=== PATIENT | female | born 1945 | race Caucasian/White ===

== ENCOUNTER 2016-10-20 14:48 | Emergency (ER) | payer MEDICARE, BC ==
--- NOTE | 2016-10-20 15:25 | EDM.PDOC ---
ED HPI GENERAL MEDICAL PROBLEM - General Chief Complaint: General Stated Complaint: ARM PAIN AND LIGHT HEADED Time Seen by Provider: 10/20/16 15:17 Source of Information: Reports: Patient History Limitations: Reports: No limitations - History of Present Illness INITIAL COMMENTS - FREE TEXT/NARRATIVE: pt arrived with a history of a painful arm particulatly when she walks. She has had to quit walking because she has had so much pain. Onset: gradual, other ( this has been going on for at least 1 month. ) Duration: Waxing/waning Location: Reports: upper extremity, left, other ( She did have some left chest pain suddenly a couple of days ago. ) Associated Symptoms: Reports: chest pain, shortness of breath, other ( left arm pain. ) Left Arm Pain Score (Numeric/FACES): 4 - Related Data Allergies Allergy/AdvReac Type Severity Reaction Status Date / Time No Known Allergies Allergy Verified 06/10/15 16:42 Past Medical History HEENT History: Reports: Impaired vision Oncologic (Cancer) History: Reports: Lymphoma - Infectious Disease History Infectious Disease History: Reports: Chicken pox, Measles, Mumps - Past Surgical History GI Surgical History: Reports: Appendectomy Female Surgical History: Reports: Hysterectomy Endocrine Surgical History: Reports: Thyroidectomy Oncologic Surgical History: Reports: Other (see below) Other Oncologic Surgeries/Procedures: lymph nodes in neck removed. Social & Family History - Tobacco Use Smoking Status *Q: Never Smoker Second Hand Smoke Exposure: No - Caffeine Use Caffeine Use: Reports: Coffee - Alcohol Use Days Per Week of Alcohol Use: 0 - Recreational Drug Use Recreational Drug Use: No ED ROS GENERAL - Review of Systems Review Of Systems: See Below Constitutional: Reports: no symptoms HEENT: Reports: No symptoms Respiratory: Reports: No Symptoms Cardiovascular: Reports: Other (pt is having left arm pain which gets much worse when he walks or exercises. ) Endocrine: Reports: no symptoms GI/Abdominal: Reports: No symptoms : Reports: no symptoms Musculoskeletal: Reports: no symptoms Skin: Reports: no symptoms ED EXAM, GENERAL - Physical Exam Exam: See Below Exam Limited By: No limitations General Appearance: alert, anxious Ears: normal TMs Nose: normal inspection Throat/Mouth: Normal inspection Head: atraumatic Neck: normal inspection Respiratory/Chest: other (Pt has sob when she ambulates) Cardiovascular: regular rate, rhythm, other (She does feel like her heart races at times. ) GI/Abdominal: soft, non tender Rectal (Female) Exam: Deferred Back Exam: normal inspection Extremities: normal inspection Neurological: alert, oriented Psychiatric: normal affect Course - Vital Signs Last Recorded V/S: Last Vital Signs Temp 36.9 C 10/20/16 15:07 Pulse 69 10/20/16 16:11 Resp 16 10/20/16 16:11 BP 139/75 10/20/16 16:11 Pulse Ox 95 10/20/16 16:11 - Orders/Labs/Meds Orders: Active Orders 24 hr Category Date Time Status EKG Documentation Completion [RC] ASDIRECTED Care 10/20/16 15:28 Active Chest 1V Frontal [CR] Stat Exams 10/20/16 15:28 Taken CULTURE URINE [RM] Stat Lab 10/20/16 16:59 Uncollected EKG 12 Lead [EK] Routine Ther 10/20/16 15:28 Ordered Labs: Laboratory Tests 10/20/16 10/20/16 10/20/16 Range/Units 15:32 15:32 15:32 WBC 173.9 H* (4.5-11.0) K/uL RBC 3.01 L (3.30-5.50) M/uL Hgb 9.0 L (12.0-15.0) g/dL Hct 28.4 L (36.0-48.0) % MCV 94 (80-98) fL MCH 30 (27-31) pg MCHC 32 (32-36) % Plt Count 182 (150-400) K/uL Add Manual Diff Yes Neutrophils % (Manual) 6 L (36-66) % Lymphocytes % (Manual) 91 H (24-44) % Monocytes % (Manual) 1 L (2-6) % Promyelocytes % 0 % Blast Cells % 2 % Polychromasia Sodium 141 (140-148) mmol/L Potassium 3.9 (3.6-5.2) mmol/L Chloride 107 (100-108) mmol/L Carbon Dioxide 26 (21-32) mmol/L Anion Gap 7.7 (5.0-14.0) mmol/L BUN 32 H (7-18) mg/dL Creatinine 1.2 H (0.6-1.0) mg/dL Est Cr Clr Drug Dosing 25.05 mL/min Estimated GFR (MDRD) 44 L (>60) Glucose 111 H (74-106) mg/dL Calcium 8.4 L (8.5-10.1) mg/dL Total Bilirubin 0.3 (0.2-1.0) mg/dL AST 37 (15-37) U/L ALT 31 (12-78) U/L Alkaline Phosphatase 158 H (46-116) U/L Creatine Kinase 107 (26-192) U/L Troponin I < 0.017 (0.000-0.056) ng/mL Total Protein 7.3 (6.4-8.2) g/dL Albumin 3.9 (3.4-5.0) g/dL Globulin 3.4 (2.3-3.5) g/dL Albumin/Globulin Ratio 1.1 L (1.2-2.2) Urine Color Urine Appearance Urine pH (4.5-8.0) Ur Specific [place] (1.008-1.030) Urine Protein (NEGATIVE) mg/dL Urine Glucose (UA) (NEGATIVE) mg/dL Urine Ketones (NEGATIVE) mg/dL Urine Occult Blood (NEGATIVE) Urine Nitrite (NEGATIVE) Urine Bilirubin (NEGATIVE) Urine Urobilinogen (NORMAL) mg/dL Ur Leukocyte Esterase (NEGATIVE) Urine RBC (0-5) Urine WBC (0-5) Ur Epithelial Cells Amorphous Sediment Urine Bacteria Urine Mucus 10/20/16 Range/Units 16:35 WBC (4.5-11.0) K/uL RBC (3.30-5.50) M/uL Hgb (12.0-15.0) g/dL Hct (36.0-48.0) % MCV (80-98) fL MCH (27-31) pg MCHC (32-36) % Plt Count (150-400) K/uL Add Manual Diff Neutrophils % (Manual) (36-66) % Lymphocytes % (Manual) (24-44) % Monocytes % (Manual) (2-6) % Promyelocytes % % Blast Cells % % Polychromasia Sodium (140-148) mmol/L Potassium (3.6-5.2) mmol/L Chloride (100-108) mmol/L Carbon Dioxide (21-32) mmol/L Anion Gap (5.0-14.0) mmol/L BUN (7-18) mg/dL Creatinine (0.6-1.0) mg/dL Est Cr Clr Drug Dosing mL/min Estimated GFR (MDRD) (>60) Glucose (74-106) mg/dL Calcium (8.5-10.1) mg/dL Total Bilirubin (0.2-1.0) mg/dL AST (15-37) U/L ALT (12-78) U/L Alkaline Phosphatase (46-116) U/L Creatine Kinase (26-192) U/L Troponin I (0.000-0.056) ng/mL Total Protein (6.4-8.2) g/dL Albumin (3.4-5.0) g/dL Globulin (2.3-3.5) g/dL Albumin/Globulin Ratio (1.2-2.2) Urine Color Yellow Urine Appearance Clear Urine pH 7.0 (4.5-8.0) Ur Specific [place] 1.015 (1.008-1.030) Urine Protein Negative (NEGATIVE) mg/dL Urine Glucose (UA) Normal (NEGATIVE) mg/dL Urine Ketones Negative (NEGATIVE) mg/dL Urine Occult Blood Moderate (NEGATIVE) Urine Nitrite Negative (NEGATIVE) Urine Bilirubin Negative (NEGATIVE) Urine Urobilinogen Normal (NORMAL) mg/dL Ur Leukocyte Esterase Large (NEGATIVE) Urine RBC 0-5 (0-5) Urine WBC 5-10 H (0-5) Ur Epithelial Cells Few Amorphous Sediment Not seen Urine Bacteria Few Urine Mucus Not seen - Re-Assessments/Exams Free Text/Narrative Re-Assessment/Exam: 10/20/16 15:52 pt arrived with a history of left arm pain particularly when she ambulates. She also gets sob. She has quit walking because it is too uncomfortable. 10/20/16 17:16 pt has a wbc of 173,ooo. Her hg has dropped from 10 to 9. She is more sob. Departure - Departure Time of Disposition: 15:56 Disposition: Home, Self-Care 01 Condition: fair Clinical Impression: Angina effort, Anemia, Chronic lymphocytic leukemia Referrals: Reginaldo Penaloza MD [Primary Care Provider] - Forms: ED Department Discharge Care Plan Goals: rtc for a stress test. ( This was discussed with her oncologist and he felt she could have a exercise stress test]. appt with oncology . in 1 week to look at her counts. rtc if she should suddenly get worse. - My Orders Last 24 Hours: My Active Orders 10/20/16 15:28 EKG Documentation Completion [RC] ASDIRECTED Chest 1V Frontal [CR] Stat EKG 12 Lead [EK] Routine 10/20/16 16:59 CULTURE URINE [RM] Stat - Assessment/Plan Last 24 Hours: My Active Orders 10/20/16 15:28 EKG Documentation Completion [RC] ASDIRECTED Chest 1V Frontal [CR] Stat EKG 12 Lead [EK] Routine 10/20/16 16:59 CULTURE URINE [RM] Stat
[2016-10-20 16:12] VITALS: BP 139/75
--- NOTE | 2016-10-21 09:09 | CR ---
Chest 1V Frontal HISTORY: Shortness of breath. Comparison: 06/10/2015. FINDINGS: Cardiac size and pulmonary vessels are normal. The lungs are clear. IMPRESSION: Negative AP chest.
== END 2016-10-20 17:40 | disposition home or self-care (01) ==
LOC: JP.ED 14:48
DX: I20.8 Other forms of angina pectoris (principal); D64.9 Anemia, unspecified; C91.10 Chronic lymphocytic leukemia of B-cell type not having achieved remission; Z85.72 Personal history of non-Hodgkin lymphomas; Z90.49 Acquired absence of other specified parts of digestive tract; Z90.710 Acquired absence of both cervix and uterus; Z90.89 Acquired absence of other organs
CPT/HCPCS: 36415; 71010; 71010-26; 80053; 81001; 82550; 84484; 85025; 93005; 93010; 99283; 99283-25

== ENCOUNTER 2017-04-22 13:40 | Emergency (ER) | payer MEDICARE, BC ==
[2017-04-22 14:23] VITALS: BP 128/62
[2017-04-22] MEDS ORDERED: Diphtheria,Pertussis(Acell),Tetanus Vaccine 0.5 ML SDV IM ONE (14:27)
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
== END 2017-04-22 14:47 | disposition home or self-care (01) ==
LOC: JP.ED 13:40
DX: T22.212A Burn of second degree of left forearm, initial encounter (principal); I10 Essential (primary) hypertension; E78.00 Pure hypercholesterolemia, unspecified; Z79.899 Other long term (current) drug therapy; X19.XXXA Contact with other heat and hot substances, initial encounter; Z23 Encounter for immunization
CPT/HCPCS: 90471; 90715; 99283; 99283-25

== ENCOUNTER 2018-02-15 23:54 | Emergency (ER) | payer MEDICARE, BC ==
[2018-02-16 00:21] VITALS: BP 154/66
[2018-02-16] MEDS ORDERED: Ketorolac 30 MG/ML SDV IVPUSH ONE (00:22)
[2018-02-16] MEDS ORDERED: HYDROmorphone 0.5 MG/0.5 ML Syringe IVPUSH ONE (00:22)
[2018-02-16] MEDS ORDERED: Sodium Chloride 0.9% 10 ML Syringe FLUSH PRN (00:22)
[2018-02-16] MEDS ORDERED: methylPREDNISolone Sodium Succinate 125 MG/2 ML SDV IVPUSH ONE (00:54)
--- NOTE | 2018-02-16 01:01 | EDM.PDOC ---
ED HPI GENERAL MEDICAL PROBLEM - General Chief Complaint: Neck Problem Stated Complaint: STIFF NECK LOTS OF PAIN Time Seen by Provider: 02/16/18 00:20 Source of Information: Reports: Patient History Limitations: Reports: No Limitations - History of Present Illness INITIAL COMMENTS - FREE TEXT/NARRATIVE: 72-year-old female with very significant neck pain. She woke up 5 days ago with a stiff neck, its been bothering her all week so she went to a chiropractor earlier today and had a manipulation and tonight she is very sore. A small amount of pain radiating into the right shoulder but none down the extremities. The chiropractor told her it was "wryneck". Onset: Gradual Severity: Moderate Associated Symptoms: Reports: No Other Symptoms neck Pain Score (Numeric/FACES): 10 - Related Data Allergies Allergy/AdvReac Type Severity Reaction Status Date / Time No Known Allergies Allergy Verified 02/16/18 00:09 Home Meds: Home Meds Ibrutinib [Imbruvica] 320 mg PO BEDTIME 04/22/17 [History] Metoprolol Succinate 25 mg PO DAILY 04/22/17 [History] Aspirin [Adult Low Dose Aspirin EC] 81 mg PO DAILY 02/16/18 [History] Simvastatin [Zocor] 40 mg PO BEDTIME 02/16/18 [History] Past Medical History HEENT History: Reports: Impaired Vision Cardiovascular History: Reports: High Cholesterol, Hypertension, Stents Oncologic (Cancer) History: Reports: Lymphoma - Infectious Disease History Infectious Disease History: Reports: Chicken Pox, Measles, Mumps - Past Surgical History GI Surgical History: Reports: Appendectomy Female Surgical History: Reports: Hysterectomy Endocrine Surgical History: Reports: Thyroidectomy Oncologic Surgical History: Reports: Other (See Below) Social & Family History - Tobacco Use Smoking Status *Q: Never Smoker - Caffeine Use Caffeine Use: Reports: Coffee - Recreational Drug Use Recreational Drug Use: No ED ROS GENERAL - Review of Systems Review Of Systems: See Below Constitutional: Denies: Chills HEENT: Denies: Throat Pain Respiratory: Denies: Shortness of Breath Cardiovascular: Denies: Chest Pain GI/Abdominal: Denies: Abdominal Pain, Nausea, Vomiting Musculoskeletal: Reports: Neck Pain Neurological: Denies: Headache, Paresthesia ED EXAM, UPPER BACK/NECK PAIN - Physical Exam Exam: See Below Exam Limited By: No Limitations General Appearance: Alert, Moderate Distress (Patient is very uncomfortable, holding her neck still) Head Exam: Atraumatic Neck Exam: Paraspinous Muscle Tender (Patient is extremely tender to palpation along the posterior paraspinous muscles of the neck, particularly on the right side into the right trapezius area) Back Exam: Normal Inspection. No: Vertebral Tenderness Extremities: No: Pedal Edema Neurologic: Oriented x 3 Skin Exam: Normal Color, Warm/Dry Course - Vital Signs Last Recorded V/S: Last Vital Signs Temp 97.1 F 02/16/18 00:13 Pulse 62 02/16/18 00:13 Resp 18 02/16/18 00:13 BP 154/66 H 02/16/18 00:13 Pulse Ox 97 02/16/18 00:13 - Orders/Labs/Meds Orders: Active Orders 24 hr Category Date Time Status Sodium Chloride 0.9% [Saline Flush] Med 02/16/18 00:22 Active 10 ml FLUSH ASDIRECTED PRN Saline Lock Insert [OM.PC] Routine Oth 02/16/18 00:22 Ordered Medication Orders Sodium Chloride (Saline Flush) 10 ml FLUSH ASDIRECTED PRN PRN Reason: Keep Vein Open Last Admin: 02/16/18 00:31 Dose: 10 ml Meds: Medications Generic Name Dose Route Start Last Admin Trade Name Freq PRN Reason Stop Dose Admin Sodium Chloride 10 ml 02/16/18 00:22 02/16/18 00:31 Saline Flush FLUSH 10 ml ASDIRECTED PRN Administration Keep Vein Open Discontinued Medications Generic Name Dose Route Start Last Admin Trade Name Freq PRN Reason Stop Dose Admin Hydromorphone HCl 0.5 mg 02/16/18 00:22 02/16/18 00:30 Dilaudid IVPUSH 02/16/18 00:23 0.5 mg ONETIME ONE Administration Ketorolac Tromethamine 30 mg 02/16/18 00:22 02/16/18 00:28 Toradol IVPUSH 02/16/18 00:23 30 mg ONETIME ONE Administration Methylprednisolone Sodium Succinate 125 mg 02/16/18 00:54 02/16/18 01:00 Solu-Medrol IVPUSH 02/16/18 00:55 125 mg ONETIME ONE Administration - Re-Assessments/Exams Free Text/Narrative Re-Assessment/Exam: 02/16/18 00:57 A saline lock was inserted, and the patient was given 30 mg of IV Toradol along with 0.5 mg of IV Dilaudid. Within 30 minutes she had significant relief but still some pain. She was then given 125 mg of Solu-Medrol IV and will be discharged with 10 doses of hydrocodone to take for extra pain control. A soft cervical collar was fitted that she can wear just for support while resting but should try to be active without the collar for a good portion of the day. I asked her to recheck with her regular physician to get physical therapy initiated. 02/16/18 01:04 Patient was also fitted with a soft cervical collar to wear just for pain relief on an as-needed basis. Departure - Departure Time of Disposition: 01:20 Disposition: Home, Self-Care 01 Condition: Fair Clinical Impression: Wryneck Strain of neck Qualifiers: Encounter type: initial encounter Qualified Code(s): S16.1XXA - Strain of muscle, fascia and tendon at neck level, initial encounter - Discharge Information Instructions: Acute Torticollis, Adult Referrals: Reginaldo Penaloza MD [Primary Care Provider] - Forms: ED Department Discharge Care Plan Goals: Continue with a regular dose of ibuprofen or naproxen, and add stronger pain medications as directed if needed over the next several days. Heat to the neck may help along with gentle range of motion, and call Dr. Penaloza to arrange a physical therapy consultation for further treatment. - My Orders Last 24 Hours: My Active Orders 02/16/18 00:22 Sodium Chloride 0.9% [Saline Flush] 10 ml FLUSH ASDIRECTED PRN Saline Lock Insert [OM.PC] Routine - Assessment/Plan Last 24 Hours: My Active Orders 02/16/18 00:22 Sodium Chloride 0.9% [Saline Flush] 10 ml FLUSH ASDIRECTED PRN Saline Lock Insert [OM.PC] Routine
== END 2018-02-16 01:20 | disposition home or self-care (01) ==
LOC: JP.ED 23:54
DX: S16.1XXA Strain of muscle, fascia and tendon at neck level, initial encounter (principal); M43.6 Torticollis; I10 Essential (primary) hypertension; X58.XXXA Exposure to other specified factors, initial encounter; Z79.82 Long term (current) use of aspirin
CPT/HCPCS: 99283; J1170; J1885; J2930; J7050

== ENCOUNTER 2020-06-07 18:50 | Emergency (ER) | payer MEDICARE, BC ==
[2020-06-07 19:16] VITALS: BP 135/69; PULSE 73
--- NOTE | 2020-06-07 19:26 | EDM.PDOC ---
ED HPI GENERAL MEDICAL PROBLEM - General Chief Complaint: General Stated Complaint: SICK FOR A COUPLE WEEKS Time Seen by Provider: 06/07/20 19:20 Source of Information: Reports: Patient, Family, Old Records, RN History Limitations: Reports: No Limitations - History of Present Illness INITIAL COMMENTS - FREE TEXT/NARRATIVE: 74 yo female was dx a couple weeks ago with Covid. She went to the clinic this past Monday or Monday and was placed on prednisone and azithromycin. The niece noted this evening that Anna had a low oximeter reading at home so brought her into the ER. Has been running intermittent fevers most of the week. Had diarrhea early in the week, not now. No dysuria. Has as cough that is much improved. No rash. No RICHARDS. No sore throat or ear ache. Onset: Gradual Duration: Week(s): (2), Waxing/Waning Location: Reports: Generalized Quality: Reports: Ache (diffuse) Severity: Mild Improves with: Reports: Medication Worsens with: Reports: Other (meds wearing off) Context: Reports: Other (See HPI) Associated Symptoms: Reports: Chest Pain, Cough (mild, improving), Fever/Chills, Malaise, Shortness of Breath (mild). Denies: Diaphoresis, Headaches, Nausea/Vomiting, Rash Treatments [employer]: Reports: Acetaminophen - Related Data Allergies Allergy/AdvReac Type Severity Reaction Status Date / Time No Known Allergies Allergy Verified 06/07/20 19:05 Home Meds: Home Meds Ibrutinib [Imbruvica] 320 mg PO BEDTIME 04/22/17 [History] Metoprolol Succinate 25 mg PO DAILY 04/22/17 [History] Aspirin [Adult Low Dose Aspirin EC] 81 mg PO DAILY 02/16/18 [History] Simvastatin [Zocor] 40 mg PO BEDTIME 02/16/18 [History] Sulfamethoxazole/Trimethoprim [Bactrim Ds Tablet] 1 each PO Q12H #13 tablet 06/07/20 [Rx] Past Medical History HEENT History: Reports: Impaired Vision Cardiovascular History: Reports: High Cholesterol, Hypertension, Stents Oncologic (Cancer) History: Reports: Lymphoma - Infectious Disease History Infectious Disease History: Reports: Chicken Pox, Measles, Mumps - Past Surgical History GI Surgical History: Reports: Appendectomy Female Surgical History: Reports: Hysterectomy Endocrine Surgical History: Reports: Thyroidectomy Oncologic Surgical History: Reports: Other (See Below) Other Oncologic Surgeries/Procedures: lymph nodes in neck removed. Social & Family History - Tobacco Use Tobacco Use Status *Q: Never Tobacco User - Caffeine Use Caffeine Use: Reports: Coffee ED ROS GENERAL - Review of Systems Review Of Systems: See Below Constitutional: Reports: Fever, Chills, Malaise HEENT: Reports: No Symptoms Respiratory: Reports: Shortness of Breath (mild), Cough (mild). Denies: Pleuritic Chest Pain, Sputum, Hemoptysis Cardiovascular: Reports: No Symptoms Endocrine: Reports: No Symptoms GI/Abdominal: Reports: No Symptoms : Reports: No Symptoms Musculoskeletal: Reports: No Symptoms Skin: Reports: No Symptoms Neurological: Reports: No Symptoms Psychiatric: Reports: No Symptoms ED EXAM, GENERAL - Physical Exam Exam: See Below Exam Limited By: No Limitations General Appearance: Alert, WD/WN, No Apparent Distress Eye Exam: Bilateral Eye: Normal Inspection Ears: Normal External Exam, Normal Canal, Hearing Grossly Normal, Normal TMs Ear Exam: Bilateral Ear: Auricle Normal, Canal Normal, TM normal Nose: Normal Inspection, No Blood Throat/Mouth: Normal Inspection, Normal Lips, Normal Oropharynx, Normal Voice, No Airway Compromise Head: Atraumatic, Normocephalic Neck: Normal Inspection Respiratory/Chest: No Respiratory Distress, No Accessory Muscle Use, Rhonchi. No: Wheezing Cardiovascular: Regular Rate, Rhythm, No Edema GI/Abdominal: Normal Bowel Sounds, Soft, Non-Tender, No Distention Back Exam: Normal Inspection. No: CVA Tenderness (R), CVA Tenderness (L) Extremities: Normal Inspection, Non-Tender, No Pedal Edema Neurological: Alert, Oriented, CN II-XII Intact, Normal Cognition, No Motor/Sensory Deficits Psychiatric: Normal Affect, Normal Mood Skin Exam: Warm, Dry, Intact, Normal Color, No Rash Course - Vital Signs Text/Narrative:: Dr. Rey called @ Last Recorded V/S: Last Vital Signs Temp 37.2 C 06/07/20 19:15 Pulse 73 06/07/20 19:15 Resp 14 06/07/20 19:15 BP 135/69 06/07/20 19:15 Pulse Ox 89 L 06/07/20 19:15 - Orders/Labs/Meds Orders: Active Orders 24 hr Category Date Time Status CULTURE URINE [RM] Stat Lab 06/07/20 20:25 Ordered Labs: Laboratory Tests 06/07/20 06/07/20 06/07/20 Range/Units 19:37 19:45 19:45 WBC 40.5 H* 40.6 H* (4.5-11.0) K/uL RBC 3.91 3.91 (3.30-5.50) M/uL Hgb 11.5 L D 11.5 L (12.0-15.0) g/dL Hct 36.5 36.5 (36.0-48.0) % MCV 93 93 (80-98) fL MCH 29 29 (27-31) pg MCHC 31 L 32 (32-36) % Plt Count 252 252 (150-400) K/uL Add Manual Diff Yes Neutrophils % (Manual) 18 L (36-66) % Band Neutrophils % 3 L (5-11) % Lymphocytes % (Manual) 78 H (24-44) % Monocytes % (Manual) 1 L (2-6) % D-Dimer, Quantitative (0.0-500.0) ng/mL Sodium 139 L (140-148) mmol/L Potassium 3.7 (3.6-5.2) mmol/L Chloride 104 (100-108) mmol/L Carbon Dioxide 25 (21-32) mmol/L Anion Gap 13.7 (5.0-14.0) mmol/L BUN 34 H (7-18) mg/dL Creatinine 1.2 H (0.6-1.0) mg/dL Est Cr Clr Drug Dosing 37.92 mL/min Estimated GFR (MDRD) 44 L (>60) Glucose 127 H (74-106) mg/dL Calcium 7.7 L (8.5-10.1) mg/dL Urine Color (YELLOW) Urine Appearance (CLEAR) Urine pH (5.0-8.0) Ur Specific [place] (1.008-1.030) Urine Protein (NEGATIVE) mg/dL Urine Glucose (UA) (NEGATIVE) mg/dL Urine Ketones (NEGATIVE) mg/dL Urine Occult Blood (NEGATIVE) Urine Nitrite (NEGATIVE) Urine Bilirubin (NEGATIVE) Urine Urobilinogen (0.2-1.0) EU/dL Ur Leukocyte Esterase (NEGATIVE) Urine RBC (0-5) Urine WBC (0-5) Ur Epithelial Cells Urine Bacteria 06/07/20 06/07/20 Range/Units 19:45 19:50 WBC (4.5-11.0) K/uL RBC (3.30-5.50) M/uL Hgb (12.0-15.0) g/dL Hct (36.0-48.0) % MCV (80-98) fL MCH (27-31) pg MCHC (32-36) % Plt Count (150-400) K/uL Add Manual Diff Neutrophils % (Manual) (36-66) % Band Neutrophils % (5-11) % Lymphocytes % (Manual) (24-44) % Monocytes % (Manual) (2-6) % D-Dimer, Quantitative 655.03 H (0.0-500.0) ng/mL Sodium (140-148) mmol/L Potassium (3.6-5.2) mmol/L Chloride (100-108) mmol/L Carbon Dioxide (21-32) mmol/L Anion Gap (5.0-14.0) mmol/L BUN (7-18) mg/dL Creatinine (0.6-1.0) mg/dL Est Cr Clr Drug Dosing mL/min Estimated GFR (MDRD) (>60) Glucose (74-106) mg/dL Calcium (8.5-10.1) mg/dL Urine Color Yellow (YELLOW) Urine Appearance Clear (CLEAR) Urine pH 5.5 (5.0-8.0) Ur Specific [place] >= 1.030 (1.008-1.030) Urine Protein 30 H (NEGATIVE) mg/dL Urine Glucose (UA) Negative (NEGATIVE) mg/dL Urine Ketones Negative (NEGATIVE) mg/dL Urine Occult Blood Moderate H (NEGATIVE) Urine Nitrite Negative (NEGATIVE) Urine Bilirubin Negative (NEGATIVE) Urine Urobilinogen 0.2 (0.2-1.0) EU/dL Ur Leukocyte Esterase Small H (NEGATIVE) Urine RBC 0-5 (0-5) Urine WBC 75-100 H (0-5) Ur Epithelial Cells Few Urine Bacteria Few Meds: Medications Discontinued Medications Generic Name Dose Route Start Last Admin Trade Name Freq PRN Reason Stop Dose Admin Trimethoprim/Sulfamethoxazole 1 tab 06/07/20 20:27 Septra Ds PO 06/07/20 20:28 ONETIME ONE - Radiology Interpretation Free Text/Narrative:: CXR- FINDINGS: Cardiovascular and mediastinum: Heart size and vasculature are normal in caliber and appearance. Mediastinum is within normal limits. Lungs and pleural spaces: Mid to lower lung infiltrates consistent with pneumonia including COVID pneumonia. No pleural effusion. Bones and soft tissues: No significant findings. Dictated by Stephanie Lowry MD @ Jun 07 2020 8:05PM Departure - Departure Time of Disposition: 20:40 Disposition: Home, Self-Care 01 Condition: Fair Clinical Impression: Hypoxia UTI (urinary tract infection) Qualifiers: Urinary tract infection type: site unspecified Hematuria presence: without hematuria Qualified Code(s): N39.0 - Urinary tract infection, site not specified - Discharge Information *PRESCRIPTION DRUG MONITORING PROGRAM REVIEWED*: Not Applicable *COPY OF PRESCRIPTION DRUG MONITORING REPORT IN PATIENT [place]OMON: Not Applicable Prescriptions: Sulfamethoxazole/Trimethoprim [Bactrim Ds Tablet] 1 each PO Q12H #13 tablet Referrals: Reginaldo Penaloza MD [Primary Care Provider] - Forms: ED Department Discharge Additional Instructions: Drink more fluids so that your urine is light yellow in color. Take Bactrim DS every 12 hrs, your Rx went to [facility]. Take acetaminophen as needed for fever control. Recheck by tomorrow afternoon in the clinic to have your oxygen level rechecked, you were 89% tonight. Sepsis Event Note (ED) - Evaluation Sepsis Screening Result: No Definite Risk - Focused Exam Vital Signs: Vital Signs Temp Pulse Resp BP Pulse Ox 06/07/20 19:15 37.2 C 73 14 135/69 89 L - My Orders Last 24 Hours: My Active Orders 06/07/20 20:25 CULTURE URINE [RM] Stat - Assessment/Plan Last 24 Hours: My Active Orders 06/07/20 20:25 CULTURE URINE [RM] Stat
--- NOTE | 2020-06-07 20:08 | CRLCR ---
INDICATION: Hypoxia TECHNIQUE: Chest 2 views. COMPARISON: 10/20/2016 FINDINGS: Cardiovascular and mediastinum: Heart size and vasculature are normal in caliber and appearance. Mediastinum is within normal limits. Lungs and pleural spaces: Mid to lower lung infiltrates consistent with pneumonia including COVID pneumonia. No pleural effusion. Bones and soft tissues: No significant findings. Dictated by Stephanie Lowry MD @ Jun 07 2020 8:05PM Signed by Dr. Stephanie Lowry @ Jun 07 2020 8:07PM
[2020-06-07] MEDS ORDERED: Sulfamethoxazole/Trimethoprim 800-160 MG Tab PO ONE (20:27)
== END 2020-06-07 21:15 | disposition home or self-care (01) ==
LOC: JP.ED 18:50
DX: N39.0 Urinary tract infection, site not specified (principal); R09.02 Hypoxemia; E78.00 Pure hypercholesterolemia, unspecified; I10 Essential (primary) hypertension; Z86.19 Personal history of other infectious and parasitic diseases; Z79.82 Long term (current) use of aspirin; Z79.899 Other long term (current) drug therapy
CPT/HCPCS: 36415; 71046; 80048; 81001; 85025; 85027; 85379; 87086; 99283; 99284; A9270

== ENCOUNTER 2020-06-09 18:32 | Inpatient (IN) | payer MEDICARE, BC ==
--- NOTE | 2020-06-09 18:52 | EDM.PDOC ---
ED HPI GENERAL MEDICAL PROBLEM - General Chief Complaint: Respiratory Problem Stated Complaint: SICK Time Seen by Provider: 06/09/20 18:42 Source of Information: Reports: Patient History Limitations: Reports: No Limitations - History of Present Illness INITIAL COMMENTS - FREE TEXT/NARRATIVE: patient presents to the ER today due to increasing weakness/fatigue, shortness of breath, dry heave vomiting, nausea, headache yesterday. denies any recent fever/chills--states had that last week when initially sick. she states that symptoms began around May, she finally went to her clinic doctor last week (mon or ) and was tested/dx COVID. she was placed on azithromycin & prednisone as an outpatient. returned to the ER on May due to noted home pulse ox being low (ER noted for 89%) she was worked up-noted for chest film of bilateral infiltrates c/w COVID pneumonia, possible UTI (neg urine culture--was sent home on bactrim), noted WBC-40 (has known CLL & was on prednisone tx). initial pulse ox 78% on room air in triage Onset: Other (reports initial symptoms May, was tested in clinic + COVID last monday, was in the ER on May for concern about hypoxia at home, d/c with UTI dx (but noted on review of chest film to have COVID pneumonia at that time)) Duration: Getting Worse Severity: Severe Associated Symptoms: Reports: Cough, Headaches, Loss of Appetite, Nausea/Vomiting, Shortness of Breath, Weakness - Related Data Allergies Allergy/AdvReac Type Severity Reaction Status Date / Time No Known Allergies Allergy Verified 06/07/20 19:05 Home Meds: Home Meds Ibrutinib [Imbruvica] 320 mg PO BEDTIME 04/22/17 [History] Metoprolol Succinate 25 mg PO DAILY 04/22/17 [History] Aspirin [Adult Low Dose Aspirin EC] 81 mg PO DAILY 02/16/18 [History] Simvastatin [Zocor] 40 mg PO BEDTIME 02/16/18 [History] Sulfamethoxazole/Trimethoprim [Bactrim Ds Tablet] 1 each PO Q12H #13 tablet 06/07/20 [Rx] Past Medical History HEENT History: Reports: Impaired Vision Cardiovascular History: Reports: High Cholesterol, Hypertension, Stents Oncologic (Cancer) History: Reports: Lymphoma - Infectious Disease History Infectious Disease History: Reports: Chicken Pox, Measles, Mumps - Past Surgical History GI Surgical History: Reports: Appendectomy Female Surgical History: Reports: Hysterectomy Endocrine Surgical History: Reports: Thyroidectomy Oncologic Surgical History: Reports: Other (See Below) Other Oncologic Surgeries/Procedures: lymph nodes in neck removed. Social & Family History - Caffeine Use Caffeine Use: Reports: Coffee ED ROS GENERAL - Review of Systems Review Of Systems: Comprehensive ROS is negative, except as noted in HPI. Constitutional: Reports: Fever, Weakness, Fatigue, Decreased Appetite HEENT: Reports: No Symptoms Respiratory: Reports: Shortness of Breath, Cough Cardiovascular: Reports: No Symptoms Endocrine: Reports: No Symptoms GI/Abdominal: Reports: Nausea, Vomiting (dry heaves) : Reports: No Symptoms Musculoskeletal: Reports: No Symptoms Skin: Reports: No Symptoms Neurological: Reports: Weakness Psychiatric: Reports: No Symptoms Hematologic/Lymphatic: Reports: No Symptoms Immunologic: Reports: No Symptoms ED EXAM, GENERAL - Physical Exam Exam: See Below Exam Limited By: No Limitations General Appearance: Alert, Moderate Distress (respiratory/SOB, weakness apparent as she appears to not feel well) Eye Exam: Bilateral Eye: EOMI, Normal Inspection, PERRL Ears: Normal External Exam Nose: Normal Inspection Throat/Mouth: Normal Inspection, Normal Lips, Normal Oropharynx, No Airway Compromise Head: Atraumatic, Normocephalic Neck: Normal Inspection, Supple, Non-Tender, Full Range of Motion. No: Lymphadenopathy (R), Lymphadenopathy (L) Respiratory/Chest: Chest Non-Tender, Respiratory Distress (moderate tachypnea/dyspnea with conversation, initial pulse ox on RA-78%, on 6L nc fluctuation 89-92%) Cardiovascular: Normal Peripheral Pulses, Regular Rate, Rhythm, No Edema, No Murmur Peripheral Pulses: 2+: Radial (L), Radial (R) GI/Abdominal: Normal Bowel Sounds, Soft, Non-Tender, No Distention (Female) Exam: Deferred Rectal (Female) Exam: Deferred Back Exam: Normal Inspection, Full Range of Motion Extremities: Normal Inspection, Normal Range of Motion, Non-Tender, No Pedal Edema, Normal Capillary Refill Neurological: Alert, Oriented, Normal Cognition, No Motor/Sensory Deficits Psychiatric: Normal Affect, Normal Mood Skin Exam: Warm, Dry, Intact, Normal Color #1 Interpretation EKG Date: 06/09/20 Time: 19:32 (read by physician at 1944) Rhythm: NSR (NSR, no STEMI, limb leads noted for baseline interference) Rate (Beats/Min): 72 P-Wave: Present (OR-187) QRS: Other (L-anterior fascicular block; QRS-94) QT: Normal (QT/QTc-415/455) Course - Vital Signs Text/Narrative:: 1845--d/w patient plan of care in setting of COVID dx with hypoxia likely COVID pneumonia. will obtain labs & chest film and plan for admission. d/w her code status--she stated when ask specifically that she did not want intubated/ventilator, no CPR, no difibrillation, no medications--she stated "just let me go if its my time". order for DNR/DNI entered. CLAUDIA Turner RN was present at bedside during this discussion Last Recorded V/S: Last Vital Signs Temp 98.3 F 06/09/20 18:57 Pulse 66 06/09/20 20:33 Resp 26 H 06/09/20 20:33 BP 108/57 L 06/09/20 20:33 Pulse Ox 90 L 06/09/20 20:33 - Orders/Labs/Meds Orders: Active Orders 24 hr Category Date Time Status Cardiac Monitoring [RC] .As Directed Care 06/09/20 19:10 Active EKG Documentation Completion [RC] ASDIRECTED Care 06/09/20 19:09 Active Notify Provider Vital Signs [RC] ASDIRECTED Care 06/09/20 19:04 Active Peripheral IV Care [RC] . DIRECTED Care 06/09/20 19:09 Active Pulse Oximetry [RC] CONTINUOUS Care 06/09/20 19:07 Active Up With Assistance [RC] ASDIRECTED Care 06/09/20 19:04 Active Vital Signs [RC] PER UNIT ROUTINE Care 06/09/20 19:04 Active Chest 1V Frontal [CR] Urgent Exams 06/09/20 19:04 Taken Sodium Chloride 0.9% [Normal Saline] 1,000 ml Med 06/09/20 19:04 Active IV ASDIRECTED Sodium Chloride 0.9% [Saline Flush] Med 06/09/20 19:04 Active 10 ml FLUSH ASDIRECTED PRN Sodium Chloride 0.9% [Saline Flush] Med 06/09/20 19:04 Active 10 ml FLUSH ASDIRECTED PRN ED Respiratory Adult Reflex [OM.PC] Click to Edit Oth 06/09/20 19:04 Ordered Peripheral IV Insertion Adult [OM.PC] Urgent Oth 06/09/20 19:04 Ordered Resuscitation Status Routine Resus Stat 06/09/20 19:04 Ordered EKG 12 Lead [EK] Urgent Ther 06/09/20 19:04 Ordered Medication Orders Sodium Chloride (Normal Saline) 1,000 mls @ 125 mls/hr IV ASDIRECTED ONE Stop: 06/10/20 03:03 Last Admin: 06/09/20 20:49 Dose: Not Given Documented by: HAL Sodium Chloride (Saline Flush) 10 ml FLUSH ASDIRECTED PRN PRN Reason: Keep Vein Open Last Admin: 06/09/20 19:38 Dose: 10 ml Documented by: HAL Sodium Chloride (Saline Flush) 10 ml FLUSH ASDIRECTED PRN PRN Reason: Keep Vein Open Last Admin: 06/09/20 19:38 Dose: 10 ml Documented by: HAL Labs: Laboratory Tests 06/09/20 06/09/20 06/09/20 Range/Units 19:28 19:28 19:28 WBC 22.7 H (4.5-11.0) K/uL RBC 3.70 (3.30-5.50) M/uL Hgb 10.9 L (12.0-15.0) g/dL Hct 33.7 L (36.0-48.0) % MCV 91 (80-98) fL MCH 30 (27-31) pg MCHC 32 (32-36) % Plt Count 239 (150-400) K/uL Neut % (Auto) 36 (36-66) % Lymph % (Auto) 59 H (24-44) % [place] % (Auto) 5 (2-6) % Eos % (Auto) 0 L (2-4) % Baso % (Auto) 0 (0-1) % PT 10.7 (9.5-12.0) sec INR 0.98 (0.80-1.20) APTT 34.5 (27.0-36.0) sec Sodium 133 L (140-148) mmol/L Potassium 4.2 (3.6-5.2) mmol/L Chloride 101 (100-108) mmol/L Carbon Dioxide 23 (21-32) mmol/L Anion Gap 13.2 (5.0-14.0) mmol/L BUN 23 H (7-18) mg/dL Creatinine 1.3 H (0.6-1.0) mg/dL Est Cr Clr Drug Dosing 34.81 mL/min Estimated GFR (MDRD) 40 L (>60) Glucose 112 H (74-106) mg/dL Lactic Acid (0.4-2.0) mmol/L Calcium 7.7 L (8.5-10.1) mg/dL Magnesium 2.0 (1.8-2.4) mg/dL Ferritin (8-388) ng/ml Total Bilirubin 0.5 D (0.2-1.0) mg/dL AST 120 H D (15-37) U/L ALT 119 H (12-78) U/L Alkaline Phosphatase 210 H (46-116) U/L Lactate Dehydrogenase (82-234) U/L Troponin I < 0.017 (0.000-0.056) ng/mL C-Reactive Protein (0.0-0.3) mg/dL Total Protein 5.3 L (6.4-8.2) g/dL Albumin 2.3 L (3.4-5.0) g/dL Globulin 3.0 (2.3-3.5) g/dL Albumin/Globulin Ratio 0.8 L (1.2-2.2) 06/09/20 06/09/20 06/09/20 Range/Units 19:28 19:28 19:28 WBC (4.5-11.0) K/uL RBC (3.30-5.50) M/uL Hgb (12.0-15.0) g/dL Hct (36.0-48.0) % MCV (80-98) fL MCH (27-31) pg MCHC (32-36) % Plt Count (150-400) K/uL Neut % (Auto) (36-66) % Lymph % (Auto) (24-44) % [place] % (Auto) (2-6) % Eos % (Auto) (2-4) % Baso % (Auto) (0-1) % PT (9.5-12.0) sec INR (0.80-1.20) APTT (27.0-36.0) sec Sodium (140-148) mmol/L Potassium (3.6-5.2) mmol/L Chloride (100-108) mmol/L Carbon Dioxide (21-32) mmol/L Anion Gap (5.0-14.0) mmol/L BUN (7-18) mg/dL Creatinine (0.6-1.0) mg/dL Est Cr Clr Drug Dosing mL/min Estimated GFR (MDRD) (>60) Glucose (74-106) mg/dL Lactic Acid 1.6 (0.4-2.0) mmol/L Calcium (8.5-10.1) mg/dL Magnesium (1.8-2.4) mg/dL Ferritin 709 H (8-388) ng/ml Total Bilirubin (0.2-1.0) mg/dL AST (15-37) U/L ALT (12-78) U/L Alkaline Phosphatase (46-116) U/L Lactate Dehydrogenase 363 H (82-234) U/L Troponin I (0.000-0.056) ng/mL C-Reactive Protein 13.38 H (0.0-0.3) mg/dL Total Protein (6.4-8.2) g/dL Albumin (3.4-5.0) g/dL Globulin (2.3-3.5) g/dL Albumin/Globulin Ratio (1.2-2.2) Meds: Medications Generic Name Dose Route Start Last Admin Trade Name Freq PRN Reason Stop Dose Admin Sodium Chloride 1,000 mls @ 125 mls/hr 06/09/20 19:04 06/09/20 20:49 Normal Saline IV 06/10/20 03:03 Not Given ASDIRECTED ONE Sodium Chloride 10 ml 06/09/20 19:04 06/09/20 19:38 Saline Flush FLUSH 10 ml ASDIRECTED PRN Administration Keep Vein Open Sodium Chloride 10 ml 06/09/20 19:04 06/09/20 19:38 Saline Flush FLUSH 10 ml ASDIRECTED PRN Administration Keep Vein Open - Radiology Interpretation Free Text/Narrative:: 2019--reviewed chest film to include previous film on May; noted for worsening infiltrate on right, bilateral infiltrates c/w COVID pneumonia; final radiology reading pending at this time - Re-Assessments/Exams Free Text/Narrative Re-Assessment/Exam: 06/09/20 20:53 2030-call placed to Dr Penaloza, Hospitalist, case was discussed and patient accepted for admission at this time to inpatient COVID unit Departure - Departure Time of Disposition: 20:35 Disposition: Admitted As Inpatient 65 Condition: Serious Clinical Impression: Pneumonia due to COVID-19 virus, Hypoxia, Chronic lymphocytic leukemia, Mild anemia, Elevated LFTs, Dehydration with hyponatremia - Discharge Information *PRESCRIPTION DRUG MONITORING PROGRAM REVIEWED*: Not Applicable *COPY OF PRESCRIPTION DRUG MONITORING REPORT IN PATIENT SOLOMON: Not Applicable Sepsis Event Note (ED) - Focused Exam Vital Signs: Vital Signs Temp Pulse Resp BP Pulse Ox 06/09/20 20:33 66 26 H 108/57 L 90 L 06/09/20 19:37 74 28 H 105/52 L 91 L 06/09/20 18:57 98.3 F 78 18 98/39 L 90 L 06/09/20 18:50 90 L 06/09/20 18:43 98.3 F 78 18 98/39 L 72 L - My Orders Last 24 Hours: My Active Orders 06/09/20 19:04 Notify Provider Vital Signs [RC] ASDIRECTED Up With Assistance [RC] ASDIRECTED Vital Signs [RC] PER UNIT ROUTINE Chest 1V Frontal [CR] Urgent Sodium Chloride 0.9% [Normal Saline] 1,000 ml IV ASDIRECTED Sodium Chloride 0.9% [Saline Flush] 10 ml FLUSH ASDIRECTED PRN Sodium Chloride 0.9% [Saline Flush] 10 ml FLUSH ASDIRECTED PRN ED Respiratory Adult Reflex [OM.PC] Click to Edit Peripheral IV Insertion Adult [OM.PC] Urgent Resuscitation Status Routine EKG 12 Lead [EK] Urgent 06/09/20 19:07 Pulse Oximetry [RC] CONTINUOUS 06/09/20 19:09 EKG Documentation Completion [RC] ASDIRECTED Peripheral IV Care [RC] . DIRECTED 06/09/20 19:10 Cardiac Monitoring [RC] .As Directed - Assessment/Plan Last 24 Hours: My Active Orders 06/09/20 19:04 Notify Provider Vital Signs [RC] ASDIRECTED Up With Assistance [RC] ASDIRECTED Vital Signs [RC] PER UNIT ROUTINE Chest 1V Frontal [CR] Urgent Sodium Chloride 0.9% [Normal Saline] 1,000 ml IV ASDIRECTED Sodium Chloride 0.9% [Saline Flush] 10 ml FLUSH ASDIRECTED PRN Sodium Chloride 0.9% [Saline Flush] 10 ml FLUSH ASDIRECTED PRN ED Respiratory Adult Reflex [OM.PC] Click to Edit Peripheral IV Insertion Adult [OM.PC] Urgent Resuscitation Status Routine EKG 12 Lead [EK] Urgent 06/09/20 19:07 Pulse Oximetry [RC] CONTINUOUS 06/09/20 19:09 EKG Documentation Completion [RC] ASDIRECTED Peripheral IV Care [RC] . DIRECTED 06/09/20 19:10 Cardiac Monitoring [RC] .As Directed
[2020-06-09] MEDS ORDERED: Sodium Chloride 0.9% 10 ML Syringe FLUSH PRN (19:04)
[2020-06-09] MEDS ORDERED: Sodium Chloride 0.9% 1,000 ML IV ONE (19:04)
[2020-06-09] MEDS: Sodium Chloride 0.9% 10 ML Syringe FLUSH PRN (19:38)
[2020-06-09] MEDS ORDERED: Ondansetron 4 MG/2 ML SDV IVPUSH PRN (22:44)
[2020-06-09] MEDS ORDERED: Azithromycin 250 MG Tab PO ONE (22:44)
[2020-06-09] MEDS ORDERED: Sodium Chloride 0.9% 50 ML ONE (23:28)
[2020-06-09] MEDS ORDERED: cefTRIAXone 1 GM AdvVial IV ONE (23:28)
[2020-06-09] MEDS: Pantoprazole 40 MG Vial IVPUSH SCH (23:44)
[2020-06-09] MEDS: Enoxaparin 60 MG/0.6 ML Syringe SUBCUT SCH (23:44)
[2020-06-09] MEDS: Sodium Chloride 0.9% 1,000 ML IV SCH (23:44)
--- NOTE | 2020-06-10 00:02 | HP ---
IDENTIFYING DATA: Anna Giraldo is a 74-year-old female from [place]. CHIEF COMPLAINT: Short of breath and weak. HISTORY OF PRESENT ILLNESS: Adult female noted onset of acute respiratory symptoms on or about 05/23/2020 with congestion, cough, headaches, coryza, and sore throat. Additionally, she had development of fever, abdominal pain, and upset with loose stools and general malaise or fatigue. She has had recurrent episodes of nausea with emesis. She was seen in the walk-in clinic on 06/01/2020 with ongoing symptoms, and she was found to have positive COVID PCR test confirming COVID-19 infection. She has had ongoing symptoms including diminished exercise tolerance and dyspnea with modest exertion as well as ongoing fevers to 102 degrees. She was seen in the emergency room earlier this week and provided Bactrim for reported urinary tract infection. She has had no dysuria, urgency, frequency, or CVA pain. With ongoing respiratory symptoms and general fatigue as well as noted weight loss secondary to nausea, anorexia, and emesis, she presents for followup. PAST MEDICAL HISTORY: Anna has noted history of coronary artery disease with previous cardiac catheterization and stenting. She has had accompanying history of hyperlipidemia, managed with statin therapy. She also has a known history of chronic lymphocytic leukemia, followed by Hematology/Oncology Services on suppressive therapy. IMMUNIZATIONS: Refuses. ALLERGIES: NONE NOTED. HABITS: Nonsmoker. No alcohol use. Moderate caffeine intake in the form of coffee. MEDICATIONS: 1. Bactrim DS 1 p.o. b.i.d. x3 days. 2. Albuterol metered-dose inhaler 2 puffs q.4 hours p.r.n. shortness of breath. 3. Nitroglycerin 0.4 mg sublingually q.5 minutes p.r.n. angina. 4. Imbruvica 140 mg capsules 3 capsules once daily. 5. Aspirin 81 mg daily. 6. Metoprolol succinate 25 mg daily. 7. Simvastatin 40 mg daily. SOCIAL HISTORY: She is . Performs ADLs independently. 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 FAMILY HISTORY: No familial history of noted COVID disease. REVIEW OF SYSTEMS: NEUROLOGIC: Recurring headaches. Denies chronic visual changes. No history of stroke, seizures, or paresthesias. CARDIAC: Ischemic heart disease. No current angina-like pain. No history of hypertension or diabetes. No history of congestive heart failure. RESPIRATORY: As above. No history of tuberculosis, chronic asthma, or emphysematous lung disease. GI: Dyspepsia, nausea, anorexia with loose stools. No melena or hematochezia. No history of gallbladder disease. : As above. PHYSICAL EXAMINATION: APPEARANCE: That of a weakened, adult female, noting intermittent crampy abdominal pain. VITAL SIGNS: Currently reveal afebrile presentation with O2 sats falling into the low to mid 80s with minimal exertion. HEENT: Ears are clear with hearing grossly intact. Sclerae anicteric. No oropharyngeal lesions. Mucosa is moist. NECK: Brisk carotid pulses. No bruits, JVD, adenopathy, or thyromegaly. LUNGS: Bilateral scattered inspiratory rales. Nontachypneic. No wheezes or retractions. HEART: Regular without tachycardia. No murmurs or gallops. ABDOMEN: Mild discomfort in the anterior abdomen. No guarding, rebound, referred pain, or localized tenderness. No CVA tenderness. Active bowel sounds are noted. EXTREMITIES: Warm and pink. No tenting. SKIN: No diaphoresis or jaundice. LABORATORY DATA: On admission, WBC elevated at 22.7, hemoglobin 10.9, hematocrit 33.7, platelet count 239,000. Sodium 133, potassium 4.2, BUN 23, creatinine borderline elevated at 1.3. Alkaline phosphatase elevated at 210 with AST of 120. CRP 13.4. Troponin less than 0.017. Magnesium 2. Lactic acid 1.6. Ferritin elevated at 709. DIAGNOSTIC DATA: A single-view chest x-ray, bilateral infiltrative changes of acute pneumonia consistent with COVID pneumonia. IMPRESSION: 1. Noted history of coronavirus disease 19 infection with onset of symptoms 17 days ago. 2. Coronavirus disease pneumonia. Consider bacterial component with persistent respiratory symptoms. 3. History of ischemic heart disease, chronic, stable. 4. History of chronic lymphocytic leukemia, currently on suppressive therapies. 5. The patient refuses immunizations including pneumococcal, influenza, and coronavirus disease vaccines. PLAN: The patient has been admitted for supportive care. We will provide IV fluids. Oral intake as tolerated. Antiemetics and acetaminophen for symptom management. We will initiate antibiotic coverage with IV Rocephin and oral azithromycin given late stage. She does not have significant benefit to antiviral therapies. Therefore, we will hold and continue to monitor hemodynamic and renal status. Emmett Penaloza MD /[id number]
[2020-06-10] MEDS: cefTRIAXone 1 GM in Sodium Chloride 0.9% 50 ML IV SCH ×2 (03:33→22:39)
--- NOTE | 2020-06-10 06:11 | PN ---
DATE OF SERVICE: 06/10/2020 SUBJECTIVE: A 74-year-old female with a history of chronic health problems including chronic lymphocytic leukemia and ischemic heart disease, chronic and stable, was admitted with a 2-1/2 week history of acute respiratory symptoms and known COVID positive testing. She had ongoing weakness, anorexia and weight loss as well as recurrent shortness of breath. She was found to have evidence of hypoxia on presentation with minimal exertion, was admitted for supportive care. X-ray revealed bilateral infiltrative changes of pneumonia. Broad-spectrum antibiotics to cover for potential secondary bacterial infection have been initiated. She does note general fatigue and shortness of breath with movement. Nursing staff report desaturation with minimal activity including toileting. She has had no sputum production though does note previous purulent sputum production at home. No abdominal pain, nausea, emesis, or diarrhea. She is voiding with good regularity, is taking fluids. OBJECTIVE: VITAL SIGNS: Temperature 36.3, pulse rate 68, blood pressure 101/47, respiratory rate 16 at rest with O2 sats of 90% on oxygen supplementation, falling to 77% with minimal activity. GENERAL: She is now resting comfortably in left lateral decubitus position. Denying pain or dyspnea. LUNGS: Inspiratory rales bilaterally. Left-sided bronchial sounds. No wheezes evident. No retractions. HEART: Regular without murmurs or gallops. SKIN: Warm, pink, and dry. IMPRESSION AND PLAN: Pneumonia with accompanying limited exercise tolerance and hypoxia with minimal exertion. Consider secondary bacterial infection with primary COVID disease. We will continue with broad-spectrum antibiotics including Rocephin and azithromycin. Oxygen supplementation is in place. She has not required bronchodilator therapies to this point. Given her extended course of COVID disease, I do not feel that remdesivir would be beneficial at this point; however, if bronchospasm develops, we will consider steroid therapies. Encourage light activity as tolerated. Likely will require home oxygen therapy for recurrent hypoxia at time of discharge. Also, consider need for home care services to provide in-house supportive care. Emmett Penaloza MD /[id number]
[2020-06-10] MEDS: Sodium Chloride 0.9% 1,000 ML IV SCH (08:37)
[2020-06-10] MEDS: Aspirin 81 MG Tab.EC PO SCH (08:38)
[2020-06-10] MEDS: Pantoprazole 40 MG Vial IVPUSH SCH (08:38)
[2020-06-10] MEDS: Metoprolol Succinate 25 MG Tab.ER PO SCH (08:39)
[2020-06-10] MEDS: Enoxaparin 60 MG/0.6 ML Syringe SUBCUT SCH (08:39)
[2020-06-10] MEDS ORDERED: Azithromycin 250 MG Tab PO SCH (09:00)
--- NOTE | 2020-06-10 09:49 | CR ---
CHEST: Portable 06/09/2020 at 7:54 PM CLINICAL HISTORY:Covid Positive, hypoxia COMPARISON:06/07/2020 FINDINGS: Bilateral infiltrates persist. These are greater on the right. Appearance is similar to the 06/07/2020 study considering technical differences. Heart size and pulmonary vascular appear normal. IMPRESSION: Persistent bilateral pulmonary infiltrates consistent with a pneumonitis
[2020-06-10] MEDS: Acetaminophen 325 MG Tab PO PRN (11:57)
--- NOTE | 2020-06-10 14:16 | PCM.PN ---
- General Info Date of Service: 06/10/20 Subjective Update: Ms. Giraldo is a 74-year-old woman who was admitted through the emergency department by Dr. Penaloza last night with hypoxia and probable bacterial pneumonia complicating COVID-19 infection. She developed symptoms of upper respiratory tract infection approximately 2-1/2 weeks ago. She tested positive for COVID-19 approximately 1-1/2 weeks ago. She was doing fairly well until the past several days when she is developed increased shortness of breath and progr essive weakness. On evaluation in the emergency department was noted to be hypoxic and also found to have pulmonary infiltrates. She is currently not on therapy for COVID-19 because of the prolonged period of time present since onset of symptoms. Blood cultures were obtained and she was started on IV antibiotic therapy with ceftriaxone and doxycycline. Since admission she has developed progressive hypoxia and is requiring increased levels of supplemental oxygen. CT scan of the chest was obtained showing no evidence of pulmonary emboli and documenting bilateral infiltrates. She has been placed on noninvasive positive pressure ventilation and will be started on IV Decadron. Functional Status: Reports: Tolerating Diet, Urinating - Review of Systems General: Reports: Weakness, Fatigue. Denies: Fever, Chills Pulmonary: Reports: Shortness of Breath, Cough. Denies: Pleuritic Chest Pain, Sputum, Hemoptysis, Wheezing Cardiovascular: Reports: Dyspnea on Exertion. Denies: Chest Pain, Palpitations, Orthopnea, PND, Edema, Lightheadedness Gastrointestinal: Reports: No Symptoms Genitourinary: Reports: No Symptoms - Patient Data Vitals - Most Recent: Last Vital Signs Temp 98.4 F 06/10/20 13:53 Pulse 94 06/10/20 13:53 Resp 18 06/10/20 13:53 BP 97/50 L 06/10/20 14:13 Pulse Ox 91 L 06/10/20 13:00 Weight - Most Recent: 130 lb I&O - Last 24 Hours: Intake & Output 06/09/20 06/10/20 06/10/20 22:59 06:59 14:59 Output Total 600 Balance -600 Lab Results Last 24 Hours: Laboratory Results - last 24 hr 06/09/20 06/09/20 06/09/20 Range/Units 19:28 19:28 19:28 WBC 22.7 H (4.5-11.0) K/uL RBC 3.70 (3.30-5.50) M/uL Hgb 10.9 L (12.0-15.0) g/dL Hct 33.7 L (36.0-48.0) % MCV 91 (80-98) fL MCH 30 (27-31) pg MCHC 32 (32-36) % Plt Count 239 (150-400) K/uL Neut % (Auto) 36 (36-66) % Lymph % (Auto) 59 H (24-44) % [place] % (Auto) 5 (2-6) % Eos % (Auto) 0 L (2-4) % Baso % (Auto) 0 (0-1) % PT 10.7 (9.5-12.0) sec INR 0.98 (0.80-1.20) APTT 34.5 (27.0-36.0) sec Sodium 133 L (140-148) mmol/L Potassium 4.2 (3.6-5.2) mmol/L Chloride 101 (100-108) mmol/L Carbon Dioxide 23 (21-32) mmol/L Anion Gap 13.2 (5.0-14.0) mmol/L BUN 23 H (7-18) mg/dL Creatinine 1.3 H (0.6-1.0) mg/dL Est Cr Clr Drug Dosing 34.81 mL/min Estimated GFR (MDRD) 40 L (>60) Glucose 112 H (74-106) mg/dL Lactic Acid (0.4-2.0) mmol/L Calcium 7.7 L (8.5-10.1) mg/dL Magnesium 2.0 (1.8-2.4) mg/dL Ferritin (8-388) ng/ml Total Bilirubin 0.5 D (0.2-1.0) mg/dL AST 120 H D (15-37) U/L ALT 119 H (12-78) U/L Alkaline Phosphatase 210 H (46-116) U/L Lactate Dehydrogenase (82-234) U/L Troponin I < 0.017 (0.000-0.056) ng/mL C-Reactive Protein (0.0-0.3) mg/dL Total Protein 5.3 L (6.4-8.2) g/dL Albumin 2.3 L (3.4-5.0) g/dL Globulin 3.0 (2.3-3.5) g/dL Albumin/Globulin Ratio 0.8 L (1.2-2.2) 06/09/20 06/09/20 06/09/20 Range/Units 19:28 19:28 19:28 WBC (4.5-11.0) K/uL RBC (3.30-5.50) M/uL Hgb (12.0-15.0) g/dL Hct (36.0-48.0) % MCV (80-98) fL MCH (27-31) pg MCHC (32-36) % Plt Count (150-400) K/uL Neut % (Auto) (36-66) % Lymph % (Auto) (24-44) % [place] % (Auto) (2-6) % Eos % (Auto) (2-4) % Baso % (Auto) (0-1) % PT (9.5-12.0) sec INR (0.80-1.20) APTT (27.0-36.0) sec Sodium (140-148) mmol/L Potassium (3.6-5.2) mmol/L Chloride (100-108) mmol/L Carbon Dioxide (21-32) mmol/L Anion Gap (5.0-14.0) mmol/L BUN (7-18) mg/dL Creatinine (0.6-1.0) mg/dL Est Cr Clr Drug Dosing mL/min Estimated GFR (MDRD) (>60) Glucose (74-106) mg/dL Lactic Acid 1.6 (0.4-2.0) mmol/L Calcium (8.5-10.1) mg/dL Magnesium (1.8-2.4) mg/dL Ferritin 709 H (8-388) ng/ml Total Bilirubin (0.2-1.0) mg/dL AST (15-37) U/L ALT (12-78) U/L Alkaline Phosphatase (46-116) U/L Lactate Dehydrogenase 363 H (82-234) U/L Troponin I (0.000-0.056) ng/mL C-Reactive Protein 13.38 H (0.0-0.3) mg/dL Total Protein (6.4-8.2) g/dL Albumin (3.4-5.0) g/dL Globulin (2.3-3.5) g/dL Albumin/Globulin Ratio (1.2-2.2) Med Orders - Current: Current Medications Acetaminophen (Tylenol) 650 mg PO Q4H PRN PRN Reason: fever, pain Last Admin: 06/10/20 11:57 Dose: 650 mg Documented by: Aspirin (Halfprin) 81 mg PO DAILY [facility] Last Admin: 06/10/20 08:38 Dose: 81 mg Documented by: Dexamethasone (Decadron) 6 mg IVPUSH Q24H [facility] Enoxaparin Sodium (Lovenox) 60 mg SUBCUT BID [facility] Last Admin: 06/10/20 08:39 Dose: 60 mg Documented by: Furosemide (Lasix) 20 mg IVPUSH NOW ONE Stop: 06/10/20 14:11 Ceftriaxone Sodium 1 gm/ (Sodium Chloride) 50 mls @ 100 mls/hr IV Q24H [facility] Last Admin: 06/10/20 03:33 Dose: Not Given Documented by: Doxycycline Hyclate 100 mg/ (Sodium Chloride) 100 mls @ 100 mls/hr IV Q12H [facility] Lactobacillus Rhamnosus (Culturelle) 1 cap PO BID [facility] Metoprolol Succinate (Toprol Xl) 25 mg PO DAILY [facility] Last Admin: 06/10/20 08:39 Dose: 25 mg Documented by: Ibrutinib (Imbruvica () 320 MgPom) 0 mg PO BEDTIME [facility] Ondansetron HCl (Zofran) 4 mg IVPUSH Q4H PRN PRN Reason: Nausea/Vomiting Pantoprazole Sodium (Protonix Iv) 40 mg IVPUSH DAILY [facility] Last Admin: 06/10/20 08:38 Dose: 40 mg Documented by: Simvastatin (Zocor) 40 mg PO BEDTIME [facility] Sodium Chloride (Saline Flush) 10 ml FLUSH ASDIRECTED PRN PRN Reason: Keep Vein Open Last Admin: 06/09/20 19:38 Dose: 10 ml Documented by: Sodium Chloride (Saline Flush) 10 ml FLUSH ASDIRECTED PRN PRN Reason: Keep Vein Open Last Admin: 06/09/20 19:38 Dose: 10 ml Documented by: Discontinued Medications Azithromycin (Zithromax) 500 mg PO ONETIME ONE Stop: 06/09/20 22:45 Last Admin: 12/22/20 23:44 Dose: 500 mg Documented by: Azithromycin (Zithromax) 250 mg PO DAILY [facility] Stop: 06/13/20 09:01 Last Admin: 06/10/20 08:39 Dose: 250 mg Documented by: Ceftriaxone Sodium (Rocephin) Confirm Administered Dose 1 gm IV .STK-MED ONE Stop: 06/09/20 23:29 Last Admin: 06/09/20 23:42 Dose: 1 gm Documented by: Sodium Chloride (Normal Saline) 1,000 mls @ 125 mls/hr IV ASDIRECTED ONE Stop: 06/10/20 03:03 Last Admin: 06/09/20 20:49 Dose: Not Given Documented by: Sodium Chloride (Normal Saline) 1,000 mls @ 125 mls/hr IV ASDIRECTED [facility] Last Admin: 06/10/20 08:37 Dose: 125 mls/hr Documented by: Sodium Chloride (Normal Saline) Confirm Administered Dose 50 mls @ as directed .ROUTE .STK-MED ONE Stop: 06/09/20 23:29 Last Admin: 06/10/20 03:33 Dose: Not Given Documented by: - Exam Quality Assessment: Supplemental Oxygen, DVT Prophylaxis General: Alert, Oriented, Cooperative, Moderate Distress Lungs: Decreased Breath Sounds, Rales. No: Rhonchi, Wheezing Cardiovascular: Regular Rate, Regular Rhythm, No Murmurs GI/Abdominal Exam: Soft, Non-Tender, No Organomegaly, No Distention Extremities: Non-Tender, No Pedal Edema Sepsis Event Note - Evaluation Sepsis Screening Result: No Definite Risk - Focused Exam Vital Signs: Vital Signs Temp Temp Pulse Pulse Resp BP BP 06/10/20 14:13 97/50 L 06/10/20 13:53 98.4 F 94 18 103/40 L 06/10/20 13:00 06/10/20 12:27 98.4 F 06/10/20 12:10 06/10/20 11:57 101.1 F H 06/10/20 10:41 99.0 F 63 16 114/51 L 06/10/20 08:39 68 113/48 L 06/10/20 07:27 06/10/20 07:00 97.4 F 68 16 113/48 L 06/10/20 04:59 06/10/20 04:50 97.3 F 68 16 101/47 L Pulse Ox 06/10/20 14:13 06/10/20 13:53 06/10/20 13:00 91 L 06/10/20 12:27 06/10/20 12:10 98 06/10/20 11:57 06/10/20 10:41 94 L 06/10/20 08:39 06/10/20 07:27 93 L 06/10/20 07:00 89 L 06/10/20 04:59 77 L 06/10/20 04:50 90 L - Problem List Review Problem List Initiated/Reviewed/Updated: Yes - My Orders Last 24 Hours: My Active Orders 06/10/20 13:10 Convert IV to Saline Lock [OM.PC] Routine 06/10/20 14:00 Doxycycline [Vibramycin] 100 mg Sodium Chloride 0.9% [Normal Saline] 100 ml IV Q12H Lactobacillus Rhamnosus GG [Culturelle] 1 cap PO BID 06/10/20 14:10 Furosemide [Lasix] 20 mg IVPUSH NOW ONE 06/10/20 14:11 D Dimer [D-DIMER QUANTITATIVE] [COAG] Stat 06/10/20 14:15 dexAMETHasone [Decadron] 6 mg IVPUSH Q24H 06/11/20 05:00 CBC WITH AUTO DIFF [HEME] Timed COMPREHENSIVE METABOLIC PN,CMP [CHEM] Timed 06/11/20 05:11 CRP [C-REACTIVE PROTEIN] [CHEM] AM D Dimer [D-DIMER QUANTITATIVE] [COAG] AM - Plan Plan:: ASSESSMENT AND PLAN PROBABLE BACTERIAL PNEUMONIA-complicating COVID-19 infection with onset of symptoms approximately 2-1/[address] scan of the chest shows no evidence of pulmonary emboli but does document bilateral infiltrates. -Blood cultures pending -Continue IV ceftriaxone and doxycycline COVID-19 INFECTION-not on remdesivir because of prolonged duration of symptoms and probable infection -Decadron 6 mg IV daily -Supportive care -Prone ventilation HYPOXIC RESPIRATORY FAILURE-secondary to COVID-19 infection and probable bacterial pneumonia -Supplemental oxygen as needed -Noninvasive positive pressure ventilation CHRONIC LYMPHOCYTIC LEUKEMIA -Continue current therapy MAINTENANCE ISSUES -DVT prophylaxis; Lovenox 40 mg subcu daily -GI prophylaxis; not indicated -Interiano catheter; not indicated -Nutrition; regular diet -Nicotine dependence; not required CODE STATUS-DNR/DNI ADMISSION STATUS-patient will be admitted to inpatient status, expect at least a 2 night hospital stay for evaluation and management of problems as outlined above. At the time of this admission I do not reasonably expected evaluation and management of this problem will require more than a 96 hour hospital stay. DISPOSITION-anticipate discharge to home after the hospital stay. PRIMARY CARE PROVIDER-Dr. Penaloza
[2020-06-10] MEDS ORDERED: Furosemide 20 MG/2 ML VIAL IVPUSH ONE (14:45)
[2020-06-10] MEDS: Doxycycline 100 MG in Sodium Chloride 0.9% 100 ML IV SCH (15:22)
[2020-06-10] MEDS: Lactobacillus Rhamnosus GG (Probiotic) Cap PO SCH ×2 (15:24→21:23)
[2020-06-10] MEDS: Dexamethasone 4 MG/ML SDV IVPUSH SCH (15:24)
[2020-06-10] MEDS ORDERED: Sodium Chloride 0.9% 100 ML IV SCH (15:45)
[2020-06-10] MEDS ORDERED: Iopamidol 755 Mg/ML 100 ML Bottle IV SCH (15:45)
[2020-06-10] MEDS: Sodium Chloride 0.9% 10 ML Syringe FLUSH ONE ×2 (17:07→17:45)
--- NOTE | 2020-06-10 17:33 | CRLCT ---
INDICATION: Worsening hypoxia, COVID TECHNIQUE: CT chest pulmonary angiogram acquired with IV contrast. 57 cc Isovue 370 COMPARISON: 05/15/2019 FINDINGS: Cardiovascular structures: Normal vascular enhancement of the pulmonary arteries, no sign of pulmonary embolism. Heart size is normal. No sign of aneurysm or dissection in the thoracic aorta. Mediastinum and honey: Subcentimeter mediastinal adenopathy. Multiple small low-attenuation nodules involving the right lobe of the thyroid gland and isthmus. Lungs: Extensive bilateral areas of ground-glass appearance and lower lobe consolidations consistent with pneumonia more specifically COVID pneumonia. Pleura and pericardium: No effusions. Chest wall and axilla: No mass or adenopathy. Bones: No significant findings. Upper abdomen: Unremarkable. IMPRESSION: No evidence for pulmonary embolus. Extensive bilateral areas of ground-glass appearance and lower lobe consolidation consistent with pneumonia and more specifically COVID pneumonia. Multiple small low-attenuation nodules involving the right lobe and isthmus of the thyroid gland. Please note that all CT scans at this facility use dose modulation, iterative reconstruction, and/or weight-based dosing when appropriate to reduce radiation dose to as low as reasonably achievable. Dictated by Galindo Gonzalez MD @ Jun 10 2020 5:31PM Signed by Dr. Galindo Gonzalez @ Jun 10 2020 5:31PM
[2020-06-10] MEDS ORDERED: IBRUTINIB PO SCH (21:00)
[2020-06-10] MEDS: Simvastatin 20 MG Tab PO SCH (21:23)
[2020-06-11] MEDS: Doxycycline 100 MG in Sodium Chloride 0.9% 100 ML IV SCH ×2 (02:35→14:55)
[2020-06-11] MEDS: Lactobacillus Rhamnosus GG (Probiotic) Cap PO SCH ×2 (08:14→20:27)
[2020-06-11] MEDS: Aspirin 81 MG Tab.EC PO SCH (08:14)
[2020-06-11] MEDS: Pantoprazole 40 MG Vial IVPUSH SCH (08:15)
[2020-06-11] MEDS: Metoprolol Succinate 25 MG Tab.ER PO SCH (08:16)
[2020-06-11] MEDS: Enoxaparin 40 MG/0.4 ML Syringe SUBCUT SCH (08:23)
[2020-06-11] MEDS: IMBRUVICA 420 MG PO SCH (10:03)
[2020-06-11] MEDS ORDERED: Benzonatate 100 MG Cap PO PRN (11:37)
[2020-06-11] MEDS ORDERED: guaiFENesin/Dextromethorphan 100-10 MG/5 ML Soln 10 ML Cup PO PRN (11:37)
--- NOTE | 2020-06-11 11:38 | PCM.PN ---
- General Info Date of Service: 06/11/20 Subjective Update: There were no acute events overnight. She has alternated between high flow nasal cannula and noninvasive ventilation. Oxygenation has been stable fortunately. She has not had any fevers in the past 24 hours. She feels weak and tired. Occasionally has a cough. Appetite has not been very good. Procalcitonin level was quite low today. We did talk about a trial of remdesivir even though she is quite a ways into her illness. I felt that because of how sick she was that she may get some benefit. We did review that this is available under an emergency use authorization. She was agreeable to a trial of 5 days of remdesivir. Functional Status: Reports: Pain Controlled, Tolerating Diet - Review of Systems General: Reports: Weakness. Denies: Fever Pulmonary: Reports: Shortness of Breath - Patient Data Vitals - Most Recent: Last Vital Signs Temp 35.9 C L 06/11/20 11:00 Pulse 79 06/11/20 11:00 Resp 18 06/11/20 11:00 BP 106/51 L 06/11/20 11:00 Pulse Ox 92 L 06/11/20 11:00 Weight - Most Recent: 58.967 kg I&O - Last 24 Hours: Intake & Output 06/10/20 06/11/20 06/11/20 22:59 06:59 14:59 Intake Total 240 150 Output Total 1000 Balance 240 150 -1000 Lab Results Last 24 Hours: Laboratory Results - last 24 hr 06/10/20 06/11/20 06/11/20 Range/Units 14:37 04:49 04:49 WBC 12.8 H (4.5-11.0) K/uL RBC 3.57 (3.30-5.50) M/uL Hgb 10.4 L (12.0-15.0) g/dL Hct 32.7 L (36.0-48.0) % MCV 92 (80-98) fL MCH 29 (27-31) pg MCHC 32 (32-36) % Plt Count 248 (150-400) K/uL Neut % (Auto) 51 (36-66) % Lymph % (Auto) 46 H (24-44) % [place] % (Auto) 4 (2-6) % Eos % (Auto) 0 L (2-4) % Baso % (Auto) 0 (0-1) % D-Dimer, Quantitative 991.56 H (0.0-500.0) ng/mL Sodium 137 L (140-148) mmol/L Potassium 4.2 (3.6-5.2) mmol/L Chloride 104 (100-108) mmol/L Carbon Dioxide 22 (21-32) mmol/L Anion Gap 15.2 H (5.0-14.0) mmol/L BUN 24 H (7-18) mg/dL Creatinine 1.1 H (0.6-1.0) mg/dL Est Cr Clr Drug Dosing 41.13 mL/min Estimated GFR (MDRD) 48 L (>60) Glucose 129 H (74-106) mg/dL Calcium 7.5 L (8.5-10.1) mg/dL Total Bilirubin 0.4 (0.2-1.0) mg/dL AST 88 H (15-37) U/L ALT 86 H (12-78) U/L Alkaline Phosphatase 299 H (46-116) U/L C-Reactive Protein (0.0-0.3) mg/dL Total Protein 5.5 L (6.4-8.2) g/dL Albumin 2.1 L (3.4-5.0) g/dL Globulin 3.4 (2.3-3.5) g/dL Albumin/Globulin Ratio 0.6 L (1.2-2.2) Procalcitonin ng/mL 06/11/20 06/11/20 06/11/20 Range/Units 04:49 04:49 09:31 WBC (4.5-11.0) K/uL RBC (3.30-5.50) M/uL Hgb (12.0-15.0) g/dL Hct (36.0-48.0) % MCV (80-98) fL MCH (27-31) pg MCHC (32-36) % Plt Count (150-400) K/uL Neut % (Auto) (36-66) % Lymph % (Auto) (24-44) % [place] % (Auto) (2-6) % Eos % (Auto) (2-4) % Baso % (Auto) (0-1) % D-Dimer, Quantitative 939.98 H (0.0-500.0) ng/mL Sodium (140-148) mmol/L Potassium (3.6-5.2) mmol/L Chloride (100-108) mmol/L Carbon Dioxide (21-32) mmol/L Anion Gap (5.0-14.0) mmol/L BUN (7-18) mg/dL Creatinine (0.6-1.0) mg/dL Est Cr Clr Drug Dosing mL/min Estimated GFR (MDRD) (>60) Glucose (74-106) mg/dL Calcium (8.5-10.1) mg/dL Total Bilirubin (0.2-1.0) mg/dL AST (15-37) U/L ALT (12-78) U/L Alkaline Phosphatase (46-116) U/L C-Reactive Protein 16.87 H (0.0-0.3) mg/dL Total Protein (6.4-8.2) g/dL Albumin (3.4-5.0) g/dL Globulin (2.3-3.5) g/dL Albumin/Globulin Ratio (1.2-2.2) Procalcitonin 0.19 ng/mL Med Orders - Current: Current Medications Acetaminophen (Tylenol) 650 mg PO Q4H PRN PRN Reason: fever, pain Last Admin: 06/10/20 11:57 Dose: 650 mg Documented by: Aspirin (Halfprin) 81 mg PO DAILY [facility] Last Admin: 06/11/20 08:14 Dose: 81 mg Documented by: Dexamethasone (Decadron) 6 mg IVPUSH Q24H [facility] Last Admin: 06/10/20 15:24 Dose: 6 mg Documented by: Enoxaparin Sodium (Lovenox) 40 mg SUBCUT Q24H [facility] Last Admin: 06/11/20 08:23 Dose: 40 mg Documented by: Ceftriaxone Sodium 1 gm/ (Sodium Chloride) 50 mls @ 100 mls/hr IV Q24H [facility] Last Admin: 06/10/20 22:39 Dose: 100 mls/hr Documented by: Doxycycline Hyclate 100 mg/ (Sodium Chloride) 100 mls @ 100 mls/hr IV Q12H [facility] Last Admin: 06/11/20 02:35 Dose: 100 mls/hr Documented by: Lactobacillus Rhamnosus (Culturelle) 1 cap PO BID [facility] Last Admin: 06/11/20 08:14 Dose: 1 cap Documented by: Metoprolol Succinate (Toprol Xl) 25 mg PO DAILY [facility] Last Admin: 06/11/20 08:16 Dose: 25 mg Documented by: Ondansetron HCl (Zofran) 4 mg IVPUSH Q4H PRN PRN Reason: Nausea/Vomiting Pantoprazole Sodium (Protonix Iv) 40 mg IVPUSH DAILY [facility] Last Admin: 06/11/20 08:15 Dose: 40 mg Documented by: Imbruvica 420mg Tab ((Ptom)) 1 each PO DAILY [facility] Last Admin: 06/11/20 10:03 Dose: 1 each Documented by: Simvastatin (Zocor) 40 mg PO BEDTIME [facility] Last Admin: 06/10/20 21:23 Dose: 40 mg Documented by: Sodium Chloride (Saline Flush) 10 ml FLUSH ASDIRECTED PRN PRN Reason: Keep Vein Open Last Admin: 06/09/20 19:38 Dose: 10 ml Documented by: Discontinued Medications Azithromycin (Zithromax) 500 mg PO ONETIME ONE Stop: 06/09/20 22:45 Last Admin: 06/09/20 23:44 Dose: 500 mg Documented by: Azithromycin (Zithromax) 250 mg PO DAILY [facility] Stop: 06/13/20 09:01 Last Admin: 06/10/20 08:39 Dose: 250 mg Documented by: Ceftriaxone Sodium (Rocephin) Confirm Administered Dose 1 gm IV .STK-MED ONE Stop: 06/09/20 23:29 Last Admin: 06/09/20 23:42 Dose: 1 gm Documented by: Enoxaparin Sodium (Lovenox) 60 mg SUBCUT BID [facility] Last Admin: 06/10/20 08:39 Dose: 60 mg Documented by: Furosemide (Lasix) 20 mg IVPUSH NOW ONE Stop: 06/10/20 14:46 Last Admin: 06/10/20 15:23 Dose: 20 mg Documented by: Sodium Chloride (Normal Saline) 1,000 mls @ 125 mls/hr IV ASDIRECTED ONE Stop: 06/10/20 03:03 Last Admin: 06/09/20 20:49 Dose: Not Given Documented by: Sodium Chloride (Normal Saline) 1,000 mls @ 125 mls/hr IV ASDIRECTED [facility] Last Admin: 06/10/20 08:37 Dose: 125 mls/hr Documented by: Sodium Chloride (Normal Saline) Confirm Administered Dose 50 mls @ as directed .ROUTE .STK-MED ONE Stop: 06/09/20 23:29 Last Admin: 06/10/20 03:33 Dose: Not Given Documented by: Sodium Chloride (Normal Saline) 100 mls @ 3.5 mls/sec IV ASDIRECTED [facility] Stop: 06/10/20 18:00 Last Admin: 06/10/20 17:45 Dose: 4 mls/sec Documented by: Iopamidol (Isovue-370 (76%)) 57 ml IV . DIRECTED [facility] Last Admin: 06/10/20 17:44 Dose: 57 ml Documented by: Ibrutinib (Imbruvica () 320 MgPom) 0 mg PO BEDTIME [facility] Last Admin: 06/10/20 21:24 Dose: Not Given Documented by: Sodium Chloride (Saline Flush) 10 ml FLUSH ASDIRECTED PRN PRN Reason: Keep Vein Open Last Admin: 06/09/20 19:38 Dose: 10 ml Documented by: Sodium Chloride (Saline Flush) 10 ml FLUSH ONETIME ONE Stop: 06/10/20 15:42 Last Admin: 06/10/20 17:45 Dose: 10 ml Documented by: - Exam Quality Assessment: Supplemental Oxygen General: Alert, Oriented, Cooperative, No Acute Distress Lungs: Normal Respiratory Effort. No: Wheezing Cardiovascular: Regular Rate, Regular Rhythm GI/Abdominal Exam: Soft, No Distention Extremities: No Pedal Edema. No: Increased Warmth Skin: Warm, Dry Psy/Mental Status: Alert, Normal Affect Sepsis Event Note - Evaluation Sepsis Screening Result: No Definite Risk - Focused Exam Vital Signs: Vital Signs Temp Pulse Pulse Resp BP BP Pulse Ox 06/11/20 11:00 35.9 C L 79 18 106/51 L 92 L 06/11/20 08:16 76 116/56 L 06/11/20 07:22 86 L 06/11/20 07:00 36.1 C 18 116/56 L 86 L 06/11/20 03:02 35.5 C L 74 18 116/52 L 92 L 06/11/20 01:37 90 L - Problem List Review Problem List Initiated/Reviewed/Updated: Yes - My Orders Last 24 Hours: My Active Orders 06/11/20 11:37 Benzonatate [Tessalon Perles] 100 mg PO TID PRN Dextromethorphan/guaiFENesin [Robitussin DM] 10 ml PO Q4H PRN Remdesivir 200 mg Sodium Chloride 0.9% [Normal Saline] 250 ml IV ONETIME 06/12/20 05:00 CBC W/O DIFF,HEMOGRAM [HEME] Timed (1) COMPREHENSIVE METABOLIC PN,CMP [CHEM] Timed 06/12/20 12:00 Remdesivir 100 mg Sodium Chloride 0.9% [Normal Saline] 100 ml IV Q24H - Plan Plan:: ASSESSMENT AND PLAN PROBABLE BACTERIAL PNEUMONIA-complicating COVID-19 infection with onset of symptoms approximately 2-1/[address] scan of the chest shows no evidence of pulmonary emboli but does document bilateral infiltrates. Procalcitonin level was quite low. -Blood cultures pending -Continue IV ceftriaxone and doxycycline COVID-19 INFECTION-procalcitonin level was quite low and I think most of her respiratory problems are related to the Covid infection. She was started on steroids yesterday. We did review risk versus benefit of remdesivir. I think the risk is low and although I cannot guarantee benefit I think it is worth a try. -Decadron 6 mg IV daily (day 2) -Remdesivir x5 days (day 1) -Noninvasive ventilation as needed -Supportive care -Prone ventilation HYPOXIC RESPIRATORY FAILURE-secondary to COVID-19 infection and possibly bacterial pneumonia. -Supplemental oxygen as needed -Noninvasive positive pressure ventilation CHRONIC LYMPHOCYTIC LEUKEMIA -Continue current therapy MAINTENANCE ISSUES -DVT prophylaxis; Lovenox 40 mg subcu daily -GI prophylaxis; not indicated -Interiano catheter; not indicated -Nutrition; regular diet DISPOSITION-anticipate discharge to home after the hospital stay. PRIMARY CARE PROVIDER-Dr. Penaloza
[2020-06-11] MEDS ORDERED: REMDESIVIR 200 MG in Sodium Chloride 0.9% 250 ML IV ONE (12:00)
[2020-06-11] MEDS: Dexamethasone 4 MG/ML SDV IVPUSH SCH (14:50)
[2020-06-11] MEDS: Simvastatin 20 MG Tab PO SCH (20:27)
[2020-06-11] MEDS: cefTRIAXone 1 GM in Sodium Chloride 0.9% 50 ML IV SCH (23:53)
[2020-06-12] MEDS: Doxycycline 100 MG in Sodium Chloride 0.9% 100 ML IV SCH (02:15)
[2020-06-12] MEDS: Aspirin 81 MG Tab.EC PO SCH (09:17)
[2020-06-12] MEDS: Enoxaparin 40 MG/0.4 ML Syringe SUBCUT SCH (09:17)
[2020-06-12] MEDS: IMBRUVICA 420 MG PO SCH (09:17)
[2020-06-12] MEDS: Lactobacillus Rhamnosus GG (Probiotic) Cap PO SCH ×2 (09:17→21:59)
[2020-06-12] MEDS: Metoprolol Succinate 25 MG Tab.ER PO SCH (09:18)
--- NOTE | 2020-06-12 11:31 | PCM.PN ---
- General Info Date of Service: 06/12/20 Subjective Update: Ms. Giraldo is been stable over the last 24 hours. No significant temperature elevations. She continues to require high level of supplemental oxygen and intermittent use of noninvasive positive pressure ventilation. Oxygen saturations and use have been stable since yesterday with no evidence of significant worsening. Functional Status: Reports: Tolerating Diet, Urinating - Review of Systems General: Reports: Weakness, Fatigue. Denies: Fever, Chills Pulmonary: Reports: Shortness of Breath. Denies: Pleuritic Chest Pain, Cough, Sputum, Hemoptysis, Wheezing Cardiovascular: Reports: Dyspnea on Exertion. Denies: Chest Pain, Palpitations, Orthopnea, PND, Edema, Lightheadedness Gastrointestinal: Reports: No Symptoms Genitourinary: Reports: No Symptoms - Patient Data Vitals - Most Recent: Last Vital Signs Temp 97 F 06/12/20 07:27 Pulse 74 06/12/20 09:18 Resp 18 06/12/20 07:27 BP 134/57 L 06/12/20 09:18 Pulse Ox 90 L 06/12/20 07:27 Weight - Most Recent: 130 lb I&O - Last 24 Hours: Intake & Output 06/11/20 06/12/20 06/12/20 22:59 06:59 14:59 Intake Total 592 150 490 Balance 592 150 490 Lab Results Last 24 Hours: Laboratory Results - last 24 hr 06/12/20 06/12/20 Range/Units 06:02 06:02 WBC 17.5 H (4.5-11.0) K/uL RBC 3.47 (3.30-5.50) M/uL Hgb 10.2 L (12.0-15.0) g/dL Hct 31.8 L (36.0-48.0) % MCV 92 (80-98) fL MCH 29 (27-31) pg MCHC 32 (32-36) % Plt Count 290 (150-400) K/uL Sodium 136 L (140-148) mmol/L Potassium 4.4 (3.6-5.2) mmol/L Chloride 106 (100-108) mmol/L Carbon Dioxide 20 L (21-32) mmol/L Anion Gap 14.4 H (5.0-14.0) mmol/L BUN 33 H (7-18) mg/dL Creatinine 0.9 (0.6-1.0) mg/dL Est Cr Clr Drug Dosing 50.28 mL/min Estimated GFR (MDRD) > 60 (>60) Glucose 125 H (74-106) mg/dL Calcium 7.6 L (8.5-10.1) mg/dL Total Bilirubin 0.3 (0.2-1.0) mg/dL AST 94 H (15-37) U/L ALT 83 H (12-78) U/L Alkaline Phosphatase 305 H (46-116) U/L Total Protein 5.2 L (6.4-8.2) g/dL Albumin 2.1 L (3.4-5.0) g/dL Globulin 3.1 (2.3-3.5) g/dL Albumin/Globulin Ratio 0.7 L (1.2-2.2) Med Orders - Current: Current Medications Acetaminophen (Tylenol) 650 mg PO Q4H PRN PRN Reason: fever, pain Last Admin: 06/10/20 11:57 Dose: 650 mg Documented by: Aspirin (Halfprin) 81 mg PO DAILY [facility] Last Admin: 06/12/20 09:17 Dose: 81 mg Documented by: Benzonatate (Tessalon Perles) 100 mg PO TID PRN PRN Reason: Cough Dexamethasone (Decadron) 6 mg IVPUSH Q24H [facility] Last Admin: 06/11/20 14:50 Dose: 6 mg Documented by: Doxycycline Hyclate (Vibramycin) 100 mg PO Q12H [facility] Enoxaparin Sodium (Lovenox) 40 mg SUBCUT Q24H [facility] Last Admin: 06/12/20 09:17 Dose: 40 mg Documented by: Guaifenesin/Dextromethorphan (Robitussin Dm) 10 ml PO Q4H PRN PRN Reason: Cough Ceftriaxone Sodium 1 gm/ (Sodium Chloride) 50 mls @ 100 mls/hr IV Q24H [facility] Last Admin: 06/11/20 23:53 Dose: 100 mls/hr Documented by: Remdesivir 100 mg/ Sodium (Chloride) 100 mls @ 100 mls/hr IV Q24H [facility] Stop: 06/15/20 12:59 Lactobacillus Rhamnosus (Culturelle) 1 cap PO BID [facility] Last Admin: 06/12/20 09:17 Dose: 1 cap Documented by: Metoprolol Succinate (Toprol Xl) 25 mg PO DAILY [facility] Last Admin: 06/12/20 09:18 Dose: 25 mg Documented by: Ondansetron HCl (Zofran) 4 mg IVPUSH Q4H PRN PRN Reason: Nausea/Vomiting Imbruvica 420mg Tab ((Ptom)) 1 each PO DAILY [facility] Last Admin: 06/12/20 09:17 Dose: 1 each Documented by: Simvastatin (Zocor) 40 mg PO BEDTIME [facility] Last Admin: 06/11/20 20:27 Dose: 40 mg Documented by: Sodium Chloride (Saline Flush) 10 ml FLUSH ASDIRECTED PRN PRN Reason: Keep Vein Open Last Admin: 06/09/20 19:38 Dose: 10 ml Documented by: Discontinued Medications Azithromycin (Zithromax) 500 mg PO ONETIME ONE Stop: 06/09/20 22:45 Last Admin: 06/09/20 23:44 Dose: 500 mg Documented by: Azithromycin (Zithromax) 250 mg PO DAILY [facility] Stop: 06/13/20 09:01 Last Admin: 06/10/20 08:39 Dose: 250 mg Documented by: Ceftriaxone Sodium (Rocephin) Confirm Administered Dose 1 gm IV .STK-MED ONE Stop: 06/09/20 23:29 Last Admin: 06/09/20 23:42 Dose: 1 gm Documented by: Enoxaparin Sodium (Lovenox) 60 mg SUBCUT BID [facility] Last Admin: 06/10/20 08:39 Dose: 60 mg Documented by: Furosemide (Lasix) 20 mg IVPUSH NOW ONE Stop: 06/10/20 14:46 Last Admin: 06/10/20 15:23 Dose: 20 mg Documented by: Sodium Chloride (Normal Saline) 1,000 mls @ 125 mls/hr IV ASDIRECTED ONE Stop: 06/10/20 03:03 Last Admin: 06/09/20 20:49 Dose: Not Given Documented by: Sodium Chloride (Normal Saline) 1,000 mls @ 125 mls/hr IV ASDIRECTED [facility] Last Admin: 06/10/20 08:37 Dose: 125 mls/hr Documented by: Sodium Chloride (Normal Saline) Confirm Administered Dose 50 mls @ as directed .ROUTE .STK-MED ONE Stop: 12/22/20 23:29 Last Admin: 06/10/20 03:33 Dose: Not Given Documented by: Doxycycline Hyclate 100 mg/ (Sodium Chloride) 100 mls @ 100 mls/hr IV Q12H [facility] Last Admin: 06/12/20 02:15 Dose: 100 mls/hr Documented by: Sodium Chloride (Normal Saline) 100 mls @ 3.5 mls/sec IV ASDIRECTED [facility] Stop: 06/10/20 18:00 Last Admin: 06/10/20 17:45 Dose: 4 mls/sec Documented by: Remdesivir 200 mg/ Sodium (Chloride) 250 mls @ 250 mls/hr IV ONETIME ONE Stop: 06/11/20 12:59 Last Admin: 06/11/20 12:30 Dose: 250 mls/hr Documented by: Iopamidol (Isovue-370 (76%)) 57 ml IV . DIRECTED [facility] Last Admin: 06/10/20 17:44 Dose: 57 ml Documented by: Ibrutinib (Imbruvica () 320 MgPom) 0 mg PO BEDTIME [facility] Last Admin: 06/10/20 21:24 Dose: Not Given Documented by: Pantoprazole Sodium (Protonix Iv) 40 mg IVPUSH DAILY [facility] Last Admin: 06/11/20 08:15 Dose: 40 mg Documented by: Sodium Chloride (Saline Flush) 10 ml FLUSH ASDIRECTED PRN PRN Reason: Keep Vein Open Last Admin: 06/09/20 19:38 Dose: 10 ml Documented by: Sodium Chloride (Saline Flush) 10 ml FLUSH ONETIME ONE Stop: 06/10/20 15:42 Last Admin: 06/10/20 17:45 Dose: 10 ml Documented by: - Exam Quality Assessment: Supplemental Oxygen, DVT Prophylaxis General: Alert, Oriented, Cooperative, Moderate Distress Lungs: Crackles, Rales. No: Rhonchi, Wheezing Cardiovascular: Regular Rate, Regular Rhythm, No Murmurs GI/Abdominal Exam: Soft, Non-Tender, No Organomegaly, No Distention Extremities: Non-Tender, No Pedal Edema Sepsis Event Note - Evaluation Sepsis Screening Result: No Definite Risk - Focused Exam Vital Signs: Vital Signs Temp Pulse Pulse Resp BP BP Pulse Ox 06/12/20 09:18 74 134/57 L 06/12/20 07:27 97 F 70 18 134/57 L 90 L 06/12/20 07:03 95 06/12/20 03:00 96.7 F L 71 22 H 133/63 92 L 06/12/20 01:09 90 L - Problem List Review Problem List Initiated/Reviewed/Updated: Yes - My Orders Last 24 Hours: My Active Orders 06/12/20 16:30 Doxycycline [Vibramycin] 100 mg PO Q12H 06/13/20 05:00 CBC WITH AUTO DIFF [HEME] Timed COMPREHENSIVE METABOLIC PN,CMP [CHEM] Timed 06/13/20 05:11 CRP [C-REACTIVE PROTEIN] [CHEM] AM D Dimer [D-DIMER QUANTITATIVE] [COAG] AM - Plan Plan:: ASSESSMENT AND PLAN PROBABLE BACTERIAL PNEUMONIA-complicating COVID-19 infection with onset of symptoms approximately 2-1/[address] scan of the chest shows no evidence of pulmonary emboli but does document bilateral infiltrates. Procalcitonin level was quite low. -Blood cultures pending -Continue IV ceftriaxone and doxycycline COVID-19 INFECTION-procalcitonin level was quite low and I think most of her respiratory problems are related to the Covid infection. -Decadron 6 mg IV daily (day 3) -Remdesivir x5 days (day 2) -Noninvasive ventilation as needed -Supportive care -Prone ventilation HYPOXIC RESPIRATORY FAILURE-secondary to COVID-19 infection and possibly bacterial pneumonia. -Supplemental oxygen as needed -Noninvasive positive pressure ventilation CHRONIC LYMPHOCYTIC LEUKEMIA -Continue current therapy MAINTENANCE ISSUES -DVT prophylaxis; Lovenox 40 mg subcu daily -GI prophylaxis; not indicated -Interiano catheter; not indicated -Nutrition; regular diet DISPOSITION-anticipate discharge to home after the hospital stay. PRIMARY CARE PROVIDER-Dr. Penaloza
[2020-06-12] MEDS: REMDESIVIR 100 MG in Sodium Chloride 0.9% 100 ML IV SCH (11:45)
[2020-06-12] MEDS: Dexamethasone 4 MG/ML SDV IVPUSH SCH (13:34)
[2020-06-12] MEDS: Doxycycline 100 MG Cap PO SCH (15:57)
[2020-06-12] MEDS: cefTRIAXone 1 GM in Sodium Chloride 0.9% 50 ML IV SCH (21:59)
[2020-06-12] MEDS: Simvastatin 20 MG Tab PO SCH (21:59)
[2020-06-13] MEDS: Doxycycline 100 MG Cap PO SCH ×2 (03:56→17:07)
[2020-06-13] MEDS: Lactobacillus Rhamnosus GG (Probiotic) Cap PO SCH ×2 (09:12→22:28)
[2020-06-13] MEDS: Aspirin 81 MG Tab.EC PO SCH (09:13)
[2020-06-13] MEDS: Enoxaparin 40 MG/0.4 ML Syringe SUBCUT SCH (09:13)
[2020-06-13] MEDS: IMBRUVICA 420 MG PO SCH (09:13)
[2020-06-13] MEDS: Metoprolol Succinate 25 MG Tab.ER PO SCH (09:14)
[2020-06-13] MEDS: REMDESIVIR 100 MG in Sodium Chloride 0.9% 100 ML IV SCH (11:46)
--- NOTE | 2020-06-13 14:10 | PCM.PN ---
- General Info Date of Service: 06/13/20 Subjective Update: Ms. Giraldo been stable over the past 24 hours. She continues to require high level of supplemental oxygen as well as intermittent use of noninvasive positive pressure ventilation. On a positive note she is not shown any further respiratory decline over the past few days. Functional Status: Reports: Tolerating Diet, Urinating - Review of Systems General: Reports: Weakness, Fatigue. Denies: Fever, Chills Pulmonary: Reports: Shortness of Breath, Cough. Denies: Pleuritic Chest Pain, Sputum, Hemoptysis, Wheezing Cardiovascular: Reports: Dyspnea on Exertion. Denies: Chest Pain, Palpitations, Orthopnea, PND, Edema, Lightheadedness Gastrointestinal: Reports: No Symptoms Genitourinary: Reports: No Symptoms - Patient Data Vitals - Most Recent: Last Vital Signs Temp 97.8 F 06/13/20 11:39 Pulse 61 06/13/20 11:39 Resp 16 06/13/20 11:39 BP 138/58 L 06/13/20 11:39 Pulse Ox 92 L 06/13/20 12:53 Weight - Most Recent: 130 lb I&O - Last 24 Hours: Intake & Output 06/12/20 06/13/20 06/13/20 22:59 06:59 14:59 Intake Total 646 1086 Output Total 200 Balance 646 -200 1086 Lab Results Last 24 Hours: Laboratory Results - last 24 hr 06/13/20 06/13/20 06/13/20 Range/Units 05:03 05:03 05:03 WBC 19.5 H (4.5-11.0) K/uL RBC 3.63 (3.30-5.50) M/uL Hgb 10.8 L (12.0-15.0) g/dL Hct 33.8 L (36.0-48.0) % MCV 93 (80-98) fL MCH 30 (27-31) pg MCHC 32 (32-36) % Plt Count 266 (150-400) K/uL Neut % (Auto) 49 (36-66) % Lymph % (Auto) 45 H (24-44) % Blair % (Auto) 6 (2-6) % Eos % (Auto) 0 L (2-4) % Baso % (Auto) 0 (0-1) % D-Dimer, Quantitative 6889.8 H (0.0-500.0) ng/mL Sodium 139 L (140-148) mmol/L Potassium 4.8 (3.6-5.2) mmol/L Chloride 107 (100-108) mmol/L Carbon Dioxide 21 (21-32) mmol/L Anion Gap 15.8 H (5.0-14.0) mmol/L BUN 36 H (7-18) mg/dL Creatinine 1.0 (0.6-1.0) mg/dL Est Cr Clr Drug Dosing 45.25 mL/min Estimated GFR (MDRD) 54 L (>60) Glucose 120 H (74-106) mg/dL Calcium 7.9 L (8.5-10.1) mg/dL Total Bilirubin 0.3 (0.2-1.0) mg/dL AST 125 H (15-37) U/L ALT 117 H (12-78) U/L Alkaline Phosphatase 326 H (46-116) U/L C-Reactive Protein (0.0-0.3) mg/dL Total Protein 5.3 L (6.4-8.2) g/dL Albumin 2.2 L (3.4-5.0) g/dL Globulin 3.1 (2.3-3.5) g/dL Albumin/Globulin Ratio 0.7 L (1.2-2.2) 06/13/20 Range/Units 05:03 WBC (4.5-11.0) K/uL RBC (3.30-5.50) M/uL Hgb (12.0-15.0) g/dL Hct (36.0-48.0) % MCV (80-98) fL MCH (27-31) pg MCHC (32-36) % Plt Count (150-400) K/uL Neut % (Auto) (36-66) % Lymph % (Auto) (24-44) % Blair % (Auto) (2-6) % Eos % (Auto) (2-4) % Baso % (Auto) (0-1) % D-Dimer, Quantitative (0.0-500.0) ng/mL Sodium (140-148) mmol/L Potassium (3.6-5.2) mmol/L Chloride (100-108) mmol/L Carbon Dioxide (21-32) mmol/L Anion Gap (5.0-14.0) mmol/L BUN (7-18) mg/dL Creatinine (0.6-1.0) mg/dL Est Cr Clr Drug Dosing mL/min Estimated GFR (MDRD) (>60) Glucose (74-106) mg/dL Calcium (8.5-10.1) mg/dL Total Bilirubin (0.2-1.0) mg/dL AST (15-37) U/L ALT (12-78) U/L Alkaline Phosphatase (46-116) U/L C-Reactive Protein 4.15 H (0.0-0.3) mg/dL Total Protein (6.4-8.2) g/dL Albumin (3.4-5.0) g/dL Globulin (2.3-3.5) g/dL Albumin/Globulin Ratio (1.2-2.2) Med Orders - Current: Current Medications Acetaminophen (Tylenol) 650 mg PO Q4H PRN PRN Reason: fever, pain Last Admin: 06/10/20 11:57 Dose: 650 mg Documented by: Aspirin (Halfprin) 81 mg PO DAILY [facility] Last Admin: 06/13/20 09:13 Dose: 81 mg Documented by: Benzonatate (Tessalon Perles) 100 mg PO TID PRN PRN Reason: Cough Dexamethasone (Decadron) 6 mg IVPUSH Q24H [facility] Last Admin: 06/12/20 13:34 Dose: 6 mg Documented by: Doxycycline Hyclate (Vibramycin) 100 mg PO Q12H [facility] Last Admin: 06/13/20 03:56 Dose: 100 mg Documented by: Enoxaparin Sodium (Lovenox) 40 mg SUBCUT Q24H [facility] Last Admin: 06/13/20 09:13 Dose: 40 mg Documented by: Guaifenesin/Dextromethorphan (Robitussin Dm) 10 ml PO Q4H PRN PRN Reason: Cough Ceftriaxone Sodium 1 gm/ (Sodium Chloride) 50 mls @ 100 mls/hr IV Q24H [facility] Last Admin: 06/12/20 21:59 Dose: 100 mls/hr Documented by: Remdesivir 100 mg/ Sodium (Chloride) 100 mls @ 100 mls/hr IV Q24H [facility] Stop: 06/15/20 12:59 Last Admin: 06/13/20 11:46 Dose: 100 mls/hr Documented by: Lactobacillus Rhamnosus (Culturelle) 1 cap PO BID [facility] Last Admin: 06/13/20 09:12 Dose: 1 cap Documented by: Metoprolol Succinate (Toprol Xl) 25 mg PO DAILY [facility] Last Admin: 06/13/20 09:14 Dose: 25 mg Documented by: Ondansetron HCl (Zofran) 4 mg IVPUSH Q4H PRN PRN Reason: Nausea/Vomiting Imbruvica 420mg Tab ((Ptom)) 1 each PO DAILY [facility] Last Admin: 06/13/20 09:13 Dose: 1 each Documented by: Simvastatin (Zocor) 40 mg PO BEDTIME [facility] Last Admin: 06/12/20 21:59 Dose: 40 mg Documented by: Sodium Chloride (Saline Flush) 10 ml FLUSH ASDIRECTED PRN PRN Reason: Keep Vein Open Last Admin: 06/09/20 19:38 Dose: 10 ml Documented by: Discontinued Medications Azithromycin (Zithromax) 500 mg PO ONETIME ONE Stop: 06/09/20 22:45 Last Admin: 06/09/20 23:44 Dose: 500 mg Documented by: Azithromycin (Zithromax) 250 mg PO DAILY [facility] Stop: 06/13/20 09:01 Last Admin: 06/10/20 08:39 Dose: 250 mg Documented by: Ceftriaxone Sodium (Rocephin) Confirm Administered Dose 1 gm IV .STK-MED ONE Stop: 06/09/20 23:29 Last Admin: 06/09/20 23:42 Dose: 1 gm Documented by: Enoxaparin Sodium (Lovenox) 60 mg SUBCUT BID [facility] Last Admin: 06/10/20 08:39 Dose: 60 mg Documented by: Furosemide (Lasix) 20 mg IVPUSH NOW ONE Stop: 06/10/20 14:46 Last Admin: 06/10/20 15:23 Dose: 20 mg Documented by: Sodium Chloride (Normal Saline) 1,000 mls @ 125 mls/hr IV ASDIRECTED ONE Stop: 06/10/20 03:03 Last Admin: 06/09/20 20:49 Dose: Not Given Documented by: Sodium Chloride (Normal Saline) 1,000 mls @ 125 mls/hr IV ASDIRECTED [facility] Last Admin: 06/10/20 08:37 Dose: 125 mls/hr Documented by: Sodium Chloride (Normal Saline) Confirm Administered Dose 50 mls @ as directed .ROUTE .STK-MED ONE Stop: 06/09/20 23:29 Last Admin: 06/10/20 03:33 Dose: Not Given Documented by: Doxycycline Hyclate 100 mg/ (Sodium Chloride) 100 mls @ 100 mls/hr IV Q12H [facility] Last Admin: 06/12/20 02:15 Dose: 100 mls/hr Documented by: Sodium Chloride (Normal Saline) 100 mls @ 3.5 mls/sec IV ASDIRECTED [facility] Stop: 06/10/20 18:00 Last Admin: 06/10/20 17:45 Dose: 4 mls/sec Documented by: Remdesivir 200 mg/ Sodium (Chloride) 250 mls @ 250 mls/hr IV ONETIME ONE Stop: 06/11/20 12:59 Last Admin: 06/11/20 12:30 Dose: 250 mls/hr Documented by: Iopamidol (Isovue-370 (76%)) 57 ml IV . DIRECTED [facility] Last Admin: 06/10/20 17:44 Dose: 57 ml Documented by: Ibrutinib (Imbruvica () 320 MgPom) 0 mg PO BEDTIME [facility] Last Admin: 06/10/20 21:24 Dose: Not Given Documented by: Pantoprazole Sodium (Protonix Iv) 40 mg IVPUSH DAILY [facility] Last Admin: 06/11/20 08:15 Dose: 40 mg Documented by: Sodium Chloride (Saline Flush) 10 ml FLUSH ASDIRECTED PRN PRN Reason: Keep Vein Open Last Admin: 06/09/20 19:38 Dose: 10 ml Documented by: Sodium Chloride (Saline Flush) 10 ml FLUSH ONETIME ONE Stop: 06/10/20 15:42 Last Admin: 06/10/20 17:45 Dose: 10 ml Documented by: - Exam Quality Assessment: Supplemental Oxygen, DVT Prophylaxis General: Alert, Oriented, Cooperative, Moderate Distress Lungs: Decreased Breath Sounds. No: Crackles, Rales, Rhonchi, Wheezing Cardiovascular: Regular Rate, Regular Rhythm, No Murmurs GI/Abdominal Exam: Soft, Non-Tender, No Organomegaly, No Distention Extremities: Non-Tender, No Pedal Edema Sepsis Event Note - Evaluation Sepsis Screening Result: No Definite Risk - Focused Exam Vital Signs: Vital Signs Temp Pulse Pulse Resp BP BP Pulse Ox 06/13/20 12:53 92 L 06/13/20 11:39 97.8 F 61 16 138/58 L 90 L 06/13/20 09:14 61 132/64 06/13/20 07:16 91 L 06/13/20 07:07 97.9 F 06/13/20 06:56 96.2 F L 61 17 132/64 92 L 06/13/20 03:57 96.7 F L 73 18 136/83 94 L - Problem List Review Problem List Initiated/Reviewed/Updated: Yes - My Orders Last 24 Hours: My Active Orders 06/12/20 16:30 Doxycycline [Vibramycin] 100 mg PO Q12H 06/14/20 05:00 CBC WITH AUTO DIFF [HEME] Timed COMPREHENSIVE METABOLIC PN,CMP [CHEM] Timed - Plan Plan:: ASSESSMENT AND PLAN PROBABLE BACTERIAL PNEUMONIA-complicating COVID-19 infection with onset of symptoms approximately 2-1/[address] scan of the chest shows no evidence of pulmonary emboli but does document bilateral infiltrates. Procalcitonin level was quite low. -Blood cultures pending -Continue IV ceftriaxone and doxycycline COVID-19 INFECTION-procalcitonin level was quite low and I think most of her respiratory problems are related to the Covid infection. -Decadron 6 mg IV daily (day 4) -Remdesivir x5 days (day 3) -Noninvasive ventilation as needed -Supportive care -Prone ventilation HYPOXIC RESPIRATORY FAILURE-secondary to COVID-19 infection and possibly bacterial pneumonia. -Supplemental oxygen as needed -Noninvasive positive pressure ventilation CHRONIC LYMPHOCYTIC LEUKEMIA -Continue current therapy MAINTENANCE ISSUES -DVT prophylaxis; Lovenox 40 mg subcu daily -GI prophylaxis; not indicated -Interiano catheter; not indicated -Nutrition; regular diet DISPOSITION-anticipate discharge to home after the hospital stay. PRIMARY CARE PROVIDER-Dr. Penaloza
[2020-06-13] MEDS: Dexamethasone 4 MG/ML SDV IVPUSH SCH (15:05)
[2020-06-13] MEDS: cefTRIAXone 1 GM in Sodium Chloride 0.9% 50 ML IV SCH (22:28)
[2020-06-13] MEDS: Simvastatin 20 MG Tab PO SCH (22:28)
[2020-06-14] MEDS: Doxycycline 100 MG Cap PO SCH ×2 (03:59→16:30)
[2020-06-14] MEDS: Enoxaparin 40 MG/0.4 ML Syringe SUBCUT SCH (08:32)
[2020-06-14] MEDS: Lactobacillus Rhamnosus GG (Probiotic) Cap PO SCH ×2 (08:32→22:30)
[2020-06-14] MEDS: Aspirin 81 MG Tab.EC PO SCH (08:32)
[2020-06-14] MEDS: Metoprolol Succinate 25 MG Tab.ER PO SCH (08:33)
[2020-06-14] MEDS: IMBRUVICA 420 MG PO SCH (08:33)
[2020-06-14] MEDS: REMDESIVIR 100 MG in Sodium Chloride 0.9% 100 ML IV SCH (11:19)
--- NOTE | 2020-06-14 11:30 | PCM.PN ---
- General Info Date of Service: 06/14/20 Subjective Update: Ms. Giraldo has been stable since yesterday. No significant improvement in oxygenation since that time but no worsening either. Subjectively she feels better with less shortness of breath and more energy. Functional Status: Reports: Tolerating Diet, Ambulating, Urinating - Review of Systems General: Reports: Weakness, Fatigue. Denies: Fever, Chills Pulmonary: Reports: Shortness of Breath, Cough. Denies: Pleuritic Chest Pain, Sputum, Hemoptysis, Wheezing Cardiovascular: Reports: Dyspnea on Exertion. Denies: Chest Pain, Palpitations, Orthopnea, PND, Edema, Lightheadedness Gastrointestinal: Reports: No Symptoms - Patient Data Vitals - Most Recent: Last Vital Signs Temp 95.8 F L 06/14/20 11:17 Pulse 62 06/14/20 11:17 Resp 18 06/14/20 11:17 BP 131/63 06/14/20 11:17 Pulse Ox 92 L 06/14/20 11:17 Weight - Most Recent: 130 lb I&O - Last 24 Hours: Intake & Output 06/13/20 06/14/20 06/14/20 22:59 06:59 14:59 Intake Total 50 1192 Balance 50 1192 Lab Results Last 24 Hours: Laboratory Results - last 24 hr 06/14/20 06/14/20 Range/Units 04:00 04:00 WBC 20.0 H (4.5-11.0) K/uL RBC 3.55 (3.30-5.50) M/uL Hgb 10.7 L (12.0-15.0) g/dL Hct 32.6 L (36.0-48.0) % MCV 92 (80-98) fL MCH 30 (27-31) pg MCHC 33 (32-36) % Plt Count 292 (150-400) K/uL Neut % (Auto) 46 (36-66) % Lymph % (Auto) 47 H (24-44) % Johnson % (Auto) 6 (2-6) % Eos % (Auto) 0 L (2-4) % Baso % (Auto) 0 (0-1) % Sodium 136 L (140-148) mmol/L Potassium 4.4 (3.6-5.2) mmol/L Chloride 104 (100-108) mmol/L Carbon Dioxide 23 (21-32) mmol/L Anion Gap 13.4 (5.0-14.0) mmol/L BUN 35 H (7-18) mg/dL Creatinine 0.9 (0.6-1.0) mg/dL Est Cr Clr Drug Dosing 50.28 mL/min Estimated GFR (MDRD) > 60 (>60) Glucose 116 H (74-106) mg/dL Calcium 7.9 L (8.5-10.1) mg/dL Total Bilirubin 0.4 (0.2-1.0) mg/dL AST 178 H (15-37) U/L ALT 185 H (12-78) U/L Alkaline Phosphatase 358 H (46-116) U/L Total Protein 5.2 L (6.4-8.2) g/dL Albumin 2.2 L (3.4-5.0) g/dL Globulin 3.0 (2.3-3.5) g/dL Albumin/Globulin Ratio 0.7 L (1.2-2.2) Med Orders - Current: Current Medications Acetaminophen (Tylenol) 650 mg PO Q4H PRN PRN Reason: fever, pain Last Admin: 06/10/20 11:57 Dose: 650 mg Documented by: Aspirin (Halfprin) 81 mg PO DAILY [facility] Last Admin: 06/14/20 08:32 Dose: 81 mg Documented by: Benzonatate (Tessalon Perles) 100 mg PO TID PRN PRN Reason: Cough Dexamethasone (Decadron) 6 mg IVPUSH Q24H [facility] Last Admin: 06/13/20 15:05 Dose: 6 mg Documented by: Doxycycline Hyclate (Vibramycin) 100 mg PO Q12H [facility] Last Admin: 06/14/20 03:59 Dose: 100 mg Documented by: Enoxaparin Sodium (Lovenox) 40 mg SUBCUT Q24H [facility] Last Admin: 06/14/20 08:32 Dose: 40 mg Documented by: Guaifenesin/Dextromethorphan (Robitussin Dm) 10 ml PO Q4H PRN PRN Reason: Cough Ceftriaxone Sodium 1 gm/ (Sodium Chloride) 50 mls @ 100 mls/hr IV Q24H [facility] Last Admin: 06/13/20 22:28 Dose: 100 mls/hr Documented by: Remdesivir 100 mg/ Sodium (Chloride) 100 mls @ 100 mls/hr IV Q24H [facility] Stop: 06/15/20 12:59 Last Admin: 06/14/20 11:19 Dose: 100 mls/hr Documented by: Lactobacillus Rhamnosus (Culturelle) 1 cap PO BID [facility] Last Admin: 06/14/20 08:32 Dose: 1 cap Documented by: Metoprolol Succinate (Toprol Xl) 25 mg PO DAILY [facility] Last Admin: 06/14/20 08:33 Dose: 25 mg Documented by: Ondansetron HCl (Zofran) 4 mg IVPUSH Q4H PRN PRN Reason: Nausea/Vomiting Imbruvica 420mg Tab ((Ptom)) 1 each PO DAILY [facility] Last Admin: 06/14/20 08:33 Dose: 1 each Documented by: Simvastatin (Zocor) 40 mg PO BEDTIME [facility] Last Admin: 06/13/20 22:28 Dose: 40 mg Documented by: Sodium Chloride (Saline Flush) 10 ml FLUSH ASDIRECTED PRN PRN Reason: Keep Vein Open Last Admin: 06/09/20 19:38 Dose: 10 ml Documented by: Discontinued Medications Azithromycin (Zithromax) 500 mg PO ONETIME ONE Stop: 06/09/20 22:45 Last Admin: 06/09/20 23:44 Dose: 500 mg Documented by: Azithromycin (Zithromax) 250 mg PO DAILY [facility] Stop: 06/13/20 09:01 Last Admin: 06/10/20 08:39 Dose: 250 mg Documented by: Ceftriaxone Sodium (Rocephin) Confirm Administered Dose 1 gm IV .STK-MED ONE Stop: 06/09/20 23:29 Last Admin: 06/09/20 23:42 Dose: 1 gm Documented by: Enoxaparin Sodium (Lovenox) 60 mg SUBCUT BID [facility] Last Admin: 06/10/20 08:39 Dose: 60 mg Documented by: Furosemide (Lasix) 20 mg IVPUSH NOW ONE Stop: 06/10/20 14:46 Last Admin: 06/10/20 15:23 Dose: 20 mg Documented by: Sodium Chloride (Normal Saline) 1,000 mls @ 125 mls/hr IV ASDIRECTED ONE Stop: 06/10/20 03:03 Last Admin: 06/09/20 20:49 Dose: Not Given Documented by: Sodium Chloride (Normal Saline) 1,000 mls @ 125 mls/hr IV ASDIRECTED [facility] Last Admin: 06/10/20 08:37 Dose: 125 mls/hr Documented by: Sodium Chloride (Normal Saline) Confirm Administered Dose 50 mls @ as directed .ROUTE .STK-MED ONE Stop: 06/09/20 23:29 Last Admin: 06/10/20 03:33 Dose: Not Given Documented by: Doxycycline Hyclate 100 mg/ (Sodium Chloride) 100 mls @ 100 mls/hr IV Q12H [facility] Last Admin: 06/12/20 02:15 Dose: 100 mls/hr Documented by: Sodium Chloride (Normal Saline) 100 mls @ 3.5 mls/sec IV ASDIRECTED [facility] Stop: 06/10/20 18:00 Last Admin: 06/10/20 17:45 Dose: 4 mls/sec Documented by: Remdesivir 200 mg/ Sodium (Chloride) 250 mls @ 250 mls/hr IV ONETIME ONE Stop: 06/11/20 12:59 Last Admin: 06/11/20 12:30 Dose: 250 mls/hr Documented by: Iopamidol (Isovue-370 (76%)) 57 ml IV . DIRECTED [facility] Last Admin: 06/10/20 17:44 Dose: 57 ml Documented by: Ibrutinib (Imbruvica () 320 MgPom) 0 mg PO BEDTIME [facility] Last Admin: 06/10/20 21:24 Dose: Not Given Documented by: Pantoprazole Sodium (Protonix Iv) 40 mg IVPUSH DAILY [facility] Last Admin: 06/11/20 08:15 Dose: 40 mg Documented by: Sodium Chloride (Saline Flush) 10 ml FLUSH ASDIRECTED PRN PRN Reason: Keep Vein Open Last Admin: 06/09/20 19:38 Dose: 10 ml Documented by: Sodium Chloride (Saline Flush) 10 ml FLUSH ONETIME ONE Stop: 06/10/20 15:42 Last Admin: 06/10/20 17:45 Dose: 10 ml Documented by: - Exam Quality Assessment: Supplemental Oxygen, DVT Prophylaxis General: Alert, Oriented, Cooperative, Moderate Distress Lungs: Normal Respiratory Effort, Rales. No: Crackles, Rhonchi, Wheezing Cardiovascular: Regular Rate, Regular Rhythm, No Murmurs GI/Abdominal Exam: Soft, Non-Tender, No Organomegaly, No Distention Extremities: Non-Tender, No Pedal Edema Sepsis Event Note - Evaluation Sepsis Screening Result: No Definite Risk - Focused Exam Vital Signs: Vital Signs Temp Pulse Pulse Resp BP BP Pulse Ox 06/14/20 11:17 95.8 F L 62 18 131/63 92 L 06/14/20 08:33 66 135/56 L 06/14/20 07:19 92 L 06/14/20 07:11 96.8 F L 62 18 135/56 L 92 L 06/14/20 03:57 97.0 F 62 20 134/64 96 06/14/20 01:31 97 - Problem List Review Problem List Initiated/Reviewed/Updated: Yes - My Orders Last 24 Hours: My Active Orders 06/15/20 05:00 CBC WITH AUTO DIFF [HEME] Timed COMPREHENSIVE METABOLIC PN,CMP [CHEM] Timed 06/15/20 05:11 CRP [C-REACTIVE PROTEIN] [CHEM] AM D Dimer [D-DIMER QUANTITATIVE] [COAG] AM - Plan Plan:: ASSESSMENT AND PLAN PROBABLE BACTERIAL PNEUMONIA-complicating COVID-19 infection with onset of symptoms approximately 2-1/[address] scan of the chest shows no evidence of pulmonary emboli but does document bilateral infiltrates. Procalcitonin level was quite low. -Blood cultures pending -Continue IV ceftriaxone and doxycycline COVID-19 INFECTION-procalcitonin level was quite low and I think most of her respiratory problems are related to the Covid infection. -Decadron 6 mg IV daily (day 5) -Remdesivir x5 days (day 4) -Noninvasive ventilation as needed -Supportive care -Prone ventilation HYPOXIC RESPIRATORY FAILURE-secondary to COVID-19 infection and possibly bacterial pneumonia. Respiratory status stable over the last 24 hours. -Supplemental oxygen as needed -Noninvasive positive pressure ventilation CHRONIC LYMPHOCYTIC LEUKEMIA -Continue current therapy MAINTENANCE ISSUES -DVT prophylaxis; Lovenox 40 mg subcu daily -GI prophylaxis; not indicated -Interiano catheter; not indicated -Nutrition; regular diet DISPOSITION-anticipate discharge to home after the hospital stay. PRIMARY CARE PROVIDER-Dr. Penaloza
[2020-06-14] MEDS: Dexamethasone 4 MG/ML SDV IVPUSH SCH (13:30)
[2020-06-14] MEDS: Acetaminophen 325 MG Tab PO PRN (17:45)
[2020-06-14] MEDS: Simvastatin 20 MG Tab PO SCH (22:29)
[2020-06-14] MEDS: cefTRIAXone 1 GM in Sodium Chloride 0.9% 50 ML IV SCH (22:30)
[2020-06-15] MEDS: Doxycycline 100 MG Cap PO SCH ×2 (04:30→16:35)
[2020-06-15] MEDS: Lactobacillus Rhamnosus GG (Probiotic) Cap PO SCH ×2 (08:39→20:52)
[2020-06-15] MEDS: Enoxaparin 40 MG/0.4 ML Syringe SUBCUT SCH (08:39)
[2020-06-15] MEDS: Aspirin 81 MG Tab.EC PO SCH (08:39)
[2020-06-15] MEDS: IMBRUVICA 420 MG PO SCH (08:39)
[2020-06-15] MEDS: Metoprolol Succinate 25 MG Tab.ER PO SCH (08:40)
--- NOTE | 2020-06-15 10:08 | CR ---
CHEST: Portable 04/11/2020 at 4:54 AM CLINICAL HISTORY:Follow-up pneumonia COMPARISON:06/09/2020 FINDINGS: There is some increase in density of the bilateral infiltrates. Patient has large bilateral hernia. There are atherosclerotic changes in the aorta. Impression: Increase in density of bilateral pneumonic infiltrates
[2020-06-15] MEDS: REMDESIVIR 100 MG in Sodium Chloride 0.9% 100 ML IV SCH (12:49)
--- NOTE | 2020-06-15 14:51 | PCM.PN ---
- General Info Date of Service: 06/15/20 Subjective Update: Ms. Giraldo is finally showing some evidence of modest improvement over the last 24 hours. Currently requiring less supplemental oxygen during the day at 10 L/min via nasal cannula. She reports some improvement in appetite and overall strength. He is encouraged to continue to work on prone ventilation. Functional Status: Reports: Tolerating Diet, Ambulating, Urinating - Review of Systems General: Reports: Weakness, Fatigue. Denies: Fever, Chills Pulmonary: Reports: Shortness of Breath, Cough. Denies: Pleuritic Chest Pain, Sputum, Hemoptysis, Wheezing Cardiovascular: Reports: Dyspnea on Exertion. Denies: Chest Pain, Palpitations, Orthopnea, PND, Edema, Lightheadedness Gastrointestinal: Reports: No Symptoms - Patient Data Vitals - Most Recent: Last Vital Signs Temp 98.7 F 06/15/20 14:45 Pulse 66 06/15/20 14:45 Resp 16 06/15/20 14:45 BP 123/63 06/15/20 14:45 Pulse Ox 92 L 06/15/20 14:45 Weight - Most Recent: 130 lb I&O - Last 24 Hours: Intake & Output 06/14/20 06/15/20 06/15/20 22:59 06:59 14:59 Intake Total 340 300 Output Total 3 Balance 337 300 Lab Results Last 24 Hours: Laboratory Results - last 24 hr 06/15/20 06/15/20 06/15/20 Range/Units 06:10 06:10 06:10 WBC 20.9 H (4.5-11.0) K/uL RBC 3.48 (3.30-5.50) M/uL Hgb 10.4 L (12.0-15.0) g/dL Hct 31.9 L (36.0-48.0) % MCV 92 (80-98) fL MCH 30 (27-31) pg MCHC 33 (32-36) % Plt Count 281 (150-400) K/uL Neut % (Auto) 44 (36-66) % Lymph % (Auto) 49 H (24-44) % Waller % (Auto) 7 H (2-6) % Eos % (Auto) 0 L (2-4) % Baso % (Auto) 0 (0-1) % D-Dimer, Quantitative 1974.56 H (0.0-500.0) ng/mL Sodium 134 L (140-148) mmol/L Potassium 4.3 (3.6-5.2) mmol/L Chloride 104 (100-108) mmol/L Carbon Dioxide 24 (21-32) mmol/L Anion Gap 10.3 (5.0-14.0) mmol/L BUN 32 H (7-18) mg/dL Creatinine 0.8 (0.6-1.0) mg/dL Est Cr Clr Drug Dosing 56.56 mL/min Estimated GFR (MDRD) > 60 (>60) Glucose 124 H (74-106) mg/dL Calcium 8.0 L (8.5-10.1) mg/dL Total Bilirubin 0.4 (0.2-1.0) mg/dL AST 126 H (15-37) U/L ALT 182 H (12-78) U/L Alkaline Phosphatase 340 H (46-116) U/L C-Reactive Protein (0.0-0.3) mg/dL Total Protein 5.1 L (6.4-8.2) g/dL Albumin 2.1 L (3.4-5.0) g/dL Globulin 3.0 (2.3-3.5) g/dL Albumin/Globulin Ratio 0.7 L (1.2-2.2) 06/15/20 Range/Units 06:10 WBC (4.5-11.0) K/uL RBC (3.30-5.50) M/uL Hgb (12.0-15.0) g/dL Hct (36.0-48.0) % MCV (80-98) fL MCH (27-31) pg MCHC (32-36) % Plt Count (150-400) K/uL Neut % (Auto) (36-66) % Lymph % (Auto) (24-44) % Waller % (Auto) (2-6) % Eos % (Auto) (2-4) % Baso % (Auto) (0-1) % D-Dimer, Quantitative (0.0-500.0) ng/mL Sodium (140-148) mmol/L Potassium (3.6-5.2) mmol/L Chloride (100-108) mmol/L Carbon Dioxide (21-32) mmol/L Anion Gap (5.0-14.0) mmol/L BUN (7-18) mg/dL Creatinine (0.6-1.0) mg/dL Est Cr Clr Drug Dosing mL/min Estimated GFR (MDRD) (>60) Glucose (74-106) mg/dL Calcium (8.5-10.1) mg/dL Total Bilirubin (0.2-1.0) mg/dL AST (15-37) U/L ALT (12-78) U/L Alkaline Phosphatase (46-116) U/L C-Reactive Protein 2.03 H (0.0-0.3) mg/dL Total Protein (6.4-8.2) g/dL Albumin (3.4-5.0) g/dL Globulin (2.3-3.5) g/dL Albumin/Globulin Ratio (1.2-2.2) Med Orders - Current: Current Medications Acetaminophen (Tylenol) 650 mg PO Q4H PRN PRN Reason: fever, pain Last Admin: 06/14/20 17:45 Dose: 650 mg Documented by: Aspirin (Halfprin) 81 mg PO DAILY [facility] Last Admin: 06/15/20 08:39 Dose: 81 mg Documented by: Benzonatate (Tessalon Perles) 100 mg PO TID PRN PRN Reason: Cough Dexamethasone (Decadron) 6 mg IVPUSH Q24H [facility] Last Admin: 06/14/20 13:30 Dose: 6 mg Documented by: Doxycycline Hyclate (Vibramycin) 100 mg PO Q12H [facility] Last Admin: 06/15/20 04:30 Dose: 100 mg Documented by: Enoxaparin Sodium (Lovenox) 40 mg SUBCUT Q24H [facility] Last Admin: 06/15/20 08:39 Dose: 40 mg Documented by: Guaifenesin/Dextromethorphan (Robitussin Dm) 10 ml PO Q4H PRN PRN Reason: Cough Ceftriaxone Sodium 1 gm/ (Sodium Chloride) 50 mls @ 100 mls/hr IV Q24H [facility] Last Admin: 06/14/20 22:30 Dose: 100 mls/hr Documented by: Lactobacillus Rhamnosus (Culturelle) 1 cap PO BID [facility] Last Admin: 06/15/20 08:39 Dose: 1 cap Documented by: Metoprolol Succinate (Toprol Xl) 25 mg PO DAILY [facility] Last Admin: 12/28/20 08:40 Dose: 25 mg Documented by: Ondansetron HCl (Zofran) 4 mg IVPUSH Q4H PRN PRN Reason: Nausea/Vomiting Imbruvica 420mg Tab ((Ptom)) 1 each PO DAILY [facility] Last Admin: 06/15/20 08:39 Dose: 1 each Documented by: Simvastatin (Zocor) 40 mg PO BEDTIME [facility] Last Admin: 06/14/20 22:29 Dose: 40 mg Documented by: Sodium Chloride (Saline Flush) 10 ml FLUSH ASDIRECTED PRN PRN Reason: Keep Vein Open Last Admin: 06/09/20 19:38 Dose: 10 ml Documented by: Discontinued Medications Azithromycin (Zithromax) 500 mg PO ONETIME ONE Stop: 06/09/20 22:45 Last Admin: 06/09/20 23:44 Dose: 500 mg Documented by: Azithromycin (Zithromax) 250 mg PO DAILY [facility] Stop: 06/13/20 09:01 Last Admin: 06/10/20 08:39 Dose: 250 mg Documented by: Ceftriaxone Sodium (Rocephin) Confirm Administered Dose 1 gm IV .STK-MED ONE Stop: 06/09/20 23:29 Last Admin: 06/09/20 23:42 Dose: 1 gm Documented by: Enoxaparin Sodium (Lovenox) 60 mg SUBCUT BID [facility] Last Admin: 06/10/20 08:39 Dose: 60 mg Documented by: Furosemide (Lasix) 20 mg IVPUSH NOW ONE Stop: 06/10/20 14:46 Last Admin: 06/10/20 15:23 Dose: 20 mg Documented by: Sodium Chloride (Normal Saline) 1,000 mls @ 125 mls/hr IV ASDIRECTED ONE Stop: 06/10/20 03:03 Last Admin: 06/09/20 20:49 Dose: Not Given Documented by: Sodium Chloride (Normal Saline) 1,000 mls @ 125 mls/hr IV ASDIRECTED [facility] Last Admin: 06/10/20 08:37 Dose: 125 mls/hr Documented by: Sodium Chloride (Normal Saline) Confirm Administered Dose 50 mls @ as directed .ROUTE .STK-MED ONE Stop: 06/09/20 23:29 Last Admin: 06/10/20 03:33 Dose: Not Given Documented by: Doxycycline Hyclate 100 mg/ (Sodium Chloride) 100 mls @ 100 mls/hr IV Q12H [facility] Last Admin: 06/12/20 02:15 Dose: 100 mls/hr Documented by: Sodium Chloride (Normal Saline) 100 mls @ 3.5 mls/sec IV ASDIRECTED [facility] Stop: 06/10/20 18:00 Last Admin: 06/10/20 17:45 Dose: 4 mls/sec Documented by: Remdesivir 100 mg/ Sodium (Chloride) 100 mls @ 100 mls/hr IV Q24H [facility] Stop: 06/15/20 12:59 Last Admin: 06/15/20 12:49 Dose: 100 mls/hr Documented by: Remdesivir 200 mg/ Sodium (Chloride) 250 mls @ 250 mls/hr IV ONETIME ONE Stop: 06/11/20 12:59 Last Admin: 06/11/20 12:30 Dose: 250 mls/hr Documented by: Iopamidol (Isovue-370 (76%)) 57 ml IV . DIRECTED [facility] Last Admin: 06/10/20 17:44 Dose: 57 ml Documented by: Ibrutinib (Imbruvica () 320 MgPom) 0 mg PO BEDTIME [facility] Last Admin: 06/10/20 21:24 Dose: Not Given Documented by: Pantoprazole Sodium (Protonix Iv) 40 mg IVPUSH DAILY [facility] Last Admin: 06/11/20 08:15 Dose: 40 mg Documented by: Sodium Chloride (Saline Flush) 10 ml FLUSH ASDIRECTED PRN PRN Reason: Keep Vein Open Last Admin: 06/09/20 19:38 Dose: 10 ml Documented by: Sodium Chloride (Saline Flush) 10 ml FLUSH ONETIME ONE Stop: 06/10/20 15:42 Last Admin: 06/10/20 17:45 Dose: 10 ml Documented by: - Exam Quality Assessment: Supplemental Oxygen, DVT Prophylaxis General: Alert, Oriented, Cooperative, Moderate Distress Lungs: Normal Respiratory Effort, Decreased Breath Sounds, Rales. No: Crackles, Rhonchi, Wheezing Cardiovascular: Regular Rate, Regular Rhythm, No Murmurs GI/Abdominal Exam: Soft, Non-Tender, No Organomegaly, No Distention Extremities: Non-Tender, No Pedal Edema Sepsis Event Note - Evaluation Sepsis Screening Result: No Definite Risk - Focused Exam Vital Signs: Vital Signs Temp Pulse Pulse Resp BP BP Pulse Ox 06/15/20 14:45 98.7 F 66 16 123/63 92 L 06/15/20 12:40 97 06/15/20 10:44 97.4 F 72 20 111/46 L 91 L 06/15/20 08:40 60 115/58 L 06/15/20 07:10 97 06/15/20 07:00 96.3 F L 60 18 118/58 L 95 06/15/20 04:00 96.9 F 66 18 142/59 H - Problem List Review Problem List Initiated/Reviewed/Updated: Yes - My Orders Last 24 Hours: My Active Orders 06/16/20 05:00 COMPREHENSIVE METABOLIC PN,CMP [CHEM] Timed - Plan Plan:: ASSESSMENT AND PLAN PROBABLE BACTERIAL PNEUMONIA -Discontinue IV antibiotics COVID-19 INFECTION -Decadron 6 mg IV daily (day 6) -Remdesivir x5 days (day 5) -Noninvasive ventilation as needed -Supportive care -Prone ventilation HYPOXIC RESPIRATORY FAILURE-modest improvement over the last 24 hours, wearing less supplemental oxygen during the day at 10 L/min via nasal cannula -Supplemental oxygen as needed -Noninvasive positive pressure ventilation as needed CHRONIC LYMPHOCYTIC LEUKEMIA -Continue current therapy MAINTENANCE ISSUES -DVT prophylaxis; Lovenox 40 mg subcu daily -GI prophylaxis; not indicated -Interiano catheter; not indicated -Nutrition; regular diet DISPOSITION-anticipate discharge to home after the hospital stay. PRIMARY CARE PROVIDER-Dr. Penaloza
[2020-06-15] MEDS: Dexamethasone 4 MG/ML SDV IVPUSH SCH (15:43)
[2020-06-15] MEDS: Dexamethasone 2 MG Tab PO SCH (16:36)
[2020-06-15] MEDS: Simvastatin 20 MG Tab PO SCH (20:52)
[2020-06-16] MEDS: Aspirin 81 MG Tab.EC PO SCH (08:41)
[2020-06-16] MEDS: Enoxaparin 40 MG/0.4 ML Syringe SUBCUT SCH (08:42)
[2020-06-16] MEDS: Lactobacillus Rhamnosus GG (Probiotic) Cap PO SCH ×2 (08:42→21:01)
[2020-06-16] MEDS: IMBRUVICA 420 MG PO SCH (08:43)
[2020-06-16] MEDS: Metoprolol Succinate 25 MG Tab.ER PO SCH (09:00)
--- NOTE | 2020-06-16 14:35 | PCM.PN ---
- General Info Date of Service: 06/16/20 Subjective Update: No acute events overnight. Feeling a little better today with less shortness of breath. Strength is a little better. Still requiring 10 L of supplemental oxygen. No fevers. No abdominal pain or nausea. Functional Status: Reports: Pain Controlled, Tolerating Diet - Review of Systems General: Reports: Weakness. Denies: Fever Pulmonary: Reports: Shortness of Breath - Patient Data Vitals - Most Recent: Last Vital Signs Temp 36.7 C 06/16/20 14:31 Pulse 72 06/16/20 14:31 Resp 18 06/16/20 14:31 BP 118/66 06/16/20 14:31 Pulse Ox 94 L 06/16/20 14:31 Weight - Most Recent: 58.967 kg I&O - Last 24 Hours: Intake & Output 06/15/20 06/16/20 06/16/20 22:59 06:59 14:59 Intake Total 240 Balance 240 Lab Results Last 24 Hours: Laboratory Results - last 24 hr 06/16/20 Range/Units 05:45 Sodium 134 L (140-148) mmol/L Potassium 4.5 (3.6-5.2) mmol/L Chloride 103 (100-108) mmol/L Carbon Dioxide 25 (21-32) mmol/L Anion Gap 10.5 (5.0-14.0) mmol/L BUN 36 H (7-18) mg/dL Creatinine 0.9 (0.6-1.0) mg/dL Est Cr Clr Drug Dosing 50.28 mL/min Estimated GFR (MDRD) > 60 (>60) Glucose 134 H (74-106) mg/dL Calcium 7.9 L (8.5-10.1) mg/dL Total Bilirubin 0.5 (0.2-1.0) mg/dL AST 91 H (15-37) U/L ALT 157 H (12-78) U/L Alkaline Phosphatase 317 H (46-116) U/L Total Protein 4.7 L (6.4-8.2) g/dL Albumin 2.0 L (3.4-5.0) g/dL Globulin 2.7 (2.3-3.5) g/dL Albumin/Globulin Ratio 0.7 L (1.2-2.2) Med Orders - Current: Current Medications Acetaminophen (Tylenol) 650 mg PO Q4H PRN PRN Reason: fever, pain Last Admin: 06/14/20 17:45 Dose: 650 mg Documented by: Aspirin (Halfprin) 81 mg PO DAILY [facility] Last Admin: 06/16/20 08:41 Dose: 81 mg Documented by: Benzonatate (Tessalon Perles) 100 mg PO TID PRN PRN Reason: Cough Dexamethasone (Dexamethasone) 6 mg PO Q24H [facility] Last Admin: 06/15/20 16:36 Dose: 6 mg Documented by: Enoxaparin Sodium (Lovenox) 40 mg SUBCUT Q24H [facility] Last Admin: 06/16/20 08:42 Dose: 40 mg Documented by: Guaifenesin/Dextromethorphan (Robitussin Dm) 10 ml PO Q4H PRN PRN Reason: Cough Lactobacillus Rhamnosus (Culturelle) 1 cap PO BID [facility] Last Admin: 06/16/20 08:42 Dose: 1 cap Documented by: Metoprolol Succinate (Toprol Xl) 25 mg PO DAILY [facility] Last Admin: 06/16/20 09:00 Dose: Not Given Documented by: Ondansetron HCl (Zofran) 4 mg IVPUSH Q4H PRN PRN Reason: Nausea/Vomiting Imbruvica 420mg Tab ((Ptom)) 1 each PO DAILY [facility] Last Admin: 06/16/20 08:43 Dose: 1 each Documented by: Simvastatin (Zocor) 40 mg PO BEDTIME [facility] Last Admin: 06/15/20 20:52 Dose: 40 mg Documented by: Sodium Chloride (Saline Flush) 10 ml FLUSH ASDIRECTED PRN PRN Reason: Keep Vein Open Last Admin: 06/09/20 19:38 Dose: 10 ml Documented by: Discontinued Medications Azithromycin (Zithromax) 500 mg PO ONETIME ONE Stop: 06/09/20 22:45 Last Admin: 06/09/20 23:44 Dose: 500 mg Documented by: Azithromycin (Zithromax) 250 mg PO DAILY [facility] Stop: 06/13/20 09:01 Last Admin: 06/10/20 08:39 Dose: 250 mg Documented by: Ceftriaxone Sodium (Rocephin) Confirm Administered Dose 1 gm IV .STK-MED ONE Stop: 06/09/20 23:29 Last Admin: 06/09/20 23:42 Dose: 1 gm Documented by: Dexamethasone (Decadron) 6 mg IVPUSH Q24H [facility] Last Admin: 06/15/20 15:43 Dose: Not Given Documented by: Doxycycline Hyclate (Vibramycin) 100 mg PO Q12H [facility] Stop: 06/15/20 23:59 Last Admin: 06/15/20 16:35 Dose: 100 mg Documented by: Enoxaparin Sodium (Lovenox) 60 mg SUBCUT BID [facility] Last Admin: 06/10/20 08:39 Dose: 60 mg Documented by: Furosemide (Lasix) 20 mg IVPUSH NOW ONE Stop: 06/10/20 14:46 Last Admin: 06/10/20 15:23 Dose: 20 mg Documented by: Sodium Chloride (Normal Saline) 1,000 mls @ 125 mls/hr IV ASDIRECTED ONE Stop: 06/10/20 03:03 Last Admin: 06/09/20 20:49 Dose: Not Given Documented by: Ceftriaxone Sodium 1 gm/ (Sodium Chloride) 50 mls @ 100 mls/hr IV Q24H [facility] Stop: 06/15/20 23:59 Last Admin: 06/14/20 22:30 Dose: 100 mls/hr Documented by: Sodium Chloride (Normal Saline) 1,000 mls @ 125 mls/hr IV ASDIRECTED [facility] Last Admin: 06/10/20 08:37 Dose: 125 mls/hr Documented by: Sodium Chloride (Normal Saline) Confirm Administered Dose 50 mls @ as directed .ROUTE .STK-MED ONE Stop: 06/09/20 23:29 Last Admin: 06/10/20 03:33 Dose: Not Given Documented by: Doxycycline Hyclate 100 mg/ (Sodium Chloride) 100 mls @ 100 mls/hr IV Q12H [facility] Last Admin: 06/12/20 02:15 Dose: 100 mls/hr Documented by: Sodium Chloride (Normal Saline) 100 mls @ 3.5 mls/sec IV ASDIRECTED [facility] Stop: 06/10/20 18:00 Last Admin: 06/10/20 17:45 Dose: 4 mls/sec Documented by: Remdesivir 100 mg/ Sodium (Chloride) 100 mls @ 100 mls/hr IV Q24H [facility] Stop: 06/15/20 12:59 Last Admin: 06/15/20 12:49 Dose: 100 mls/hr Documented by: Remdesivir 200 mg/ Sodium (Chloride) 250 mls @ 250 mls/hr IV ONETIME ONE Stop: 06/11/20 12:59 Last Admin: 06/11/20 12:30 Dose: 250 mls/hr Documented by: Iopamidol (Isovue-370 (76%)) 57 ml IV . DIRECTED [facility] Last Admin: 06/10/20 17:44 Dose: 57 ml Documented by: Ibrutinib (Imbruvica () 320 MgPom) 0 mg PO BEDTIME [facility] Last Admin: 06/10/20 21:24 Dose: Not Given Documented by: Pantoprazole Sodium (Protonix Iv) 40 mg IVPUSH DAILY [facility] Last Admin: 06/11/20 08:15 Dose: 40 mg Documented by: Sodium Chloride (Saline Flush) 10 ml FLUSH ASDIRECTED PRN PRN Reason: Keep Vein Open Last Admin: 06/09/20 19:38 Dose: 10 ml Documented by: Sodium Chloride (Saline Flush) 10 ml FLUSH ONETIME ONE Stop: 06/10/20 15:42 Last Admin: 06/10/20 17:45 Dose: 10 ml Documented by: - Exam Quality Assessment: Supplemental Oxygen General: Alert, Oriented, Cooperative, No Acute Distress Lungs: Normal Respiratory Effort. No: Wheezing Cardiovascular: Regular Rate, Regular Rhythm GI/Abdominal Exam: Soft, No Distention Extremities: No Pedal Edema. No: Increased Warmth Skin: Warm, Dry Psy/Mental Status: Alert, Normal Affect Sepsis Event Note - Evaluation Sepsis Screening Result: No Definite Risk - Focused Exam Vital Signs: Vital Signs Temp Pulse Resp BP Pulse Ox 06/16/20 14:31 36.7 C 72 18 118/66 94 L 06/16/20 12:28 93 L 06/16/20 11:00 36.4 C 71 18 116/56 L 93 L 06/16/20 07:40 94 L 06/16/20 07:00 36.0 C L 65 18 106/62 95 06/16/20 04:27 36.2 C 68 18 127/68 95 - Problem List Review Problem List Initiated/Reviewed/Updated: Yes - Plan Plan:: ASSESSMENT AND PLAN COVID-19 PNEUMONIA-complicated by acute respiratory failure with hypoxia. Still requiring 10 L but has been improving. Intermittently using the noninvasive ventilation. -Decadron 6 mg IV daily (day 7) -Remdesivir x5 days complete -Supplemental oxygen -Noninvasive ventilation as needed -Supportive care -Prone ventilation -Isolation precautions through 06/22 CHRONIC LYMPHOCYTIC LEUKEMIA -Continue current therapy MAINTENANCE ISSUES -DVT prophylaxis; Lovenox 40 mg subcu daily -GI prophylaxis; not indicated -Interiano catheter; not indicated -Nutrition; regular diet DISPOSITION-anticipate discharge to home after the hospital stay. Mario Rey MD
[2020-06-16] MEDS: Dexamethasone 2 MG Tab PO SCH (17:04)
[2020-06-16] MEDS: Simvastatin 20 MG Tab PO SCH (21:00)
[2020-06-17] MEDS: Aspirin 81 MG Tab.EC PO SCH (08:49)
[2020-06-17] MEDS: Metoprolol Succinate 25 MG Tab.ER PO SCH (08:49)
[2020-06-17] MEDS: Lactobacillus Rhamnosus GG (Probiotic) Cap PO SCH ×2 (08:49→20:23)
[2020-06-17] MEDS: Enoxaparin 40 MG/0.4 ML Syringe SUBCUT SCH (08:49)
[2020-06-17] MEDS: IMBRUVICA 420 MG PO SCH (08:50)
--- NOTE | 2020-06-17 14:08 | PCM.PN ---
- General Info Date of Service: 06/17/20 Subjective Update: No acute events overnight. Respiratory status has been stable. She feels better again today. She continues to require about 10 L of supplemental oxygen. Appetite is a little better. Energy is a little better. She is hoping to shower today. No fevers. Intermittently using noninvasive ventilation. Functional Status: Reports: Pain Controlled, Tolerating Diet - Review of Systems General: Reports: Weakness Pulmonary: Reports: Shortness of Breath - Patient Data Vitals - Most Recent: Last Vital Signs Temp 36.6 C 06/17/20 11:35 Pulse 67 06/17/20 11:35 Resp 18 06/17/20 11:35 BP 112/66 06/17/20 11:35 Pulse Ox 92 L 06/17/20 12:25 Weight - Most Recent: 58.967 kg I&O - Last 24 Hours: Intake & Output 06/16/20 06/17/20 06/17/20 22:59 06:59 14:59 Intake Total 296 100 Balance 296 100 Med Orders - Current: Current Medications Acetaminophen (Tylenol) 650 mg PO Q4H PRN PRN Reason: fever, pain Last Admin: 06/14/20 17:45 Dose: 650 mg Documented by: Aspirin (Halfprin) 81 mg PO DAILY [facility] Last Admin: 06/17/20 08:49 Dose: 81 mg Documented by: Benzonatate (Tessalon Perles) 100 mg PO TID PRN PRN Reason: Cough Dexamethasone (Dexamethasone) 6 mg PO Q24H [facility] Last Admin: 06/16/20 17:04 Dose: 6 mg Documented by: Enoxaparin Sodium (Lovenox) 40 mg SUBCUT Q24H [facility] Last Admin: 06/17/20 08:49 Dose: 40 mg Documented by: Guaifenesin/Dextromethorphan (Robitussin Dm) 10 ml PO Q4H PRN PRN Reason: Cough Lactobacillus Rhamnosus (Culturelle) 1 cap PO BID [facility] Last Admin: 06/17/20 08:49 Dose: 1 cap Documented by: Metoprolol Succinate (Toprol Xl) 25 mg PO DAILY [facility] Last Admin: 06/17/20 08:49 Dose: 25 mg Documented by: Ondansetron HCl (Zofran) 4 mg IVPUSH Q4H PRN PRN Reason: Nausea/Vomiting Imbruvica 420mg Tab ((Ptom)) 1 each PO DAILY [facility] Last Admin: 06/17/20 08:50 Dose: 1 each Documented by: Simvastatin (Zocor) 40 mg PO BEDTIME [facility] Last Admin: 06/16/20 21:00 Dose: 40 mg Documented by: Sodium Chloride (Saline Flush) 10 ml FLUSH ASDIRECTED PRN PRN Reason: Keep Vein Open Last Admin: 06/09/20 19:38 Dose: 10 ml Documented by: Discontinued Medications Azithromycin (Zithromax) 500 mg PO ONETIME ONE Stop: 06/09/20 22:45 Last Admin: 06/09/20 23:44 Dose: 500 mg Documented by: Azithromycin (Zithromax) 250 mg PO DAILY [facility] Stop: 06/13/20 09:01 Last Admin: 06/10/20 08:39 Dose: 250 mg Documented by: Ceftriaxone Sodium (Rocephin) Confirm Administered Dose 1 gm IV .STK-MED ONE Stop: 06/09/20 23:29 Last Admin: 06/09/20 23:42 Dose: 1 gm Documented by: Dexamethasone (Decadron) 6 mg IVPUSH Q24H [facility] Last Admin: 06/15/20 15:43 Dose: Not Given Documented by: Doxycycline Hyclate (Vibramycin) 100 mg PO Q12H [facility] Stop: 06/15/20 23:59 Last Admin: 06/15/20 16:35 Dose: 100 mg Documented by: Enoxaparin Sodium (Lovenox) 60 mg SUBCUT BID [facility] Last Admin: 06/10/20 08:39 Dose: 60 mg Documented by: Furosemide (Lasix) 20 mg IVPUSH NOW ONE Stop: 06/10/20 14:46 Last Admin: 06/10/20 15:23 Dose: 20 mg Documented by: Sodium Chloride (Normal Saline) 1,000 mls @ 125 mls/hr IV ASDIRECTED ONE Stop: 06/10/20 03:03 Last Admin: 06/09/20 20:49 Dose: Not Given Documented by: Ceftriaxone Sodium 1 gm/ (Sodium Chloride) 50 mls @ 100 mls/hr IV Q24H [facility] Stop: 06/15/20 23:59 Last Admin: 06/14/20 22:30 Dose: 100 mls/hr Documented by: Sodium Chloride (Normal Saline) 1,000 mls @ 125 mls/hr IV ASDIRECTED [facility] Last Admin: 06/10/20 08:37 Dose: 125 mls/hr Documented by: Sodium Chloride (Normal Saline) Confirm Administered Dose 50 mls @ as directed .ROUTE .STK-MED ONE Stop: 06/09/20 23:29 Last Admin: 06/10/20 03:33 Dose: Not Given Documented by: Doxycycline Hyclate 100 mg/ (Sodium Chloride) 100 mls @ 100 mls/hr IV Q12H [facility] Last Admin: 06/12/20 02:15 Dose: 100 mls/hr Documented by: Sodium Chloride (Normal Saline) 100 mls @ 3.5 mls/sec IV ASDIRECTED [facility] Stop: 06/10/20 18:00 Last Admin: 06/10/20 17:45 Dose: 4 mls/sec Documented by: Remdesivir 100 mg/ Sodium (Chloride) 100 mls @ 100 mls/hr IV Q24H [facility] Stop: 06/15/20 12:59 Last Admin: 06/15/20 12:49 Dose: 100 mls/hr Documented by: Remdesivir 200 mg/ Sodium (Chloride) 250 mls @ 250 mls/hr IV ONETIME ONE Stop: 06/11/20 12:59 Last Admin: 06/11/20 12:30 Dose: 250 mls/hr Documented by: Iopamidol (Isovue-370 (76%)) 57 ml IV . DIRECTED [facility] Last Admin: 06/10/20 17:44 Dose: 57 ml Documented by: Ibrutinib (Imbruvica () 320 MgPom) 0 mg PO BEDTIME [facility] Last Admin: 06/10/20 21:24 Dose: Not Given Documented by: Pantoprazole Sodium (Protonix Iv) 40 mg IVPUSH DAILY [facility] Last Admin: 06/11/20 08:15 Dose: 40 mg Documented by: Sodium Chloride (Saline Flush) 10 ml FLUSH ASDIRECTED PRN PRN Reason: Keep Vein Open Last Admin: 06/09/20 19:38 Dose: 10 ml Documented by: Sodium Chloride (Saline Flush) 10 ml FLUSH ONETIME ONE Stop: 06/10/20 15:42 Last Admin: 06/10/20 17:45 Dose: 10 ml Documented by: - Exam Quality Assessment: Supplemental Oxygen General: Alert, Oriented, Cooperative, No Acute Distress Lungs: Normal Respiratory Effort. No: Wheezing Cardiovascular: Regular Rate, Regular Rhythm GI/Abdominal Exam: Soft, No Distention Extremities: No Pedal Edema. No: Increased Warmth Skin: Warm, Dry Psy/Mental Status: Alert, Normal Affect Sepsis Event Note - Evaluation Sepsis Screening Result: No Definite Risk - Focused Exam Vital Signs: Vital Signs Temp Pulse Pulse Resp BP BP Pulse Ox 06/17/20 12:25 92 L 06/17/20 11:35 36.6 C 67 18 112/66 92 L 06/17/20 08:49 63 115/63 06/17/20 08:17 90 L 06/17/20 07:00 36.6 C 64 17 115/63 90 L 06/17/20 02:56 35.7 C L 67 16 142/66 H 92 L - Problem List Review Problem List Initiated/Reviewed/Updated: Yes - My Orders Last 24 Hours: My Active Orders 06/18/20 05:00 C-REACTIVE PROTEIN [CHEM] Timed CBC W/O DIFF,HEMOGRAM [HEME] Timed (1) COMPREHENSIVE METABOLIC PN,CMP [CHEM] Timed D-DIMER QUANTITATIVE [COAG] Timed - Plan Plan:: ASSESSMENT AND PLAN COVID-19 PNEUMONIA-complicated by acute respiratory failure with hypoxia. Still requiring 10 L but does seem to be slowly improving. Intermittently using the noninvasive ventilation. -Decadron 6 mg IV daily (day 8) -Remdesivir x5 days complete -Repeat labs in the morning -Supplemental oxygen -Noninvasive ventilation as needed -Supportive care -Prone ventilation -Isolation precautions through 06/22 CHRONIC LYMPHOCYTIC LEUKEMIA -Continue current therapy MAINTENANCE ISSUES -DVT prophylaxis; Lovenox 40 mg subcu daily -GI prophylaxis; not indicated -Interiano catheter; not indicated -Nutrition; regular diet DISPOSITION-anticipate discharge to home after the hospital stay. Mario Rey MD
[2020-06-17] MEDS: Dexamethasone 2 MG Tab PO SCH (15:55)
[2020-06-17] MEDS: Simvastatin 20 MG Tab PO SCH (20:23)
[2020-06-18] MEDS: Lactobacillus Rhamnosus GG (Probiotic) Cap PO SCH ×2 (08:34→21:33)
[2020-06-18] MEDS: Enoxaparin 40 MG/0.4 ML Syringe SUBCUT SCH (08:34)
[2020-06-18] MEDS: Aspirin 81 MG Tab.EC PO SCH (08:34)
[2020-06-18] MEDS: IMBRUVICA 420 MG PO SCH (08:35)
[2020-06-18] MEDS: Metoprolol Succinate 25 MG Tab.ER PO SCH (08:37)
--- NOTE | 2020-06-18 13:53 | PCM.PN ---
- General Info Date of Service: 06/18/20 Subjective Update: No acute events overnight. Oxygenation has been stable. Patient says that she feels fairly well today. She is feeling more energetic and less short of breath each day. She does continue to require 10 L of supplemental oxygen. Clinically she is feeling better but on paper does not appear to be improving very quickly. She has not been having any fevers. Appetite has been good. Functional Status: Reports: Pain Controlled, Tolerating Diet - Review of Systems General: Reports: Weakness Pulmonary: Reports: Shortness of Breath - Patient Data Vitals - Most Recent: Last Vital Signs Temp 36.2 C 06/18/20 12:43 Pulse 63 06/18/20 12:43 Resp 18 06/18/20 12:43 BP 121/61 06/18/20 12:43 Pulse Ox 92 L 06/18/20 12:43 Weight - Most Recent: 58.967 kg I&O - Last 24 Hours: Intake & Output 06/17/20 06/18/20 06/18/20 22:59 06:59 14:59 Intake Total 100 300 Balance 100 300 Lab Results Last 24 Hours: Laboratory Results - last 24 hr 06/18/20 06/18/20 06/18/20 Range/Units 04:54 04:54 04:54 WBC 28.1 H (4.5-11.0) K/uL RBC 3.39 (3.30-5.50) M/uL Hgb 9.8 L (12.0-15.0) g/dL Hct 31.1 L (36.0-48.0) % MCV 92 (80-98) fL MCH 29 (27-31) pg MCHC 32 (32-36) % Plt Count 264 (150-400) K/uL D-Dimer, Quantitative 1260.85 H (0.0-500.0) ng/mL Sodium 135 L (140-148) mmol/L Potassium 4.7 (3.6-5.2) mmol/L Chloride 103 (100-108) mmol/L Carbon Dioxide 24 (21-32) mmol/L Anion Gap 12.7 (5.0-14.0) mmol/L BUN 42 H (7-18) mg/dL Creatinine 0.9 (0.6-1.0) mg/dL Est Cr Clr Drug Dosing 50.28 mL/min Estimated GFR (MDRD) > 60 (>60) Glucose 167 H (74-106) mg/dL Calcium 8.0 L (8.5-10.1) mg/dL Total Bilirubin 0.4 (0.2-1.0) mg/dL AST 40 H (15-37) U/L ALT 101 H (12-78) U/L Alkaline Phosphatase 264 H (46-116) U/L C-Reactive Protein 0.62 H (0.0-0.3) mg/dL Total Protein 4.7 L (6.4-8.2) g/dL Albumin 1.9 L (3.4-5.0) g/dL Globulin 2.8 (2.3-3.5) g/dL Albumin/Globulin Ratio 0.7 L (1.2-2.2) Med Orders - Current: Current Medications Acetaminophen (Tylenol) 650 mg PO Q4H PRN PRN Reason: fever, pain Last Admin: 06/14/20 17:45 Dose: 650 mg Documented by: Aspirin (Halfprin) 81 mg PO DAILY [facility] Last Admin: 06/18/20 08:34 Dose: 81 mg Documented by: Benzonatate (Tessalon Perles) 100 mg PO TID PRN PRN Reason: Cough Dexamethasone (Dexamethasone) 6 mg PO Q24H [facility] Last Admin: 06/17/20 15:55 Dose: 6 mg Documented by: Enoxaparin Sodium (Lovenox) 40 mg SUBCUT Q24H [facility] Last Admin: 06/18/20 08:34 Dose: 40 mg Documented by: Guaifenesin/Dextromethorphan (Robitussin Dm) 10 ml PO Q4H PRN PRN Reason: Cough Lactobacillus Rhamnosus (Culturelle) 1 cap PO BID [facility] Last Admin: 06/18/20 08:34 Dose: 1 cap Documented by: Metoprolol Succinate (Toprol Xl) 25 mg PO DAILY [facility] Last Admin: 06/18/20 08:37 Dose: 25 mg Documented by: Ondansetron HCl (Zofran) 4 mg IVPUSH Q4H PRN PRN Reason: Nausea/Vomiting Imbruvica 420mg Tab ((Ptom)) 1 each PO DAILY [facility] Last Admin: 06/18/20 08:35 Dose: 1 each Documented by: Simvastatin (Zocor) 40 mg PO BEDTIME [facility] Last Admin: 06/17/20 20:23 Dose: 40 mg Documented by: Sodium Chloride (Saline Flush) 10 ml FLUSH ASDIRECTED PRN PRN Reason: Keep Vein Open Last Admin: 06/09/20 19:38 Dose: 10 ml Documented by: Discontinued Medications Azithromycin (Zithromax) 500 mg PO ONETIME ONE Stop: 06/09/20 22:45 Last Admin: 06/09/20 23:44 Dose: 500 mg Documented by: Azithromycin (Zithromax) 250 mg PO DAILY [facility] Stop: 06/13/20 09:01 Last Admin: 06/10/20 08:39 Dose: 250 mg Documented by: Ceftriaxone Sodium (Rocephin) Confirm Administered Dose 1 gm IV .STK-MED ONE Stop: 06/09/20 23:29 Last Admin: 06/09/20 23:42 Dose: 1 gm Documented by: Dexamethasone (Decadron) 6 mg IVPUSH Q24H [facility] Last Admin: 06/15/20 15:43 Dose: Not Given Documented by: Doxycycline Hyclate (Vibramycin) 100 mg PO Q12H [facility] Stop: 06/15/20 23:59 Last Admin: 06/15/20 16:35 Dose: 100 mg Documented by: Enoxaparin Sodium (Lovenox) 60 mg SUBCUT BID [facility] Last Admin: 06/10/20 08:39 Dose: 60 mg Documented by: Furosemide (Lasix) 20 mg IVPUSH NOW ONE Stop: 06/10/20 14:46 Last Admin: 06/10/20 15:23 Dose: 20 mg Documented by: Sodium Chloride (Normal Saline) 1,000 mls @ 125 mls/hr IV ASDIRECTED ONE Stop: 06/10/20 03:03 Last Admin: 06/09/20 20:49 Dose: Not Given Documented by: Ceftriaxone Sodium 1 gm/ (Sodium Chloride) 50 mls @ 100 mls/hr IV Q24H [facility] Stop: 06/15/20 23:59 Last Admin: 06/14/20 22:30 Dose: 100 mls/hr Documented by: Sodium Chloride (Normal Saline) 1,000 mls @ 125 mls/hr IV ASDIRECTED [facility] Last Admin: 06/10/20 08:37 Dose: 125 mls/hr Documented by: Sodium Chloride (Normal Saline) Confirm Administered Dose 50 mls @ as directed .ROUTE .STK-MED ONE Stop: 06/09/20 23:29 Last Admin: 06/10/20 03:33 Dose: Not Given Documented by: Doxycycline Hyclate 100 mg/ (Sodium Chloride) 100 mls @ 100 mls/hr IV Q12H [facility] Last Admin: 06/12/20 02:15 Dose: 100 mls/hr Documented by: Sodium Chloride (Normal Saline) 100 mls @ 3.5 mls/sec IV ASDIRECTED [facility] Stop: 06/10/20 18:00 Last Admin: 06/10/20 17:45 Dose: 4 mls/sec Documented by: Remdesivir 100 mg/ Sodium (Chloride) 100 mls @ 100 mls/hr IV Q24H [facility] Stop: 06/15/20 12:59 Last Admin: 06/15/20 12:49 Dose: 100 mls/hr Documented by: Remdesivir 200 mg/ Sodium (Chloride) 250 mls @ 250 mls/hr IV ONETIME ONE Stop: 06/11/20 12:59 Last Admin: 06/11/20 12:30 Dose: 250 mls/hr Documented by: Iopamidol (Isovue-370 (76%)) 57 ml IV . DIRECTED [facility] Last Admin: 06/10/20 17:44 Dose: 57 ml Documented by: Ibrutinib (Imbruvica () 320 MgPom) 0 mg PO BEDTIME [facility] Last Admin: 06/10/20 21:24 Dose: Not Given Documented by: Pantoprazole Sodium (Protonix Iv) 40 mg IVPUSH DAILY [facility] Last Admin: 06/11/20 08:15 Dose: 40 mg Documented by: Sodium Chloride (Saline Flush) 10 ml FLUSH ASDIRECTED PRN PRN Reason: Keep Vein Open Last Admin: 06/09/20 19:38 Dose: 10 ml Documented by: Sodium Chloride (Saline Flush) 10 ml FLUSH ONETIME ONE Stop: 06/10/20 15:42 Last Admin: 06/10/20 17:45 Dose: 10 ml Documented by: - Exam Quality Assessment: Supplemental Oxygen General: Alert, Oriented, Cooperative, No Acute Distress Lungs: Normal Respiratory Effort. No: Wheezing GI/Abdominal Exam: Soft, No Distention Extremities: No Pedal Edema. No: Increased Warmth Psy/Mental Status: Alert, Normal Affect Sepsis Event Note - Evaluation Sepsis Screening Result: No Definite Risk - Focused Exam Vital Signs: Vital Signs Temp Pulse Pulse Resp BP BP Pulse Ox 06/18/20 12:43 36.2 C 63 18 121/61 92 L 06/18/20 12:20 92 L 06/18/20 09:00 16 93 L 06/18/20 08:41 63 16 109/49 L 92 L 06/18/20 08:37 63 109/49 L 06/18/20 07:27 97 06/18/20 03:51 35.8 C L 55 L 16 132/68 94 L - Problem List Review Problem List Initiated/Reviewed/Updated: Yes - Plan Plan:: ASSESSMENT AND PLAN COVID-19 PNEUMONIA-complicated by acute respiratory failure with hypoxia. Still requiring 10 L but does seem to be slowly improving. No dramatic changes in the past few days. -Decadron 6 mg IV daily (day 9) -Remdesivir x5 days complete -Repeat labs every 2 to 3 days -Supplemental oxygen -Noninvasive ventilation as needed -Supportive care -Prone ventilation as tolerated -Isolation precautions through 06/22 CHRONIC LYMPHOCYTIC LEUKEMIA-stable. -Continue current therapy MAINTENANCE ISSUES -DVT prophylaxis; Lovenox 40 mg subcu daily -GI prophylaxis; not indicated -Interiano catheter; not indicated -Nutrition; regular diet DISPOSITION-anticipate discharge to home after the hospital stay. Mario Rey MD
[2020-06-18] MEDS: Dexamethasone 2 MG Tab PO SCH (15:23)
[2020-06-18] MEDS: Simvastatin 20 MG Tab PO SCH (21:33)
[2020-06-19] MEDS: Aspirin 81 MG Tab.EC PO SCH (08:49)
[2020-06-19] MEDS: Metoprolol Succinate 25 MG Tab.ER PO SCH (08:49)
[2020-06-19] MEDS: Enoxaparin 40 MG/0.4 ML Syringe SUBCUT SCH (08:49)
[2020-06-19] MEDS: IMBRUVICA 420 MG PO SCH (08:49)
[2020-06-19] MEDS: Lactobacillus Rhamnosus GG (Probiotic) Cap PO SCH ×2 (08:49→20:23)
--- NOTE | 2020-06-19 10:59 | PCM.PN ---
- General Info Date of Service: 06/19/20 Subjective Update: No acute events overnight. Oxygenation is stable and she continues to require 10 to 12 L of oxygen. Symptoms are stable. Some desaturation with activity but stable at rest. Appetite acceptable. She has not had any fevers. Functional Status: Reports: Pain Controlled, Tolerating Diet - Review of Systems General: Reports: Weakness Pulmonary: Reports: Shortness of Breath - Patient Data Vitals - Most Recent: Last Vital Signs Temp 36.0 C L 06/19/20 08:48 Pulse 68 06/19/20 08:49 Resp 16 06/19/20 08:48 BP 117/51 L 06/19/20 08:49 Pulse Ox 93 L 06/19/20 08:48 Weight - Most Recent: 58.967 kg I&O - Last 24 Hours: Intake & Output 06/18/20 06/19/20 06/19/20 22:59 06:59 14:59 Intake Total 600 240 500 Balance 600 240 500 Med Orders - Current: Current Medications Acetaminophen (Tylenol) 650 mg PO Q4H PRN PRN Reason: fever, pain Last Admin: 06/14/20 17:45 Dose: 650 mg Documented by: Aspirin (Halfprin) 81 mg PO DAILY [facility] Last Admin: 06/19/20 08:49 Dose: 81 mg Documented by: Benzonatate (Tessalon Perles) 100 mg PO TID PRN PRN Reason: Cough Dexamethasone (Dexamethasone) 6 mg PO Q24H [facility] [place] Last Admin: 06/18/20 15:23 Dose: 6 mg Documented by: Enoxaparin Sodium (Lovenox) 40 mg SUBCUT Q24H [facility] Last Admin: 06/19/20 08:49 Dose: 40 mg Documented by: Guaifenesin/Dextromethorphan (Robitussin Dm) 10 ml PO Q4H PRN PRN Reason: Cough Lactobacillus Rhamnosus (Culturelle) 1 cap PO BID [facility] [place] Last Admin: 06/19/20 08:49 Dose: 1 cap Documented by: Metoprolol Succinate (Toprol Xl) 25 mg PO DAILY [facility] [place] Last Admin: 06/19/20 08:49 Dose: 25 mg Documented by: Ondansetron HCl (Zofran) 4 mg IVPUSH Q4H PRN PRN Reason: Nausea/Vomiting Imbruvica 420mg Tab ((Ptom)) 1 each PO DAILY [facility] [place] Last Admin: 06/19/20 08:49 Dose: 1 each Documented by: Simvastatin (Zocor) 40 mg PO BEDTIME [facility] [place] Last Admin: 06/18/20 21:33 Dose: 40 mg Documented by: Sodium Chloride (Saline Flush) 10 ml FLUSH ASDIRECTED PRN PRN Reason: Keep Vein Open Last Admin: 06/09/20 19:38 Dose: 10 ml Documented by: Discontinued Medications Azithromycin (Zithromax) 500 mg PO ONETIME ONE Stop: 06/09/20 22:45 Last Admin: 06/09/20 23:44 Dose: 500 mg Documented by: Azithromycin (Zithromax) 250 mg PO DAILY [facility] Stop: 06/13/20 09:01 Last Admin: 06/10/20 08:39 Dose: 250 mg Documented by: Ceftriaxone Sodium (Rocephin) Confirm Administered Dose 1 gm IV .STK-MED ONE Stop: 06/09/20 23:29 Last Admin: 06/09/20 23:42 Dose: 1 gm Documented by: Dexamethasone (Decadron) 6 mg IVPUSH Q24H [facility] [place] Last Admin: 06/15/20 15:43 Dose: Not Given Documented by: Doxycycline Hyclate (Vibramycin) 100 mg PO Q12H [facility] Stop: 06/15/20 23:59 Last Admin: 06/15/20 16:35 Dose: 100 mg Documented by: Enoxaparin Sodium (Lovenox) 60 mg SUBCUT BID [facility] [place] Last Admin: 06/10/20 08:39 Dose: 60 mg Documented by: Furosemide (Lasix) 20 mg IVPUSH NOW ONE Stop: 06/10/20 14:46 Last Admin: 06/10/20 15:23 Dose: 20 mg Documented by: Sodium Chloride (Normal Saline) 1,000 mls @ 125 mls/hr IV ASDIRECTED ONE Stop: 06/10/20 03:03 Last Admin: 06/09/20 20:49 Dose: Not Given Documented by: Ceftriaxone Sodium 1 gm/ (Sodium Chloride) 50 mls @ 100 mls/hr IV Q24H [facility] Stop: 06/15/20 23:59 Last Admin: 06/14/20 22:30 Dose: 100 mls/hr Documented by: Sodium Chloride (Normal Saline) 1,000 mls @ 125 mls/hr IV ASDIRECTED [facility] [place] Last Admin: 06/10/20 08:37 Dose: 125 mls/hr Documented by: Sodium Chloride (Normal Saline) Confirm Administered Dose 50 mls @ as directed .ROUTE .STK-MED ONE Stop: 06/09/20 23:29 Last Admin: 06/10/20 03:33 Dose: Not Given Documented by: Doxycycline Hyclate 100 mg/ (Sodium Chloride) 100 mls @ 100 mls/hr IV Q12H [facility] [place] Last Admin: 06/12/20 02:15 Dose: 100 mls/hr Documented by: Sodium Chloride (Normal Saline) 100 mls @ 3.5 mls/sec IV ASDIRECTED [facility] Stop: 06/10/20 18:00 Last Admin: 06/10/20 17:45 Dose: 4 mls/sec Documented by: Remdesivir 100 mg/ Sodium (Chloride) 100 mls @ 100 mls/hr IV Q24H [facility] [place] Stop: 06/15/20 12:59 Last Admin: 06/15/20 12:49 Dose: 100 mls/hr Documented by: Remdesivir 200 mg/ Sodium (Chloride) 250 mls @ 250 mls/hr IV ONETIME ONE Stop: 06/11/20 12:59 Last Admin: 06/11/20 12:30 Dose: 250 mls/hr Documented by: Iopamidol (Isovue-370 (76%)) 57 ml IV . DIRECTED [facility] [place] Last Admin: 06/10/20 17:44 Dose: 57 ml Documented by: Ibrutinib (Imbruvica () 320 MgPom) 0 mg PO BEDTIME [facility] [place] Last Admin: 06/10/20 21:24 Dose: Not Given Documented by: Pantoprazole Sodium (Protonix Iv) 40 mg IVPUSH DAILY [facility] [place] Last Admin: 06/11/20 08:15 Dose: 40 mg Documented by: Sodium Chloride (Saline Flush) 10 ml FLUSH ASDIRECTED PRN PRN Reason: Keep Vein Open Last Admin: 06/09/20 19:38 Dose: 10 ml Documented by: Sodium Chloride (Saline Flush) 10 ml FLUSH ONETIME ONE Stop: 06/10/20 15:42 Last Admin: 06/10/20 17:45 Dose: 10 ml Documented by: - Exam Quality Assessment: Supplemental Oxygen General: Alert, Oriented, Cooperative, No Acute Distress Lungs: Normal Respiratory Effort Cardiovascular: Regular Rate, Regular Rhythm GI/Abdominal Exam: Soft, No Distention Extremities: No Pedal Edema Psy/Mental Status: Alert, Normal Affect Sepsis Event Note - Evaluation Sepsis Screening Result: No Definite Risk - Focused Exam Vital Signs: Vital Signs Temp Pulse Pulse Resp BP BP Pulse Ox 06/19/20 08:49 68 117/51 L 06/19/20 08:48 36.0 C L 69 16 117/51 L 93 L 06/19/20 07:23 95 06/19/20 02:39 35.5 C L 60 16 117/58 L 91 L 06/19/20 01:00 93 L 06/18/20 23:00 57 L 16 98 - Problem List Review Problem List Initiated/Reviewed/Updated: Yes - Plan Plan:: ASSESSMENT AND PLAN COVID-19 PNEUMONIA-complicated by acute respiratory failure with hypoxia. Still requiring 10 L but does seem to be slowly improving. No dramatic changes in the past few days. -She has completed treatment with steroids and remdesivir -Repeat labs every 2 to 3 days -Supplemental oxygen -Supportive care -Prone ventilation as tolerated -Isolation precautions through 06/21 and she may come out of precautions the morning of 06/22 CHRONIC LYMPHOCYTIC LEUKEMIA-stable. -Continue current therapy MAINTENANCE ISSUES -DVT prophylaxis; Lovenox 40 mg subcu daily -GI prophylaxis; not indicated -Interiano catheter; not indicated -Nutrition; regular diet DISPOSITION-anticipate discharge to home after the hospital stay. Mario Rey MD
[2020-06-19] MEDS: Dexamethasone 2 MG Tab PO SCH (16:48)
[2020-06-19] MEDS: Simvastatin 20 MG Tab PO SCH (20:23)
[2020-06-20] MEDS: Lactobacillus Rhamnosus GG (Probiotic) Cap PO SCH ×2 (09:03→20:21)
[2020-06-20] MEDS: Metoprolol Succinate 25 MG Tab.ER PO SCH (09:03)
[2020-06-20] MEDS: IMBRUVICA 420 MG PO SCH (09:04)
[2020-06-20] MEDS: Aspirin 81 MG Tab.EC PO SCH (09:04)
[2020-06-20] MEDS: Enoxaparin 40 MG/0.4 ML Syringe SUBCUT SCH (09:04)
--- NOTE | 2020-06-20 12:10 | PCM.PN ---
- General Info Date of Service: 06/20/20 Subjective Update: There were no acute events overnight. Patient feels about the same today as yesterday. No fevers. Short of breath with activity. She desaturates with any activity. Currently requiring about 12 L of supplemental oxygen. No nausea. Appetite has been good. Functional Status: Reports: Pain Controlled, Tolerating Diet - Review of Systems General: Reports: Weakness Pulmonary: Reports: Shortness of Breath - Patient Data Vitals - Most Recent: Last Vital Signs Temp 35.9 C L 06/20/20 11:51 Pulse 61 06/20/20 11:51 Resp 20 06/20/20 11:51 BP 118/56 L 06/20/20 11:51 Pulse Ox 91 L 06/20/20 11:51 Weight - Most Recent: 58.967 kg I&O - Last 24 Hours: Intake & Output 06/19/20 06/20/20 06/20/20 22:59 06:59 14:59 Intake Total 700 300 Balance 700 300 Med Orders - Current: Current Medications Acetaminophen (Tylenol) 650 mg PO Q4H PRN PRN Reason: fever, pain Last Admin: 06/14/20 17:45 Dose: 650 mg Documented by: Aspirin (Halfprin) 81 mg PO DAILY [facility] Last Admin: 06/20/20 09:04 Dose: 81 mg Documented by: Benzonatate (Tessalon Perles) 100 mg PO TID PRN PRN Reason: Cough Enoxaparin Sodium (Lovenox) 40 mg SUBCUT Q24H [facility] Last Admin: 06/20/20 09:04 Dose: 40 mg Documented by: Guaifenesin/Dextromethorphan (Robitussin Dm) 10 ml PO Q4H PRN PRN Reason: Cough Lactobacillus Rhamnosus (Culturelle) 1 cap PO BID [facility] Last Admin: 06/20/20 09:03 Dose: 1 cap Documented by: Metoprolol Succinate (Toprol Xl) 25 mg PO DAILY [facility] Last Admin: 06/20/20 09:03 Dose: 25 mg Documented by: Ondansetron HCl (Zofran) 4 mg IVPUSH Q4H PRN PRN Reason: Nausea/Vomiting Imbruvica 420mg Tab ((Ptom)) 1 each PO DAILY [facility] Last Admin: 06/20/20 09:04 Dose: 1 each Documented by: Simvastatin (Zocor) 40 mg PO BEDTIME [facility] Last Admin: 06/19/20 20:23 Dose: 40 mg Documented by: Sodium Chloride (Saline Flush) 10 ml FLUSH ASDIRECTED PRN PRN Reason: Keep Vein Open Last Admin: 06/09/20 19:38 Dose: 10 ml Documented by: Discontinued Medications Azithromycin (Zithromax) 500 mg PO ONETIME ONE Stop: 06/09/20 22:45 Last Admin: 06/09/20 23:44 Dose: 500 mg Documented by: Azithromycin (Zithromax) 250 mg PO DAILY [facility] Stop: 06/13/20 09:01 Last Admin: 06/10/20 08:39 Dose: 250 mg Documented by: Ceftriaxone Sodium (Rocephin) Confirm Administered Dose 1 gm IV .STK-MED ONE Stop: 06/09/20 23:29 Last Admin: 06/09/20 23:42 Dose: 1 gm Documented by: Dexamethasone (Decadron) 6 mg IVPUSH Q24H [facility] Last Admin: 06/15/20 15:43 Dose: Not Given Documented by: Dexamethasone (Dexamethasone) 6 mg PO Q24H [facility] Last Admin: 06/19/20 16:48 Dose: 6 mg Documented by: Doxycycline Hyclate (Vibramycin) 100 mg PO Q12H [facility] Stop: 06/15/20 23:59 Last Admin: 06/15/20 16:35 Dose: 100 mg Documented by: Enoxaparin Sodium (Lovenox) 60 mg SUBCUT BID [facility] Last Admin: 06/10/20 08:39 Dose: 60 mg Documented by: Furosemide (Lasix) 20 mg IVPUSH NOW ONE Stop: 06/10/20 14:46 Last Admin: 06/10/20 15:23 Dose: 20 mg Documented by: Sodium Chloride (Normal Saline) 1,000 mls @ 125 mls/hr IV ASDIRECTED ONE Stop: 06/10/20 03:03 Last Admin: 06/09/20 20:49 Dose: Not Given Documented by: Ceftriaxone Sodium 1 gm/ (Sodium Chloride) 50 mls @ 100 mls/hr IV Q24H [facility] Stop: 06/15/20 23:59 Last Admin: 06/14/20 22:30 Dose: 100 mls/hr Documented by: Sodium Chloride (Normal Saline) 1,000 mls @ 125 mls/hr IV ASDIRECTED [facility] Last Admin: 06/10/20 08:37 Dose: 125 mls/hr Documented by: Sodium Chloride (Normal Saline) Confirm Administered Dose 50 mls @ as directed .ROUTE .STK-MED ONE Stop: 06/09/20 23:29 Last Admin: 06/10/20 03:33 Dose: Not Given Documented by: Doxycycline Hyclate 100 mg/ (Sodium Chloride) 100 mls @ 100 mls/hr IV Q12H [facility] Last Admin: 06/12/20 02:15 Dose: 100 mls/hr Documented by: Sodium Chloride (Normal Saline) 100 mls @ 3.5 mls/sec IV ASDIRECTED [facility] Stop: 06/10/20 18:00 Last Admin: 06/10/20 17:45 Dose: 4 mls/sec Documented by: Remdesivir 100 mg/ Sodium (Chloride) 100 mls @ 100 mls/hr IV Q24H [facility] Stop: 06/15/20 12:59 Last Admin: 06/15/20 12:49 Dose: 100 mls/hr Documented by: Remdesivir 200 mg/ Sodium (Chloride) 250 mls @ 250 mls/hr IV ONETIME ONE Stop: 06/11/20 12:59 Last Admin: 06/11/20 12:30 Dose: 250 mls/hr Documented by: Iopamidol (Isovue-370 (76%)) 57 ml IV . DIRECTED [facility] Last Admin: 06/10/20 17:44 Dose: 57 ml Documented by: Ibrutinib (Imbruvica () 320 MgPom) 0 mg PO BEDTIME [facility] Last Admin: 06/10/20 21:24 Dose: Not Given Documented by: Pantoprazole Sodium (Protonix Iv) 40 mg IVPUSH DAILY [facility] Last Admin: 06/11/20 08:15 Dose: 40 mg Documented by: Sodium Chloride (Saline Flush) 10 ml FLUSH ASDIRECTED PRN PRN Reason: Keep Vein Open Last Admin: 06/09/20 19:38 Dose: 10 ml Documented by: Sodium Chloride (Saline Flush) 10 ml FLUSH ONETIME ONE Stop: 06/10/20 15:42 Last Admin: 06/10/20 17:45 Dose: 10 ml Documented by: - Exam Quality Assessment: Supplemental Oxygen General: Alert, Oriented, Cooperative, No Acute Distress Lungs: Normal Respiratory Effort. No: Wheezing Cardiovascular: Regular Rate, Regular Rhythm GI/Abdominal Exam: Soft, No Distention Extremities: No Pedal Edema. No: Increased Warmth Skin: Warm, Dry Psy/Mental Status: Alert, Normal Affect Sepsis Event Note - Evaluation Sepsis Screening Result: No Definite Risk - Focused Exam Vital Signs: Vital Signs Temp Pulse Pulse Resp BP BP Pulse Ox 06/20/20 11:51 35.9 C L 61 20 118/56 L 91 L 06/20/20 09:03 61 112/56 L 06/20/20 07:14 36.3 C 61 20 112/56 L 90 L 06/20/20 07:00 91 L 06/20/20 02:43 61 16 135/67 97 06/20/20 01:00 96 06/20/20 00:56 Pulse Ox 06/20/20 11:51 06/20/20 09:03 06/20/20 07:14 06/20/20 07:00 06/20/20 02:43 06/20/20 01:00 06/20/20 00:56 89 L - Problem List Review Problem List Initiated/Reviewed/Updated: Yes - My Orders Last 24 Hours: My Active Orders 06/21/20 05:00 C-REACTIVE PROTEIN [CHEM] Timed CBC W/O DIFF,HEMOGRAM [HEME] Timed (1) COMPREHENSIVE METABOLIC PN,CMP [CHEM] Timed D-DIMER QUANTITATIVE [COAG] Timed - Plan Plan:: ASSESSMENT AND PLAN COVID-19 PNEUMONIA-complicated by acute respiratory failure with hypoxia. She is requiring slightly more oxygen today at about 12 L. Symptomatically she is stable. Vital signs are stable. -She has completed treatment with steroids and remdesivir -Repeat labs every 2 to 3 days -Supplemental oxygen -Supportive care -Prone ventilation as tolerated -Isolation precautions through 06/21 and she may come out of precautions the morning of 06/22 CHRONIC LYMPHOCYTIC LEUKEMIA-stable. -Continue current therapy MAINTENANCE ISSUES -DVT prophylaxis; Lovenox 40 mg subcu daily -GI prophylaxis; not indicated -Interiano catheter; not indicated -Nutrition; regular diet DISPOSITION-anticipate discharge to home after the hospital stay. Mario Rey MD
[2020-06-20] MEDS: Simvastatin 20 MG Tab PO SCH (20:21)
--- NOTE | 2020-06-21 09:47 | PCM.PN ---
- General Info Date of Service: 06/21/20 Subjective Update: No acute events overnight but this morning the patient had an episode of unresponsiveness while on the toilet. This was very short-lived. She was hypoxic in the low 80s at the time. She has been on noninvasive ventilation since that time. Blood pressures were low at the time of her unresponsive episode but have been okay since that time. She did have a low-grade fever overnight. She has an occasional cough. She feels a little more short of breath and more weak today. CT scan of the chest was obtained and there is no evidence for pulmonary embolism. We did see significant but slightly improved changes from her Covid pneumonia compared to June 10. Functional Status: Reports: Pain Controlled - Review of Systems General: Reports: Fever, Weakness Pulmonary: Reports: Shortness of Breath - Patient Data Vitals - Most Recent: Last Vital Signs Temp 37.6 C 06/21/20 07:25 Pulse 71 06/21/20 07:25 Resp 22 H 06/21/20 07:25 BP 145/65 H 06/21/20 07:25 Pulse Ox 94 L 06/21/20 07:25 Weight - Most Recent: 58.967 kg I&O - Last 24 Hours: Intake & Output 06/20/20 06/21/20 06/21/20 22:59 06:59 14:59 Intake Total 250 300 Balance 250 300 Lab Results Last 24 Hours: Laboratory Results - last 24 hr 06/21/20 06/21/20 06/21/20 Range/Units 06:05 06:05 06:05 WBC 36.7 H* (4.5-11.0) K/uL RBC 3.37 (3.30-5.50) M/uL Hgb 10.1 L (12.0-15.0) g/dL Hct 31.0 L (36.0-48.0) % MCV 92 (80-98) fL MCH 30 (27-31) pg MCHC 33 (32-36) % Plt Count 223 (150-400) K/uL D-Dimer, Quantitative 3085.36 H (0.0-500.0) ng/mL Sodium 132 L (140-148) mmol/L Potassium 4.1 (3.6-5.2) mmol/L Chloride 101 (100-108) mmol/L Carbon Dioxide 24 (21-32) mmol/L Anion Gap 11.1 (5.0-14.0) mmol/L BUN 30 H (7-18) mg/dL Creatinine 0.8 (0.6-1.0) mg/dL Est Cr Clr Drug Dosing 56.56 mL/min Estimated GFR (MDRD) > 60 (>60) Glucose 82 (74-106) mg/dL Calcium 8.0 L (8.5-10.1) mg/dL Total Bilirubin 0.5 (0.2-1.0) mg/dL AST 30 (15-37) U/L ALT 56 (12-78) U/L Alkaline Phosphatase 208 H (46-116) U/L C-Reactive Protein 2.70 H (0.0-0.3) mg/dL Total Protein 4.9 L (6.4-8.2) g/dL Albumin 1.8 L (3.4-5.0) g/dL Globulin 3.1 (2.3-3.5) g/dL Albumin/Globulin Ratio 0.6 L (1.2-2.2) Med Orders - Current: Current Medications Acetaminophen (Tylenol) 650 mg PO Q4H PRN PRN Reason: fever, pain Last Admin: 06/14/20 17:45 Dose: 650 mg Documented by: Aspirin (Halfprin) 81 mg PO DAILY [facility] Last Admin: 06/20/20 09:04 Dose: 81 mg Documented by: Benzonatate (Tessalon Perles) 100 mg PO TID PRN PRN Reason: Cough Enoxaparin Sodium (Lovenox) 40 mg SUBCUT Q24H [facility] Last Admin: 06/20/20 09:04 Dose: 40 mg Documented by: Guaifenesin/Dextromethorphan (Robitussin Dm) 10 ml PO Q4H PRN PRN Reason: Cough Lactobacillus Rhamnosus (Culturelle) 1 cap PO BID [facility] Last Admin: 06/20/20 20:21 Dose: 1 cap Documented by: Metoprolol Succinate (Toprol Xl) 25 mg PO DAILY [facility] Last Admin: 06/20/20 09:03 Dose: 25 mg Documented by: Ondansetron HCl (Zofran) 4 mg IVPUSH Q4H PRN PRN Reason: Nausea/Vomiting Imbruvica 420mg Tab ((Ptom)) 1 each PO DAILY [facility] Last Admin: 06/20/20 09:04 Dose: 1 each Documented by: Simvastatin (Zocor) 40 mg PO BEDTIME [facility] Last Admin: 06/20/20 20:21 Dose: 40 mg Documented by: Sodium Chloride (Saline Flush) 10 ml FLUSH ASDIRECTED PRN PRN Reason: Keep Vein Open Last Admin: 06/09/20 19:38 Dose: 10 ml Documented by: Discontinued Medications Azithromycin (Zithromax) 500 mg PO ONETIME ONE Stop: 06/09/20 22:45 Last Admin: 06/09/20 23:44 Dose: 500 mg Documented by: Azithromycin (Zithromax) 250 mg PO DAILY [facility] Stop: 06/13/20 09:01 Last Admin: 06/10/20 08:39 Dose: 250 mg Documented by: Ceftriaxone Sodium (Rocephin) Confirm Administered Dose 1 gm IV .STK-MED ONE Stop: 06/09/20 23:29 Last Admin: 06/09/20 23:42 Dose: 1 gm Documented by: Dexamethasone (Decadron) 6 mg IVPUSH Q24H [facility] Last Admin: 06/15/20 15:43 Dose: Not Given Documented by: Dexamethasone (Dexamethasone) 6 mg PO Q24H [facility] Last Admin: 06/19/20 16:48 Dose: 6 mg Documented by: Doxycycline Hyclate (Vibramycin) 100 mg PO Q12H [facility] Stop: 06/15/20 23:59 Last Admin: 06/15/20 16:35 Dose: 100 mg Documented by: Enoxaparin Sodium (Lovenox) 60 mg SUBCUT BID [facility] Last Admin: 06/10/20 08:39 Dose: 60 mg Documented by: Furosemide (Lasix) 20 mg IVPUSH NOW ONE Stop: 06/10/20 14:46 Last Admin: 06/10/20 15:23 Dose: 20 mg Documented by: Sodium Chloride (Normal Saline) 1,000 mls @ 125 mls/hr IV ASDIRECTED ONE Stop: 06/10/20 03:03 Last Admin: 06/09/20 20:49 Dose: Not Given Documented by: Ceftriaxone Sodium 1 gm/ (Sodium Chloride) 50 mls @ 100 mls/hr IV Q24H [facility] Stop: 06/15/20 23:59 Last Admin: 12/27/20 22:30 Dose: 100 mls/hr Documented by: Sodium Chloride (Normal Saline) 1,000 mls @ 125 mls/hr IV ASDIRECTED [facility] Last Admin: 06/10/20 08:37 Dose: 125 mls/hr Documented by: Sodium Chloride (Normal Saline) Confirm Administered Dose 50 mls @ as directed .ROUTE .STK-MED ONE Stop: 06/09/20 23:29 Last Admin: 06/10/20 03:33 Dose: Not Given Documented by: Doxycycline Hyclate 100 mg/ (Sodium Chloride) 100 mls @ 100 mls/hr IV Q12H [facility] Last Admin: 06/12/20 02:15 Dose: 100 mls/hr Documented by: Sodium Chloride (Normal Saline) 100 mls @ 3.5 mls/sec IV ASDIRECTED [facility] Stop: 06/10/20 18:00 Last Admin: 06/10/20 17:45 Dose: 4 mls/sec Documented by: Remdesivir 100 mg/ Sodium (Chloride) 100 mls @ 100 mls/hr IV Q24H [facility] Stop: 06/15/20 12:59 Last Admin: 06/15/20 12:49 Dose: 100 mls/hr Documented by: Remdesivir 200 mg/ Sodium (Chloride) 250 mls @ 250 mls/hr IV ONETIME ONE Stop: 06/11/20 12:59 Last Admin: 06/11/20 12:30 Dose: 250 mls/hr Documented by: Iopamidol (Isovue-370 (76%)) 57 ml IV . DIRECTED [facility] Last Admin: 06/10/20 17:44 Dose: 57 ml Documented by: Ibrutinib (Imbruvica () 320 MgPom) 0 mg PO BEDTIME [facility] Last Admin: 06/10/20 21:24 Dose: Not Given Documented by: Pantoprazole Sodium (Protonix Iv) 40 mg IVPUSH DAILY [facility] Last Admin: 06/11/20 08:15 Dose: 40 mg Documented by: Sodium Chloride (Saline Flush) 10 ml FLUSH ASDIRECTED PRN PRN Reason: Keep Vein Open Last Admin: 06/09/20 19:38 Dose: 10 ml Documented by: Sodium Chloride (Saline Flush) 10 ml FLUSH ONETIME ONE Stop: 06/10/20 15:42 Last Admin: 06/10/20 17:45 Dose: 10 ml Documented by: - Exam Quality Assessment: Supplemental Oxygen General: Alert, Oriented, Cooperative, No Acute Distress Lungs: Normal Respiratory Effort, Crackles (many right mid and lower lung, few left lung base ). No: Wheezing Cardiovascular: Regular Rate, Regular Rhythm GI/Abdominal Exam: Soft, No Distention Extremities: No Pedal Edema. No: Increased Warmth Skin: Warm, Dry Psy/Mental Status: Alert, Normal Affect Sepsis Event Note - Evaluation Sepsis Screening Result: Severe Sepsis Risk - Focused Exam Vital Signs: Vital Signs Temp Pulse Resp BP Pulse Ox 06/21/20 07:25 37.6 C 71 22 H 145/65 H 94 L 06/21/20 07:10 37.6 C 83 24 H 93/46 L 92 L 06/21/20 07:00 92 L 06/21/20 01:45 37.1 C 71 22 H 114/53 L 87 L 06/21/20 01:03 91 L 06/20/20 22:55 36.8 C 64 22 H 125/61 94 L - Problem List Review Problem List Initiated/Reviewed/Updated: Yes - My Orders Last 24 Hours: My Active Orders 06/21/20 09:45 Ang Chest [CT] Routine PROCALCITONIN [CHEM] Routine 06/21/20 09:46 BIPAP Adult [RT BiPAP/CPAP] [RC] ASDIRECTED - Plan Plan:: ASSESSMENT AND PLAN COVID-19 PNEUMONIA-complicated by acute respiratory failure with hypoxia. Respiratory status has declined in the past 24 hours. No evidence for pulmonary embolism. D-dimer and inflammatory markers are elevated today. CT scan of the chest showed only Covid changes and some small effusions. Procalcitonin was undetectable. She may be having trouble clearing the virus because of her treatment for CLL. -Restarting steroids today -Repeat labs every 2 to 3 days -Supplemental oxygen -Supportive care -Prone ventilation as tolerated -Isolation precautions through at least 1/3, may be longer with her new fevers and declining respiratory status CHRONIC LYMPHOCYTIC LEUKEMIA-stable. -Hold ibrutinib MAINTENANCE ISSUES -DVT prophylaxis; Lovenox 40 mg subcu daily -GI prophylaxis; not indicated -Interiano catheter; not indicated -Nutrition; regular diet DISPOSITION-anticipate discharge to home after the hospital stay. Mario Rey MD
[2020-06-21] MEDS ORDERED: Iopamidol 755 Mg/ML 100 ML Bottle IV ONE (09:54)
[2020-06-21] MEDS ORDERED: Sodium Chloride 0.9% 100 ML IV SCH (10:00)
[2020-06-21] MEDS: Sodium Chloride 0.9% 10 ML Syringe FLUSH PRN (10:31)
[2020-06-21] MEDS: IMBRUVICA 420 MG PO SCH (10:50)
[2020-06-21] MEDS: Metoprolol Succinate 25 MG Tab.ER PO SCH (10:50)
[2020-06-21] MEDS: Enoxaparin 40 MG/0.4 ML Syringe SUBCUT SCH (11:30)
[2020-06-21] MEDS: Aspirin 81 MG Tab.EC PO SCH (11:31)
[2020-06-21] MEDS: Lactobacillus Rhamnosus GG (Probiotic) Cap PO SCH ×2 (11:31→20:03)
--- NOTE | 2020-06-21 11:34 | CRLCT ---
INDICATION: worsening hypoxia, eval PE, recovering COVID Indication: Worsening hypoxia. Evaluate for pulmonary emboli. Technique: CT pulmonary angiogram. 100 cc of Isovue 370 IV. Coronal/sagittal reconstruction images. Comparison: CT of the chest, 06/10/2020. Findings: Low-density thyroid lesions are unchanged from previous. There is no mass identified at the thoracic inlet. Coronary artery calcifications or stents, seen best in the LAD. No pulmonary emboli are demonstrated. There is no evidence for right heart strain. There is no pulmonary infarct. 17 millimeter short axis dimension lymph node station at 10R. This is unchanged from previous. No displaced intimal calcification. No intramural hematoma. Lung windows demonstrate findings typical for COVID-19 pneumonia, with ground-glass, interlobular septal thickening, increased the paving. Relative improvement at the lung bases when compared with 06/10/2020. No resorptive atelectasis. No honeycomb formation. There is no pneumothorax. Evaluation of the upper abdomen demonstrates a non cirrhotic liver morphology. The spleen size is normal. There is no upper abdominal lymphadenopathy. The bone windows demonstrate no lytic or blastic bone lesions. There is spurring throughout the endplates of the thoracic spine. The vertebral body heights are maintained on sagittal reconstruction images. Impression: 1. No pulmonary emboli. 2. No evidence on CTA for right heart strain. 3. Stable adenopathy at station 10R. 4. Pulmonary findings typical for COVID-19 pneumonia, with modest interval improvement. Dictated by Miguel Angel Josue MD @ 06/21/2020 11:33:27 AM Please note that all CT scans at this facility use dose modulation, iterative reconstruction, and/or weight-based dosing when appropriate to reduce radiation dose to as low as reasonably achievable. Dictated by: Miguel Angel Josue MD @ 06/21/2020 11:33:34 (Electronically Signed)
[2020-06-21] MEDS: Dexamethasone 4 MG/ML SDV IVPUSH SCH (12:54)
[2020-06-21] MEDS ORDERED: Furosemide 20 MG/2 ML VIAL IVPUSH ONE (13:00)
[2020-06-21] MEDS: Simvastatin 20 MG Tab PO SCH (20:03)
[2020-06-22] MEDS: Lactobacillus Rhamnosus GG (Probiotic) Cap PO SCH ×2 (08:22→20:41)
[2020-06-22] MEDS: Aspirin 81 MG Tab.EC PO SCH (08:23)
[2020-06-22] MEDS: Enoxaparin 40 MG/0.4 ML Syringe SUBCUT SCH (08:23)
[2020-06-22] MEDS: Dexamethasone 4 MG/ML SDV IVPUSH SCH (15:17)
--- NOTE | 2020-06-22 16:47 | PCM.PN ---
- General Info Date of Service: 06/22/20 Subjective Update: Ms. Giraldo continues to require high level of supplemental oxygen and almost continuous use of noninvasive positive pressure ventilation. Respiratory status has been stable since yesterday with no further decline, but no significant improvement either. She reports that she is comfortable as long as she is wearing the BiPAP. Functional Status: Reports: Tolerating Diet, Urinating - Review of Systems General: Reports: Weakness, Fatigue. Denies: Fever, Chills Pulmonary: Reports: Shortness of Breath, Cough. Denies: Pleuritic Chest Pain, Sputum, Hemoptysis, Wheezing Cardiovascular: Reports: Dyspnea on Exertion. Denies: Chest Pain, Palpitations, Orthopnea, PND, Edema, Lightheadedness Gastrointestinal: Reports: No Symptoms - Patient Data Vitals - Most Recent: Last Vital Signs Temp 97.8 F 06/22/20 15:14 Pulse 80 06/22/20 15:14 Resp 26 H 06/22/20 15:14 BP 118/52 L 06/22/20 15:14 Pulse Ox 96 06/22/20 15:14 Weight - Most Recent: 130 lb I&O - Last 24 Hours: Intake & Output 06/22/20 06/22/20 06/22/20 06:59 14:59 22:59 Intake Total 400 1120 Output Total 300 740 Balance 100 380 Lab Results Last 24 Hours: Laboratory Results - last 24 hr 06/22/20 06/22/20 06/22/20 Range/Units 06:00 06:00 06:00 WBC 23.5 H (4.5-11.0) K/uL RBC 3.17 L (3.30-5.50) M/uL Hgb 9.4 L (12.0-15.0) g/dL Hct 29.2 L (36.0-48.0) % MCV 92 (80-98) fL MCH 30 (27-31) pg MCHC 32 (32-36) % Plt Count 188 (150-400) K/uL D-Dimer, Quantitative 3699.96 H (0.0-500.0) ng/mL Sodium 137 L (140-148) mmol/L Potassium 4.0 (3.6-5.2) mmol/L Chloride 101 (100-108) mmol/L Carbon Dioxide 28 (21-32) mmol/L Anion Gap 12.0 (5.0-14.0) mmol/L BUN 34 H (7-18) mg/dL Creatinine 0.8 (0.6-1.0) mg/dL Est Cr Clr Drug Dosing 56.56 mL/min Estimated GFR (MDRD) > 60 (>60) Glucose 111 H (74-106) mg/dL Calcium 8.1 L (8.5-10.1) mg/dL C-Reactive Protein 16.39 H (0.0-0.3) mg/dL Med Orders - Current: Current Medications Acetaminophen (Tylenol) 650 mg PO Q4H PRN PRN Reason: fever, pain Last Admin: 06/14/20 17:45 Dose: 650 mg Documented by: Aspirin (Halfprin) 81 mg PO DAILY [facility] Last Admin: 06/22/20 08:23 Dose: 81 mg Documented by: Benzonatate (Tessalon Perles) 100 mg PO TID PRN PRN Reason: Cough Dexamethasone (Decadron) 4 mg IVPUSH Q24H [facility] Last Admin: 06/22/20 15:17 Dose: 4 mg Documented by: Enoxaparin Sodium (Lovenox) 40 mg SUBCUT Q24H [facility] Last Admin: 06/22/20 08:23 Dose: 40 mg Documented by: Guaifenesin/Dextromethorphan (Robitussin Dm) 10 ml PO Q4H PRN PRN Reason: Cough Lactobacillus Rhamnosus (Culturelle) 1 cap PO BID [facility] Last Admin: 06/22/20 08:22 Dose: 1 cap Documented by: Metoprolol Succinate (Toprol Xl) 25 mg PO DAILY [facility] Last Admin: 06/21/20 10:50 Dose: Not Given Documented by: Ondansetron HCl (Zofran) 4 mg IVPUSH Q4H PRN PRN Reason: Nausea/Vomiting Imbruvica 420mg Tab ((Ptom)) 1 each PO DAILY [facility] Last Admin: 06/21/20 10:50 Dose: Not Given Documented by: Simvastatin (Zocor) 40 mg PO BEDTIME [facility] Last Admin: 06/21/20 20:03 Dose: 40 mg Documented by: Sodium Chloride (Saline Flush) 10 ml FLUSH ASDIRECTED PRN PRN Reason: Keep Vein Open Last Admin: 06/21/20 10:31 Dose: 10 ml Documented by: Discontinued Medications Azithromycin (Zithromax) 500 mg PO ONETIME ONE Stop: 06/09/20 22:45 Last Admin: 06/09/20 23:44 Dose: 500 mg Documented by: Azithromycin (Zithromax) 250 mg PO DAILY [facility] Stop: 06/13/20 09:01 Last Admin: 06/10/20 08:39 Dose: 250 mg Documented by: Ceftriaxone Sodium (Rocephin) Confirm Administered Dose 1 gm IV .STK-MED ONE Stop: 06/09/20 23:29 Last Admin: 06/09/20 23:42 Dose: 1 gm Documented by: Dexamethasone (Decadron) 6 mg IVPUSH Q24H [facility] Last Admin: 06/15/20 15:43 Dose: Not Given Documented by: Dexamethasone (Dexamethasone) 6 mg PO Q24H [facility] Last Admin: 06/19/20 16:48 Dose: 6 mg Documented by: Doxycycline Hyclate (Vibramycin) 100 mg PO Q12H [facility] Stop: 06/15/20 23:59 Last Admin: 06/15/20 16:35 Dose: 100 mg Documented by: Enoxaparin Sodium (Lovenox) 60 mg SUBCUT BID [facility] Last Admin: 06/10/20 08:39 Dose: 60 mg Documented by: Furosemide (Lasix) 20 mg IVPUSH NOW ONE Stop: 06/10/20 14:46 Last Admin: 06/10/20 15:23 Dose: 20 mg Documented by: Furosemide (Lasix) 20 mg IVPUSH ONETIME ONE Stop: 06/21/20 13:01 Last Admin: 06/21/20 12:54 Dose: 20 mg Documented by: Sodium Chloride (Normal Saline) 1,000 mls @ 125 mls/hr IV ASDIRECTED ONE Stop: 06/10/20 03:03 Last Admin: 06/09/20 20:49 Dose: Not Given Documented by: Ceftriaxone Sodium 1 gm/ (Sodium Chloride) 50 mls @ 100 mls/hr IV Q24H [facility] Stop: 06/15/20 23:59 Last Admin: 06/14/20 22:30 Dose: 100 mls/hr Documented by: Sodium Chloride (Normal Saline) 1,000 mls @ 125 mls/hr IV ASDIRECTED [facility] Last Admin: 06/10/20 08:37 Dose: 125 mls/hr Documented by: Sodium Chloride (Normal Saline) Confirm Administered Dose 50 mls @ as directed .ROUTE .STK-MED ONE Stop: 06/09/20 23:29 Last Admin: 06/10/20 03:33 Dose: Not Given Documented by: Doxycycline Hyclate 100 mg/ (Sodium Chloride) 100 mls @ 100 mls/hr IV Q12H [facility] Last Admin: 06/12/20 02:15 Dose: 100 mls/hr Documented by: Sodium Chloride (Normal Saline) 100 mls @ 3.5 mls/sec IV ASDIRECTED [facility] Stop: 06/10/20 18:00 Last Admin: 06/10/20 17:45 Dose: 4 mls/sec Documented by: Remdesivir 100 mg/ Sodium (Chloride) 100 mls @ 100 mls/hr IV Q24H [facility] Stop: 06/15/20 12:59 Last Admin: 06/15/20 12:49 Dose: 100 mls/hr Documented by: Remdesivir 200 mg/ Sodium (Chloride) 250 mls @ 250 mls/hr IV ONETIME ONE Stop: 06/11/20 12:59 Last Admin: 06/11/20 12:30 Dose: 250 mls/hr Documented by: Sodium Chloride (Normal Saline) 100 mls @ 4 mls/sec IV ASDIRECTED [facility] Iopamidol (Isovue-370 (76%)) 57 ml IV . DIRECTED [facility] Last Admin: 06/10/20 17:44 Dose: 57 ml Documented by: Iopamidol (Isovue-370 (76%)) 100 ml IV . DIRECTED [facility] Stop: 06/21/20 09:55 Last Admin: 06/21/20 10:31 Dose: 100 ml Documented by: Ibrutinib (Imbruvica () 320 MgPom) 0 mg PO BEDTIME [facility] Last Admin: 06/10/20 21:24 Dose: Not Given Documented by: Pantoprazole Sodium (Protonix Iv) 40 mg IVPUSH DAILY [facility] Last Admin: 06/11/20 08:15 Dose: 40 mg Documented by: Sodium Chloride (Saline Flush) 10 ml FLUSH ASDIRECTED PRN PRN Reason: Keep Vein Open Last Admin: 06/09/20 19:38 Dose: 10 ml Documented by: Sodium Chloride (Saline Flush) 10 ml FLUSH ONETIME ONE Stop: 06/10/20 15:42 Last Admin: 06/10/20 17:45 Dose: 10 ml Documented by: - Exam Quality Assessment: Supplemental Oxygen, DVT Prophylaxis General: Alert, Oriented, Cooperative, Moderate Distress Lungs: Rales. No: Rhonchi, Wheezing Cardiovascular: Regular Rate, Regular Rhythm, No Murmurs GI/Abdominal Exam: Soft, Non-Tender, No Organomegaly, No Distention Extremities: Non-Tender, No Pedal Edema Sepsis Event Note - Evaluation Sepsis Screening Result: Sepsis Risk - Focused Exam Vital Signs: Vital Signs Temp Pulse Resp BP Pulse Ox 06/22/20 15:14 97.8 F 80 26 H 118/52 L 96 06/22/20 15:07 97 06/22/20 11:15 97.1 F 84 22 H 108/56 L 94 L 06/22/20 07:56 97 06/22/20 07:03 96.9 F 65 23 H 117/56 L 95 - Problem List Review Problem List Initiated/Reviewed/Updated: Yes - My Orders Last 24 Hours: My Active Orders 06/23/20 05:00 COMPREHENSIVE METABOLIC PN,CMP [CHEM] Timed - Plan Plan:: ASSESSMENT AND PLAN COVID-19 PNEUMONIA-complicated by acute respiratory failure with hypoxia. No worsening or significant improvement in the last 24 hours. Continues to require almost continuous use of noninvasive positive pressure ventilation -Continue Decadron -Repeat labs every 2 to 3 days -Supplemental oxygen -Supportive care -Prone ventilation as tolerated CHRONIC LYMPHOCYTIC LEUKEMIA-stable. -Hold ibrutinib MAINTENANCE ISSUES -DVT prophylaxis; Lovenox 40 mg subcu daily -GI prophylaxis; not indicated -Interiano catheter; not indicated -Nutrition; regular diet DISPOSITION-anticipate discharge to home after the hospital stay.
[2020-06-22] MEDS: Simvastatin 20 MG Tab PO SCH (20:41)
[2020-06-23] MEDS: Lactobacillus Rhamnosus GG (Probiotic) Cap PO SCH ×2 (08:41→20:49)
[2020-06-23] MEDS: Enoxaparin 40 MG/0.4 ML Syringe SUBCUT SCH (08:42)
[2020-06-23] MEDS: Aspirin 81 MG Tab.EC PO SCH (08:42)
[2020-06-23] MEDS: Dexamethasone 4 MG/ML SDV IVPUSH SCH (13:56)
--- NOTE | 2020-06-23 17:50 | PCM.PN ---
- General Info Date of Service: 06/23/20 Subjective Update: Ms. Giraldo continues to require high level of respiratory support with supplemental oxygen and BiPAP. She has not shown significant decline over the past few days but there has been no significant improvement. Functional Status: Reports: Tolerating Diet, Urinating - Review of Systems General: Reports: Weakness, Fatigue. Denies: Fever, Chills Pulmonary: Reports: Shortness of Breath. Denies: Pleuritic Chest Pain, Cough, Sputum, Hemoptysis, Wheezing Cardiovascular: Reports: Dyspnea on Exertion. Denies: Chest Pain, Palpitations, Orthopnea, PND, Edema, Lightheadedness Gastrointestinal: Reports: No Symptoms - Patient Data Vitals - Most Recent: Last Vital Signs Temp 96.6 F L 06/23/20 16:05 Pulse 81 06/23/20 16:05 Resp 16 06/23/20 16:05 BP 115/59 L 06/23/20 16:05 Pulse Ox 93 L 06/23/20 16:05 Weight - Most Recent: 130 lb Lab Results Last 24 Hours: Laboratory Results - last 24 hr 06/23/20 Range/Units 05:50 Sodium 137 L (140-148) mmol/L Potassium 4.3 (3.6-5.2) mmol/L Chloride 102 (100-108) mmol/L Carbon Dioxide 27 (21-32) mmol/L Anion Gap 12.3 (5.0-14.0) mmol/L BUN 36 H (7-18) mg/dL Creatinine 0.7 (0.6-1.0) mg/dL Est Cr Clr Drug Dosing 64.64 mL/min Estimated GFR (MDRD) > 60 (>60) Glucose 141 H (74-106) mg/dL Calcium 8.2 L (8.5-10.1) mg/dL Total Bilirubin 0.5 (0.2-1.0) mg/dL AST 25 (15-37) U/L ALT 45 (12-78) U/L Alkaline Phosphatase 182 H (46-116) U/L Total Protein 5.3 L (6.4-8.2) g/dL Albumin 1.7 L (3.4-5.0) g/dL Globulin 3.6 H (2.3-3.5) g/dL Albumin/Globulin Ratio 0.5 L (1.2-2.2) Med Orders - Current: Current Medications Acetaminophen (Tylenol) 650 mg PO Q4H PRN PRN Reason: fever, pain Last Admin: 06/14/20 17:45 Dose: 650 mg Documented by: Aspirin (Halfprin) 81 mg PO DAILY [facility] Last Admin: 06/23/20 08:42 Dose: 81 mg Documented by: Benzonatate (Tessalon Perles) 100 mg PO TID PRN PRN Reason: Cough Dexamethasone (Decadron) 4 mg IVPUSH Q24H [facility] Last Admin: 06/23/20 13:56 Dose: 4 mg Documented by: Enoxaparin Sodium (Lovenox) 40 mg SUBCUT Q24H [facility] Last Admin: 06/23/20 08:42 Dose: 40 mg Documented by: Guaifenesin/Dextromethorphan (Robitussin Dm) 10 ml PO Q4H PRN PRN Reason: Cough Lactobacillus Rhamnosus (Culturelle) 1 cap PO BID [facility] Last Admin: 06/23/20 08:41 Dose: 1 cap Documented by: Metoprolol Succinate (Toprol Xl) 25 mg PO DAILY [facility] Last Admin: 06/21/20 10:50 Dose: Not Given Documented by: Ondansetron HCl (Zofran) 4 mg IVPUSH Q4H PRN PRN Reason: Nausea/Vomiting Imbruvica 420mg Tab ((Ptom)) 1 each PO DAILY [facility] Last Admin: 06/21/20 10:50 Dose: Not Given Documented by: Simvastatin (Zocor) 40 mg PO BEDTIME [facility] Last Admin: 06/22/20 20:41 Dose: 40 mg Documented by: Sodium Chloride (Saline Flush) 10 ml FLUSH ASDIRECTED PRN PRN Reason: Keep Vein Open Last Admin: 06/21/20 10:31 Dose: 10 ml Documented by: Discontinued Medications Azithromycin (Zithromax) 500 mg PO ONETIME ONE Stop: 06/09/20 22:45 Last Admin: 06/09/20 23:44 Dose: 500 mg Documented by: Azithromycin (Zithromax) 250 mg PO DAILY [facility] Stop: 06/13/20 09:01 Last Admin: 06/10/20 08:39 Dose: 250 mg Documented by: Ceftriaxone Sodium (Rocephin) Confirm Administered Dose 1 gm IV .STK-MED ONE Stop: 06/09/20 23:29 Last Admin: 06/09/20 23:42 Dose: 1 gm Documented by: Dexamethasone (Decadron) 6 mg IVPUSH Q24H [facility] Last Admin: 06/15/20 15:43 Dose: Not Given Documented by: Dexamethasone (Dexamethasone) 6 mg PO Q24H [facility] Last Admin: 06/19/20 16:48 Dose: 6 mg Documented by: Doxycycline Hyclate (Vibramycin) 100 mg PO Q12H [facility] Stop: 06/15/20 23:59 Last Admin: 06/15/20 16:35 Dose: 100 mg Documented by: Enoxaparin Sodium (Lovenox) 60 mg SUBCUT BID [facility] Last Admin: 06/10/20 08:39 Dose: 60 mg Documented by: Furosemide (Lasix) 20 mg IVPUSH NOW ONE Stop: 06/10/20 14:46 Last Admin: 06/10/20 15:23 Dose: 20 mg Documented by: Furosemide (Lasix) 20 mg IVPUSH ONETIME ONE Stop: 06/21/20 13:01 Last Admin: 06/21/20 12:54 Dose: 20 mg Documented by: Sodium Chloride (Normal Saline) 1,000 mls @ 125 mls/hr IV ASDIRECTED ONE Stop: 06/10/20 03:03 Last Admin: 06/09/20 20:49 Dose: Not Given Documented by: Ceftriaxone Sodium 1 gm/ (Sodium Chloride) 50 mls @ 100 mls/hr IV Q24H [facility] Stop: 06/15/20 23:59 Last Admin: 06/14/20 22:30 Dose: 100 mls/hr Documented by: Sodium Chloride (Normal Saline) 1,000 mls @ 125 mls/hr IV ASDIRECTED [facility] Last Admin: 06/10/20 08:37 Dose: 125 mls/hr Documented by: Sodium Chloride (Normal Saline) Confirm Administered Dose 50 mls @ as directed .ROUTE .STK-MED ONE Stop: 06/09/20 23:29 Last Admin: 06/10/20 03:33 Dose: Not Given Documented by: Doxycycline Hyclate 100 mg/ (Sodium Chloride) 100 mls @ 100 mls/hr IV Q12H [facility] Last Admin: 06/12/20 02:15 Dose: 100 mls/hr Documented by: Sodium Chloride (Normal Saline) 100 mls @ 3.5 mls/sec IV ASDIRECTED [facility] Stop: 06/10/20 18:00 Last Admin: 06/10/20 17:45 Dose: 4 mls/sec Documented by: Remdesivir 100 mg/ Sodium (Chloride) 100 mls @ 100 mls/hr IV Q24H [facility] Stop: 06/15/20 12:59 Last Admin: 06/15/20 12:49 Dose: 100 mls/hr Documented by: Remdesivir 200 mg/ Sodium (Chloride) 250 mls @ 250 mls/hr IV ONETIME ONE Stop: 06/11/20 12:59 Last Admin: 06/11/20 12:30 Dose: 250 mls/hr Documented by: Sodium Chloride (Normal Saline) 100 mls @ 4 mls/sec IV ASDIRECTED [facility] Iopamidol (Isovue-370 (76%)) 57 ml IV . DIRECTED [facility] Last Admin: 06/10/20 17:44 Dose: 57 ml Documented by: Iopamidol (Isovue-370 (76%)) 100 ml IV . DIRECTED ONE Stop: 06/21/20 09:55 Last Admin: 06/21/20 10:31 Dose: 100 ml Documented by: Ibrutinib (Imbruvica () 320 MgPom) 0 mg PO BEDTIME [facility] Last Admin: 06/10/20 21:24 Dose: Not Given Documented by: Pantoprazole Sodium (Protonix Iv) 40 mg IVPUSH DAILY [facility] Last Admin: 06/11/20 08:15 Dose: 40 mg Documented by: Sodium Chloride (Saline Flush) 10 ml FLUSH ASDIRECTED PRN PRN Reason: Keep Vein Open Last Admin: 06/09/20 19:38 Dose: 10 ml Documented by: Sodium Chloride (Saline Flush) 10 ml FLUSH ONETIME ONE Stop: 06/10/20 15:42 Last Admin: 06/10/20 17:45 Dose: 10 ml Documented by: - Exam Quality Assessment: Supplemental Oxygen, DVT Prophylaxis General: Alert, Oriented, Cooperative, Moderate Distress Lungs: Rales. No: Rhonchi, Wheezing Cardiovascular: Regular Rate, Regular Rhythm, No Murmurs GI/Abdominal Exam: Soft, Non-Tender, No Organomegaly, No Distention Extremities: Non-Tender, No Pedal Edema Sepsis Event Note - Evaluation Sepsis Screening Result: Sepsis Risk - Focused Exam Vital Signs: Vital Signs Temp Pulse Resp BP Pulse Ox 06/23/20 16:05 96.6 F L 81 16 115/59 L 93 L 06/23/20 13:53 93 L 06/23/20 11:44 96.4 F L 80 16 118/51 L 93 L 06/23/20 07:24 96 06/23/20 06:54 95.6 F L 65 16 119/61 92 L - Problem List Review Problem List Initiated/Reviewed/Updated: Yes - My Orders Last 24 Hours: My Active Orders 06/24/20 05:00 CBC WITH AUTO DIFF [HEME] Timed COMPREHENSIVE METABOLIC PN,CMP [CHEM] Timed 06/24/20 05:11 CRP [C-REACTIVE PROTEIN] [CHEM] AM D Dimer [D-DIMER QUANTITATIVE] [COAG] AM - Plan Plan:: ASSESSMENT AND PLAN COVID-19 PNEUMONIA-complicated by acute respiratory failure with hypoxia. No worsening or significant improvement in the last 24 hours. Continues to require almost continuous use of noninvasive positive pressure ventilation -Continue Decadron -Repeat labs every 2 to 3 days -Supplemental oxygen -Supportive care -Prone ventilation as tolerated CHRONIC LYMPHOCYTIC LEUKEMIA-stable. -Hold ibrutinib MAINTENANCE ISSUES -DVT prophylaxis; Lovenox 40 mg subcu daily -GI prophylaxis; not indicated -Interiano catheter; not indicated -Nutrition; regular diet DISPOSITION-anticipate discharge to home after the hospital stay.
[2020-06-23] MEDS: Simvastatin 20 MG Tab PO SCH (20:49)
[2020-06-24] MEDS: Acetaminophen 325 MG Tab PO PRN (02:12)
[2020-06-24] MEDS: Enoxaparin 40 MG/0.4 ML Syringe SUBCUT SCH (09:40)
[2020-06-24] MEDS: Aspirin 81 MG Tab.EC PO SCH (09:41)
[2020-06-24] MEDS: Lactobacillus Rhamnosus GG (Probiotic) Cap PO SCH ×2 (09:41→21:01)
[2020-06-24] MEDS: Dexamethasone 4 MG/ML SDV IVPUSH SCH (12:30)
--- NOTE | 2020-06-24 14:34 | PCM.PN ---
- General Info Date of Service: 06/24/20 Subjective Update: Ms. Giraldo continues to experience significant respiratory compromise and require high level of respiratory support with high flow oxygen and BiPAP. She is not shown significant worsening over the last 24 hours but certainly hit has not had significant improvement. Continues to desaturate into the 70s with fairly minimal activity. Vital signs have otherwise been stable and she has been afebrile. Functional Status: Reports: Tolerating Diet, Urinating. Denies: Ambulating - Review of Systems General: Reports: Weakness, Fatigue. Denies: Fever, Chills Pulmonary: Reports: Shortness of Breath. Denies: Pleuritic Chest Pain, Cough, Sputum, Hemoptysis, Wheezing Cardiovascular: Reports: Dyspnea on Exertion. Denies: Chest Pain, Palpitations, Orthopnea, PND, Edema, Lightheadedness Gastrointestinal: Reports: No Symptoms - Patient Data Vitals - Most Recent: Last Vital Signs Temp 96.6 F L 06/24/20 10:29 Pulse 81 06/24/20 10:29 Resp 16 06/24/20 10:29 BP 120/53 L 06/24/20 10:29 Pulse Ox 88 L 06/24/20 13:30 Weight - Most Recent: 130 lb I&O - Last 24 Hours: Intake & Output 06/23/20 06/24/20 06/24/20 22:59 06:59 14:59 Intake Total 300 592 570 Balance 300 592 570 Lab Results Last 24 Hours: Laboratory Results - last 24 hr 06/24/20 06/24/20 06/24/20 Range/Units 05:30 05:30 05:30 WBC 29.4 H (4.5-11.0) K/uL RBC 3.27 L (3.30-5.50) M/uL Hgb 9.8 L (12.0-15.0) g/dL Hct 30.5 L (36.0-48.0) % MCV 93 (80-98) fL MCH 30 (27-31) pg MCHC 32 (32-36) % Plt Count 243 (150-400) K/uL Neut % (Auto) 46 (36-66) % Lymph % (Auto) 49 H (24-44) % Nolan % (Auto) 6 (2-6) % Eos % (Auto) 0 L (2-4) % Baso % (Auto) 0 (0-1) % D-Dimer, Quantitative 6169.33 H (0.0-500.0) ng/mL Sodium 136 L (140-148) mmol/L Potassium 4.3 (3.6-5.2) mmol/L Chloride 103 (100-108) mmol/L Carbon Dioxide 26 (21-32) mmol/L Anion Gap 11.3 (5.0-14.0) mmol/L BUN 38 H (7-18) mg/dL Creatinine 0.7 (0.6-1.0) mg/dL Est Cr Clr Drug Dosing 64.64 mL/min Estimated GFR (MDRD) > 60 (>60) Glucose 120 H (74-106) mg/dL Calcium 8.3 L (8.5-10.1) mg/dL Total Bilirubin 0.4 (0.2-1.0) mg/dL AST 33 (15-37) U/L ALT 53 (12-78) U/L Alkaline Phosphatase 195 H (46-116) U/L C-Reactive Protein (0.0-0.3) mg/dL Total Protein 5.6 L (6.4-8.2) g/dL Albumin 1.9 L (3.4-5.0) g/dL Globulin 3.7 H (2.3-3.5) g/dL Albumin/Globulin Ratio 0.5 L (1.2-2.2) 06/24/20 Range/Units 05:30 WBC (4.5-11.0) K/uL RBC (3.30-5.50) M/uL Hgb (12.0-15.0) g/dL Hct (36.0-48.0) % MCV (80-98) fL MCH (27-31) pg MCHC (32-36) % Plt Count (150-400) K/uL Neut % (Auto) (36-66) % Lymph % (Auto) (24-44) % Nolan % (Auto) (2-6) % Eos % (Auto) (2-4) % Baso % (Auto) (0-1) % D-Dimer, Quantitative (0.0-500.0) ng/mL Sodium (140-148) mmol/L Potassium (3.6-5.2) mmol/L Chloride (100-108) mmol/L Carbon Dioxide (21-32) mmol/L Anion Gap (5.0-14.0) mmol/L BUN (7-18) mg/dL Creatinine (0.6-1.0) mg/dL Est Cr Clr Drug Dosing mL/min Estimated GFR (MDRD) (>60) Glucose (74-106) mg/dL Calcium (8.5-10.1) mg/dL Total Bilirubin (0.2-1.0) mg/dL AST (15-37) U/L ALT (12-78) U/L Alkaline Phosphatase (46-116) U/L C-Reactive Protein 3.87 H (0.0-0.3) mg/dL Total Protein (6.4-8.2) g/dL Albumin (3.4-5.0) g/dL Globulin (2.3-3.5) g/dL Albumin/Globulin Ratio (1.2-2.2) Med Orders - Current: Current Medications Acetaminophen (Tylenol) 650 mg PO Q4H PRN PRN Reason: fever, pain Last Admin: 06/24/20 02:12 Dose: 650 mg Documented by: Aspirin (Halfprin) 81 mg PO DAILY [facility] Last Admin: 06/24/20 09:41 Dose: 81 mg Documented by: Benzonatate (Tessalon Perles) 100 mg PO TID PRN PRN Reason: Cough Dexamethasone (Decadron) 4 mg IVPUSH Q24H [facility] Last Admin: 06/24/20 12:30 Dose: 4 mg Documented by: Enoxaparin Sodium (Lovenox) 40 mg SUBCUT Q24H [facility] Last Admin: 06/24/20 09:40 Dose: 40 mg Documented by: Guaifenesin/Dextromethorphan (Robitussin Dm) 10 ml PO Q4H PRN PRN Reason: Cough Lactobacillus Rhamnosus (Culturelle) 1 cap PO BID [facility] Last Admin: 06/24/20 09:41 Dose: 1 cap Documented by: Metoprolol Succinate (Toprol Xl) 25 mg PO DAILY [facility] Last Admin: 06/21/20 10:50 Dose: Not Given Documented by: Ondansetron HCl (Zofran) 4 mg IVPUSH Q4H PRN PRN Reason: Nausea/Vomiting Imbruvica 420mg Tab ((Ptom)) 1 each PO DAILY [facility] Last Admin: 06/21/20 10:50 Dose: Not Given Documented by: Simvastatin (Zocor) 40 mg PO BEDTIME [facility] Last Admin: 06/23/20 20:49 Dose: 40 mg Documented by: Sodium Chloride (Saline Flush) 10 ml FLUSH ASDIRECTED PRN PRN Reason: Keep Vein Open Last Admin: 06/21/20 10:31 Dose: 10 ml Documented by: Discontinued Medications Azithromycin (Zithromax) 500 mg PO ONETIME ONE Stop: 06/09/20 22:45 Last Admin: 06/09/20 23:44 Dose: 500 mg Documented by: Azithromycin (Zithromax) 250 mg PO DAILY [facility] Stop: 06/13/20 09:01 Last Admin: 06/10/20 08:39 Dose: 250 mg Documented by: Ceftriaxone Sodium (Rocephin) Confirm Administered Dose 1 gm IV .STK-MED ONE Stop: 06/09/20 23:29 Last Admin: 06/09/20 23:42 Dose: 1 gm Documented by: Dexamethasone (Decadron) 6 mg IVPUSH Q24H [facility] Last Admin: 06/15/20 15:43 Dose: Not Given Documented by: Dexamethasone (Dexamethasone) 6 mg PO Q24H [facility] Last Admin: 06/19/20 16:48 Dose: 6 mg Documented by: Doxycycline Hyclate (Vibramycin) 100 mg PO Q12H [facility] Stop: 06/15/20 23:59 Last Admin: 06/15/20 16:35 Dose: 100 mg Documented by: Enoxaparin Sodium (Lovenox) 60 mg SUBCUT BID [facility] Last Admin: 06/10/20 08:39 Dose: 60 mg Documented by: Furosemide (Lasix) 20 mg IVPUSH NOW ONE Stop: 06/10/20 14:46 Last Admin: 06/10/20 15:23 Dose: 20 mg Documented by: Furosemide (Lasix) 20 mg IVPUSH ONETIME ONE Stop: 06/21/20 13:01 Last Admin: 06/21/20 12:54 Dose: 20 mg Documented by: Sodium Chloride (Normal Saline) 1,000 mls @ 125 mls/hr IV ASDIRECTED ONE Stop: 06/10/20 03:03 Last Admin: 06/09/20 20:49 Dose: Not Given Documented by: Ceftriaxone Sodium 1 gm/ (Sodium Chloride) 50 mls @ 100 mls/hr IV Q24H [facility] Stop: 06/15/20 23:59 Last Admin: 06/14/20 22:30 Dose: 100 mls/hr Documented by: Sodium Chloride (Normal Saline) 1,000 mls @ 125 mls/hr IV ASDIRECTED [facility] Last Admin: 06/10/20 08:37 Dose: 125 mls/hr Documented by: Sodium Chloride (Normal Saline) Confirm Administered Dose 50 mls @ as directed . ROUTE .STK-MED ONE Stop: 06/09/20 23:29 Last Admin: 06/10/20 03:33 Dose: Not Given Documented by: Doxycycline Hyclate 100 mg/ (Sodium Chloride) 100 mls @ 100 mls/hr IV Q12H [facility] Last Admin: 06/12/20 02:15 Dose: 100 mls/hr Documented by: Sodium Chloride (Normal Saline) 100 mls @ 3.5 mls/sec IV ASDIRECTED [facility] Stop: 06/10/20 18:00 Last Admin: 06/10/20 17:45 Dose: 4 mls/sec Documented by: Remdesivir 100 mg/ Sodium (Chloride) 100 mls @ 100 mls/hr IV Q24H [facility] Stop: 06/15/20 12:59 Last Admin: 06/15/20 12:49 Dose: 100 mls/hr Documented by: Remdesivir 200 mg/ Sodium (Chloride) 250 mls @ 250 mls/hr IV ONETIME ONE Stop: 06/11/20 12:59 Last Admin: 06/11/20 12:30 Dose: 250 mls/hr Documented by: Sodium Chloride (Normal Saline) 100 mls @ 4 mls/sec IV ASDIRECTED [facility] Iopamidol (Isovue-370 (76%)) 57 ml IV . DIRECTED [facility] Last Admin: 06/10/20 17:44 Dose: 57 ml Documented by: Iopamidol (Isovue-370 (76%)) 100 ml IV . DIRECTED [facility] Stop: 06/21/20 09:55 Last Admin: 06/21/20 10:31 Dose: 100 ml Documented by: Ibrutinib (Imbruvica () 320 MgPom) 0 mg PO BEDTIME [facility] Last Admin: 06/10/20 21:24 Dose: Not Given Documented by: Pantoprazole Sodium (Protonix Iv) 40 mg IVPUSH DAILY [facility] Last Admin: 06/11/20 08:15 Dose: 40 mg Documented by: Sodium Chloride (Saline Flush) 10 ml FLUSH ASDIRECTED PRN PRN Reason: Keep Vein Open Last Admin: 06/09/20 19:38 Dose: 10 ml Documented by: Sodium Chloride (Saline Flush) 10 ml FLUSH ONETIME ONE Stop: 06/10/20 15:42 Last Admin: 06/10/20 17:45 Dose: 10 ml Documented by: - Exam Quality Assessment: Supplemental Oxygen, DVT Prophylaxis General: Alert, Oriented, Cooperative, Moderate Distress Lungs: Clear to Auscultation, Normal Respiratory Effort, Decreased Breath Sounds Cardiovascular: Regular Rate, Regular Rhythm, No Murmurs GI/Abdominal Exam: Soft, Non-Tender, No Organomegaly, No Distention Extremities: Non-Tender, No Pedal Edema Sepsis Event Note - Evaluation Sepsis Screening Result: No Definite Risk - Focused Exam Vital Signs: Vital Signs Temp Pulse Resp BP Pulse Ox 06/24/20 13:30 88 L 06/24/20 10:29 96.6 F L 81 16 120/53 L 88 L 06/24/20 07:36 96.5 F L 69 16 137/74 93 L 06/24/20 07:27 98 - Problem List Review Problem List Initiated/Reviewed/Updated: Yes - My Orders Last 24 Hours: My Active Orders 06/25/20 05:00 CBC WITH AUTO DIFF [HEME] Timed COMPREHENSIVE METABOLIC PN,CMP [CHEM] Timed - Plan Plan:: ASSESSMENT AND PLAN COVID-19 PNEUMONIA-complicated by acute respiratory failure with hypoxia. No worsening or significant improvement in the last 24 hours. Continues to require almost continuous use of noninvasive positive pressure ventilation -Continue Decadron -Repeat labs every 2 to 3 days -Supplemental oxygen -Supportive care -Prone ventilation as tolerated CHRONIC LYMPHOCYTIC LEUKEMIA-stable. White blood cell count increased off of therapy -Hold ibrutinib MAINTENANCE ISSUES -DVT prophylaxis; Lovenox 40 mg subcu daily -GI prophylaxis; not indicated -Interiano catheter; not indicated -Nutrition; regular diet DISPOSITION-anticipate discharge to home after the hospital stay.
[2020-06-24] MEDS: Simvastatin 20 MG Tab PO SCH (21:01)
[2020-06-25] MEDS: Enoxaparin 40 MG/0.4 ML Syringe SUBCUT SCH (10:32)
[2020-06-25] MEDS: Aspirin 81 MG Tab.EC PO SCH (10:32)
[2020-06-25] MEDS: Lactobacillus Rhamnosus GG (Probiotic) Cap PO SCH ×2 (10:32→20:53)
[2020-06-25] MEDS: Metoprolol Succinate 25 MG Tab.ER PO SCH ×2 (10:32→10:41)
[2020-06-25] MEDS: Dexamethasone 4 MG/ML SDV IVPUSH SCH (13:47)
--- NOTE | 2020-06-25 13:52 | PCM.PN ---
- General Info Date of Service: 06/25/20 Subjective Update: Ms. Giraldo has experienced further deterioration in her respiratory status over the past 24 hours. Requiring continuous use of BiPAP with increase in FiO2. She gets very short of breath with even very minimal exertion. We discussed CODE STATUS again today and she is fairly determined not to proceed with mechanical ventilation and would like to be DNR/DNI. Functional Status: Reports: Urinating - Review of Systems General: Reports: Weakness, Fatigue. Denies: Fever, Chills Pulmonary: Reports: Shortness of Breath. Denies: Pleuritic Chest Pain, Cough, Sputum, Hemoptysis, Wheezing Cardiovascular: Reports: Dyspnea on Exertion. Denies: Chest Pain, Palpitations, Orthopnea, PND, Edema, Lightheadedness Gastrointestinal: Reports: No Symptoms - Patient Data Vitals - Most Recent: Last Vital Signs Temp 97.1 F 06/25/20 10:24 Pulse 85 06/25/20 10:41 Resp 22 H 06/25/20 10:24 BP 113/55 L 06/25/20 10:41 Pulse Ox 94 L 06/25/20 12:43 Weight - Most Recent: 130 lb I&O - Last 24 Hours: Intake & Output 06/24/20 06/25/20 06/25/20 22:59 06:59 14:59 Intake Total 656 Balance 656 Lab Results Last 24 Hours: Laboratory Results - last 24 hr 06/25/20 06/25/20 Range/Units 05:30 05:30 WBC 30.8 H* (4.5-11.0) K/uL RBC 3.25 L (3.30-5.50) M/uL Hgb 9.8 L (12.0-15.0) g/dL Hct 30.2 L (36.0-48.0) % MCV 93 (80-98) fL MCH 30 (27-31) pg MCHC 33 (32-36) % Plt Count 241 (150-400) K/uL Neut % (Auto) 49 (36-66) % Lymph % (Auto) 44 (24-44) % [place] % (Auto) 7 H (2-6) % Eos % (Auto) 0 L (2-4) % Baso % (Auto) 0 (0-1) % Sodium 136 L (140-148) mmol/L Potassium 4.2 (3.6-5.2) mmol/L Chloride 102 (100-108) mmol/L Carbon Dioxide 26 (21-32) mmol/L Anion Gap 12.2 (5.0-14.0) mmol/L BUN 34 H (7-18) mg/dL Creatinine 0.7 (0.6-1.0) mg/dL Est Cr Clr Drug Dosing 64.64 mL/min Estimated GFR (MDRD) > 60 (>60) Glucose 135 H (74-106) mg/dL Calcium 8.4 L (8.5-10.1) mg/dL Total Bilirubin 0.4 (0.2-1.0) mg/dL AST 38 H (15-37) U/L ALT 67 (12-78) U/L Alkaline Phosphatase 188 H (46-116) U/L Total Protein 5.7 L (6.4-8.2) g/dL Albumin 1.9 L (3.4-5.0) g/dL Globulin 3.8 H (2.3-3.5) g/dL Albumin/Globulin Ratio 0.5 L (1.2-2.2) Med Orders - Current: Current Medications Acetaminophen (Tylenol) 650 mg PO Q4H PRN PRN Reason: fever, pain Last Admin: 06/24/20 02:12 Dose: 650 mg Documented by: Aspirin (Halfprin) 81 mg PO DAILY [facility] Last Admin: 06/25/20 10:32 Dose: 81 mg Documented by: Benzonatate (Tessalon Perles) 100 mg PO TID PRN PRN Reason: Cough Dexamethasone (Decadron) 4 mg IVPUSH Q24H [facility] Last Admin: 06/25/20 13:47 Dose: 4 mg Documented by: Enoxaparin Sodium (Lovenox) 40 mg SUBCUT Q24H [facility] Last Admin: 06/25/20 10:32 Dose: 40 mg Documented by: Furosemide (Lasix) 20 mg IVPUSH NOW ONE Stop: 06/25/20 13:49 Guaifenesin/Dextromethorphan (Robitussin Dm) 10 ml PO Q4H PRN PRN Reason: Cough Lactobacillus Rhamnosus (Culturelle) 1 cap PO BID [facility] Last Admin: 06/25/20 10:32 Dose: 1 cap Documented by: Metoprolol Succinate (Toprol Xl) 25 mg PO DAILY [facility] Last Admin: 06/25/20 10:41 Dose: Not Given Documented by: Ondansetron HCl (Zofran) 4 mg IVPUSH Q4H PRN PRN Reason: Nausea/Vomiting Imbruvica 420mg Tab ((Ptom)) 1 each PO DAILY [facility] Last Admin: 06/21/20 10:50 Dose: Not Given Documented by: Simvastatin (Zocor) 40 mg PO BEDTIME [facility] Last Admin: 06/24/20 21:01 Dose: 40 mg Documented by: Sodium Chloride (Saline Flush) 10 ml FLUSH ASDIRECTED PRN PRN Reason: Keep Vein Open Last Admin: 06/21/20 10:31 Dose: 10 ml Documented by: Discontinued Medications Azithromycin (Zithromax) 500 mg PO ONETIME ONE Stop: 06/09/20 22:45 Last Admin: 06/09/20 23:44 Dose: 500 mg Documented by: Azithromycin (Zithromax) 250 mg PO DAILY [facility] Stop: 06/13/20 09:01 Last Admin: 06/10/20 08:39 Dose: 250 mg Documented by: Ceftriaxone Sodium (Rocephin) Confirm Administered Dose 1 gm IV .STK-MED ONE Stop: 06/09/20 23:29 Last Admin: 06/09/20 23:42 Dose: 1 gm Documented by: Dexamethasone (Decadron) 6 mg IVPUSH Q24H [facility] Last Admin: 06/15/20 15:43 Dose: Not Given Documented by: Dexamethasone (Dexamethasone) 6 mg PO Q24H [facility] Last Admin: 06/19/20 16:48 Dose: 6 mg Documented by: Doxycycline Hyclate (Vibramycin) 100 mg PO Q12H [facility] Stop: 06/15/20 23:59 Last Admin: 06/15/20 16:35 Dose: 100 mg Documented by: Enoxaparin Sodium (Lovenox) 60 mg SUBCUT BID [facility] Last Admin: 06/10/20 08:39 Dose: 60 mg Documented by: Furosemide (Lasix) 20 mg IVPUSH NOW ONE Stop: 06/10/20 14:46 Last Admin: 06/10/20 15:23 Dose: 20 mg Documented by: Furosemide (Lasix) 20 mg IVPUSH ONETIME ONE Stop: 06/21/20 13:01 Last Admin: 06/21/20 12:54 Dose: 20 mg Documented by: Sodium Chloride (Normal Saline) 1,000 mls @ 125 mls/hr IV ASDIRECTED ONE Stop: 06/10/20 03:03 Last Admin: 06/09/20 20:49 Dose: Not Given Documented by: Ceftriaxone Sodium 1 gm/ (Sodium Chloride) 50 mls @ 100 mls/hr IV Q24H [facility] Stop: 06/15/20 23:59 Last Admin: 06/14/20 22:30 Dose: 100 mls/hr Documented by: Sodium Chloride (Normal Saline) 1,000 mls @ 125 mls/hr IV ASDIRECTED [facility] Last Admin: 06/10/20 08:37 Dose: 125 mls/hr Documented by: Sodium Chloride (Normal Saline) Confirm Administered Dose 50 mls @ as directed .ROUTE .STK-MED ONE Stop: 06/09/20 23:29 Last Admin: 06/10/20 03:33 Dose: Not Given Documented by: Doxycycline Hyclate 100 mg/ (Sodium Chloride) 100 mls @ 100 mls/hr IV Q12H [facility] Last Admin: 06/12/20 02:15 Dose: 100 mls/hr Documented by: Sodium Chloride (Normal Saline) 100 mls @ 3.5 mls/sec IV ASDIRECTED [facility] Stop: 06/10/20 18:00 Last Admin: 06/10/20 17:45 Dose: 4 mls/sec Documented by: Remdesivir 100 mg/ Sodium (Chloride) 100 mls @ 100 mls/hr IV Q24H [facility] Stop: 06/15/20 12:59 Last Admin: 06/15/20 12:49 Dose: 100 mls/hr Documented by: Remdesivir 200 mg/ Sodium (Chloride) 250 mls @ 250 mls/hr IV ONETIME ONE Stop: 06/11/20 12:59 Last Admin: 06/11/20 12:30 Dose: 250 mls/hr Documented by: Sodium Chloride (Normal Saline) 100 mls @ 4 mls/sec IV ASDIRECTED [facility] Iopamidol (Isovue-370 (76%)) 57 ml IV . DIRECTED [facility] Last Admin: 06/10/20 17:44 Dose: 57 ml Documented by: Iopamidol (Isovue-370 (76%)) 100 ml IV . DIRECTED ONE Stop: 06/21/20 09:55 Last Admin: 06/21/20 10:31 Dose: 100 ml Documented by: Ibrutinib (Imbruvica () 320 MgPom) 0 mg PO BEDTIME [facility] Last Admin: 06/10/20 21:24 Dose: Not Given Documented by: Pantoprazole Sodium (Protonix Iv) 40 mg IVPUSH DAILY [facility] Last Admin: 06/11/20 08:15 Dose: 40 mg Documented by: Sodium Chloride (Saline Flush) 10 ml FLUSH ASDIRECTED PRN PRN Reason: Keep Vein Open Last Admin: 06/09/20 19:38 Dose: 10 ml Documented by: Sodium Chloride (Saline Flush) 10 ml FLUSH ONETIME ONE Stop: 06/10/20 15:42 Last Admin: 06/10/20 17:45 Dose: 10 ml Documented by: - Exam Quality Assessment: Supplemental Oxygen, DVT Prophylaxis General: Alert, Oriented, Cooperative, Severe Distress Lungs: Decreased Breath Sounds, Rales. No: Rhonchi, Wheezing Cardiovascular: Regular Rate, Regular Rhythm, No Murmurs GI/Abdominal Exam: Soft, Non-Tender, No Organomegaly, No Distention Extremities: Non-Tender, No Pedal Edema Skin: Warm, Dry, Intact Sepsis Event Note - Evaluation Sepsis Screening Result: Sepsis Risk - Focused Exam Vital Signs: Vital Signs Temp Pulse Pulse Resp BP BP Pulse Ox 06/25/20 12:43 94 L 06/25/20 10:41 85 113/55 L 06/25/20 10:24 97.1 F 85 22 H 113/55 L 94 L 06/25/20 10:15 22 H 95 06/25/20 09:29 26 H 93 L 06/25/20 07:33 88 L 06/25/20 07:00 96.8 F L 79 22 H 130/63 86 L 06/25/20 05:19 83 L 06/25/20 02:47 96.5 F L 78 22 H 142/66 H 88 L - Problem List Review Problem List Initiated/Reviewed/Updated: Yes - My Orders Last 24 Hours: My Active Orders 06/25/20 13:48 Furosemide [Lasix] 20 mg IVPUSH NOW ONE 06/26/20 05:00 CBC WITH AUTO DIFF [HEME] Timed COMPREHENSIVE METABOLIC PN,CMP [CHEM] Timed 06/26/20 05:11 CRP [C-REACTIVE PROTEIN] [CHEM] AM D Dimer [D-DIMER QUANTITATIVE] [COAG] AM 06/26/20 09:00 Ibrutinib [Imbruvica] 420 mg PO DAILY - Plan Plan:: ASSESSMENT AND PLAN COVID-19 PNEUMONIA-complicated by acute respiratory failure with hypoxia. Worse over the last 24 hours, requiring BiPAP continuously with increased FiO2, now up to 70% -Continue Decadron -Repeat labs every 2 days -Supplemental oxygen -Supportive care -Prone ventilation as tolerated CHRONIC LYMPHOCYTIC LEUKEMIA-stable. White blood cell count increased off of therapy -Resume ibrutinib MAINTENANCE ISSUES -DVT prophylaxis; Lovenox 40 mg subcu daily -GI prophylaxis; not indicated -Interiano catheter; not indicated -Nutrition; regular diet DISPOSITION-anticipate discharge to home after the hospital stay.
[2020-06-25] MEDS ORDERED: Furosemide 40 MG/4 ML VIAL IVPUSH ONE (14:30)
[2020-06-25] MEDS: Simvastatin 20 MG Tab PO SCH (20:53)
[2020-06-26] MEDS: Aspirin 81 MG Tab.EC PO SCH (08:35)
[2020-06-26] MEDS: Lactobacillus Rhamnosus GG (Probiotic) Cap PO SCH ×2 (08:35→20:58)
[2020-06-26] MEDS: Enoxaparin 40 MG/0.4 ML Syringe SUBCUT SCH (08:36)
[2020-06-26] MEDS: Metoprolol Succinate 25 MG Tab.ER PO SCH (08:36)
[2020-06-26] MEDS: IMBRUVICA 420 MG PO SCH (08:38)
[2020-06-26] MEDS ORDERED: IBRUTINIB 420 MG PO SCH (09:00)
--- NOTE | 2020-06-26 13:12 | PCM.PN ---
- General Info Date of Service: 06/26/20 Subjective Update: Ms. Giarldo has continued to experience significant respiratory compromise, this seems to be fairly stable over the last 24 hours. She reports feeling more comfortable today but has required ongoing use of BiPAP on a continuous basis Functional Status: Reports: Urinating - Review of Systems General: Reports: Weakness, Fatigue. Denies: Fever, Chills Pulmonary: Reports: Shortness of Breath. Denies: Cough, Sputum, Hemoptysis, Wheezing Cardiovascular: Reports: Dyspnea on Exertion. Denies: Chest Pain, Palpitations, Orthopnea, PND, Edema, Lightheadedness Gastrointestinal: Reports: No Symptoms - Patient Data Vitals - Most Recent: Last Vital Signs Temp 97.4 F 06/26/20 10:06 Pulse 105 H 06/26/20 10:06 Resp 18 06/26/20 10:06 BP 120/62 06/26/20 10:06 Pulse Ox 92 L 06/26/20 10:06 Weight - Most Recent: 130 lb I&O - Last 24 Hours: Intake & Output 06/25/20 06/26/20 06/26/20 22:59 06:59 14:59 Intake Total 780 240 Output Total 1575 Balance -795 240 Lab Results Last 24 Hours: Laboratory Results - last 24 hr 06/26/20 06/26/20 06/26/20 Range/Units 04:41 04:41 04:41 WBC 26.1 H (4.5-11.0) K/uL RBC 3.34 (3.30-5.50) M/uL Hgb 10.1 L (12.0-15.0) g/dL Hct 30.8 L (36.0-48.0) % MCV 92 (80-98) fL MCH 30 (27-31) pg MCHC 33 (32-36) % Plt Count 260 (150-400) K/uL Neut % (Auto) 53 (36-66) % Lymph % (Auto) 39 (24-44) % [place] % (Auto) 8 H (2-6) % Eos % (Auto) 0 L (2-4) % Baso % (Auto) 0 (0-1) % D-Dimer, Quantitative 3791.32 H (0.0-500.0) ng/mL Sodium 135 L (140-148) mmol/L Potassium 4.0 (3.6-5.2) mmol/L Chloride 99 L (100-108) mmol/L Carbon Dioxide 28 (21-32) mmol/L Anion Gap 12.0 (5.0-14.0) mmol/L BUN 32 H (7-18) mg/dL Creatinine 0.8 (0.6-1.0) mg/dL Est Cr Clr Drug Dosing 56.56 mL/min Estimated GFR (MDRD) > 60 (>60) Glucose 189 H (74-106) mg/dL Calcium 8.1 L (8.5-10.1) mg/dL Total Bilirubin 0.4 (0.2-1.0) mg/dL AST 27 (15-37) U/L ALT 56 (12-78) U/L Alkaline Phosphatase 172 H (46-116) U/L C-Reactive Protein (0.0-0.3) mg/dL Total Protein 5.9 L (6.4-8.2) g/dL Albumin 1.9 L (3.4-5.0) g/dL Globulin 4.0 H (2.3-3.5) g/dL Albumin/Globulin Ratio 0.5 L (1.2-2.2) 06/26/20 Range/Units 04:41 WBC (4.5-11.0) K/uL RBC (3.30-5.50) M/uL Hgb (12.0-15.0) g/dL Hct (36.0-48.0) % MCV (80-98) fL MCH (27-31) pg MCHC (32-36) % Plt Count (150-400) K/uL Neut % (Auto) (36-66) % Lymph % (Auto) (24-44) % [place] % (Auto) (2-6) % Eos % (Auto) (2-4) % Baso % (Auto) (0-1) % D-Dimer, Quantitative (0.0-500.0) ng/mL Sodium (140-148) mmol/L Potassium (3.6-5.2) mmol/L Chloride (100-108) mmol/L Carbon Dioxide (21-32) mmol/L Anion Gap (5.0-14.0) mmol/L BUN (7-18) mg/dL Creatinine (0.6-1.0) mg/dL Est Cr Clr Drug Dosing mL/min Estimated GFR (MDRD) (>60) Glucose (74-106) mg/dL Calcium (8.5-10.1) mg/dL Total Bilirubin (0.2-1.0) mg/dL AST (15-37) U/L ALT (12-78) U/L Alkaline Phosphatase (46-116) U/L C-Reactive Protein 9.04 H (0.0-0.3) mg/dL Total Protein (6.4-8.2) g/dL Albumin (3.4-5.0) g/dL Globulin (2.3-3.5) g/dL Albumin/Globulin Ratio (1.2-2.2) Med Orders - Current: Current Medications Acetaminophen (Tylenol) 650 mg PO Q4H PRN PRN Reason: fever, pain Last Admin: 06/24/20 02:12 Dose: 650 mg Documented by: Aspirin (Halfprin) 81 mg PO DAILY [facility] Last Admin: 06/26/20 08:35 Dose: 81 mg Documented by: Benzonatate (Tessalon Perles) 100 mg PO TID PRN PRN Reason: Cough Dexamethasone (Decadron) 4 mg IVPUSH Q24H [facility] Last Admin: 06/25/20 13:47 Dose: 4 mg Documented by: Enoxaparin Sodium (Lovenox) 40 mg SUBCUT Q24H [facility] Last Admin: 06/26/20 08:36 Dose: 40 mg Documented by: Guaifenesin/Dextromethorphan (Robitussin Dm) 10 ml PO Q4H PRN PRN Reason: Cough Lactobacillus Rhamnosus (Culturelle) 1 cap PO BID [facility] Last Admin: 06/26/20 08:35 Dose: 1 cap Documented by: Metoprolol Succinate (Toprol Xl) 25 mg PO DAILY [facility] Last Admin: 06/26/20 08:36 Dose: 25 mg Documented by: Ondansetron HCl (Zofran) 4 mg IVPUSH Q4H PRN PRN Reason: Nausea/Vomiting Imbruvica 420mg Tab ((Ptom)) 1 each PO DAILY [facility] Last Admin: 06/26/20 08:38 Dose: Not Given Documented by: Simvastatin (Zocor) 40 mg PO BEDTIME [facility] Last Admin: 06/25/20 20:53 Dose: 40 mg Documented by: Sodium Chloride (Saline Flush) 10 ml FLUSH ASDIRECTED PRN PRN Reason: Keep Vein Open Last Admin: 06/21/20 10:31 Dose: 10 ml Documented by: Discontinued Medications Azithromycin (Zithromax) 500 mg PO ONETIME ONE Stop: 06/09/20 22:45 Last Admin: 06/09/20 23:44 Dose: 500 mg Documented by: Azithromycin (Zithromax) 250 mg PO DAILY [facility] Stop: 06/13/20 09:01 Last Admin: 06/10/20 08:39 Dose: 250 mg Documented by: Ceftriaxone Sodium (Rocephin) Confirm Administered Dose 1 gm IV .STK-MED ONE Stop: 06/09/20 23:29 Last Admin: 06/09/20 23:42 Dose: 1 gm Documented by: Dexamethasone (Decadron) 6 mg IVPUSH Q24H [facility] Last Admin: 06/15/20 15:43 Dose: Not Given Documented by: Dexamethasone (Dexamethasone) 6 mg PO Q24H [facility] Last Admin: 06/19/20 16:48 Dose: 6 mg Documented by: Doxycycline Hyclate (Vibramycin) 100 mg PO Q12H [facility] Stop: 06/15/20 23:59 Last Admin: 06/15/20 16:35 Dose: 100 mg Documented by: Enoxaparin Sodium (Lovenox) 60 mg SUBCUT BID [facility] Last Admin: 06/10/20 08:39 Dose: 60 mg Documented by: Furosemide (Lasix) 20 mg IVPUSH NOW ONE Stop: 06/10/20 14:46 Last Admin: 06/10/20 15:23 Dose: 20 mg Documented by: Furosemide (Lasix) 20 mg IVPUSH ONETIME ONE Stop: 06/21/20 13:01 Last Admin: 06/21/20 12:54 Dose: 20 mg Documented by: Furosemide (Lasix) 20 mg IVPUSH NOW ONE Stop: 06/25/20 14:31 Last Admin: 06/25/20 15:51 Dose: 20 mg Documented by: Sodium Chloride (Normal Saline) 1,000 mls @ 125 mls/hr IV ASDIRECTED ONE Stop: 06/10/20 03:03 Last Admin: 06/09/20 20:49 Dose: Not Given Documented by: Ceftriaxone Sodium 1 gm/ (Sodium Chloride) 50 mls @ 100 mls/hr IV Q24H [facility] Stop: 06/15/20 23:59 Last Admin: 06/14/20 22:30 Dose: 100 mls/hr Documented by: Sodium Chloride (Normal Saline) 1,000 mls @ 125 mls/hr IV ASDIRECTED [facility] Last Admin: 06/10/20 08:37 Dose: 125 mls/hr Documented by: Sodium Chloride (Normal Saline) Confirm Administered Dose 50 mls @ as directed .ROUTE .STK-MED ONE Stop: 06/09/20 23:29 Last Admin: 06/10/20 03:33 Dose: Not Given Documented by: Doxycycline Hyclate 100 mg/ (Sodium Chloride) 100 mls @ 100 mls/hr IV Q12H [facility] Last Admin: 06/12/20 02:15 Dose: 100 mls/hr Documented by: Sodium Chloride (Normal Saline) 100 mls @ 3.5 mls/sec IV ASDIRECTED [facility] Stop: 06/10/20 18:00 Last Admin: 06/10/20 17:45 Dose: 4 mls/sec Documented by: Remdesivir 100 mg/ Sodium (Chloride) 100 mls @ 100 mls/hr IV Q24H [facility] Stop: 06/15/20 12:59 Last Admin: 06/15/20 12:49 Dose: 100 mls/hr Documented by: Remdesivir 200 mg/ Sodium (Chloride) 250 mls @ 250 mls/hr IV ONETIME ONE Stop: 06/11/20 12:59 Last Admin: 06/11/20 12:30 Dose: 250 mls/hr Documented by: Sodium Chloride (Normal Saline) 100 mls @ 4 mls/sec IV ASDIRECTED [facility] Iopamidol (Isovue-370 (76%)) 57 ml IV . DIRECTED [facility] Last Admin: 06/10/20 17:44 Dose: 57 ml Documented by: Iopamidol (Isovue-370 (76%)) 100 ml IV . DIRECTED ONE Stop: 06/21/20 09:55 Last Admin: 06/21/20 10:31 Dose: 100 ml Documented by: Ibrutinib (Imbruvica () 320 MgPom) 0 mg PO BEDTIME [facility] Last Admin: 06/10/20 21:24 Dose: Not Given Documented by: Pantoprazole Sodium (Protonix Iv) 40 mg IVPUSH DAILY [facility] Last Admin: 06/11/20 08:15 Dose: 40 mg Documented by: Sodium Chloride (Saline Flush) 10 ml FLUSH ASDIRECTED PRN PRN Reason: Keep Vein Open Last Admin: 06/09/20 19:38 Dose: 10 ml Documented by: Sodium Chloride (Saline Flush) 10 ml FLUSH ONETIME ONE Stop: 06/10/20 15:42 Last Admin: 06/10/20 17:45 Dose: 10 ml Documented by: - Exam Quality Assessment: Supplemental Oxygen, DVT Prophylaxis General: Alert, Oriented, Cooperative, Severe Distress Lungs: Rales. No: Normal Respiratory Effort, Rhonchi, Wheezing Cardiovascular: Regular Rate, Regular Rhythm, No Murmurs GI/Abdominal Exam: Soft, Non-Tender, No Organomegaly, No Distention Extremities: Non-Tender, No Pedal Edema Skin: Warm, Dry Sepsis Event Note - Evaluation Sepsis Screening Result: Sepsis Risk - Focused Exam Vital Signs: Vital Signs Temp Pulse Pulse Resp BP BP Pulse Ox 06/26/20 10:06 97.4 F 105 H 18 120/62 92 L 06/26/20 08:36 72 152/78 H 06/26/20 07:28 94 L 06/26/20 07:00 96.4 F L 89 18 119/68 94 L 06/26/20 03:19 96.9 F 91 129/74 93 L 06/26/20 02:14 98 - Problem List Review Problem List Initiated/Reviewed/Updated: Yes - My Orders Last 24 Hours: My Active Orders 06/25/20 14:00 Urinary Catheter Assessment [RC] ASDIRECTED 06/26/20 14:00 Insert Interiano Catheter [Insert Urinary Catheter] [OM.PC] Q24H 06/27/20 05:00 COMPREHENSIVE METABOLIC PN,CMP [CHEM] Timed - Plan Plan:: ASSESSMENT AND PLAN COVID-19 PNEUMONIA-complicated by acute respiratory failure with hypoxia. Stable since yesterday but continues to require high level of support -Continue Decadron -Repeat labs every 2 days -Supplemental oxygen -Supportive care -Prone ventilation as tolerated CHRONIC LYMPHOCYTIC LEUKEMIA-stable. White blood cell count increased off of therapy -Resume ibrutinib MAINTENANCE ISSUES -DVT prophylaxis; Lovenox 40 mg subcu daily -GI prophylaxis; not indicated -Interiano catheter; not indicated -Nutrition; regular diet DISPOSITION-anticipate discharge to home after the hospital stay.
[2020-06-26] MEDS: Dexamethasone 4 MG/ML SDV IVPUSH SCH (13:47)
[2020-06-26] MEDS: Simvastatin 20 MG Tab PO SCH (20:58)
[2020-06-27] MEDS: Enoxaparin 40 MG/0.4 ML Syringe SUBCUT SCH (09:34)
[2020-06-27] MEDS: Metoprolol Succinate 25 MG Tab.ER PO SCH (09:35)
[2020-06-27] MEDS: Aspirin 81 MG Tab.EC PO SCH (09:35)
[2020-06-27] MEDS: Lactobacillus Rhamnosus GG (Probiotic) Cap PO SCH ×2 (09:35→20:16)
[2020-06-27] MEDS: IMBRUVICA 420 MG PO SCH (09:37)
--- NOTE | 2020-06-27 11:31 | PCM.PN ---
- General Info Date of Service: 06/27/20 Subjective Update: Ms. Giraldo is to require significant level of respiratory support because of underlying respiratory compromise. She has been on BiPAP much of the time, desaturates with minimal activity. There has been no evidence of significant worsening in the last 24 hours but no obvious improvement either. - Review of Systems General: Reports: Weakness, Fatigue, Malaise. Denies: Fever, Chills Pulmonary: Reports: Shortness of Breath. Denies: Pleuritic Chest Pain, Cough, Sputum, Hemoptysis, Wheezing Cardiovascular: Reports: Dyspnea on Exertion. Denies: Chest Pain, Palpitations, Orthopnea, PND, Edema, Lightheadedness Gastrointestinal: Reports: No Symptoms - Patient Data Vitals - Most Recent: Last Vital Signs Temp 99.1 F 06/27/20 10:55 Pulse 91 06/27/20 10:55 Resp 16 06/27/20 10:55 BP 132/83 06/27/20 10:55 Pulse Ox 98 06/27/20 10:55 Weight - Most Recent: 130 lb I&O - Last 24 Hours: Intake & Output 06/26/20 06/27/20 06/27/20 22:59 06:59 14:59 Intake Total 360 Output Total 450 Balance -90 Lab Results Last 24 Hours: Laboratory Results - last 24 hr 06/27/20 Range/Units 05:00 Sodium 137 L (140-148) mmol/L Potassium 4.4 (3.6-5.2) mmol/L Chloride 103 (100-108) mmol/L Carbon Dioxide 27 (21-32) mmol/L Anion Gap 11.4 (5.0-14.0) mmol/L BUN 39 H (7-18) mg/dL Creatinine 0.7 (0.6-1.0) mg/dL Est Cr Clr Drug Dosing 64.64 mL/min Estimated GFR (MDRD) > 60 (>60) Glucose 137 H (74-106) mg/dL Calcium 8.4 L (8.5-10.1) mg/dL Total Bilirubin 0.5 (0.2-1.0) mg/dL AST 36 (15-37) U/L ALT 69 (12-78) U/L Alkaline Phosphatase 175 H (46-116) U/L Total Protein 5.7 L (6.4-8.2) g/dL Albumin 1.7 L (3.4-5.0) g/dL Globulin 4.0 H (2.3-3.5) g/dL Albumin/Globulin Ratio 0.4 L (1.2-2.2) Med Orders - Current: Current Medications Acetaminophen (Tylenol) 650 mg PO Q4H PRN PRN Reason: fever, pain Last Admin: 06/24/20 02:12 Dose: 650 mg Documented by: Aspirin (Halfprin) 81 mg PO DAILY [facility] Last Admin: 06/27/20 09:35 Dose: 81 mg Documented by: Benzonatate (Tessalon Perles) 100 mg PO TID PRN PRN Reason: Cough Dexamethasone (Decadron) 4 mg IVPUSH Q24H [facility] Last Admin: 06/26/20 13:47 Dose: 4 mg Documented by: Enoxaparin Sodium (Lovenox) 40 mg SUBCUT Q24H [facility] Last Admin: 06/27/20 09:34 Dose: 40 mg Documented by: Guaifenesin/Dextromethorphan (Robitussin Dm) 10 ml PO Q4H PRN PRN Reason: Cough Lactobacillus Rhamnosus (Culturelle) 1 cap PO BID [facility] Last Admin: 06/27/20 09:35 Dose: 1 cap Documented by: Metoprolol Succinate (Toprol Xl) 25 mg PO DAILY [facility] Last Admin: 06/27/20 09:35 Dose: 25 mg Documented by: Ondansetron HCl (Zofran) 4 mg IVPUSH Q4H PRN PRN Reason: Nausea/Vomiting Imbruvica 420mg Tab ((Ptom)) 1 each PO DAILY [facility] Last Admin: 06/27/20 09:37 Dose: 1 each Documented by: Simvastatin (Zocor) 40 mg PO BEDTIME [facility] Last Admin: 06/26/20 20:58 Dose: 40 mg Documented by: Sodium Chloride (Saline Flush) 10 ml FLUSH ASDIRECTED PRN PRN Reason: Keep Vein Open Last Admin: 06/21/20 10:31 Dose: 10 ml Documented by: Discontinued Medications Azithromycin (Zithromax) 500 mg PO ONETIME ONE Stop: 06/09/20 22:45 Last Admin: 06/09/20 23:44 Dose: 500 mg Documented by: Azithromycin (Zithromax) 250 mg PO DAILY [facility] Stop: 06/13/20 09:01 Last Admin: 06/10/20 08:39 Dose: 250 mg Documented by: Ceftriaxone Sodium (Rocephin) Confirm Administered Dose 1 gm IV .STK-MED ONE Stop: 06/09/20 23:29 Last Admin: 06/09/20 23:42 Dose: 1 gm Documented by: Dexamethasone (Decadron) 6 mg IVPUSH Q24H [facility] Last Admin: 06/15/20 15:43 Dose: Not Given Documented by: Dexamethasone (Dexamethasone) 6 mg PO Q24H [facility] Last Admin: 06/19/20 16:48 Dose: 6 mg Documented by: Doxycycline Hyclate (Vibramycin) 100 mg PO Q12H [facility] Stop: 06/15/20 23:59 Last Admin: 06/15/20 16:35 Dose: 100 mg Documented by: Enoxaparin Sodium (Lovenox) 60 mg SUBCUT BID [facility] Last Admin: 06/10/20 08:39 Dose: 60 mg Documented by: Furosemide (Lasix) 20 mg IVPUSH NOW ONE Stop: 06/10/20 14:46 Last Admin: 06/10/20 15:23 Dose: 20 mg Documented by: Furosemide (Lasix) 20 mg IVPUSH ONETIME ONE Stop: 06/21/20 13:01 Last Admin: 06/21/20 12:54 Dose: 20 mg Documented by: Furosemide (Lasix) 20 mg IVPUSH NOW ONE Stop: 06/25/20 14:31 Last Admin: 06/25/20 15:51 Dose: 20 mg Documented by: Sodium Chloride (Normal Saline) 1,000 mls @ 125 mls/hr IV ASDIRECTED ONE Stop: 06/10/20 03:03 Last Admin: 06/09/20 20:49 Dose: Not Given Documented by: Ceftriaxone Sodium 1 gm/ (Sodium Chloride) 50 mls @ 100 mls/hr IV Q24H [facility] Stop: 06/15/20 23:59 Last Admin: 06/14/20 22:30 Dose: 100 mls/hr Documented by: Sodium Chloride (Normal Saline) 1,000 mls @ 125 mls/hr IV ASDIRECTED [facility] Last Admin: 06/10/20 08:37 Dose: 125 mls/hr Documented by: Sodium Chloride (Normal Saline) Confirm Administered Dose 50 mls @ as directed .ROUTE .STK-MED ONE Stop: 06/09/20 23:29 Last Admin: 06/10/20 03:33 Dose: Not Given Documented by: Doxycycline Hyclate 100 mg/ (Sodium Chloride) 100 mls @ 100 mls/hr IV Q12H [facility] Last Admin: 06/12/20 02:15 Dose: 100 mls/hr Documented by: Sodium Chloride (Normal Saline) 100 mls @ 3.5 mls/sec IV ASDIRECTED [facility] Stop: 06/10/20 18:00 Last Admin: 06/10/20 17:45 Dose: 4 mls/sec Documented by: Remdesivir 100 mg/ Sodium (Chloride) 100 mls @ 100 mls/hr IV Q24H [facility] Stop: 06/15/20 12:59 Last Admin: 06/15/20 12:49 Dose: 100 mls/hr Documented by: Remdesivir 200 mg/ Sodium (Chloride) 250 mls @ 250 mls/hr IV ONETIME ONE Stop: 06/11/20 12:59 Last Admin: 06/11/20 12:30 Dose: 250 mls/hr Documented by: Sodium Chloride (Normal Saline) 100 mls @ 4 mls/sec IV ASDIRECTED [facility] Iopamidol (Isovue-370 (76%)) 57 ml IV . DIRECTED [facility] Last Admin: 06/10/20 17:44 Dose: 57 ml Documented by: Iopamidol (Isovue-370 (76%)) 100 ml IV . DIRECTED ONE Stop: 06/21/20 09:55 Last Admin: 06/21/20 10:31 Dose: 100 ml Documented by: Ibrutinib (Imbruvica () 320 MgPom) 0 mg PO BEDTIME [facility] Last Admin: 06/10/20 21:24 Dose: Not Given Documented by: Pantoprazole Sodium (Protonix Iv) 40 mg IVPUSH DAILY [facility] Last Admin: 06/11/20 08:15 Dose: 40 mg Documented by: Sodium Chloride (Saline Flush) 10 ml FLUSH ASDIRECTED PRN PRN Reason: Keep Vein Open Last Admin: 06/09/20 19:38 Dose: 10 ml Documented by: Sodium Chloride (Saline Flush) 10 ml FLUSH ONETIME ONE Stop: 06/10/20 15:42 Last Admin: 06/10/20 17:45 Dose: 10 ml Documented by: - Exam Quality Assessment: Urine Catheter, DVT Prophylaxis General: Alert, Oriented, Cooperative, Moderate Distress Lungs: Decreased Breath Sounds, Rales. No: Crackles, Rhonchi, Wheezing Cardiovascular: Regular Rate, Regular Rhythm, No Murmurs GI/Abdominal Exam: Soft, Non-Tender, No Organomegaly, No Distention Extremities: Non-Tender, No Pedal Edema Sepsis Event Note - Evaluation Sepsis Screening Result: No Definite Risk - Focused Exam Vital Signs: Vital Signs Temp Pulse Pulse Resp BP BP Pulse Ox 06/27/20 10:55 99.1 F 91 16 132/83 98 06/27/20 09:35 84 106/62 06/27/20 07:20 93 L 06/27/20 07:19 98 F 84 16 106/62 94 L 06/27/20 03:36 98.2 F 77 20 122/65 97 06/27/20 01:23 98 06/26/20 23:38 79 21 H 99 - Problem List Review Problem List Initiated/Reviewed/Updated: Yes - My Orders Last 24 Hours: My Active Orders 06/27/20 14:00 Insert Interiano Catheter [Insert Urinary Catheter] [OM.PC] Q24H 06/28/20 05:00 CBC WITH AUTO DIFF [HEME] Timed COMPREHENSIVE METABOLIC PN,CMP [CHEM] Timed 06/28/20 05:11 CRP [C-REACTIVE PROTEIN] [CHEM] AM D Dimer [D-DIMER QUANTITATIVE] [COAG] AM - Plan Plan:: ASSESSMENT AND PLAN COVID-19 PNEUMONIA-complicated by acute respiratory failure with hypoxia. Stable since yesterday but continues to require high level of support -Continue Decadron -Repeat labs every 2 days -Supplemental oxygen and noninvasive positive pressure ventilation -Supportive care -Prone ventilation as tolerated CHRONIC LYMPHOCYTIC LEUKEMIA-stable. White blood cell count increased off of therapy -Resume ibrutinib MAINTENANCE ISSUES -DVT prophylaxis; Lovenox 40 mg subcu daily -GI prophylaxis; not indicated -Interiano catheter; not indicated -Nutrition; regular diet DISPOSITION-anticipate discharge to home after the hospital stay.
[2020-06-27] MEDS: Dexamethasone 4 MG/ML SDV IVPUSH SCH (13:35)
[2020-06-27] MEDS: Simvastatin 20 MG Tab PO SCH (20:17)
[2020-06-28] MEDS: Metoprolol Succinate 25 MG Tab.ER PO SCH (08:34)
[2020-06-28] MEDS: Enoxaparin 40 MG/0.4 ML Syringe SUBCUT SCH (08:34)
[2020-06-28] MEDS: Lactobacillus Rhamnosus GG (Probiotic) Cap PO SCH ×2 (08:34→20:05)
[2020-06-28] MEDS: IMBRUVICA 420 MG PO SCH (08:35)
[2020-06-28] MEDS: Aspirin 81 MG Tab.EC PO SCH (08:35)
--- NOTE | 2020-06-28 10:09 | PCM.PN ---
- General Info Date of Service: 06/28/20 Subjective Update: Ms. Giraldo's been stable over the last 24 hours and actually has shown some modest improvement in respiratory status and oxygenation. She now is able to tolerate nasal cannula at 15 L with adequate saturations. She will desaturate with activity but not as low as she had previously. Functional Status: Reports: Tolerating Diet, Urinating. Denies: Ambulating - Review of Systems General: Reports: Weakness, Fatigue. Denies: Fever, Chills Pulmonary: Reports: Shortness of Breath. Denies: Pleuritic Chest Pain, Cough, Sputum, Hemoptysis, Wheezing Cardiovascular: Reports: Dyspnea on Exertion. Denies: Chest Pain, Palpitations, Orthopnea, PND, Edema, Lightheadedness Gastrointestinal: Reports: No Symptoms - Patient Data Vitals - Most Recent: Last Vital Signs Temp 97.7 F 06/28/20 08:30 Pulse 85 06/28/20 08:34 Resp 18 06/28/20 08:30 BP 147/72 H 06/28/20 08:34 Pulse Ox 96 06/28/20 08:30 Weight - Most Recent: 130 lb I&O - Last 24 Hours: Intake & Output 06/27/20 06/28/20 06/28/20 22:59 06:59 14:59 Intake Total 640 Output Total 275 600 Balance 365 -600 Lab Results Last 24 Hours: Laboratory Results - last 24 hr 06/28/20 06/28/20 06/28/20 Range/Units 05:00 05:09 05:09 WBC 27.5 H (4.5-11.0) K/uL RBC 3.03 L (3.30-5.50) M/uL Hgb 9.1 L (12.0-15.0) g/dL Hct 28.9 L (36.0-48.0) % MCV 95 (80-98) fL MCH 30 (27-31) pg MCHC 32 (32-36) % Plt Count 263 (150-400) K/uL Neut % (Auto) 56 (36-66) % Lymph % (Auto) 40 (24-44) % Eaton % (Auto) 5 (2-6) % Eos % (Auto) 0 L (2-4) % Baso % (Auto) 0 (0-1) % D-Dimer, Quantitative (0.0-500.0) ng/mL Sodium 136 L (140-148) mmol/L Potassium 4.2 (3.6-5.2) mmol/L Chloride 103 (100-108) mmol/L Carbon Dioxide 27 (21-32) mmol/L Anion Gap 10.2 (5.0-14.0) mmol/L BUN 45 H (7-18) mg/dL Creatinine 0.7 (0.6-1.0) mg/dL Est Cr Clr Drug Dosing 64.64 mL/min Estimated GFR (MDRD) > 60 (>60) Glucose 150 H (74-106) mg/dL Calcium 8.5 (8.5-10.1) mg/dL Total Bilirubin 0.3 (0.2-1.0) mg/dL AST 39 H (15-37) U/L ALT 71 (12-78) U/L Alkaline Phosphatase 189 H (46-116) U/L C-Reactive Protein 8.50 H (0.0-0.3) mg/dL Total Protein 5.8 L (6.4-8.2) g/dL Albumin 1.7 L (3.4-5.0) g/dL Globulin 4.1 H (2.3-3.5) g/dL Albumin/Globulin Ratio 0.4 L (1.2-2.2) 06/28/20 Range/Units 05:09 WBC (4.5-11.0) K/uL RBC (3.30-5.50) M/uL Hgb (12.0-15.0) g/dL Hct (36.0-48.0) % MCV (80-98) fL MCH (27-31) pg MCHC (32-36) % Plt Count (150-400) K/uL Neut % (Auto) (36-66) % Lymph % (Auto) (24-44) % Eaton % (Auto) (2-6) % Eos % (Auto) (2-4) % Baso % (Auto) (0-1) % D-Dimer, Quantitative 4181.39 H (0.0-500.0) ng/mL Sodium (140-148) mmol/L Potassium (3.6-5.2) mmol/L Chloride (100-108) mmol/L Carbon Dioxide (21-32) mmol/L Anion Gap (5.0-14.0) mmol/L BUN (7-18) mg/dL Creatinine (0.6-1.0) mg/dL Est Cr Clr Drug Dosing mL/min Estimated GFR (MDRD) (>60) Glucose (74-106) mg/dL Calcium (8.5-10.1) mg/dL Total Bilirubin (0.2-1.0) mg/dL AST (15-37) U/L ALT (12-78) U/L Alkaline Phosphatase (46-116) U/L C-Reactive Protein (0.0-0.3) mg/dL Total Protein (6.4-8.2) g/dL Albumin (3.4-5.0) g/dL Globulin (2.3-3.5) g/dL Albumin/Globulin Ratio (1.2-2.2) Med Orders - Current: Current Medications Acetaminophen (Tylenol) 650 mg PO Q4H PRN PRN Reason: fever, pain Last Admin: 06/24/20 02:12 Dose: 650 mg Documented by: Aspirin (Halfprin) 81 mg PO DAILY [facility] Last Admin: 06/28/20 08:35 Dose: 81 mg Documented by: Benzonatate (Tessalon Perles) 100 mg PO TID PRN PRN Reason: Cough Dexamethasone (Decadron) 4 mg IVPUSH Q24H [facility] Last Admin: 06/27/20 13:35 Dose: 4 mg Documented by: Enoxaparin Sodium (Lovenox) 40 mg SUBCUT Q24H [facility] Last Admin: 06/28/20 08:34 Dose: 40 mg Documented by: Guaifenesin/Dextromethorphan (Robitussin Dm) 10 ml PO Q4H PRN PRN Reason: Cough Lactobacillus Rhamnosus (Culturelle) 1 cap PO BID [facility] Last Admin: 06/28/20 08:34 Dose: 1 cap Documented by: Metoprolol Succinate (Toprol Xl) 25 mg PO DAILY [facility] Last Admin: 06/28/20 08:34 Dose: 25 mg Documented by: Ondansetron HCl (Zofran) 4 mg IVPUSH Q4H PRN PRN Reason: Nausea/Vomiting Imbruvica 420mg Tab ((Ptom)) 1 each PO DAILY [facility] Last Admin: 06/28/20 08:35 Dose: 1 each Documented by: Simvastatin (Zocor) 40 mg PO BEDTIME [facility] Last Admin: 06/27/20 20:17 Dose: 40 mg Documented by: Sodium Chloride (Saline Flush) 10 ml FLUSH ASDIRECTED PRN PRN Reason: Keep Vein Open Last Admin: 06/21/20 10:31 Dose: 10 ml Documented by: Discontinued Medications Azithromycin (Zithromax) 500 mg PO ONETIME ONE Stop: 06/09/20 22:45 Last Admin: 06/09/20 23:44 Dose: 500 mg Documented by: Azithromycin (Zithromax) 250 mg PO DAILY [facility] Stop: 06/13/20 09:01 Last Admin: 06/10/20 08:39 Dose: 250 mg Documented by: Ceftriaxone Sodium (Rocephin) Confirm Administered Dose 1 gm IV .STK-MED ONE Stop: 06/09/20 23:29 Last Admin: 06/09/20 23:42 Dose: 1 gm Documented by: Dexamethasone (Decadron) 6 mg IVPUSH Q24H [facility] Last Admin: 06/15/20 15:43 Dose: Not Given Documented by: Dexamethasone (Dexamethasone) 6 mg PO Q24H [facility] Last Admin: 06/19/20 16:48 Dose: 6 mg Documented by: Doxycycline Hyclate (Vibramycin) 100 mg PO Q12H [facility] Stop: 06/15/20 23:59 Last Admin: 06/15/20 16:35 Dose: 100 mg Documented by: Enoxaparin Sodium (Lovenox) 60 mg SUBCUT BID [facility] Last Admin: 06/10/20 08:39 Dose: 60 mg Documented by: Furosemide (Lasix) 20 mg IVPUSH NOW ONE Stop: 06/10/20 14:46 Last Admin: 06/10/20 15:23 Dose: 20 mg Documented by: Furosemide (Lasix) 20 mg IVPUSH ONETIME ONE Stop: 06/21/20 13:01 Last Admin: 06/21/20 12:54 Dose: 20 mg Documented by: Furosemide (Lasix) 20 mg IVPUSH NOW ONE Stop: 06/25/20 14:31 Last Admin: 06/25/20 15:51 Dose: 20 mg Documented by: Sodium Chloride (Normal Saline) 1,000 mls @ 125 mls/hr IV ASDIRECTED ONE Stop: 06/10/20 03:03 Last Admin: 06/09/20 20:49 Dose: Not Given Documented by: Ceftriaxone Sodium 1 gm/ (Sodium Chloride) 50 mls @ 100 mls/hr IV Q24H [facility] Stop: 06/15/20 23:59 Last Admin: 06/14/20 22:30 Dose: 100 mls/hr Documented by: Sodium Chloride (Normal Saline) 1,000 mls @ 125 mls/hr IV ASDIRECTED [facility] Last Admin: 06/10/20 08:37 Dose: 125 mls/hr Documented by: Sodium Chloride (Normal Saline) Confirm Administered Dose 50 mls @ as directed .ROUTE .STK-MED ONE Stop: 06/09/20 23:29 Last Admin: 06/10/20 03:33 Dose: Not Given Documented by: Doxycycline Hyclate 100 mg/ (Sodium Chloride) 100 mls @ 100 mls/hr IV Q12H [facility] Last Admin: 06/12/20 02:15 Dose: 100 mls/hr Documented by: Sodium Chloride (Normal Saline) 100 mls @ 3.5 mls/sec IV ASDIRECTED [facility] Stop: 06/10/20 18:00 Last Admin: 06/10/20 17:45 Dose: 4 mls/sec Documented by: Remdesivir 100 mg/ Sodium (Chloride) 100 mls @ 100 mls/hr IV Q24H [facility] Stop: 06/15/20 12:59 Last Admin: 06/15/20 12:49 Dose: 100 mls/hr Documented by: Remdesivir 200 mg/ Sodium (Chloride) 250 mls @ 250 mls/hr IV ONETIME ONE Stop: 06/11/20 12:59 Last Admin: 06/11/20 12:30 Dose: 250 mls/hr Documented by: Sodium Chloride (Normal Saline) 100 mls @ 4 mls/sec IV ASDIRECTED [facility] Iopamidol (Isovue-370 (76%)) 57 ml IV . DIRECTED [facility] Last Admin: 06/10/20 17:44 Dose: 57 ml Documented by: Iopamidol (Isovue-370 (76%)) 100 ml IV . DIRECTED ONE Stop: 06/21/20 09:55 Last Admin: 06/21/20 10:31 Dose: 100 ml Documented by: Ibrutinib (Imbruvica () 320 MgPom) 0 mg PO BEDTIME [facility] Last Admin: 06/10/20 21:24 Dose: Not Given Documented by: Pantoprazole Sodium (Protonix Iv) 40 mg IVPUSH DAILY [facility] Last Admin: 06/11/20 08:15 Dose: 40 mg Documented by: Sodium Chloride (Saline Flush) 10 ml FLUSH ASDIRECTED PRN PRN Reason: Keep Vein Open Last Admin: 06/09/20 19:38 Dose: 10 ml Documented by: Sodium Chloride (Saline Flush) 10 ml FLUSH ONETIME ONE Stop: 06/10/20 15:42 Last Admin: 06/10/20 17:45 Dose: 10 ml Documented by: - Exam Quality Assessment: Supplemental Oxygen, DVT Prophylaxis General: Alert, Oriented, Cooperative, Moderate Distress Lungs: Clear to Auscultation, Normal Respiratory Effort Cardiovascular: Regular Rate, Regular Rhythm, No Murmurs GI/Abdominal Exam: Soft, Non-Tender, No Organomegaly, No Distention Extremities: Non-Tender, No Pedal Edema Sepsis Event Note - Evaluation Sepsis Screening Result: No Definite Risk - Focused Exam Vital Signs: Vital Signs Temp Pulse Pulse Resp BP BP Pulse Ox 06/28/20 08:34 85 147/72 H 06/28/20 08:30 97.7 F 85 18 147/72 H 96 06/28/20 07:13 96 06/28/20 02:58 98.5 F 70 18 122/66 99 06/28/20 01:18 97 06/27/20 22:44 98.1 F 89 22 H 97 - Problem List Review Problem List Initiated/Reviewed/Updated: Yes - My Orders Last 24 Hours: My Active Orders 06/27/20 12:01 Air Mattress [Pressure Reduction Mattress] [OM.PC] Routine 06/27/20 14:00 Insert Interiano Catheter [Insert Urinary Catheter] [OM.PC] Q24H - Plan Plan:: ASSESSMENT AND PLAN COVID-19 PNEUMONIA-complicated by acute respiratory failure with hypoxia. Modest improvement in respiratory status and oxygenation over the last 24 hours, continues to require relatively high level of support. -Continue Decadron -Repeat labs every 2 days -Supplemental oxygen and noninvasive positive pressure ventilation -Supportive care -Prone ventilation as tolerated CHRONIC LYMPHOCYTIC LEUKEMIA-stable. White blood cell count increased off of therapy -Resume ibrutinib MAINTENANCE ISSUES -DVT prophylaxis; Lovenox 40 mg subcu daily -GI prophylaxis; not indicated -Interiano catheter; not indicated -Nutrition; regular diet DISPOSITION-anticipate discharge to home after the hospital stay.
[2020-06-28] MEDS: Dexamethasone 4 MG/ML SDV IVPUSH SCH (13:55)
[2020-06-28] MEDS: Simvastatin 20 MG Tab PO SCH (20:05)
[2020-06-29] MEDS: Lactobacillus Rhamnosus GG (Probiotic) Cap PO SCH ×2 (08:46→22:12)
[2020-06-29] MEDS: Metoprolol Succinate 25 MG Tab.ER PO SCH (08:46)
[2020-06-29] MEDS: Aspirin 81 MG Tab.EC PO SCH (08:46)
[2020-06-29] MEDS: Enoxaparin 40 MG/0.4 ML Syringe SUBCUT SCH (08:46)
[2020-06-29] MEDS: IMBRUVICA 420 MG PO SCH (08:46)
[2020-06-29] MEDS: Dexamethasone 4 MG/ML SDV IVPUSH SCH (13:29)
--- NOTE | 2020-06-29 13:41 | PCM.PN ---
- General Info Date of Service: 06/29/20 Subjective Update: No acute events overnight. She feels a little less short of breath today. Strength is a little better but still quite weak. Appetite is about the same. She has been less dependent on NIPPV. She is down to 13 L of supplemental oxygen at this time. No fevers. She is in good spirits. Seems to be feeling a little better each day for the last several days. - Patient Data Vitals - Most Recent: Last Vital Signs Temp 36.7 C 06/29/20 10:05 Pulse 90 06/29/20 10:05 Resp 22 H 06/29/20 10:05 BP 126/66 06/29/20 10:05 Pulse Ox 93 L 06/29/20 10:05 Weight - Most Recent: 58.967 kg I&O - Last 24 Hours: Intake & Output 06/28/20 06/29/20 06/29/20 22:59 06:59 14:59 Intake Total 480 120 Output Total 75 750 Balance 405 -750 120 Med Orders - Current: Current Medications Acetaminophen (Tylenol) 650 mg PO Q4H PRN PRN Reason: fever, pain Last Admin: 06/24/20 02:12 Dose: 650 mg Documented by: Aspirin (Halfprin) 81 mg PO DAILY [facility] Last Admin: 06/29/20 08:46 Dose: 81 mg Documented by: Benzonatate (Tessalon Perles) 100 mg PO TID PRN PRN Reason: Cough Dexamethasone (Decadron) 4 mg IVPUSH Q24H [facility] Last Admin: 06/29/20 13:29 Dose: 4 mg Documented by: Enoxaparin Sodium (Lovenox) 40 mg SUBCUT Q24H [facility] Last Admin: 06/29/20 08:46 Dose: 40 mg Documented by: Guaifenesin/Dextromethorphan (Robitussin Dm) 10 ml PO Q4H PRN PRN Reason: Cough Lactobacillus Rhamnosus (Culturelle) 1 cap PO BID [facility] Last Admin: 06/29/20 08:46 Dose: 1 cap Documented by: Metoprolol Succinate (Toprol Xl) 25 mg PO DAILY [facility] Last Admin: 06/29/20 08:46 Dose: 25 mg Documented by: Ondansetron HCl (Zofran) 4 mg IVPUSH Q4H PRN PRN Reason: Nausea/Vomiting Imbruvica 420mg Tab ((Ptom)) 1 each PO DAILY [facility] Last Admin: 06/29/20 08:46 Dose: 1 each Documented by: Simvastatin (Zocor) 40 mg PO BEDTIME [facility] Last Admin: 06/28/20 20:05 Dose: 40 mg Documented by: Sodium Chloride (Saline Flush) 10 ml FLUSH ASDIRECTED PRN PRN Reason: Keep Vein Open Last Admin: 06/21/20 10:31 Dose: 10 ml Documented by: Discontinued Medications Azithromycin (Zithromax) 500 mg PO ONETIME ONE Stop: 06/09/20 22:45 Last Admin: 06/09/20 23:44 Dose: 500 mg Documented by: Azithromycin (Zithromax) 250 mg PO DAILY [facility] Stop: 06/13/20 09:01 Last Admin: 06/10/20 08:39 Dose: 250 mg Documented by: Ceftriaxone Sodium (Rocephin) Confirm Administered Dose 1 gm IV .STK-MED ONE Stop: 06/09/20 23:29 Last Admin: 06/09/20 23:42 Dose: 1 gm Documented by: Dexamethasone (Decadron) 6 mg IVPUSH Q24H [facility] Last Admin: 06/15/20 15:43 Dose: Not Given Documented by: Dexamethasone (Dexamethasone) 6 mg PO Q24H [facility] Last Admin: 06/19/20 16:48 Dose: 6 mg Documented by: Doxycycline Hyclate (Vibramycin) 100 mg PO Q12H [facility] Stop: 06/15/20 23:59 Last Admin: 06/15/20 16:35 Dose: 100 mg Documented by: Enoxaparin Sodium (Lovenox) 60 mg SUBCUT BID [facility] Last Admin: 06/10/20 08:39 Dose: 60 mg Documented by: Furosemide (Lasix) 20 mg IVPUSH NOW ONE Stop: 06/10/20 14:46 Last Admin: 06/10/20 15:23 Dose: 20 mg Documented by: Furosemide (Lasix) 20 mg IVPUSH ONETIME ONE Stop: 06/21/20 13:01 Last Admin: 06/21/20 12:54 Dose: 20 mg Documented by: Furosemide (Lasix) 20 mg IVPUSH NOW ONE Stop: 06/25/20 14:31 Last Admin: 06/25/20 15:51 Dose: 20 mg Documented by: Sodium Chloride (Normal Saline) 1,000 mls @ 125 mls/hr IV ASDIRECTED ONE Stop: 06/10/20 03:03 Last Admin: 06/09/20 20:49 Dose: Not Given Documented by: Ceftriaxone Sodium 1 gm/ (Sodium Chloride) 50 mls @ 100 mls/hr IV Q24H [facility] Stop: 06/15/20 23:59 Last Admin: 06/14/20 22:30 Dose: 100 mls/hr Documented by: Sodium Chloride (Normal Saline) 1,000 mls @ 125 mls/hr IV ASDIRECTED [facility] Last Admin: 06/10/20 08:37 Dose: 125 mls/hr Documented by: Sodium Chloride (Normal Saline) Confirm Administered Dose 50 mls @ as directed .ROUTE .STK-MED ONE Stop: 06/09/20 23:29 Last Admin: 06/10/20 03:33 Dose: Not Given Documented by: Doxycycline Hyclate 100 mg/ (Sodium Chloride) 100 mls @ 100 mls/hr IV Q12H [facility] Last Admin: 06/12/20 02:15 Dose: 100 mls/hr Documented by: Sodium Chloride (Normal Saline) 100 mls @ 3.5 mls/sec IV ASDIRECTED [facility] Stop: 06/10/20 18:00 Last Admin: 06/10/20 17:45 Dose: 4 mls/sec Documented by: Remdesivir 100 mg/ Sodium (Chloride) 100 mls @ 100 mls/hr IV Q24H [facility] Stop: 06/15/20 12:59 Last Admin: 06/15/20 12:49 Dose: 100 mls/hr Documented by: Remdesivir 200 mg/ Sodium (Chloride) 250 mls @ 250 mls/hr IV ONETIME ONE Stop: 06/11/20 12:59 Last Admin: 06/11/20 12:30 Dose: 250 mls/hr Documented by: Sodium Chloride (Normal Saline) 100 mls @ 4 mls/sec IV ASDIRECTED [facility] Iopamidol (Isovue-370 (76%)) 57 ml IV . DIRECTED [facility] Last Admin: 06/10/20 17:44 Dose: 57 ml Documented by: Iopamidol (Isovue-370 (76%)) 100 ml IV . DIRECTED ONE Stop: 06/21/20 09:55 Last Admin: 06/21/20 10:31 Dose: 100 ml Documented by: Ibrutinib (Imbruvica () 320 MgPom) 0 mg PO BEDTIME [facility] Last Admin: 06/10/20 21:24 Dose: Not Given Documented by: Pantoprazole Sodium (Protonix Iv) 40 mg IVPUSH DAILY [facility] Last Admin: 06/11/20 08:15 Dose: 40 mg Documented by: Sodium Chloride (Saline Flush) 10 ml FLUSH ASDIRECTED PRN PRN Reason: Keep Vein Open Last Admin: 06/09/20 19:38 Dose: 10 ml Documented by: Sodium Chloride (Saline Flush) 10 ml FLUSH ONETIME ONE Stop: 06/10/20 15:42 Last Admin: 06/10/20 17:45 Dose: 10 ml Documented by: - Exam Quality Assessment: Supplemental Oxygen General: Alert, Oriented, Cooperative, No Acute Distress Lungs: Normal Respiratory Effort. No: Wheezing GI/Abdominal Exam: Soft, No Distention Extremities: No Pedal Edema. No: Increased Warmth Psy/Mental Status: Alert, Normal Affect Sepsis Event Note - Evaluation Sepsis Screening Result: No Definite Risk - Focused Exam Vital Signs: Vital Signs Temp Pulse Pulse Resp BP BP Pulse Ox 06/29/20 10:05 36.7 C 90 22 H 126/66 93 L 06/29/20 08:46 77 123/67 06/29/20 07:19 96 06/29/20 07:00 36.4 C 77 22 H 123/67 93 L 06/29/20 03:00 36.3 C 88 22 H 125/65 98 - Problem List Review Problem List Initiated/Reviewed/Updated: Yes - Plan Plan:: ASSESSMENT AND PLAN COVID-19 PNEUMONIA-complicated by acute respiratory failure with hypoxia. She seems to be trending in the right direction with slow improvements each day over the last several days. Still requiring 13 L of high flow supplemental oxygen but has been much less dependent on NIPPV. -Continue Decadron -Repeat labs every 3 days -Supplemental oxygen and noninvasive positive pressure ventilation -Supportive care -Prone ventilation as tolerated CHRONIC LYMPHOCYTIC LEUKEMIA-stable. White blood cell count increased off of therapy -Resume ibrutinib MAINTENANCE ISSUES -DVT prophylaxis; Lovenox 40 mg subcu daily -GI prophylaxis; not indicated -Interiano catheter; not indicated -Nutrition; regular diet DISPOSITION-anticipate discharge to home after the hospital stay. Mario Rey MD
[2020-06-29] MEDS: Simvastatin 20 MG Tab PO SCH (22:12)
[2020-06-30] MEDS: Enoxaparin 40 MG/0.4 ML Syringe SUBCUT SCH (08:31)
[2020-06-30] MEDS: IMBRUVICA 420 MG PO SCH (08:31)
[2020-06-30] MEDS: Lactobacillus Rhamnosus GG (Probiotic) Cap PO SCH ×2 (08:31→20:13)
[2020-06-30] MEDS: Metoprolol Succinate 25 MG Tab.ER PO SCH (08:31)
[2020-06-30] MEDS: Aspirin 81 MG Tab.EC PO SCH (08:31)
--- NOTE | 2020-06-30 11:11 | PCM.PN ---
- General Info Date of Service: 06/30/20 Subjective Update: No acute events overnight. Patient does continue to use noninvasive ventilation intermittently. Mild desaturations with activity but not as bad as yesterday. She says that she feels a little better again today but overall feels stable. No chest pain. Appetite not great but acceptable. Still weak. Functional Status: Reports: Pain Controlled, Tolerating Diet - Review of Systems General: Reports: Weakness Pulmonary: Reports: Shortness of Breath - Patient Data Vitals - Most Recent: Last Vital Signs Temp 36.8 C 06/30/20 11:03 Pulse 77 06/30/20 11:03 Resp 20 06/30/20 11:03 BP 124/65 06/30/20 11:03 Pulse Ox 93 L 06/30/20 11:03 Weight - Most Recent: 58.967 kg I&O - Last 24 Hours: Intake & Output 06/29/20 06/30/20 06/30/20 22:59 06:59 14:59 Intake Total 300 1000 529 Output Total 1150 Balance -850 1000 529 Med Orders - Current: Current Medications Acetaminophen (Tylenol) 650 mg PO Q4H PRN PRN Reason: fever, pain Last Admin: 06/24/20 02:12 Dose: 650 mg Documented by: Aspirin (Halfprin) 81 mg PO DAILY [facility] Last Admin: 06/30/20 08:31 Dose: 81 mg Documented by: Benzonatate (Tessalon Perles) 100 mg PO TID PRN PRN Reason: Cough Dexamethasone (Decadron) 4 mg IVPUSH Q24H [facility] Last Admin: 06/29/20 13:29 Dose: 4 mg Documented by: Enoxaparin Sodium (Lovenox) 40 mg SUBCUT Q24H [facility] Last Admin: 06/30/20 08:31 Dose: 40 mg Documented by: Guaifenesin/Dextromethorphan (Robitussin Dm) 10 ml PO Q4H PRN PRN Reason: Cough Lactobacillus Rhamnosus (Culturelle) 1 cap PO BID [facility] Last Admin: 06/30/20 08:31 Dose: 1 cap Documented by: Metoprolol Succinate (Toprol Xl) 25 mg PO DAILY [facility] Last Admin: 06/30/20 08:31 Dose: 25 mg Documented by: Ondansetron HCl (Zofran) 4 mg IVPUSH Q4H PRN PRN Reason: Nausea/Vomiting Imbruvica 420mg Tab ((Ptom)) 1 each PO DAILY [facility] Last Admin: 06/30/20 08:31 Dose: 1 each Documented by: Simvastatin (Zocor) 40 mg PO BEDTIME [facility] Last Admin: 06/29/20 22:12 Dose: 40 mg Documented by: Sodium Chloride (Saline Flush) 10 ml FLUSH ASDIRECTED PRN PRN Reason: Keep Vein Open Last Admin: 06/21/20 10:31 Dose: 10 ml Documented by: Discontinued Medications Azithromycin (Zithromax) 500 mg PO ONETIME ONE Stop: 06/09/20 22:45 Last Admin: 06/09/20 23:44 Dose: 500 mg Documented by: Azithromycin (Zithromax) 250 mg PO DAILY [facility] Stop: 06/13/20 09:01 Last Admin: 06/10/20 08:39 Dose: 250 mg Documented by: Ceftriaxone Sodium (Rocephin) Confirm Administered Dose 1 gm IV .STK-MED ONE Stop: 06/09/20 23:29 Last Admin: 06/09/20 23:42 Dose: 1 gm Documented by: Dexamethasone (Decadron) 6 mg IVPUSH Q24H [facility] Last Admin: 06/15/20 15:43 Dose: Not Given Documented by: Dexamethasone (Dexamethasone) 6 mg PO Q24H [facility] Last Admin: 06/19/20 16:48 Dose: 6 mg Documented by: Doxycycline Hyclate (Vibramycin) 100 mg PO Q12H [facility] Stop: 06/15/20 23:59 Last Admin: 06/15/20 16:35 Dose: 100 mg Documented by: Enoxaparin Sodium (Lovenox) 60 mg SUBCUT BID [facility] Last Admin: 06/10/20 08:39 Dose: 60 mg Documented by: Furosemide (Lasix) 20 mg IVPUSH NOW ONE Stop: 06/10/20 14:46 Last Admin: 06/10/20 15:23 Dose: 20 mg Documented by: Furosemide (Lasix) 20 mg IVPUSH ONETIME ONE Stop: 06/21/20 13:01 Last Admin: 06/21/20 12:54 Dose: 20 mg Documented by: Furosemide (Lasix) 20 mg IVPUSH NOW ONE Stop: 06/25/20 14:31 Last Admin: 06/25/20 15:51 Dose: 20 mg Documented by: Sodium Chloride (Normal Saline) 1,000 mls @ 125 mls/hr IV ASDIRECTED ONE Stop: 06/10/20 03:03 Last Admin: 06/09/20 20:49 Dose: Not Given Documented by: Ceftriaxone Sodium 1 gm/ (Sodium Chloride) 50 mls @ 100 mls/hr IV Q24H [facility] Stop: 06/15/20 23:59 Last Admin: 06/14/20 22:30 Dose: 100 mls/hr Documented by: Sodium Chloride (Normal Saline) 1,000 mls @ 125 mls/hr IV ASDIRECTED [facility] Last Admin: 06/10/20 08:37 Dose: 125 mls/hr Documented by: Sodium Chloride (Normal Saline) Confirm Administered Dose 50 mls @ as directed .ROUTE .STK-MED ONE Stop: 06/09/20 23:29 Last Admin: 06/10/20 03:33 Dose: Not Given Documented by: Doxycycline Hyclate 100 mg/ (Sodium Chloride) 100 mls @ 100 mls/hr IV Q12H [facility] Last Admin: 06/12/20 02:15 Dose: 100 mls/hr Documented by: Sodium Chloride (Normal Saline) 100 mls @ 3.5 mls/sec IV ASDIRECTED [facility] Stop: 06/10/20 18:00 Last Admin: 06/10/20 17:45 Dose: 4 mls/sec Documented by: Remdesivir 100 mg/ Sodium (Chloride) 100 mls @ 100 mls/hr IV Q24H [facility] Stop: 06/15/20 12:59 Last Admin: 06/15/20 12:49 Dose: 100 mls/hr Documented by: Remdesivir 200 mg/ Sodium (Chloride) 250 mls @ 250 mls/hr IV ONETIME ONE Stop: 06/11/20 12:59 Last Admin: 06/11/20 12:30 Dose: 250 mls/hr Documented by: Sodium Chloride (Normal Saline) 100 mls @ 4 mls/sec IV ASDIRECTED [facility] Iopamidol (Isovue-370 (76%)) 57 ml IV . DIRECTED [facility] Last Admin: 06/10/20 17:44 Dose: 57 ml Documented by: Iopamidol (Isovue-370 (76%)) 100 ml IV . DIRECTED ONE Stop: 06/21/20 09:55 Last Admin: 06/21/20 10:31 Dose: 100 ml Documented by: Ibrutinib (Imbruvica () 320 MgPom) 0 mg PO BEDTIME [facility] Last Admin: 06/10/20 21:24 Dose: Not Given Documented by: Pantoprazole Sodium (Protonix Iv) 40 mg IVPUSH DAILY [facility] Last Admin: 06/11/20 08:15 Dose: 40 mg Documented by: Sodium Chloride (Saline Flush) 10 ml FLUSH ASDIRECTED PRN PRN Reason: Keep Vein Open Last Admin: 06/09/20 19:38 Dose: 10 ml Documented by: Sodium Chloride (Saline Flush) 10 ml FLUSH ONETIME ONE Stop: 06/10/20 15:42 Last Admin: 06/10/20 17:45 Dose: 10 ml Documented by: - Exam Quality Assessment: Supplemental Oxygen General: Alert, Oriented, Cooperative, No Acute Distress Lungs: Crackles (severe lower lungs, mild to mod mid and upper ). No: Normal Respiratory Effort (mild increase in work of breathing ) Cardiovascular: Regular Rate, Regular Rhythm GI/Abdominal Exam: Soft, No Distention Extremities: No Pedal Edema. No: Increased Warmth Skin: Warm, Dry Psy/Mental Status: Alert, Normal Affect Sepsis Event Note - Evaluation Sepsis Screening Result: Sepsis Risk - Focused Exam Vital Signs: Vital Signs Temp Pulse Pulse Resp BP BP Pulse Ox 06/30/20 11:03 36.8 C 77 20 124/65 93 L 06/30/20 08:31 72 133/69 06/30/20 07:50 96 06/30/20 07:00 36.4 C 72 20 133/69 94 L 06/30/20 06:15 97 06/30/20 05:11 72 99 06/30/20 03:00 36.6 C 86 20 138/69 96 06/30/20 01:17 99 - Problem List Review Problem List Initiated/Reviewed/Updated: Yes - My Orders Last 24 Hours: My Active Orders 07/01/20 05:00 C-REACTIVE PROTEIN [CHEM] Timed CBC W/O DIFF,HEMOGRAM [HEME] Timed (1) COMPREHENSIVE METABOLIC PN,CMP [CHEM] Timed D-DIMER QUANTITATIVE [COAG] Timed PROCALCITONIN [CHEM] Routine - Plan Plan:: ASSESSMENT AND PLAN COVID-19 PNEUMONIA-complicated by acute respiratory failure with hypoxia. She seems to have plateaued. Currently needs high flow nasal cannula at 15 L and intermittently using noninvasive ventilation. Not getting better but fortunately not getting any worse. -Continue Decadron -Repeat labs every 3 days -Supplemental oxygen and noninvasive positive pressure ventilation -Supportive care -Prone ventilation as tolerated CHRONIC LYMPHOCYTIC LEUKEMIA-stable. I did discuss her case with her oncologist today and he felt comfortable continuing her outpatient therapy. -Continue ibrutinib MAINTENANCE ISSUES -DVT prophylaxis; Lovenox 40 mg subcu daily -GI prophylaxis; not indicated -Interiano catheter; not indicated -Nutrition; regular diet DISPOSITION-anticipate discharge to home after the hospital stay. Mario Rey MD
[2020-06-30] MEDS: Dexamethasone 4 MG/ML SDV IVPUSH SCH (14:20)
[2020-06-30] MEDS: Simvastatin 20 MG Tab PO SCH (20:13)
[2020-07-01] MEDS: Enoxaparin 40 MG/0.4 ML Syringe SUBCUT SCH (08:19)
[2020-07-01] MEDS: Aspirin 81 MG Tab.EC PO SCH (08:20)
[2020-07-01] MEDS: Lactobacillus Rhamnosus GG (Probiotic) Cap PO SCH ×2 (08:20→22:21)
[2020-07-01] MEDS: IMBRUVICA 420 MG PO SCH (08:20)
[2020-07-01] MEDS: Metoprolol Succinate 25 MG Tab.ER PO SCH (08:21)
--- NOTE | 2020-07-01 10:55 | PCM.PN ---
- General Info Date of Service: 07/01/20 Subjective Update: No acute events overnight. Still requiring 15 L of supplemental oxygen. She feels a little less short of breath today. Appetite is not great but stable. No fevers. Inflammatory markers are slightly better. Still in good spirits. - Review of Systems General: Denies: Fever Pulmonary: Reports: Shortness of Breath - Patient Data Vitals - Most Recent: Last Vital Signs Temp 36.5 C 07/01/20 03:00 Pulse 78 07/01/20 08:21 Resp 18 07/01/20 07:00 BP 123/66 07/01/20 08:21 Pulse Ox 98 07/01/20 07:13 Weight - Most Recent: 58.967 kg I&O - Last 24 Hours: Intake & Output 06/30/20 07/01/20 07/01/20 22:59 06:59 14:59 Intake Total 596 500 Balance 596 500 Lab Results Last 24 Hours: Laboratory Results - last 24 hr 07/01/20 07/01/20 07/01/20 Range/Units 05:35 05:35 05:35 WBC 26.5 H (4.5-11.0) K/uL RBC 2.92 L (3.30-5.50) M/uL Hgb 8.6 L (12.0-15.0) g/dL Hct 27.9 L (36.0-48.0) % MCV 96 (80-98) fL MCH 30 (27-31) pg MCHC 31 L (32-36) % Plt Count 264 (150-400) K/uL D-Dimer, Quantitative 5148.92 H (0.0-500.0) ng/mL Sodium 137 L (140-148) mmol/L Potassium 4.4 (3.6-5.2) mmol/L Chloride 102 (100-108) mmol/L Carbon Dioxide 28 (21-32) mmol/L Anion Gap 11.4 (5.0-14.0) mmol/L BUN 31 H (7-18) mg/dL Creatinine 0.6 (0.6-1.0) mg/dL Est Cr Clr Drug Dosing 75.41 mL/min Estimated GFR (MDRD) > 60 (>60) Glucose 142 H (74-106) mg/dL Calcium 8.2 L (8.5-10.1) mg/dL Total Bilirubin 0.3 (0.2-1.0) mg/dL AST 26 (15-37) U/L ALT 65 (12-78) U/L Alkaline Phosphatase 176 H (46-116) U/L C-Reactive Protein 1.50 H (0.0-0.3) mg/dL Total Protein 5.5 L (6.4-8.2) g/dL Albumin 1.6 L (3.4-5.0) g/dL Globulin 3.9 H (2.3-3.5) g/dL Albumin/Globulin Ratio 0.4 L (1.2-2.2) Procalcitonin ng/mL 07/01/20 Range/Units 05:35 WBC (4.5-11.0) K/uL RBC (3.30-5.50) M/uL Hgb (12.0-15.0) g/dL Hct (36.0-48.0) % MCV (80-98) fL MCH (27-31) pg MCHC (32-36) % Plt Count (150-400) K/uL D-Dimer, Quantitative (0.0-500.0) ng/mL Sodium (140-148) mmol/L Potassium (3.6-5.2) mmol/L Chloride (100-108) mmol/L Carbon Dioxide (21-32) mmol/L Anion Gap (5.0-14.0) mmol/L BUN (7-18) mg/dL Creatinine (0.6-1.0) mg/dL Est Cr Clr Drug Dosing mL/min Estimated GFR (MDRD) (>60) Glucose (74-106) mg/dL Calcium (8.5-10.1) mg/dL Total Bilirubin (0.2-1.0) mg/dL AST (15-37) U/L ALT (12-78) U/L Alkaline Phosphatase (46-116) U/L C-Reactive Protein (0.0-0.3) mg/dL Total Protein (6.4-8.2) g/dL Albumin (3.4-5.0) g/dL Globulin (2.3-3.5) g/dL Albumin/Globulin Ratio (1.2-2.2) Procalcitonin < 0.05 ng/mL Med Orders - Current: Current Medications Acetaminophen (Tylenol) 650 mg PO Q4H PRN PRN Reason: fever, pain Last Admin: 06/24/20 02:12 Dose: 650 mg Documented by: Aspirin (Halfprin) 81 mg PO DAILY [facility] Last Admin: 07/01/20 08:20 Dose: 81 mg Documented by: Benzonatate (Tessalon Perles) 100 mg PO TID PRN PRN Reason: Cough Dexamethasone (Decadron) 4 mg IVPUSH Q24H [facility] Last Admin: 06/30/20 14:20 Dose: 4 mg Documented by: Enoxaparin Sodium (Lovenox) 40 mg SUBCUT Q24H [facility] Last Admin: 07/01/20 08:19 Dose: 40 mg Documented by: Guaifenesin/Dextromethorphan (Robitussin Dm) 10 ml PO Q4H PRN PRN Reason: Cough Lactobacillus Rhamnosus (Culturelle) 1 cap PO BID [facility] Last Admin: 07/01/20 08:20 Dose: 1 cap Documented by: Metoprolol Succinate (Toprol Xl) 25 mg PO DAILY [facility] Last Admin: 07/01/20 08:21 Dose: 25 mg Documented by: Ondansetron HCl (Zofran) 4 mg IVPUSH Q4H PRN PRN Reason: Nausea/Vomiting Imbruvica 420mg Tab ((Ptom)) 1 each PO DAILY [facility] Last Admin: 07/01/20 08:20 Dose: 1 each Documented by: Simvastatin (Zocor) 40 mg PO BEDTIME [facility] Last Admin: 06/30/20 20:13 Dose: 40 mg Documented by: Sodium Chloride (Saline Flush) 10 ml FLUSH ASDIRECTED PRN PRN Reason: Keep Vein Open Last Admin: 06/21/20 10:31 Dose: 10 ml Documented by: Discontinued Medications Azithromycin (Zithromax) 500 mg PO ONETIME ONE Stop: 06/09/20 22:45 Last Admin: 06/09/20 23:44 Dose: 500 mg Documented by: Azithromycin (Zithromax) 250 mg PO DAILY [facility] Stop: 06/13/20 09:01 Last Admin: 06/10/20 08:39 Dose: 250 mg Documented by: Ceftriaxone Sodium (Rocephin) Confirm Administered Dose 1 gm IV .STK-MED ONE Stop: 06/09/20 23:29 Last Admin: 06/09/20 23:42 Dose: 1 gm Documented by: Dexamethasone (Decadron) 6 mg IVPUSH Q24H [facility] Last Admin: 06/15/20 15:43 Dose: Not Given Documented by: Dexamethasone (Dexamethasone) 6 mg PO Q24H [facility] Last Admin: 06/19/20 16:48 Dose: 6 mg Documented by: Doxycycline Hyclate (Vibramycin) 100 mg PO Q12H [facility] Stop: 06/15/20 23:59 Last Admin: 06/15/20 16:35 Dose: 100 mg Documented by: Enoxaparin Sodium (Lovenox) 60 mg SUBCUT BID [facility] Last Admin: 06/10/20 08:39 Dose: 60 mg Documented by: Furosemide (Lasix) 20 mg IVPUSH NOW ONE Stop: 06/10/20 14:46 Last Admin: 06/10/20 15:23 Dose: 20 mg Documented by: Furosemide (Lasix) 20 mg IVPUSH ONETIME ONE Stop: 06/21/20 13:01 Last Admin: 06/21/20 12:54 Dose: 20 mg Documented by: Furosemide (Lasix) 20 mg IVPUSH NOW ONE Stop: 06/25/20 14:31 Last Admin: 06/25/20 15:51 Dose: 20 mg Documented by: Sodium Chloride (Normal Saline) 1,000 mls @ 125 mls/hr IV ASDIRECTED ONE Stop: 06/10/20 03:03 Last Admin: 06/09/20 20:49 Dose: Not Given Documented by: Ceftriaxone Sodium 1 gm/ (Sodium Chloride) 50 mls @ 100 mls/hr IV Q24H [facility] Stop: 06/15/20 23:59 Last Admin: 06/14/20 22:30 Dose: 100 mls/hr Documented by: Sodium Chloride (Normal Saline) 1,000 mls @ 125 mls/hr IV ASDIRECTED [facility] Last Admin: 06/10/20 08:37 Dose: 125 mls/hr Documented by: Sodium Chloride (Normal Saline) Confirm Administered Dose 50 mls @ as directed .ROUTE .STK-MED ONE Stop: 06/09/20 23:29 Last Admin: 06/10/20 03:33 Dose: Not Given Documented by: Doxycycline Hyclate 100 mg/ (Sodium Chloride) 100 mls @ 100 mls/hr IV Q12H [facility] Last Admin: 06/12/20 02:15 Dose: 100 mls/hr Documented by: Sodium Chloride (Normal Saline) 100 mls @ 3.5 mls/sec IV ASDIRECTED [facility] Stop: 06/10/20 18:00 Last Admin: 06/10/20 17:45 Dose: 4 mls/sec Documented by: Remdesivir 100 mg/ Sodium (Chloride) 100 mls @ 100 mls/hr IV Q24H [facility] Stop: 06/15/20 12:59 Last Admin: 06/15/20 12:49 Dose: 100 mls/hr Documented by: Remdesivir 200 mg/ Sodium (Chloride) 250 mls @ 250 mls/hr IV ONETIME ONE Stop: 06/11/20 12:59 Last Admin: 06/11/20 12:30 Dose: 250 mls/hr Documented by: Sodium Chloride (Normal Saline) 100 mls @ 4 mls/sec IV ASDIRECTED [facility] Iopamidol (Isovue-370 (76%)) 57 ml IV . DIRECTED [facility] Last Admin: 06/10/20 17:44 Dose: 57 ml Documented by: Iopamidol (Isovue-370 (76%)) 100 ml IV . DIRECTED ONE Stop: 06/21/20 09:55 Last Admin: 06/21/20 10:31 Dose: 100 ml Documented by: Ibrutinib (Imbruvica () 320 MgPom) 0 mg PO BEDTIME [facility] Last Admin: 06/10/20 21:24 Dose: Not Given Documented by: Pantoprazole Sodium (Protonix Iv) 40 mg IVPUSH DAILY [facility] Last Admin: 06/11/20 08:15 Dose: 40 mg Documented by: Sodium Chloride (Saline Flush) 10 ml FLUSH ASDIRECTED PRN PRN Reason: Keep Vein Open Last Admin: 06/09/20 19:38 Dose: 10 ml Documented by: Sodium Chloride (Saline Flush) 10 ml FLUSH ONETIME ONE Stop: 06/10/20 15:42 Last Admin: 06/10/20 17:45 Dose: 10 ml Documented by: - Exam Quality Assessment: Supplemental Oxygen General: Alert, Oriented, Cooperative, No Acute Distress Lungs: Normal Respiratory Effort, Crackles (mild diffuse ) Cardiovascular: Regular Rate, Regular Rhythm GI/Abdominal Exam: Soft, No Distention Extremities: No Pedal Edema. No: Increased Warmth Skin: Warm, Dry Psy/Mental Status: Alert, Normal Affect Sepsis Event Note - Evaluation Sepsis Screening Result: No Definite Risk - Focused Exam Vital Signs: Vital Signs Temp Pulse Pulse Resp BP BP Pulse Ox 07/01/20 08:21 78 123/66 07/01/20 07:13 98 07/01/20 07:00 70 18 127/78 94 L 07/01/20 03:00 36.5 C 78 20 123/66 95 07/01/20 01:00 96 07/01/20 00:28 94 L 06/30/20 23:09 36.1 C 98 16 128/71 97 - Problem List Review Problem List Initiated/Reviewed/Updated: Yes - Plan Plan:: ASSESSMENT AND PLAN COVID-19 PNEUMONIA-complicated by acute respiratory failure with hypoxia. She seems to have plateaued. Currently needs high flow nasal cannula at 15 L and intermittently using noninvasive ventilation. She feels a little better today. Lungs sound a little better today. -Continue Decadron -Repeat labs every 2-3 days -Supplemental oxygen and noninvasive positive pressure ventilation -Supportive care -Prone ventilation as tolerated CHRONIC LYMPHOCYTIC LEUKEMIA-stable. -Continue ibrutinib MAINTENANCE ISSUES -DVT prophylaxis; Lovenox 40 mg subcu daily -GI prophylaxis; not indicated -Interiano catheter; not indicated -Nutrition; regular diet DISPOSITION-anticipate discharge to home after the hospital stay. Mario Rey MD
[2020-07-01] MEDS: Dexamethasone 4 MG/ML SDV IVPUSH SCH (15:17)
[2020-07-01] MEDS: Simvastatin 20 MG Tab PO SCH (22:21)
[2020-07-02] MEDS ORDERED: Sodium Chloride 0.65% Nasal Spray 45 ML Bottle NAS PRN (01:32)
[2020-07-02] MEDS: IMBRUVICA 420 MG PO SCH (08:47)
[2020-07-02] MEDS: Enoxaparin 40 MG/0.4 ML Syringe SUBCUT SCH (08:47)
[2020-07-02] MEDS: Metoprolol Succinate 25 MG Tab.ER PO SCH (08:47)
[2020-07-02] MEDS: Lactobacillus Rhamnosus GG (Probiotic) Cap PO SCH ×2 (08:48→20:54)
[2020-07-02] MEDS: Aspirin 81 MG Tab.EC PO SCH (08:48)
--- NOTE | 2020-07-02 11:29 | PCM.PN ---
- General Info Date of Service: 07/02/20 Subjective Update: There were no acute events overnight. She had a good morning but now feels more short of breath. No recurrence of her chest pain. She is currently requiring noninvasive ventilation. She did have a good workout with physical therapy this morning and did well. She has not had any fevers. Functional Status: Reports: Pain Controlled, Tolerating Diet - Review of Systems General: Reports: Weakness Pulmonary: Reports: Shortness of Breath - Patient Data Vitals - Most Recent: Last Vital Signs Temp 36.6 C 07/02/20 11:00 Pulse 90 07/02/20 11:00 Resp 18 07/02/20 11:00 BP 122/69 07/02/20 11:00 Pulse Ox 70 L 07/02/20 11:19 Weight - Most Recent: 58.967 kg I&O - Last 24 Hours: Intake & Output 07/01/20 07/02/20 07/02/20 22:59 06:59 14:59 Intake Total 1200 400 Balance 1200 400 Med Orders - Current: Current Medications Acetaminophen (Tylenol) 650 mg PO Q4H PRN PRN Reason: fever, pain Last Admin: 06/24/20 02:12 Dose: 650 mg Documented by: Aspirin (Halfprin) 81 mg PO DAILY [facility] Last Admin: 07/02/20 08:48 Dose: 81 mg Documented by: Benzonatate (Tessalon Perles) 100 mg PO TID PRN PRN Reason: Cough Dexamethasone (Dexamethasone) 4 mg PO Q24H [facility] Enoxaparin Sodium (Lovenox) 40 mg SUBCUT Q24H [facility] Last Admin: 07/02/20 08:47 Dose: 40 mg Documented by: Guaifenesin/Dextromethorphan (Robitussin Dm) 10 ml PO Q4H PRN PRN Reason: Cough Lactobacillus Rhamnosus (Culturelle) 1 cap PO BID [facility] Last Admin: 07/02/20 08:48 Dose: 1 cap Documented by: Metoprolol Succinate (Toprol Xl) 25 mg PO DAILY [facility] Last Admin: 07/02/20 08:47 Dose: 25 mg Documented by: Ondansetron HCl (Zofran) 4 mg IVPUSH Q4H PRN PRN Reason: Nausea/Vomiting Imbruvica 420mg Tab ((Ptom)) 1 each PO DAILY [facility] Last Admin: 07/02/20 08:47 Dose: 1 each Documented by: Simvastatin (Zocor) 40 mg PO BEDTIME [facility] Last Admin: 07/01/20 22:21 Dose: 40 mg Documented by: Sodium Chloride (Saline Flush) 10 ml FLUSH ASDIRECTED PRN PRN Reason: Keep Vein Open Last Admin: 06/21/20 10:31 Dose: 10 ml Documented by: Sodium Chloride ([place] Nasal [place]) 1 ml SHONDA QID PRN PRN Reason: Nasal Dryness Last Admin: 07/02/20 02:08 Dose: 1 spray Documented by: Discontinued Medications Azithromycin (Zithromax) 500 mg PO ONETIME ONE Stop: 06/09/20 22:45 Last Admin: 06/09/20 23:44 Dose: 500 mg Documented by: Azithromycin (Zithromax) 250 mg PO DAILY [facility] Stop: 06/13/20 09:01 Last Admin: 06/10/20 08:39 Dose: 250 mg Documented by: Ceftriaxone Sodium (Rocephin) Confirm Administered Dose 1 gm IV .STK-MED ONE Stop: 06/09/20 23:29 Last Admin: 06/09/20 23:42 Dose: 1 gm Documented by: Dexamethasone (Decadron) 6 mg IVPUSH Q24H [facility] Last Admin: 06/15/20 15:43 Dose: Not Given Documented by: Dexamethasone (Dexamethasone) 6 mg PO Q24H [facility] Last Admin: 06/19/20 16:48 Dose: 6 mg Documented by: Dexamethasone (Decadron) 4 mg IVPUSH Q24H [facility] Last Admin: 07/01/20 15:17 Dose: 4 mg Documented by: Doxycycline Hyclate (Vibramycin) 100 mg PO Q12H [facility] Stop: 06/15/20 23:59 Last Admin: 06/15/20 16:35 Dose: 100 mg Documented by: Enoxaparin Sodium (Lovenox) 60 mg SUBCUT BID [facility] Last Admin: 06/10/20 08:39 Dose: 60 mg Documented by: Furosemide (Lasix) 20 mg IVPUSH NOW ONE Stop: 06/10/20 14:46 Last Admin: 06/10/20 15:23 Dose: 20 mg Documented by: Furosemide (Lasix) 20 mg IVPUSH ONETIME ONE Stop: 06/21/20 13:01 Last Admin: 06/21/20 12:54 Dose: 20 mg Documented by: Furosemide (Lasix) 20 mg IVPUSH NOW ONE Stop: 06/25/20 14:31 Last Admin: 06/25/20 15:51 Dose: 20 mg Documented by: Sodium Chloride (Normal Saline) 1,000 mls @ 125 mls/hr IV ASDIRECTED ONE Stop: 06/10/20 03:03 Last Admin: 06/09/20 20:49 Dose: Not Given Documented by: Ceftriaxone Sodium 1 gm/ (Sodium Chloride) 50 mls @ 100 mls/hr IV Q24H [facility] Stop: 06/15/20 23:59 Last Admin: 06/14/20 22:30 Dose: 100 mls/hr Documented by: Sodium Chloride (Normal Saline) 1,000 mls @ 125 mls/hr IV ASDIRECTED [facility] Last Admin: 06/10/20 08:37 Dose: 125 mls/hr Documented by: Sodium Chloride (Normal Saline) Confirm Administered Dose 50 mls @ as directed .ROUTE .STK-MED ONE Stop: 06/09/20 23:29 Last Admin: 06/10/20 03:33 Dose: Not Given Documented by: Doxycycline Hyclate 100 mg/ (Sodium Chloride) 100 mls @ 100 mls/hr IV Q12H [facility] Last Admin: 06/12/20 02:15 Dose: 100 mls/hr Documented by: Sodium Chloride (Normal Saline) 100 mls @ 3.5 mls/sec IV ASDIRECTED [facility] Stop: 06/10/20 18:00 Last Admin: 06/10/20 17:45 Dose: 4 mls/sec Documented by: Remdesivir 100 mg/ Sodium (Chloride) 100 mls @ 100 mls/hr IV Q24H [facility] Stop: 06/15/20 12:59 Last Admin: 06/15/20 12:49 Dose: 100 mls/hr Documented by: Remdesivir 200 mg/ Sodium (Chloride) 250 mls @ 250 mls/hr IV ONETIME ONE Stop: 06/11/20 12:59 Last Admin: 06/11/20 12:30 Dose: 250 mls/hr Documented by: Sodium Chloride (Normal Saline) 100 mls @ 4 mls/sec IV ASDIRECTED [facility] Iopamidol (Isovue-370 (76%)) 57 ml IV . DIRECTED [facility] Last Admin: 06/10/20 17:44 Dose: 57 ml Documented by: Iopamidol (Isovue-370 (76%)) 100 ml IV . DIRECTED ONE Stop: 06/21/20 09:55 Last Admin: 06/21/20 10:31 Dose: 100 ml Documented by: Ibrutinib (Imbruvica () 320 MgPom) 0 mg PO BEDTIME [facility] Last Admin: 06/10/20 21:24 Dose: Not Given Documented by: Pantoprazole Sodium (Protonix Iv) 40 mg IVPUSH DAILY [facility] Last Admin: 06/11/20 08:15 Dose: 40 mg Documented by: Sodium Chloride (Saline Flush) 10 ml FLUSH ASDIRECTED PRN PRN Reason: Keep Vein Open Last Admin: 06/09/20 19:38 Dose: 10 ml Documented by: Sodium Chloride (Saline Flush) 10 ml FLUSH ONETIME ONE Stop: 06/10/20 15:42 Last Admin: 06/10/20 17:45 Dose: 10 ml Documented by: - Exam Quality Assessment: Supplemental Oxygen General: Alert, Oriented, Cooperative, No Acute Distress Neck: JVD Lungs: Normal Respiratory Effort, Crackles (right mid and lower lung ). No: Wheezing Cardiovascular: Regular Rate, Regular Rhythm GI/Abdominal Exam: Soft, No Distention Extremities: No Pedal Edema. No: Increased Warmth Skin: Warm, Dry Psy/Mental Status: Alert, Normal Affect Sepsis Event Note - Evaluation Sepsis Screening Result: No Definite Risk - Focused Exam Vital Signs: Vital Signs Temp Temp Pulse Pulse Resp BP BP 07/02/20 11:19 07/02/20 11:00 36.6 C 90 18 122/69 07/02/20 10:36 07/02/20 09:45 07/02/20 08:47 72 131/70 07/02/20 07:13 07/02/20 06:00 36.4 C 72 18 131/70 07/02/20 02:09 36.4 C 77 18 119/74 07/02/20 01:00 Pulse Ox 07/02/20 11:19 70 L 07/02/20 11:00 93 L 07/02/20 10:36 73 L 07/02/20 09:45 83 L 07/02/20 08:47 07/02/20 07:13 91 L 07/02/20 06:00 90 L 07/02/20 02:09 93 L 07/02/20 01:00 99 - Problem List Review Problem List Initiated/Reviewed/Updated: Yes - My Orders Last 24 Hours: My Active Orders 07/01/20 14:32 EKG 12 Lead [EK] Routine 07/02/20 01:32 Sodium Chloride 0.65% [[place] Nasal [place]] 1 ml SHONDA QID PRN 07/02/20 11:27 Furosemide [Lasix] 40 mg IVPUSH NOW ONE 07/02/20 13:00 dexAMETHasone 4 mg PO Q24H 07/03/20 05:00 BASIC METABOLIC PANEL,BMP [CHEM] Timed C-REACTIVE PROTEIN [CHEM] Timed CBC W/O DIFF,HEMOGRAM [HEME] Timed (1) D-DIMER QUANTITATIVE [COAG] Timed - Plan Plan:: ASSESSMENT AND PLAN COVID-19 PNEUMONIA-complicated by acute respiratory failure with hypoxia. She seems to have plateaued. Currently needs high flow nasal cannula at 15 L and intermittently using noninvasive ventilation. She feels a little better today. Lungs sound a little better today. -Continue Decadron, start to taper -Repeat labs every 2-3 days -Supplemental oxygen and noninvasive positive pressure ventilation -Supportive care -Prone ventilation as tolerated -Consider repeat CT scan of the chest to rule out pulmonary embolism if not improving later in the day CHRONIC LYMPHOCYTIC LEUKEMIA-stable. -Continue ibrutinib MAINTENANCE ISSUES -DVT prophylaxis; Lovenox 40 mg subcu daily -GI prophylaxis; not indicated -Interiano catheter; not indicated -Nutrition; regular diet DISPOSITION-anticipate discharge to home after the hospital stay. Mario Rey MD
[2020-07-02] MEDS ORDERED: Furosemide 40 MG/4 ML VIAL IVPUSH ONE (11:45)
[2020-07-02] MEDS: Dexamethasone 2 MG Tab PO SCH (12:24)
[2020-07-02] MEDS: Simvastatin 20 MG Tab PO SCH (20:54)
[2020-07-03] MEDS: Enoxaparin 40 MG/0.4 ML Syringe SUBCUT SCH (09:09)
[2020-07-03] MEDS: Aspirin 81 MG Tab.EC PO SCH (09:10)
[2020-07-03] MEDS: Metoprolol Succinate 25 MG Tab.ER PO SCH (09:10)
[2020-07-03] MEDS: IMBRUVICA 420 MG PO SCH (09:10)
[2020-07-03] MEDS: Lactobacillus Rhamnosus GG (Probiotic) Cap PO SCH ×2 (09:10→21:55)
--- NOTE | 2020-07-03 10:15 | PCM.PN ---
- General Info Date of Service: 07/03/20 Subjective Update: No acute events overnight though patient has not dramatically improved since yesterday around lunchtime. She did intermittently need the noninvasive ventilation overnight. She feels about the same or maybe a little less short of breath today. Desaturates quickly with any activity and takes several minutes to rebound back up above 90. No reports of chest pain. She feels more tired and rundown today. We did get a CT scan of the chest which showed a small right pneumothorax and pneumomediastinum. Covid infiltrates are essentially stable compared to about 10 days ago. Functional Status: Reports: Pain Controlled, Tolerating Diet - Review of Systems General: Reports: Weakness Pulmonary: Reports: Shortness of Breath - Patient Data Vitals - Most Recent: Last Vital Signs Temp 36.9 C 07/03/20 06:00 Pulse 101 H 07/03/20 09:10 Resp 18 07/03/20 06:00 BP 128/68 07/03/20 09:10 Pulse Ox 70 L 07/03/20 09:46 Weight - Most Recent: 58.967 kg I&O - Last 24 Hours: Intake & Output 07/02/20 07/03/20 07/03/20 22:59 06:59 14:59 Intake Total 400 420 120 Output Total 750 Balance -350 420 120 Lab Results Last 24 Hours: Laboratory Results - last 24 hr 07/03/20 07/03/20 07/03/20 Range/Units 04:33 04:33 04:33 WBC 29.6 H (4.5-11.0) K/uL RBC 3.09 L (3.30-5.50) M/uL Hgb 9.1 L (12.0-15.0) g/dL Hct 29.3 L (36.0-48.0) % MCV 95 (80-98) fL MCH 29 (27-31) pg MCHC 31 L (32-36) % Plt Count 312 (150-400) K/uL D-Dimer, Quantitative 2751.51 H (0.0-500.0) ng/mL Sodium 135 L (140-148) mmol/L Potassium 4.1 (3.6-5.2) mmol/L Chloride 99 L (100-108) mmol/L Carbon Dioxide 30 (21-32) mmol/L Anion Gap 10.1 (5.0-14.0) mmol/L BUN 43 H (7-18) mg/dL Creatinine 0.8 (0.6-1.0) mg/dL Est Cr Clr Drug Dosing 56.56 mL/min Estimated GFR (MDRD) > 60 (>60) Glucose 136 H (74-106) mg/dL Calcium 8.2 L (8.5-10.1) mg/dL C-Reactive Protein 2.81 H (0.0-0.3) mg/dL Med Orders - Current: Current Medications Acetaminophen (Tylenol) 650 mg PO Q4H PRN PRN Reason: fever, pain Last Admin: 06/24/20 02:12 Dose: 650 mg Documented by: Aspirin (Halfprin) 81 mg PO DAILY [facility] Last Admin: 07/03/20 09:10 Dose: 81 mg Documented by: Benzonatate (Tessalon Perles) 100 mg PO TID PRN PRN Reason: Cough Dexamethasone (Dexamethasone) 4 mg PO Q24H [facility] Last Admin: 07/02/20 12:24 Dose: 4 mg Documented by: Enoxaparin Sodium (Lovenox) 40 mg SUBCUT Q24H [facility] Last Admin: 07/03/20 09:09 Dose: 40 mg Documented by: Guaifenesin/Dextromethorphan (Robitussin Dm) 10 ml PO Q4H PRN PRN Reason: Cough Lactobacillus Rhamnosus (Culturelle) 1 cap PO BID [facility] Last Admin: 07/03/20 09:10 Dose: 1 cap Documented by: Metoprolol Succinate (Toprol Xl) 25 mg PO DAILY [facility] Last Admin: 07/03/20 09:10 Dose: 25 mg Documented by: Ondansetron HCl (Zofran) 4 mg IVPUSH Q4H PRN PRN Reason: Nausea/Vomiting Imbruvica 420mg Tab ((Ptom)) 1 each PO DAILY [facility] Last Admin: 07/03/20 09:10 Dose: 1 each Documented by: Simvastatin (Zocor) 40 mg PO BEDTIME [facility] Last Admin: 07/02/20 20:54 Dose: 40 mg Documented by: Sodium Chloride (Saline Flush) 10 ml FLUSH ASDIRECTED PRN PRN Reason: Keep Vein Open Last Admin: 06/21/20 10:31 Dose: 10 ml Documented by: Sodium Chloride ([place] Nasal [place]) 1 ml SHONDA QID PRN PRN Reason: Nasal Dryness Last Admin: 07/02/20 02:08 Dose: 1 spray Documented by: Discontinued Medications Azithromycin (Zithromax) 500 mg PO ONETIME ONE Stop: 06/09/20 22:45 Last Admin: 06/09/20 23:44 Dose: 500 mg Documented by: Azithromycin (Zithromax) 250 mg PO DAILY [facility] Stop: 06/13/20 09:01 Last Admin: 06/10/20 08:39 Dose: 250 mg Documented by: Ceftriaxone Sodium (Rocephin) Confirm Administered Dose 1 gm IV .STK-MED ONE Stop: 06/09/20 23:29 Last Admin: 06/09/20 23:42 Dose: 1 gm Documented by: Dexamethasone (Decadron) 6 mg IVPUSH Q24H [facility] Last Admin: 06/15/20 15:43 Dose: Not Given Documented by: Dexamethasone (Dexamethasone) 6 mg PO Q24H [facility] Last Admin: 06/19/20 16:48 Dose: 6 mg Documented by: Dexamethasone (Decadron) 4 mg IVPUSH Q24H [facility] Last Admin: 07/01/20 15:17 Dose: 4 mg Documented by: Doxycycline Hyclate (Vibramycin) 100 mg PO Q12H [facility] Stop: 06/15/20 23:59 Last Admin: 06/15/20 16:35 Dose: 100 mg Documented by: Enoxaparin Sodium (Lovenox) 60 mg SUBCUT BID [facility] Last Admin: 06/10/20 08:39 Dose: 60 mg Documented by: Furosemide (Lasix) 20 mg IVPUSH NOW ONE Stop: 06/10/20 14:46 Last Admin: 06/10/20 15:23 Dose: 20 mg Documented by: Furosemide (Lasix) 20 mg IVPUSH ONETIME ONE Stop: 06/21/20 13:01 Last Admin: 06/21/20 12:54 Dose: 20 mg Documented by: Furosemide (Lasix) 20 mg IVPUSH NOW ONE Stop: 06/25/20 14:31 Last Admin: 06/25/20 15:51 Dose: 20 mg Documented by: Furosemide (Lasix) 40 mg IVPUSH NOW ONE Stop: 07/02/20 11:46 Last Admin: 07/02/20 12:24 Dose: 40 mg Documented by: Sodium Chloride (Normal Saline) 1,000 mls @ 125 mls/hr IV ASDIRECTED ONE Stop: 06/10/20 03:03 Last Admin: 06/09/20 20:49 Dose: Not Given Documented by: Ceftriaxone Sodium 1 gm/ (Sodium Chloride) 50 mls @ 100 mls/hr IV Q24H [facility] Stop: 06/15/20 23:59 Last Admin: 06/14/20 22:30 Dose: 100 mls/hr Documented by: Sodium Chloride (Normal Saline) 1,000 mls @ 125 mls/hr IV ASDIRECTED [facility] Last Admin: 06/10/20 08:37 Dose: 125 mls/hr Documented by: Sodium Chloride (Normal Saline) Confirm Administered Dose 50 mls @ as directed .ROUTE .STK-MED ONE Stop: 06/09/20 23:29 Last Admin: 06/10/20 03:33 Dose: Not Given Documented by: Doxycycline Hyclate 100 mg/ (Sodium Chloride) 100 mls @ 100 mls/hr IV Q12H [facility] Last Admin: 06/12/20 02:15 Dose: 100 mls/hr Documented by: Sodium Chloride (Normal Saline) 100 mls @ 3.5 mls/sec IV ASDIRECTED [facility] Stop: 06/10/20 18:00 Last Admin: 06/10/20 17:45 Dose: 4 mls/sec Documented by: Remdesivir 100 mg/ Sodium (Chloride) 100 mls @ 100 mls/hr IV Q24H [facility] Stop: 06/15/20 12:59 Last Admin: 06/15/20 12:49 Dose: 100 mls/hr Documented by: Remdesivir 200 mg/ Sodium (Chloride) 250 mls @ 250 mls/hr IV ONETIME ONE Stop: 06/11/20 12:59 Last Admin: 06/11/20 12:30 Dose: 250 mls/hr Documented by: Sodium Chloride (Normal Saline) 100 mls @ 4 mls/sec IV ASDIRECTED [facility] Iopamidol (Isovue-370 (76%)) 57 ml IV . DIRECTED [facility] Last Admin: 06/10/20 17:44 Dose: 57 ml Documented by: Iopamidol (Isovue-370 (76%)) 100 ml IV . DIRECTED ONE Stop: 06/21/20 09:55 Last Admin: 06/21/20 10:31 Dose: 100 ml Documented by: Ibrutinib (Imbruvica () 320 MgPom) 0 mg PO BEDTIME [facility] Last Admin: 06/10/20 21:24 Dose: Not Given Documented by: Pantoprazole Sodium (Protonix Iv) 40 mg IVPUSH DAILY [facility] Last Admin: 06/11/20 08:15 Dose: 40 mg Documented by: Sodium Chloride (Saline Flush) 10 ml FLUSH ASDIRECTED PRN PRN Reason: Keep Vein Open Last Admin: 06/09/20 19:38 Dose: 10 ml Documented by: Sodium Chloride (Saline Flush) 10 ml FLUSH ONETIME ONE Stop: 06/10/20 15:42 Last Admin: 06/10/20 17:45 Dose: 10 ml Documented by: - Exam Quality Assessment: Supplemental Oxygen General: Alert, Oriented, Cooperative, Mild Distress Lungs: Crackles (right lung base). No: Normal Respiratory Effort (increased work of breathing ) Cardiovascular: Regular Rate, Regular Rhythm GI/Abdominal Exam: Soft, No Distention Extremities: No Pedal Edema. No: Increased Warmth Skin: Warm, Dry Psy/Mental Status: Alert, Normal Affect Sepsis Event Note - Evaluation Sepsis Screening Result: No Definite Risk - Focused Exam Vital Signs: Vital Signs Temp Temp Pulse Pulse Resp BP BP 07/03/20 09:46 07/03/20 09:10 101 H 128/68 07/03/20 07:17 07/03/20 07:09 07/03/20 06:00 36.9 C 101 H 18 128/68 07/03/20 02:41 36.1 C 87 16 110/66 07/03/20 01:00 07/02/20 22:16 36.4 C 80 20 115/74 Pulse Ox 07/03/20 09:46 70 L 07/03/20 09:10 07/03/20 07:17 83 L 07/03/20 07:09 88 L 07/03/20 06:00 96 07/03/20 02:41 86 L 07/03/20 01:00 100 07/02/20 22:16 99 - Problem List Review Problem List Initiated/Reviewed/Updated: Yes - My Orders Last 24 Hours: My Active Orders 07/02/20 13:00 dexAMETHasone 4 mg PO Q24H 07/03/20 10:13 Ang Chest [CT] Routine - Plan Plan:: ASSESSMENT AND PLAN COVID-19 PNEUMONIA-complicated by acute respiratory failure with hypoxia. She seems to have plateaued and has been using about 15 L of supplemental oxygen for a couple of weeks. Intermittently needs noninvasive ventilation. -Continue Decadron, consider taper -Repeat labs every 2-3 days -Supplemental oxygen -Supportive care -Prone ventilation as tolerated RIGHT PNEUMOTHORAX AND PNEUMOMEDIASTINUM-noted on CT scan 07/03. Pneumothorax is small at this time and does not require chest tube intervention. -Repeat chest x-ray in the morning or sooner if she deteriorates overnight -Hold off on noninvasive ventilation for a few days unless absolutely necessary to avoid increased pulmonary pressure -Surgical consultation if pneumothorax is enlarging CHRONIC LYMPHOCYTIC LEUKEMIA-stable. -Continue ibrutinib MAINTENANCE ISSUES -DVT prophylaxis; Lovenox 40 mg subcu daily -GI prophylaxis; not indicated -Interiano catheter; not indicated -Nutrition; regular diet DISPOSITION-anticipate discharge to home after the hospital stay. Mario Rey MD
[2020-07-03] MEDS ORDERED: Sodium Chloride 0.9% 10 ML Syringe FLUSH PRN (10:25)
[2020-07-03] MEDS ORDERED: Iopamidol 612 MG/ML 100 ML Bottle IV PRN (10:25)
[2020-07-03] MEDS ORDERED: Iopamidol 755 Mg/ML 100 ML Bottle IV SCH (11:15)
--- NOTE | 2020-07-03 12:00 | CT ---
Ang Chest CLINICAL HISTORY: Hypoxia, history: Bed TECHNIQUE: Thin section axial contiguous tomographic sections were taken through the chest after bolus IV iodinated contrast administration. Coronal and sagittal images were reconstructed. Auto dosage reduction and iterative reconstruction techniques employed. FINDINGS: There is been interval development of a small right apical pneumothorax. There is also pneumomediastinum. Patient has diffuse bilateral pulmonary infiltrates and scattered groundglass opacities. There is a lower lobe predominance. This is similar to the June 21 study There is no evidence of pulmonary embolus. Aorta is free of aneurysm or dissection. There are no pleural effusions. IMPRESSION: Small apical pneumothorax and pneumomediastinum new since prior study No evidence of pulmonary and was Persistent diffuse pulmonary infiltrates and groundglass opacities consistent with the patient's history of covid Dr. Rey was notified by phone at the time of this dictation at 11:55 AM
[2020-07-03] MEDS: Dexamethasone 2 MG Tab PO SCH (14:33)
[2020-07-03] MEDS: Simvastatin 20 MG Tab PO SCH (21:55)
--- NOTE | 2020-07-04 06:34 | CRLCR ---
Indication: Pneumothorax follow-up Technique: Chest 1 view Comparison: Chest CT 07/03/2020 Findings/Impression: Cardiovascular and mediastinum: Normal heart size with coronary stent. Lungs and pleural space: Small right apical pneumothorax measuring in the range of 4 millimeters. This is grossly similar to the prior chest CT. Diffuse hazy and reticular opacities redemonstrated throughout both lungs consistent with a viral pneumonia. Bones and soft tissues: No acute findings. Dictated by Preet Cota MD @ Jul 04 2020 6:29AM Signed by Dr. Preet Cota @ Jul 04 2020 6:32AM
[2020-07-04] MEDS: Enoxaparin 40 MG/0.4 ML Syringe SUBCUT SCH (11:08)
[2020-07-04] MEDS: Lactobacillus Rhamnosus GG (Probiotic) Cap PO SCH ×2 (11:08→21:15)
[2020-07-04] MEDS: Metoprolol Succinate 25 MG Tab.ER PO SCH (11:09)
[2020-07-04] MEDS: IMBRUVICA 420 MG PO SCH (11:09)
[2020-07-04] MEDS: Aspirin 81 MG Tab.EC PO SCH (11:09)
--- NOTE | 2020-07-04 11:42 | PCM.PN ---
- General Info Date of Service: 07/04/20 Subjective Update: No acute events overnight. Patient has been stable with either high flow nasal cannula or tent. She does desaturate with activity. We were able to get by without noninvasive ventilation overnight. She feels slightly better today but still short of breath and weak. Repeat chest x-ray this morning shows stable small 4 mm right pneumothorax. No fevers. Functional Status: Reports: Pain Controlled, Tolerating Diet - Review of Systems General: Reports: Weakness. Denies: Fever Pulmonary: Reports: Shortness of Breath - Patient Data Vitals - Most Recent: Last Vital Signs Temp 36.6 C 07/04/20 11:00 Pulse 98 07/04/20 11:09 Resp 18 07/04/20 11:00 BP 118/66 07/04/20 11:09 Pulse Ox 98 07/04/20 11:00 Weight - Most Recent: 58.967 kg I&O - Last 24 Hours: Intake & Output 07/03/20 07/04/20 07/04/20 22:59 06:59 14:59 Output Total 700 Balance -700 Med Orders - Current: Current Medications Acetaminophen (Tylenol) 650 mg PO Q4H PRN PRN Reason: fever, pain Last Admin: 06/24/20 02:12 Dose: 650 mg Documented by: Aspirin (Halfprin) 81 mg PO DAILY [facility] Last Admin: 07/04/20 11:09 Dose: 81 mg Documented by: Benzonatate (Tessalon Perles) 100 mg PO TID PRN PRN Reason: Cough Dexamethasone (Dexamethasone) 4 mg PO Q24H [facility] Last Admin: 07/03/20 14:33 Dose: 4 mg Documented by: Enoxaparin Sodium (Lovenox) 40 mg SUBCUT Q24H [facility] Last Admin: 07/04/20 11:08 Dose: 40 mg Documented by: Guaifenesin/Dextromethorphan (Robitussin Dm) 10 ml PO Q4H PRN PRN Reason: Cough Lactobacillus Rhamnosus (Culturelle) 1 cap PO BID [facility] Last Admin: 07/04/20 11:08 Dose: 1 cap Documented by: Metoprolol Succinate (Toprol Xl) 25 mg PO DAILY [facility] Last Admin: 07/04/20 11:09 Dose: 25 mg Documented by: Ondansetron HCl (Zofran) 4 mg IVPUSH Q4H PRN PRN Reason: Nausea/Vomiting Imbruvica 420mg Tab ((Ptom)) 1 each PO DAILY [facility] Last Admin: 07/04/20 11:09 Dose: 1 each Documented by: Simvastatin (Zocor) 40 mg PO BEDTIME [facility] Last Admin: 07/03/20 21:55 Dose: 40 mg Documented by: Sodium Chloride (Saline Flush) 10 ml FLUSH ASDIRECTED PRN PRN Reason: Keep Vein Open Last Admin: 06/21/20 10:31 Dose: 10 ml Documented by: Sodium Chloride ([place] Nasal [place]) 1 ml SHONDA QID PRN PRN Reason: Nasal Dryness Last Admin: 07/02/20 02:08 Dose: 1 spray Documented by: Discontinued Medications Azithromycin (Zithromax) 500 mg PO ONETIME ONE Stop: 06/09/20 22:45 Last Admin: 06/09/20 23:44 Dose: 500 mg Documented by: Azithromycin (Zithromax) 250 mg PO DAILY [facility] Stop: 06/13/20 09:01 Last Admin: 06/10/20 08:39 Dose: 250 mg Documented by: Ceftriaxone Sodium (Rocephin) Confirm Administered Dose 1 gm IV .STK-MED ONE Stop: 06/09/20 23:29 Last Admin: 06/09/20 23:42 Dose: 1 gm Documented by: Dexamethasone (Decadron) 6 mg IVPUSH Q24H [facility] Last Admin: 06/15/20 15:43 Dose: Not Given Documented by: Dexamethasone (Dexamethasone) 6 mg PO Q24H [facility] Last Admin: 06/19/20 16:48 Dose: 6 mg Documented by: Dexamethasone (Decadron) 4 mg IVPUSH Q24H [facility] Last Admin: 07/01/20 15:17 Dose: 4 mg Documented by: Doxycycline Hyclate (Vibramycin) 100 mg PO Q12H [facility] Stop: 06/15/20 23:59 Last Admin: 06/15/20 16:35 Dose: 100 mg Documented by: Enoxaparin Sodium (Lovenox) 60 mg SUBCUT BID [facility] Last Admin: 06/10/20 08:39 Dose: 60 mg Documented by: Furosemide (Lasix) 20 mg IVPUSH NOW ONE Stop: 06/10/20 14:46 Last Admin: 06/10/20 15:23 Dose: 20 mg Documented by: Furosemide (Lasix) 20 mg IVPUSH ONETIME ONE Stop: 06/21/20 13:01 Last Admin: 06/21/20 12:54 Dose: 20 mg Documented by: Furosemide (Lasix) 20 mg IVPUSH NOW ONE Stop: 06/25/20 14:31 Last Admin: 06/25/20 15:51 Dose: 20 mg Documented by: Furosemide (Lasix) 40 mg IVPUSH NOW ONE Stop: 07/02/20 11:46 Last Admin: 07/02/20 12:24 Dose: 40 mg Documented by: Sodium Chloride (Normal Saline) 1,000 mls @ 125 mls/hr IV ASDIRECTED ONE Stop: 06/10/20 03:03 Last Admin: 06/09/20 20:49 Dose: Not Given Documented by: Ceftriaxone Sodium 1 gm/ (Sodium Chloride) 50 mls @ 100 mls/hr IV Q24H [facility] Stop: 06/15/20 23:59 Last Admin: 06/14/20 22:30 Dose: 100 mls/hr Documented by: Sodium Chloride (Normal Saline) 1,000 mls @ 125 mls/hr IV ASDIRECTED [facility] Last Admin: 06/10/20 08:37 Dose: 125 mls/hr Documented by: Sodium Chloride (Normal Saline) Confirm Administered Dose 50 mls @ as directed .ROUTE .STK-MED ONE Stop: 06/09/20 23:29 Last Admin: 06/10/20 03:33 Dose: Not Given Documented by: Doxycycline Hyclate 100 mg/ (Sodium Chloride) 100 mls @ 100 mls/hr IV Q12H [facility] Last Admin: 06/12/20 02:15 Dose: 100 mls/hr Documented by: Sodium Chloride (Normal Saline) 100 mls @ 3.5 mls/sec IV ASDIRECTED [facility] Stop: 06/10/20 18:00 Last Admin: 06/10/20 17:45 Dose: 4 mls/sec Documented by: Remdesivir 100 mg/ Sodium (Chloride) 100 mls @ 100 mls/hr IV Q24H [facility] Stop: 06/15/20 12:59 Last Admin: 06/15/20 12:49 Dose: 100 mls/hr Documented by: Remdesivir 200 mg/ Sodium (Chloride) 250 mls @ 250 mls/hr IV ONETIME ONE Stop: 06/11/20 12:59 Last Admin: 06/11/20 12:30 Dose: 250 mls/hr Documented by: Sodium Chloride (Normal Saline) 100 mls @ 4 mls/sec IV ASDIRECTED [facility] Sodium Chloride (Normal Saline) 84 mls @ 3 mls/sec IV ONETIME ONE Stop: 07/03/20 10:26 Last Admin: 07/03/20 11:02 Dose: 3 mls/sec Documented by: Iopamidol (Isovue-370 (76%)) 57 ml IV . DIRECTED [facility] Last Admin: 06/10/20 17:44 Dose: 57 ml Documented by: Iopamidol (Isovue-370 (76%)) 100 ml IV . DIRECTED ONE Stop: 06/21/20 09:55 Last Admin: 06/21/20 10:31 Dose: 100 ml Documented by: Iopamidol (Isovue-300 (61%)) 70 ml IV . DIRECTED PRN PRN Reason: RADIOLOGY EXAM Stop: 07/03/20 10:26 Iopamidol (Isovue-370 (76%)) 70 ml IV . DIRECTED [facility] Stop: 07/03/20 16:00 Last Admin: 07/03/20 11:05 Dose: 70 ml Documented by: Ibrutinib (Imbruvica () 320 MgPom) 0 mg PO BEDTIME [facility] Last Admin: 06/10/20 21:24 Dose: Not Given Documented by: Pantoprazole Sodium (Protonix Iv) 40 mg IVPUSH DAILY [facility] Last Admin: 06/11/20 08:15 Dose: 40 mg Documented by: Sodium Chloride (Saline Flush) 10 ml FLUSH ASDIRECTED PRN PRN Reason: Keep Vein Open Last Admin: 06/09/20 19:38 Dose: 10 ml Documented by: Sodium Chloride (Saline Flush) 10 ml FLUSH ONETIME ONE Stop: 06/10/20 15:42 Last Admin: 06/10/20 17:45 Dose: 10 ml Documented by: Sodium Chloride (Saline Flush) 10 ml FLUSH ONETIME PRN PRN Reason: PER RADIOLOGY PROTOCOL Stop: 07/03/20 10:26 Last Admin: 07/03/20 11:02 Dose: 10 ml Documented by: - Exam Quality Assessment: Supplemental Oxygen General: Alert, Oriented, Cooperative, Mild Distress Lungs: Crackles (right lung base). No: Normal Respiratory Effort (increased work of breathing ) Cardiovascular: Regular Rhythm, Tachycardia GI/Abdominal Exam: Soft, No Distention Extremities: No Pedal Edema. No: Increased Warmth Skin: Warm, Dry Psy/Mental Status: Alert, Normal Affect Sepsis Event Note - Evaluation Sepsis Screening Result: No Definite Risk - Focused Exam Vital Signs: Vital Signs Temp Temp Pulse Pulse Resp BP BP 07/04/20 11:09 98 118/66 07/04/20 11:00 36.6 C 108 H 18 118/66 07/04/20 07:00 36.6 C 84 18 117/65 07/04/20 03:00 35.6 C L 83 18 108/63 07/04/20 00:18 07/04/20 00:17 Pulse Ox 07/04/20 11:09 07/04/20 11:00 98 07/04/20 07:00 92 L 07/04/20 03:00 93 L 07/04/20 00:18 99 07/04/20 00:17 99 - Problem List Review Problem List Initiated/Reviewed/Updated: Yes - My Orders Last 24 Hours: My Active Orders 07/04/20 13:00 dexAMETHasone 3 mg PO Q24H 07/05/20 05:00 Chest 1V Frontal [CR] Timed 07/09/20 13:00 dexAMETHasone 2 mg PO Q24H 07/14/20 13:00 dexAMETHasone 1 mg PO Q24H - Plan Plan:: ASSESSMENT AND PLAN COVID-19 PNEUMONIA-complicated by acute respiratory failure with hypoxia. She seems to have plateaued and has been using about 15 L of supplemental oxygen for a couple of weeks. Now complicated by pneumothorax. -Continue Decadron, start to taper over the next 15 days -Repeat labs every 2-3 days -Supplemental oxygen -Supportive care -Prone ventilation as tolerated RIGHT PNEUMOTHORAX AND PNEUMOMEDIASTINUM-noted on CT scan 07/03. Pneumothorax is small at this time and does not require chest tube intervention. -Repeat chest x-ray daily or with acute changes -Hold off on noninvasive ventilation for a few days unless absolutely necessary to avoid increased pulmonary pressure -Surgical consultation if pneumothorax is enlarging CHRONIC LYMPHOCYTIC LEUKEMIA-stable. -Continue ibrutinib MAINTENANCE ISSUES -DVT prophylaxis; Lovenox 40 mg subcu daily -GI prophylaxis; not indicated -Interiano catheter; not indicated -Nutrition; regular diet DISPOSITION-anticipate discharge to home after the hospital stay. Mario Rey MD
[2020-07-04] MEDS: Dexamethasone 2 MG Tab PO SCH (13:29)
[2020-07-04] MEDS: Bisacodyl 10 MG Supp RECTAL PRN (14:57)
[2020-07-04] MEDS: Simvastatin 20 MG Tab PO SCH (21:15)
--- NOTE | 2020-07-05 04:30 | CRLCR ---
Indication: Pneumothorax follow-up Technique: Chest 1 view Comparison: Chest x-ray 07/04/2020 Findings/Impression: Cardiovascular and mediastinum: Normal heart size with atherosclerotic calcification. Lungs and pleural space: Bilateral reticulonodular opacities, similar to the prior exam with apical bulla. Previously noted pneumothorax is not well seen on this exam. Bones and soft tissues: No acute findings. Dictated by Preet Cota MD @ Jul 05 2020 4:27AM Signed by Dr. Preet Cota @ Jul 05 2020 4:29AM
[2020-07-05] MEDS: Enoxaparin 40 MG/0.4 ML Syringe SUBCUT SCH (09:42)
[2020-07-05] MEDS: Aspirin 81 MG Tab.EC PO SCH (09:42)
[2020-07-05] MEDS: Lactobacillus Rhamnosus GG (Probiotic) Cap PO SCH ×2 (09:42→21:39)
[2020-07-05] MEDS: IMBRUVICA 420 MG PO SCH (09:42)
[2020-07-05] MEDS: Metoprolol Succinate 25 MG Tab.ER PO SCH (09:43)
--- NOTE | 2020-07-05 15:06 | PCM.PN ---
- General Info Date of Service: 07/05/20 Subjective Update: Ms. Giraldo pain stable over the last 24 hours, continues to require high level of supplemental oxygen to maintain adequate saturations. Functional Status: Reports: Tolerating Diet, Urinating. Denies: Ambulating - Review of Systems General: Reports: Weakness, Fatigue. Denies: Fever, Chills Pulmonary: Reports: Shortness of Breath. Denies: Pleuritic Chest Pain, Cough, S putum, Hemoptysis, Wheezing Cardiovascular: Reports: Dyspnea on Exertion. Denies: Chest Pain, Palpitations, Orthopnea, PND, Edema, Lightheadedness Gastrointestinal: Reports: No Symptoms - Patient Data Vitals - Most Recent: Last Vital Signs Temp 98.1 F 07/05/20 14:16 Pulse 96 07/05/20 14:16 Resp 18 07/05/20 14:16 BP 105/62 07/05/20 14:16 Pulse Ox 96 07/05/20 14:16 Weight - Most Recent: 130 lb I&O - Last 24 Hours: Intake & Output 07/05/20 07/05/20 07/05/20 06:59 14:59 22:59 Intake Total 240 Balance 240 Med Orders - Current: Current Medications Acetaminophen (Tylenol) 650 mg PO Q4H PRN PRN Reason: fever, pain Last Admin: 06/24/20 02:12 Dose: 650 mg Documented by: Aspirin (Halfprin) 81 mg PO DAILY [facility] Last Admin: 07/05/20 09:42 Dose: 81 mg Documented by: Benzonatate (Tessalon Perles) 100 mg PO TID PRN PRN Reason: Cough Bisacodyl (Dulcolax) 10 mg RECTAL DAILY PRN PRN Reason: Constipation Last Admin: 07/04/20 14:57 Dose: 10 mg Documented by: Dexamethasone (Dexamethasone) 3 mg PO Q24H [facility] Stop: 07/08/20 13:01 Last Admin: 07/04/20 13:29 Dose: 3 mg Documented by: Dexamethasone (Dexamethasone) 2 mg PO Q24H [facility] Stop: 07/13/20 13:01 Dexamethasone (Dexamethasone) 1 mg PO Q24H [facility] Stop: 07/18/20 13:01 Enoxaparin Sodium (Lovenox) 40 mg SUBCUT Q24H [facility] Last Admin: 07/05/20 09:42 Dose: 40 mg Documented by: Guaifenesin/Dextromethorphan (Robitussin Dm) 10 ml PO Q4H PRN PRN Reason: Cough Lactobacillus Rhamnosus (Culturelle) 1 cap PO BID [facility] Last Admin: 07/05/20 09:42 Dose: 1 cap Documented by: Metoprolol Succinate (Toprol Xl) 25 mg PO DAILY [facility] Last Admin: 07/05/20 09:43 Dose: 25 mg Documented by: Ondansetron HCl (Zofran) 4 mg IVPUSH Q4H PRN PRN Reason: Nausea/Vomiting Imbruvica 420mg Tab ((Ptom)) 1 each PO DAILY [facility] Last Admin: 07/05/20 09:42 Dose: 1 each Documented by: Simvastatin (Zocor) 40 mg PO BEDTIME [facility] Last Admin: 07/04/20 21:15 Dose: 40 mg Documented by: Sodium Chloride (Saline Flush) 10 ml FLUSH ASDIRECTED PRN PRN Reason: Keep Vein Open Last Admin: 06/21/20 10:31 Dose: 10 ml Documented by: Sodium Chloride ([place] Nasal [place]) 1 ml SHONDA QID PRN PRN Reason: Nasal Dryness Last Admin: 07/02/20 02:08 Dose: 1 spray Documented by: Discontinued Medications Azithromycin (Zithromax) 500 mg PO ONETIME ONE Stop: 06/09/20 22:45 Last Admin: 06/09/20 23:44 Dose: 500 mg Documented by: Azithromycin (Zithromax) 250 mg PO DAILY [facility] Stop: 06/13/20 09:01 Last Admin: 06/10/20 08:39 Dose: 250 mg Documented by: Ceftriaxone Sodium (Rocephin) Confirm Administered Dose 1 gm IV .STK-MED ONE Stop: 06/09/20 23:29 Last Admin: 06/09/20 23:42 Dose: 1 gm Documented by: Dexamethasone (Decadron) 6 mg IVPUSH Q24H [facility] Last Admin: 06/15/20 15:43 Dose: Not Given Documented by: Dexamethasone (Dexamethasone) 6 mg PO Q24H [facility] Last Admin: 06/19/20 16:48 Dose: 6 mg Documented by: Dexamethasone (Decadron) 4 mg IVPUSH Q24H [facility] Last Admin: 07/01/20 15:17 Dose: 4 mg Documented by: Dexamethasone (Dexamethasone) 4 mg PO Q24H [facility] Last Admin: 07/03/20 14:33 Dose: 4 mg Documented by: Doxycycline Hyclate (Vibramycin) 100 mg PO Q12H [facility] Stop: 06/15/20 23:59 Last Admin: 06/15/20 16:35 Dose: 100 mg Documented by: Enoxaparin Sodium (Lovenox) 60 mg SUBCUT BID [facility] Last Admin: 06/10/20 08:39 Dose: 60 mg Documented by: Furosemide (Lasix) 20 mg IVPUSH NOW ONE Stop: 06/10/20 14:46 Last Admin: 06/10/20 15:23 Dose: 20 mg Documented by: Furosemide (Lasix) 20 mg IVPUSH ONETIME ONE Stop: 06/21/20 13:01 Last Admin: 06/21/20 12:54 Dose: 20 mg Documented by: Furosemide (Lasix) 20 mg IVPUSH NOW ONE Stop: 06/25/20 14:31 Last Admin: 06/25/20 15:51 Dose: 20 mg Documented by: Furosemide (Lasix) 40 mg IVPUSH NOW ONE Stop: 07/02/20 11:46 Last Admin: 07/02/20 12:24 Dose: 40 mg Documented by: Sodium Chloride (Normal Saline) 1,000 mls @ 125 mls/hr IV ASDIRECTED ONE Stop: 06/10/20 03:03 Last Admin: 06/09/20 20:49 Dose: Not Given Documented by: Ceftriaxone Sodium 1 gm/ (Sodium Chloride) 50 mls @ 100 mls/hr IV Q24H [facility] Stop: 06/15/20 23:59 Last Admin: 06/14/20 22:30 Dose: 100 mls/hr Documented by: Sodium Chloride (Normal Saline) 1,000 mls @ 125 mls/hr IV ASDIRECTED [facility] Last Admin: 06/10/20 08:37 Dose: 125 mls/hr Documented by: Sodium Chloride (Normal Saline) Confirm Administered Dose 50 mls @ as directed .ROUTE .STK-MED ONE Stop: 06/09/20 23:29 Last Admin: 06/10/20 03:33 Dose: Not Given Documented by: Doxycycline Hyclate 100 mg/ (Sodium Chloride) 100 mls @ 100 mls/hr IV Q12H [facility] Last Admin: 06/12/20 02:15 Dose: 100 mls/hr Documented by: Sodium Chloride (Normal Saline) 100 mls @ 3.5 mls/sec IV ASDIRECTED [facility] Stop: 06/10/20 18:00 Last Admin: 06/10/20 17:45 Dose: 4 mls/sec Documented by: Remdesivir 100 mg/ Sodium (Chloride) 100 mls @ 100 mls/hr IV Q24H [facility] Stop: 06/15/20 12:59 Last Admin: 06/15/20 12:49 Dose: 100 mls/hr Documented by: Remdesivir 200 mg/ Sodium (Chloride) 250 mls @ 250 mls/hr IV ONETIME ONE Stop: 06/11/20 12:59 Last Admin: 06/11/20 12:30 Dose: 250 mls/hr Documented by: Sodium Chloride (Normal Saline) 100 mls @ 4 mls/sec IV ASDIRECTED [facility] Sodium Chloride (Normal Saline) 84 mls @ 3 mls/sec IV ONETIME ONE Stop: 07/03/20 10:26 Last Admin: 07/03/20 11:02 Dose: 3 mls/sec Documented by: Iopamidol (Isovue-370 (76%)) 57 ml IV . DIRECTED [facility] Last Admin: 06/10/20 17:44 Dose: 57 ml Documented by: Iopamidol (Isovue-370 (76%)) 100 ml IV . DIRECTED ONE Stop: 06/21/20 09:55 Last Admin: 06/21/20 10:31 Dose: 100 ml Documented by: Iopamidol (Isovue-300 (61%)) 70 ml IV . DIRECTED PRN PRN Reason: RADIOLOGY EXAM Stop: 07/03/20 10:26 Iopamidol (Isovue-370 (76%)) 70 ml IV . DIRECTED [facility] Stop: 07/03/20 16:00 Last Admin: 07/03/20 11:05 Dose: 70 ml Documented by: Ibrutinib (Imbruvica () 320 MgPom) 0 mg PO BEDTIME [facility] Last Admin: 06/10/20 21:24 Dose: Not Given Documented by: Pantoprazole Sodium (Protonix Iv) 40 mg IVPUSH DAILY [facility] Last Admin: 06/11/20 08:15 Dose: 40 mg Documented by: Sodium Chloride (Saline Flush) 10 ml FLUSH ASDIRECTED PRN PRN Reason: Keep Vein Open Last Admin: 06/09/20 19:38 Dose: 10 ml Documented by: Sodium Chloride (Saline Flush) 10 ml FLUSH ONETIME ONE Stop: 06/10/20 15:42 Last Admin: 06/10/20 17:45 Dose: 10 ml Documented by: Sodium Chloride (Saline Flush) 10 ml FLUSH ONETIME PRN PRN Reason: PER RADIOLOGY PROTOCOL Stop: 07/03/20 10:26 Last Admin: 07/03/20 11:02 Dose: 10 ml Documented by: - Exam Quality Assessment: Supplemental Oxygen, DVT Prophylaxis General: Alert, Oriented, Cooperative, Moderate Distress Lungs: Clear to Auscultation, Normal Respiratory Effort, Decreased Breath Sounds. No: Rales, Rhonchi, Wheezing Cardiovascular: Regular Rate, Regular Rhythm, No Murmurs GI/Abdominal Exam: Soft, Non-Tender, No Organomegaly, No Distention Extremities: Non-Tender, No Pedal Edema Sepsis Event Note - Evaluation Sepsis Screening Result: No Definite Risk - Focused Exam Vital Signs: Vital Signs Temp Pulse Pulse Resp BP BP Pulse Ox 07/05/20 14:16 98.1 F 96 18 105/62 96 07/05/20 12:57 89 18 96 07/05/20 12:20 89 L 07/05/20 10:17 97.9 F 107 H 18 122/63 91 L 07/05/20 09:43 80 116/68 07/05/20 08:00 98.2 F 87 18 116/68 92 L 07/05/20 07:00 90 L 07/05/20 04:00 97.3 F 79 18 114/67 91 L - Problem List Review Problem List Initiated/Reviewed/Updated: Yes - My Orders Last 24 Hours: My Active Orders 07/06/20 05:00 CBC WITH AUTO DIFF [HEME] Timed COMPREHENSIVE METABOLIC PN,CMP [CHEM] Timed 07/06/20 05:11 CRP [C-REACTIVE PROTEIN] [CHEM] AM D Dimer [D-DIMER QUANTITATIVE] [COAG] AM - Plan Plan:: ASSESSMENT AND PLAN COVID-19 PNEUMONIA-complicated by acute respiratory failure with hypoxia. She seems to have plateaued and has been using about 15 L of supplemental oxygen for a couple of weeks. Now complicated by pneumothorax. -Continue Decadron, start to taper over the next 15 days -Repeat labs every 2-3 days -Supplemental oxygen -Supportive care -Prone ventilation as tolerated RIGHT PNEUMOTHORAX AND PNEUMOMEDIASTINUM-noted on CT scan 07/03. Pneumothorax is small at this time and does not require chest tube intervention. -Repeat chest x-ray daily or with acute changes -Hold off on noninvasive ventilation for a few days unless absolutely necessary to avoid increased pulmonary pressure -Surgical consultation if pneumothorax is enlarging CHRONIC LYMPHOCYTIC LEUKEMIA-stable. -Continue ibrutinib MAINTENANCE ISSUES -DVT prophylaxis; Lovenox 40 mg subcu daily -GI prophylaxis; not indicated -Interiano catheter; not indicated -Nutrition; regular diet DISPOSITION-anticipate discharge to home after the hospital stay.
[2020-07-05] MEDS: Dexamethasone 2 MG Tab PO SCH (16:21)
[2020-07-05] MEDS: Simvastatin 20 MG Tab PO SCH (21:39)
[2020-07-06] MEDS: Metoprolol Succinate 25 MG Tab.ER PO SCH (09:30)
[2020-07-06] MEDS: Enoxaparin 40 MG/0.4 ML Syringe SUBCUT SCH (09:32)
[2020-07-06] MEDS: Lactobacillus Rhamnosus GG (Probiotic) Cap PO SCH ×2 (09:32→21:22)
[2020-07-06] MEDS: Aspirin 81 MG Tab.EC PO SCH (09:32)
[2020-07-06] MEDS: IMBRUVICA 420 MG PO SCH (09:33)
--- NOTE | 2020-07-06 10:17 | CR ---
CHEST: Portable 07/06/2020 at 4:30 AM CLINICAL HISTORY:Pneumothorax COMPARISON:07/05/2020 FINDINGS: Patient is a known small right apical pneumothorax. Appearance is similar to prior study. The there is persistent pneumomediastinum air extending into the right neck. There are moderate diffuse bilateral pulmonary infiltrates similar to prior study. IMPRESSION: No significant change in bilateral infiltrates Known right apical pneumothorax. This is not well seen due to superimposed densities. There is no significant increase. Persistent pneumomediastinum with air extending into the right neck
--- NOTE | 2020-07-06 12:58 | PCM.PN ---
- General Info Date of Service: 07/06/20 Subjective Update: Ms. Giraldo has shown some improvement in respiratory status since yesterday. She recovers more quickly from exertion and is tolerating a mask at 6 L/min via nasal cannula. Functional Status: Reports: Tolerating Diet, Urinating - Review of Systems General: Reports: Weakness, Fatigue. Denies: Fever, Chills Pulmonary: Reports: Shortness of Breath. Denies: Pleuritic Chest Pain, Cough, Sputum, Hemoptysis, Wheezing Cardiovascular: Reports: Dyspnea on Exertion. Denies: Chest Pain, Palpitations, Orthopnea, PND, Edema, Lightheadedness Gastrointestinal: Reports: No Symptoms - Patient Data Vitals - Most Recent: Last Vital Signs Temp 98.4 F 07/06/20 11:00 Pulse 97 07/06/20 11:00 Resp 18 07/06/20 11:00 BP 122/70 07/06/20 11:00 Pulse Ox 91 L 07/06/20 11:00 Weight - Most Recent: 130 lb I&O - Last 24 Hours: Intake & Output 07/05/20 07/06/20 07/06/20 22:59 06:59 14:59 Intake Total 120 296 Output Total 400 Balance 120 296 -400 Lab Results Last 24 Hours: Laboratory Results - last 24 hr 07/06/20 07/06/20 07/06/20 Range/Units 04:30 04:30 04:30 WBC 22.4 H (4.5-11.0) K/uL RBC 3.18 L (3.30-5.50) M/uL Hgb 9.6 L (12.0-15.0) g/dL Hct 30.8 L (36.0-48.0) % MCV 97 (80-98) fL MCH 30 (27-31) pg MCHC 31 L (32-36) % Plt Count 389 (150-400) K/uL Neut % (Auto) 61 (36-66) % Lymph % (Auto) 36 (24-44) % Turner % (Auto) 3 (2-6) % Eos % (Auto) 0 L (2-4) % Baso % (Auto) 0 (0-1) % D-Dimer, Quantitative 2681.33 H (0.0-500.0) ng/mL Sodium 135 L (140-148) mmol/L Potassium 4.4 (3.6-5.2) mmol/L Chloride 101 (100-108) mmol/L Carbon Dioxide 25 (21-32) mmol/L Anion Gap 13.4 (5.0-14.0) mmol/L BUN 43 H (7-18) mg/dL Creatinine 0.8 (0.6-1.0) mg/dL Est Cr Clr Drug Dosing 56.56 mL/min Estimated GFR (MDRD) > 60 (>60) Glucose 162 H (74-106) mg/dL Calcium 8.1 L (8.5-10.1) mg/dL Total Bilirubin 0.4 (0.2-1.0) mg/dL AST 27 (15-37) U/L ALT 44 (12-78) U/L Alkaline Phosphatase 152 H (46-116) U/L C-Reactive Protein (0.0-0.3) mg/dL Total Protein 5.7 L (6.4-8.2) g/dL Albumin 1.8 L (3.4-5.0) g/dL Globulin 3.9 H (2.3-3.5) g/dL Albumin/Globulin Ratio 0.5 L (1.2-2.2) 07/06/20 Range/Units 04:30 WBC (4.5-11.0) K/uL RBC (3.30-5.50) M/uL Hgb (12.0-15.0) g/dL Hct (36.0-48.0) % MCV (80-98) fL MCH (27-31) pg MCHC (32-36) % Plt Count (150-400) K/uL Neut % (Auto) (36-66) % Lymph % (Auto) (24-44) % Turner % (Auto) (2-6) % Eos % (Auto) (2-4) % Baso % (Auto) (0-1) % D-Dimer, Quantitative (0.0-500.0) ng/mL Sodium (140-148) mmol/L Potassium (3.6-5.2) mmol/L Chloride (100-108) mmol/L Carbon Dioxide (21-32) mmol/L Anion Gap (5.0-14.0) mmol/L BUN (7-18) mg/dL Creatinine (0.6-1.0) mg/dL Est Cr Clr Drug Dosing mL/min Estimated GFR (MDRD) (>60) Glucose (74-106) mg/dL Calcium (8.5-10.1) mg/dL Total Bilirubin (0.2-1.0) mg/dL AST (15-37) U/L ALT (12-78) U/L Alkaline Phosphatase (46-116) U/L C-Reactive Protein 3.07 H (0.0-0.3) mg/dL Total Protein (6.4-8.2) g/dL Albumin (3.4-5.0) g/dL Globulin (2.3-3.5) g/dL Albumin/Globulin Ratio (1.2-2.2) Med Orders - Current: Current Medications Acetaminophen (Tylenol) 650 mg PO Q4H PRN PRN Reason: fever, pain Last Admin: 06/24/20 02:12 Dose: 650 mg Documented by: Aspirin (Halfprin) 81 mg PO DAILY [facility] Last Admin: 07/06/20 09:32 Dose: 81 mg Documented by: Benzonatate (Tessalon Perles) 100 mg PO TID PRN PRN Reason: Cough Bisacodyl (Dulcolax) 10 mg RECTAL DAILY PRN PRN Reason: Constipation Last Admin: 07/04/20 14:57 Dose: 10 mg Documented by: Dexamethasone (Dexamethasone) 3 mg PO Q24H [facility] Stop: 07/08/20 13:01 Last Admin: 07/05/20 16:21 Dose: 3 mg Documented by: Dexamethasone (Dexamethasone) 2 mg PO Q24H [facility] Stop: 07/13/20 13:01 Dexamethasone (Dexamethasone) 1 mg PO Q24H [facility] Stop: 07/18/20 13:01 Enoxaparin Sodium (Lovenox) 40 mg SUBCUT Q24H [facility] Last Admin: 07/06/20 09:32 Dose: 40 mg Documented by: Guaifenesin/Dextromethorphan (Robitussin Dm) 10 ml PO Q4H PRN PRN Reason: Cough Lactobacillus Rhamnosus (Culturelle) 1 cap PO BID [facility] Last Admin: 07/06/20 09:32 Dose: 1 cap Documented by: Metoprolol Succinate (Toprol Xl) 25 mg PO DAILY [facility] Last Admin: 07/06/20 09:30 Dose: 25 mg Documented by: Ondansetron HCl (Zofran) 4 mg IVPUSH Q4H PRN PRN Reason: Nausea/Vomiting Imbruvica 420mg Tab ((Ptom)) 1 each PO DAILY [facility] Last Admin: 07/06/20 09:33 Dose: 1 each Documented by: Simvastatin (Zocor) 40 mg PO BEDTIME [facility] Last Admin: 07/05/20 21:39 Dose: 40 mg Documented by: Sodium Chloride (Saline Flush) 10 ml FLUSH ASDIRECTED PRN PRN Reason: Keep Vein Open Last Admin: 06/21/20 10:31 Dose: 10 ml Documented by: Sodium Chloride ([place] Nasal [place]) 1 ml SHONDA QID PRN PRN Reason: Nasal Dryness Last Admin: 07/02/20 02:08 Dose: 1 spray Documented by: Discontinued Medications Azithromycin (Zithromax) 500 mg PO ONETIME ONE Stop: 06/09/20 22:45 Last Admin: 06/09/20 23:44 Dose: 500 mg Documented by: Azithromycin (Zithromax) 250 mg PO DAILY [facility] Stop: 06/13/20 09:01 Last Admin: 06/10/20 08:39 Dose: 250 mg Documented by: Ceftriaxone Sodium (Rocephin) Confirm Administered Dose 1 gm IV .STK-MED ONE Stop: 06/09/20 23:29 Last Admin: 06/09/20 23:42 Dose: 1 gm Documented by: Dexamethasone (Decadron) 6 mg IVPUSH Q24H [facility] Last Admin: 06/15/20 15:43 Dose: Not Given Documented by: Dexamethasone (Dexamethasone) 6 mg PO Q24H [facility] Last Admin: 06/19/20 16:48 Dose: 6 mg Documented by: Dexamethasone (Decadron) 4 mg IVPUSH Q24H [facility] Last Admin: 07/01/20 15:17 Dose: 4 mg Documented by: Dexamethasone (Dexamethasone) 4 mg PO Q24H [facility] Last Admin: 07/03/20 14:33 Dose: 4 mg Documented by: Doxycycline Hyclate (Vibramycin) 100 mg PO Q12H [facility] Stop: 06/15/20 23:59 Last Admin: 06/15/20 16:35 Dose: 100 mg Documented by: Enoxaparin Sodium (Lovenox) 60 mg SUBCUT BID [facility] Last Admin: 06/10/20 08:39 Dose: 60 mg Documented by: Furosemide (Lasix) 20 mg IVPUSH NOW ONE Stop: 06/10/20 14:46 Last Admin: 06/10/20 15:23 Dose: 20 mg Documented by: Furosemide (Lasix) 20 mg IVPUSH ONETIME ONE Stop: 06/21/20 13:01 Last Admin: 06/21/20 12:54 Dose: 20 mg Documented by: Furosemide (Lasix) 20 mg IVPUSH NOW ONE Stop: 06/25/20 14:31 Last Admin: 06/25/20 15:51 Dose: 20 mg Documented by: Furosemide (Lasix) 40 mg IVPUSH NOW ONE Stop: 07/02/20 11:46 Last Admin: 07/02/20 12:24 Dose: 40 mg Documented by: Sodium Chloride (Normal Saline) 1,000 mls @ 125 mls/hr IV ASDIRECTED ONE Stop: 06/10/20 03:03 Last Admin: 06/09/20 20:49 Dose: Not Given Documented by: Ceftriaxone Sodium 1 gm/ (Sodium Chloride) 50 mls @ 100 mls/hr IV Q24H [facility] Stop: 06/15/20 23:59 Last Admin: 06/14/20 22:30 Dose: 100 mls/hr Documented by: Sodium Chloride (Normal Saline) 1,000 mls @ 125 mls/hr IV ASDIRECTED [facility] Last Admin: 06/10/20 08:37 Dose: 125 mls/hr Documented by: Sodium Chloride (Normal Saline) Confirm Administered Dose 50 mls @ as directed .ROUTE .STK-MED ONE Stop: 06/09/20 23:29 Last Admin: 06/10/20 03:33 Dose: Not Given Documented by: Doxycycline Hyclate 100 mg/ (Sodium Chloride) 100 mls @ 100 mls/hr IV Q12H [facility] Last Admin: 06/12/20 02:15 Dose: 100 mls/hr Documented by: Sodium Chloride (Normal Saline) 100 mls @ 3.5 mls/sec IV ASDIRECTED [facility] Stop: 06/10/20 18:00 Last Admin: 06/10/20 17:45 Dose: 4 mls/sec Documented by: Remdesivir 100 mg/ Sodium (Chloride) 100 mls @ 100 mls/hr IV Q24H [facility] Stop: 06/15/20 12:59 Last Admin: 06/15/20 12:49 Dose: 100 mls/hr Documented by: Remdesivir 200 mg/ Sodium (Chloride) 250 mls @ 250 mls/hr IV ONETIME ONE Stop: 06/11/20 12:59 Last Admin: 06/11/20 12:30 Dose: 250 mls/hr Documented by: Sodium Chloride (Normal Saline) 100 mls @ 4 mls/sec IV ASDIRECTED [facility] Sodium Chloride (Normal Saline) 84 mls @ 3 mls/sec IV ONETIME ONE Stop: 07/03/20 10:26 Last Admin: 07/03/20 11:02 Dose: 3 mls/sec Documented by: Iopamidol (Isovue-370 (76%)) 57 ml IV . DIRECTED [facility] Last Admin: 06/10/20 17:44 Dose: 57 ml Documented by: Iopamidol (Isovue-370 (76%)) 100 ml IV . DIRECTED ONE Stop: 06/21/20 09:55 Last Admin: 06/21/20 10:31 Dose: 100 ml Documented by: Iopamidol (Isovue-300 (61%)) 70 ml IV . DIRECTED PRN PRN Reason: RADIOLOGY EXAM Stop: 07/03/20 10:26 Iopamidol (Isovue-370 (76%)) 70 ml IV . DIRECTED [facility] Stop: 07/03/20 16:00 Last Admin: 07/03/20 11:05 Dose: 70 ml Documented by: Ibrutinib (Imbruvica () 320 MgPom) 0 mg PO BEDTIME [facility] Last Admin: 06/10/20 21:24 Dose: Not Given Documented by: Pantoprazole Sodium (Protonix Iv) 40 mg IVPUSH DAILY [facility] Last Admin: 06/11/20 08:15 Dose: 40 mg Documented by: Sodium Chloride (Saline Flush) 10 ml FLUSH ASDIRECTED PRN PRN Reason: Keep Vein Open Last Admin: 06/09/20 19:38 Dose: 10 ml Documented by: Sodium Chloride (Saline Flush) 10 ml FLUSH ONETIME ONE Stop: 06/10/20 15:42 Last Admin: 06/10/20 17:45 Dose: 10 ml Documented by: Sodium Chloride (Saline Flush) 10 ml FLUSH ONETIME PRN PRN Reason: PER RADIOLOGY PROTOCOL Stop: 07/03/20 10:26 Last Admin: 07/03/20 11:02 Dose: 10 ml Documented by: - Exam Quality Assessment: Supplemental Oxygen, DVT Prophylaxis General: Alert, Oriented, Cooperative, Moderate Distress Lungs: Rales. No: Crackles, Rhonchi, Wheezing Cardiovascular: Regular Rate, Regular Rhythm, No Murmurs GI/Abdominal Exam: Soft, Non-Tender, No Organomegaly, No Distention Extremities: Non-Tender, No Pedal Edema Sepsis Event Note - Evaluation Sepsis Screening Result: Sepsis Risk - Focused Exam Vital Signs: Vital Signs Temp Pulse Pulse Resp BP BP Pulse Ox 07/06/20 11:00 98.4 F 97 18 122/70 91 L 07/06/20 09:30 107 H 115/51 L 07/06/20 07:19 94 L 07/06/20 07:00 97.9 F 82 18 118/67 89 L 07/06/20 02:41 97.9 F 91 16 126/70 96 07/06/20 00:55 100 - Problem List Review Problem List Initiated/Reviewed/Updated: Yes - Plan Plan:: ASSESSMENT AND PLAN COVID-19 PNEUMONIA-complicated by acute respiratory failure with hypoxia. Now complicated by pneumothorax. Modest improvement in oxygenation over the past few days -Continue Decadron, start to taper over the next 15 days -Repeat labs every 2-3 days -Supplemental oxygen -Supportive care -Prone ventilation as tolerated -Furosemide 20 mg IV today RIGHT PNEUMOTHORAX AND PNEUMOMEDIASTINUM-noted on CT scan 07/03. Pneumothorax is small at this time and does not require chest tube intervention. -Repeat chest x-ray with acute changes -Hold off on noninvasive ventilation to avoid increased pulmonary pressure -Surgical consultation if pneumothorax is enlarging CHRONIC LYMPHOCYTIC LEUKEMIA-stable. -Continue ibrutinib MAINTENANCE ISSUES -DVT prophylaxis; Lovenox 40 mg subcu daily -GI prophylaxis; not indicated -Interiano catheter; not indicated -Nutrition; regular diet DISPOSITION-anticipate discharge to home after the hospital stay.
[2020-07-06] MEDS ORDERED: Furosemide 20 MG/2 ML VIAL IVPUSH ONE (13:15)
[2020-07-06] MEDS: Dexamethasone 2 MG Tab PO SCH (13:54)
[2020-07-06] MEDS: Simvastatin 20 MG Tab PO SCH (21:22)
[2020-07-07] MEDS: Enoxaparin 40 MG/0.4 ML Syringe SUBCUT SCH (08:19)
[2020-07-07] MEDS: Lactobacillus Rhamnosus GG (Probiotic) Cap PO SCH ×2 (08:19→20:35)
[2020-07-07] MEDS: Metoprolol Succinate 25 MG Tab.ER PO SCH (08:19)
[2020-07-07] MEDS: IMBRUVICA 420 MG PO SCH (08:19)
[2020-07-07] MEDS: Aspirin 81 MG Tab.EC PO SCH (08:19)
[2020-07-07] MEDS: Acetaminophen 325 MG Tab PO PRN ×2 (12:23→22:35)
--- NOTE | 2020-07-07 13:05 | PCM.PN ---
- General Info Date of Service: 07/07/20 Subjective Update: Ms. Giraldo continues to show slow modest improvement in respiratory status, requiring less supplemental oxygen over the past few days. She is feeling somewhat stronger and appetite seems to be improving as well. Functional Status: Reports: Tolerating Diet, Urinating - Review of Systems General: Reports: Weakness, Fatigue. Denies: Fever, Chills Pulmonary: Reports: Shortness of Breath. Denies: Pleuritic Chest Pain, Cough, Sputum, Hemoptysis, Wheezing Cardiovascular: Reports: Dyspnea on Exertion. Denies: Chest Pain, Palpitations, Orthopnea, PND, Edema, Lightheadedness Gastrointestinal: Reports: No Symptoms - Patient Data Vitals - Most Recent: Last Vital Signs Temp 96.9 F 07/07/20 12:23 Pulse 96 07/07/20 11:00 Resp 18 07/07/20 11:00 BP 121/61 07/07/20 11:00 Pulse Ox 87 L 07/07/20 11:00 Weight - Most Recent: 130 lb I&O - Last 24 Hours: Intake & Output 07/06/20 07/07/20 07/07/20 22:59 06:59 14:59 Intake Total 240 380 240 Output Total 1200 450 Balance -960 -70 240 Med Orders - Current: Current Medications Acetaminophen (Tylenol) 650 mg PO Q4H PRN PRN Reason: fever, pain Last Admin: 07/07/20 12:23 Dose: 325 mg Documented by: Aspirin (Halfprin) 81 mg PO DAILY [facility] Last Admin: 07/07/20 08:19 Dose: 81 mg Documented by: Benzonatate (Tessalon Perles) 100 mg PO TID PRN PRN Reason: Cough Bisacodyl (Dulcolax) 10 mg RECTAL DAILY PRN PRN Reason: Constipation Last Admin: 07/04/20 14:57 Dose: 10 mg Documented by: Dexamethasone (Dexamethasone) 3 mg PO Q24H [facility] Stop: 07/08/20 13:01 Last Admin: 07/06/20 13:54 Dose: 3 mg Documented by: Dexamethasone (Dexamethasone) 2 mg PO Q24H [facility] Stop: 07/13/20 13:01 Dexamethasone (Dexamethasone) 1 mg PO Q24H [facility] Stop: 07/18/20 13:01 Enoxaparin Sodium (Lovenox) 40 mg SUBCUT Q24H [facility] Last Admin: 07/07/20 08:19 Dose: 40 mg Documented by: Guaifenesin/Dextromethorphan (Robitussin Dm) 10 ml PO Q4H PRN PRN Reason: Cough Lactobacillus Rhamnosus (Culturelle) 1 cap PO BID [facility] Last Admin: 07/07/20 08:19 Dose: 1 cap Documented by: Metoprolol Succinate (Toprol Xl) 25 mg PO DAILY [facility] Last Admin: 07/07/20 08:19 Dose: 25 mg Documented by: Ondansetron HCl (Zofran) 4 mg IVPUSH Q4H PRN PRN Reason: Nausea/Vomiting Imbruvica 420mg Tab ((Ptom)) 1 each PO DAILY [facility] Last Admin: 07/07/20 08:19 Dose: 1 each Documented by: Simvastatin (Zocor) 40 mg PO BEDTIME [facility] Last Admin: 07/06/20 21:22 Dose: 40 mg Documented by: Sodium Chloride (Saline Flush) 10 ml FLUSH ASDIRECTED PRN PRN Reason: Keep Vein Open Last Admin: 06/21/20 10:31 Dose: 10 ml Documented by: Sodium Chloride ([place] Nasal [place]) 1 ml SHONDA QID PRN PRN Reason: Nasal Dryness Last Admin: 07/02/20 02:08 Dose: 1 spray Documented by: Discontinued Medications Azithromycin (Zithromax) 500 mg PO ONETIME ONE Stop: 06/09/20 22:45 Last Admin: 06/09/20 23:44 Dose: 500 mg Documented by: Azithromycin (Zithromax) 250 mg PO DAILY [facility] Stop: 06/13/20 09:01 Last Admin: 06/10/20 08:39 Dose: 250 mg Documented by: Ceftriaxone Sodium (Rocephin) Confirm Administered Dose 1 gm IV .STK-MED ONE Stop: 06/09/20 23:29 Last Admin: 06/09/20 23:42 Dose: 1 gm Documented by: Dexamethasone (Decadron) 6 mg IVPUSH Q24H [facility] Last Admin: 06/15/20 15:43 Dose: Not Given Documented by: Dexamethasone (Dexamethasone) 6 mg PO Q24H [facility] Last Admin: 06/19/20 16:48 Dose: 6 mg Documented by: Dexamethasone (Decadron) 4 mg IVPUSH Q24H [facility] Last Admin: 07/01/20 15:17 Dose: 4 mg Documented by: Dexamethasone (Dexamethasone) 4 mg PO Q24H [facility] Last Admin: 07/03/20 14:33 Dose: 4 mg Documented by: Doxycycline Hyclate (Vibramycin) 100 mg PO Q12H [facility] Stop: 06/15/20 23:59 Last Admin: 06/15/20 16:35 Dose: 100 mg Documented by: Enoxaparin Sodium (Lovenox) 60 mg SUBCUT BID [facility] Last Admin: 06/10/20 08:39 Dose: 60 mg Documented by: Furosemide (Lasix) 20 mg IVPUSH NOW ONE Stop: 06/10/20 14:46 Last Admin: 06/10/20 15:23 Dose: 20 mg Documented by: Furosemide (Lasix) 20 mg IVPUSH ONETIME ONE Stop: 06/21/20 13:01 Last Admin: 06/21/20 12:54 Dose: 20 mg Documented by: Furosemide (Lasix) 20 mg IVPUSH NOW ONE Stop: 06/25/20 14:31 Last Admin: 06/25/20 15:51 Dose: 20 mg Documented by: Furosemide (Lasix) 40 mg IVPUSH NOW ONE Stop: 07/02/20 11:46 Last Admin: 07/02/20 12:24 Dose: 40 mg Documented by: Furosemide (Lasix) 20 mg IVPUSH NOW ONE Stop: 07/06/20 13:16 Last Admin: 07/06/20 13:54 Dose: 20 mg Documented by: Sodium Chloride (Normal Saline) 1,000 mls @ 125 mls/hr IV ASDIRECTED ONE Stop: 06/10/20 03:03 Last Admin: 06/09/20 20:49 Dose: Not Given Documented by: Ceftriaxone Sodium 1 gm/ (Sodium Chloride) 50 mls @ 100 mls/hr IV Q24H [facility] Stop: 06/15/20 23:59 Last Admin: 06/14/20 22:30 Dose: 100 mls/hr Documented by: Sodium Chloride (Normal Saline) 1,000 mls @ 125 mls/hr IV ASDIRECTED [facility] Last Admin: 06/10/20 08:37 Dose: 125 mls/hr Documented by: Sodium Chloride (Normal Saline) Confirm Administered Dose 50 mls @ as directed .ROUTE .STK-MED ONE Stop: 06/09/20 23:29 Last Admin: 06/10/20 03:33 Dose: Not Given Documented by: Doxycycline Hyclate 100 mg/ (Sodium Chloride) 100 mls @ 100 mls/hr IV Q12H [facility] Last Admin: 06/12/20 02:15 Dose: 100 mls/hr Documented by: Sodium Chloride (Normal Saline) 100 mls @ 3.5 mls/sec IV ASDIRECTED [facility] Stop: 06/10/20 18:00 Last Admin: 06/10/20 17:45 Dose: 4 mls/sec Documented by: Remdesivir 100 mg/ Sodium (Chloride) 100 mls @ 100 mls/hr IV Q24H [facility] Stop: 06/15/20 12:59 Last Admin: 06/15/20 12:49 Dose: 100 mls/hr Documented by: Remdesivir 200 mg/ Sodium (Chloride) 250 mls @ 250 mls/hr IV ONETIME ONE Stop: 06/11/20 12:59 Last Admin: 06/11/20 12:30 Dose: 250 mls/hr Documented by: Sodium Chloride (Normal Saline) 100 mls @ 4 mls/sec IV ASDIRECTED [facility] Sodium Chloride (Normal Saline) 84 mls @ 3 mls/sec IV ONETIME ONE Stop: 07/03/20 10:26 Last Admin: 07/03/20 11:02 Dose: 3 mls/sec Documented by: Iopamidol (Isovue-370 (76%)) 57 ml IV . DIRECTED [facility] Last Admin: 06/10/20 17:44 Dose: 57 ml Documented by: Iopamidol (Isovue-370 (76%)) 100 ml IV . DIRECTED ONE Stop: 06/21/20 09:55 Last Admin: 06/21/20 10:31 Dose: 100 ml Documented by: Iopamidol (Isovue-300 (61%)) 70 ml IV . DIRECTED PRN PRN Reason: RADIOLOGY EXAM Stop: 07/03/20 10:26 Iopamidol (Isovue-370 (76%)) 70 ml IV . DIRECTED [facility] Stop: 07/03/20 16:00 Last Admin: 07/03/20 11:05 Dose: 70 ml Documented by: Ibrutinib (Imbruvica () 320 MgPom) 0 mg PO BEDTIME [facility] Last Admin: 06/10/20 21:24 Dose: Not Given Documented by: Pantoprazole Sodium (Protonix Iv) 40 mg IVPUSH DAILY [facility] Last Admin: 06/11/20 08:15 Dose: 40 mg Documented by: Sodium Chloride (Saline Flush) 10 ml FLUSH ASDIRECTED PRN PRN Reason: Keep Vein Open Last Admin: 06/09/20 19:38 Dose: 10 ml Documented by: Sodium Chloride (Saline Flush) 10 ml FLUSH ONETIME ONE Stop: 06/10/20 15:42 Last Admin: 06/10/20 17:45 Dose: 10 ml Documented by: Sodium Chloride (Saline Flush) 10 ml FLUSH ONETIME PRN PRN Reason: PER RADIOLOGY PROTOCOL Stop: 07/03/20 10:26 Last Admin: 07/03/20 11:02 Dose: 10 ml Documented by: - Exam Quality Assessment: Supplemental Oxygen, DVT Prophylaxis General: Alert, Oriented, Cooperative, Moderate Distress Lungs: Rales. No: Crackles, Rhonchi, Wheezing Cardiovascular: Regular Rate, Regular Rhythm, No Murmurs GI/Abdominal Exam: Soft, Non-Tender, No Organomegaly, No Distention Extremities: Non-Tender, No Pedal Edema Sepsis Event Note - Evaluation Sepsis Screening Result: Sepsis Risk - Focused Exam Vital Signs: Vital Signs Temp Temp Pulse Pulse Resp BP BP 07/07/20 12:23 96.9 F 07/07/20 11:00 99.1 F 96 18 121/61 07/07/20 08:19 91 131/67 07/07/20 07:22 98.4 F 83 18 131/67 07/07/20 07:19 07/07/20 02:25 97 F 92 26 H 111/65 Pulse Ox 07/07/20 12:23 07/07/20 11:00 87 L 07/07/20 08:19 07/07/20 07:22 93 L 07/07/20 07:19 97 07/07/20 02:25 95 - Problem List Review Problem List Initiated/Reviewed/Updated: Yes - Plan Plan:: ASSESSMENT AND PLAN COVID-19 PNEUMONIA-complicated by acute respiratory failure with hypoxia. Now complicated by pneumothorax. Modest improvement in oxygenation over the past few days -Continue Decadron, taper over the next 15 days -Repeat labs every 2-3 days -Supplemental oxygen -Supportive care -Prone ventilation as tolerated RIGHT PNEUMOTHORAX AND PNEUMOMEDIASTINUM-noted on CT scan 07/03. Pneumothorax is small at this time and does not require chest tube intervention. -Repeat chest x-ray with acute changes -Hold off on noninvasive ventilation to avoid increased pulmonary pressure -Surgical consultation if pneumothorax is enlarging CHRONIC LYMPHOCYTIC LEUKEMIA-stable. -Continue ibrutinib MAINTENANCE ISSUES -DVT prophylaxis; Lovenox 40 mg subcu daily -GI prophylaxis; not indicated -Interiano catheter; not indicated -Nutrition; regular diet DISPOSITION-anticipate discharge to home after the hospital stay.
[2020-07-07] MEDS: Dexamethasone 2 MG Tab PO SCH ×2 (13:42→14:22)
[2020-07-07] MEDS: Simvastatin 20 MG Tab PO SCH (20:35)
[2020-07-08] MEDS: IMBRUVICA 420 MG PO SCH (08:59)
[2020-07-08] MEDS: Aspirin 81 MG Tab.EC PO SCH (08:59)
[2020-07-08] MEDS: Lactobacillus Rhamnosus GG (Probiotic) Cap PO SCH ×2 (08:59→21:23)
[2020-07-08] MEDS: Enoxaparin 40 MG/0.4 ML Syringe SUBCUT SCH (08:59)
[2020-07-08] MEDS: Metoprolol Succinate 25 MG Tab.ER PO SCH (09:00)
[2020-07-08] MEDS: Acetaminophen 325 MG Tab PO PRN ×2 (09:00→18:04)
--- NOTE | 2020-07-08 11:06 | CR ---
CHEST: Portable 07/08/2020 at 10:43 AM CLINICAL HISTORY:New fever COMPARISON:07/06/2020 FINDINGS: Diffuse bilateral pulmonary infiltrates persist without significant interval change. No definite pneumothorax is identified. There is some residual air in the mediastinum. IMPRESSION: Persistent bilateral pulmonary infiltrates. Minimal residual pneumomediastinum
[2020-07-08] MEDS: Dexamethasone 2 MG Tab PO SCH (12:57)
--- NOTE | 2020-07-08 14:33 | PCM.PN ---
- General Info Date of Service: 07/08/20 Subjective Update: Ms. 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 She does not feel as well today more fatigued and slightly more short of breath. Oxygen requirements have remained stable over the last 24 hours. Evaluation today for potential source of underlying fever is unremarkable. Chest x-ray showed no new infiltrates and urinalysis is clear. 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 Procalcitonin level was within normal range. She denies significant abdominal pain, diarrhea, cough, or skin lesions. - Review of Systems General: Reports: Fever, Weakness, Fatigue. Denies: Chills Pulmonary: Reports: Shortness of Breath. Denies: Pleuritic Chest Pain, Cough, Sputum, Hemoptysis, Wheezing Cardiovascular: Reports: Dyspnea on Exertion. Denies: Chest Pain, Palpitations, Orthopnea, PND, Edema Gastrointestinal: Reports: No Symptoms Genitourinary: Reports: No Symptoms Skin: Reports: No Symptoms - Patient Data Vitals - Most Recent: Last Vital Signs Temp 97.6 F 07/08/20 10:56 Pulse 98 07/08/20 10:56 Resp 20 07/08/20 10:56 BP 111/64 07/08/20 10:56 Pulse Ox 96 07/08/20 10:56 Weight - Most Recent: 130 lb I&O - Last 24 Hours: Intake & Output 07/07/20 07/08/20 07/08/20 22:59 06:59 14:59 Intake Total 840 350 480 Output Total 300 1000 Balance 540 -650 480 Lab Results Last 24 Hours: Laboratory Results - last 24 hr 07/08/20 07/08/20 07/08/20 Range/Units 10:11 10:11 10:11 WBC 28.3 H (4.5-11.0) K/uL RBC 2.96 L (3.30-5.50) M/uL Hgb 8.7 L (12.0-15.0) g/dL Hct 28.4 L (36.0-48.0) % MCV 96 (80-98) fL MCH 29 (27-31) pg MCHC 31 L (32-36) % Plt Count 412 H (150-400) K/uL Neut % (Auto) 57 (36-66) % Lymph % (Auto) 37 (24-44) % [place] % (Auto) 5 (2-6) % Eos % (Auto) 0 L (2-4) % Baso % (Auto) 0 (0-1) % Sodium 129 L (140-148) mmol/L Potassium 4.6 (3.6-5.2) mmol/L Chloride 97 L (100-108) mmol/L Carbon Dioxide 27 (21-32) mmol/L Anion Gap 9.6 (5.0-14.0) mmol/L BUN 42 H (7-18) mg/dL Creatinine 0.7 (0.6-1.0) mg/dL Est Cr Clr Drug Dosing 64.64 mL/min Estimated GFR (MDRD) > 60 (>60) Glucose 221 H (74-106) mg/dL Calcium 7.9 L (8.5-10.1) mg/dL Total Bilirubin 0.3 (0.2-1.0) mg/dL AST 49 H D (15-37) U/L ALT 78 D (12-78) U/L Alkaline Phosphatase 175 H (46-116) U/L C-Reactive Protein 2.31 H (0.0-0.3) mg/dL Total Protein 5.4 L (6.4-8.2) g/dL Albumin 1.8 L (3.4-5.0) g/dL Globulin 3.6 H (2.3-3.5) g/dL Albumin/Globulin Ratio 0.5 L (1.2-2.2) Procalcitonin < 0.05 ng/mL Urine Color (YELLOW) Urine Appearance (CLEAR) Urine pH (5.0-8.0) Ur Specific [place] (1.008-1.030) Urine Protein (NEGATIVE) mg/dL Urine Glucose (UA) (NEGATIVE) mg/dL Urine Ketones (NEGATIVE) mg/dL Urine Occult Blood (NEGATIVE) Urine Nitrite (NEGATIVE) Urine Bilirubin (NEGATIVE) Urine Urobilinogen (0.2-1.0) EU/dL Ur Leukocyte Esterase (NEGATIVE) Urine RBC (0-5) Urine WBC (0-5) Ur Epithelial Cells Amorphous Sediment Urine Bacteria Urine Mucus 07/08/20 Range/Units 11:05 WBC (4.5-11.0) K/uL RBC (3.30-5.50) M/uL Hgb (12.0-15.0) g/dL Hct (36.0-48.0) % MCV (80-98) fL MCH (27-31) pg MCHC (32-36) % Plt Count (150-400) K/uL Neut % (Auto) (36-66) % Lymph % (Auto) (24-44) % [place] % (Auto) (2-6) % Eos % (Auto) (2-4) % Baso % (Auto) (0-1) % Sodium (140-148) mmol/L Potassium (3.6-5.2) mmol/L Chloride (100-108) mmol/L Carbon Dioxide (21-32) mmol/L Anion Gap (5.0-14.0) mmol/L BUN (7-18) mg/dL Creatinine (0.6-1.0) mg/dL Est Cr Clr Drug Dosing mL/min Estimated GFR (MDRD) (>60) Glucose (74-106) mg/dL Calcium (8.5-10.1) mg/dL Total Bilirubin (0.2-1.0) mg/dL AST (15-37) U/L ALT (12-78) U/L Alkaline Phosphatase (46-116) U/L C-Reactive Protein (0.0-0.3) mg/dL Total Protein (6.4-8.2) g/dL Albumin (3.4-5.0) g/dL Globulin (2.3-3.5) g/dL Albumin/Globulin Ratio (1.2-2.2) Procalcitonin ng/mL Urine Color Yellow (YELLOW) Urine Appearance Clear (CLEAR) Urine pH 7.0 (5.0-8.0) Ur Specific [place] 1.020 (1.008-1.030) Urine Protein 30 H (NEGATIVE) mg/dL Urine Glucose (UA) Negative (NEGATIVE) mg/dL Urine Ketones Negative (NEGATIVE) mg/dL Urine Occult Blood Small H (NEGATIVE) Urine Nitrite Negative (NEGATIVE) Urine Bilirubin Negative (NEGATIVE) Urine Urobilinogen 1.0 (0.2-1.0) EU/dL Ur Leukocyte Esterase Negative (NEGATIVE) Urine RBC 5-10 H (0-5) Urine WBC 0-5 (0-5) Ur Epithelial Cells Few Amorphous Sediment Not seen Urine Bacteria Not seen Urine Mucus Not seen Med Orders - Current: Current Medications Acetaminophen (Tylenol) 650 mg PO Q4H PRN PRN Reason: fever, pain Last Admin: 07/08/20 09:00 Dose: 650 mg Documented by: Aspirin (Halfprin) 81 mg PO DAILY [facility] Last Admin: 07/08/20 08:59 Dose: 81 mg Documented by: Benzonatate (Tessalon Perles) 100 mg PO TID PRN PRN Reason: Cough Bisacodyl (Dulcolax) 10 mg RECTAL DAILY PRN PRN Reason: Constipation Last Admin: 07/04/20 14:57 Dose: 10 mg Documented by: Dexamethasone (Dexamethasone) 2 mg PO Q24H [facility] Stop: 07/13/20 13:01 Dexamethasone (Dexamethasone) 1 mg PO Q24H [facility] Stop: 07/18/20 13:01 Enoxaparin Sodium (Lovenox) 40 mg SUBCUT Q24H [facility] Last Admin: 07/08/20 08:59 Dose: 40 mg Documented by: Guaifenesin/Dextromethorphan (Robitussin Dm) 10 ml PO Q4H PRN PRN Reason: Cough Lactobacillus Rhamnosus (Culturelle) 1 cap PO BID [facility] Last Admin: 07/08/20 08:59 Dose: 1 cap Documented by: Metoprolol Succinate (Toprol Xl) 25 mg PO DAILY [facility] Last Admin: 07/08/20 09:00 Dose: 25 mg Documented by: Ondansetron HCl (Zofran) 4 mg IVPUSH Q4H PRN PRN Reason: Nausea/Vomiting Imbruvica 420mg Tab ((Ptom)) 1 each PO DAILY [facility] Last Admin: 07/08/20 08:59 Dose: 1 each Documented by: Simvastatin (Zocor) 40 mg PO BEDTIME [facility] Last Admin: 07/07/20 20:35 Dose: 40 mg Documented by: Sodium Chloride (Saline Flush) 10 ml FLUSH ASDIRECTED PRN PRN Reason: Keep Vein Open Last Admin: 06/21/20 10:31 Dose: 10 ml Documented by: Sodium Chloride ([place] Nasal [place]) 1 ml SHONDA QID PRN PRN Reason: Nasal Dryness Last Admin: 07/02/20 02:08 Dose: 1 spray Documented by: Discontinued Medications Azithromycin (Zithromax) 500 mg PO ONETIME ONE Stop: 06/09/20 22:45 Last Admin: 06/09/20 23:44 Dose: 500 mg Documented by: Azithromycin (Zithromax) 250 mg PO DAILY [facility] Stop: 06/13/20 09:01 Last Admin: 06/10/20 08:39 Dose: 250 mg Documented by: Ceftriaxone Sodium (Rocephin) Confirm Administered Dose 1 gm IV .STK-MED ONE Stop: 06/09/20 23:29 Last Admin: 06/09/20 23:42 Dose: 1 gm Documented by: Dexamethasone (Decadron) 6 mg IVPUSH Q24H [facility] Last Admin: 06/15/20 15:43 Dose: Not Given Documented by: Dexamethasone (Dexamethasone) 6 mg PO Q24H [facility] Last Admin: 06/19/20 16:48 Dose: 6 mg Documented by: Dexamethasone (Decadron) 4 mg IVPUSH Q24H [facility] Last Admin: 07/01/20 15:17 Dose: 4 mg Documented by: Dexamethasone (Dexamethasone) 4 mg PO Q24H [facility] Last Admin: 07/03/20 14:33 Dose: 4 mg Documented by: Dexamethasone (Dexamethasone) 3 mg PO Q24H [facility] Stop: 07/08/20 13:01 Last Admin: 07/08/20 12:57 Dose: 3 mg Documented by: Doxycycline Hyclate (Vibramycin) 100 mg PO Q12H [facility] Stop: 06/15/20 23:59 Last Admin: 06/15/20 16:35 Dose: 100 mg Documented by: Enoxaparin Sodium (Lovenox) 60 mg SUBCUT BID [facility] Last Admin: 06/10/20 08:39 Dose: 60 mg Documented by: Furosemide (Lasix) 20 mg IVPUSH NOW ONE Stop: 06/10/20 14:46 Last Admin: 06/10/20 15:23 Dose: 20 mg Documented by: Furosemide (Lasix) 20 mg IVPUSH ONETIME ONE Stop: 06/21/20 13:01 Last Admin: 06/21/20 12:54 Dose: 20 mg Documented by: Furosemide (Lasix) 20 mg IVPUSH NOW ONE Stop: 06/25/20 14:31 Last Admin: 06/25/20 15:51 Dose: 20 mg Documented by: Furosemide (Lasix) 40 mg IVPUSH NOW ONE Stop: 07/02/20 11:46 Last Admin: 07/02/20 12:24 Dose: 40 mg Documented by: Furosemide (Lasix) 20 mg IVPUSH NOW ONE Stop: 07/06/20 13:16 Last Admin: 07/06/20 13:54 Dose: 20 mg Documented by: Sodium Chloride (Normal Saline) 1,000 mls @ 125 mls/hr IV ASDIRECTED ONE Stop: 06/10/20 03:03 Last Admin: 06/09/20 20:49 Dose: Not Given Documented by: Ceftriaxone Sodium 1 gm/ (Sodium Chloride) 50 mls @ 100 mls/hr IV Q24H [facility] Stop: 06/15/20 23:59 Last Admin: 06/14/20 22:30 Dose: 100 mls/hr Documented by: Sodium Chloride (Normal Saline) 1,000 mls @ 125 mls/hr IV ASDIRECTED [facility] Last Admin: 06/10/20 08:37 Dose: 125 mls/hr Documented by: Sodium Chloride (Normal Saline) Confirm Administered Dose 50 mls @ as directed .ROUTE .STK-MED ONE Stop: 06/09/20 23:29 Last Admin: 06/10/20 03:33 Dose: Not Given Documented by: Doxycycline Hyclate 100 mg/ (Sodium Chloride) 100 mls @ 100 mls/hr IV Q12H [facility] Last Admin: 06/12/20 02:15 Dose: 100 mls/hr Documented by: Sodium Chloride (Normal Saline) 100 mls @ 3.5 mls/sec IV ASDIRECTED [facility] Stop: 06/10/20 18:00 Last Admin: 06/10/20 17:45 Dose: 4 mls/sec Documented by: Remdesivir 100 mg/ Sodium (Chloride) 100 mls @ 100 mls/hr IV Q24H [facility] Stop: 06/15/20 12:59 Last Admin: 06/15/20 12:49 Dose: 100 mls/hr Documented by: Remdesivir 200 mg/ Sodium (Chloride) 250 mls @ 250 mls/hr IV ONETIME ONE Stop: 06/11/20 12:59 Last Admin: 06/11/20 12:30 Dose: 250 mls/hr Documented by: Sodium Chloride (Normal Saline) 100 mls @ 4 mls/sec IV ASDIRECTED [facility] Sodium Chloride (Normal Saline) 84 mls @ 3 mls/sec IV ONETIME ONE Stop: 07/03/20 10:26 Last Admin: 07/03/20 11:02 Dose: 3 mls/sec Documented by: Iopamidol (Isovue-370 (76%)) 57 ml IV . DIRECTED [facility] Last Admin: 06/10/20 17:44 Dose: 57 ml Documented by: Iopamidol (Isovue-370 (76%)) 100 ml IV . DIRECTED ONE Stop: 06/21/20 09:55 Last Admin: 06/21/20 10:31 Dose: 100 ml Documented by: Iopamidol (Isovue-300 (61%)) 70 ml IV . DIRECTED PRN PRN Reason: RADIOLOGY EXAM Stop: 07/03/20 10:26 Iopamidol (Isovue-370 (76%)) 70 ml IV . DIRECTED [facility] Stop: 07/03/20 16:00 Last Admin: 07/03/20 11:05 Dose: 70 ml Documented by: Ibrutinib (Imbruvica () 320 MgPom) 0 mg PO BEDTIME [facility] Last Admin: 06/10/20 21:24 Dose: Not Given Documented by: Pantoprazole Sodium (Protonix Iv) 40 mg IVPUSH DAILY [facility] Last Admin: 06/11/20 08:15 Dose: 40 mg Documented by: Sodium Chloride (Saline Flush) 10 ml FLUSH ASDIRECTED PRN PRN Reason: Keep Vein Open Last Admin: 06/09/20 19:38 Dose: 10 ml Documented by: Sodium Chloride (Saline Flush) 10 ml FLUSH ONETIME ONE Stop: 06/10/20 15:42 Last Admin: 06/10/20 17:45 Dose: 10 ml Documented by: Sodium Chloride (Saline Flush) 10 ml FLUSH ONETIME PRN PRN Reason: PER RADIOLOGY PROTOCOL Stop: 07/03/20 10:26 Last Admin: 07/03/20 11:02 Dose: 10 ml Documented by: - Exam Quality Assessment: Supplemental Oxygen, DVT Prophylaxis General: Alert, Oriented, Cooperative, Moderate Distress Lungs: Rales. No: Crackles, Rhonchi, Wheezing Cardiovascular: Regular Rate, Regular Rhythm, No Murmurs GI/Abdominal Exam: Soft, Non-Tender, No Organomegaly, No Distention Extremities: Non-Tender, No Pedal Edema Skin: Warm, Dry, Intact Sepsis Event Note - Evaluation Sepsis Screening Result: Sepsis Risk - Focused Exam Vital Signs: Vital Signs Temp Temp Temp Pulse Pulse Resp BP 07/08/20 10:56 97.6 F 98 20 07/08/20 09:30 99.8 F 07/08/20 09:00 99.7 F 101 H 128/64 07/08/20 07:16 07/08/20 07:14 99.7 F 101 H 24 H 07/08/20 03:00 99.1 F 102 H 24 H BP Pulse Ox 07/08/20 10:56 111/64 96 07/08/20 09:30 07/08/20 09:00 07/08/20 07:16 91 L 07/08/20 07:14 128/64 88 L 07/08/20 03:00 128/70 98 - Problem List Review Problem List Initiated/Reviewed/Updated: Yes - My Orders Last 24 Hours: My Active Orders 07/09/20 05:00 BASIC METABOLIC PANEL,BMP [CHEM] Timed 07/09/20 05:11 CRP [C-REACTIVE PROTEIN] [CHEM] AM D Dimer [D-DIMER QUANTITATIVE] [COAG] AM - Plan Plan:: ASSESSMENT AND PLAN COVID-19 PNEUMONIA-complicated by acute respiratory failure with hypoxia. Now complicated by pneumothorax. Fever early this morning, no obvious source identified on evaluation. Oxygenation has been stable over the past 24 hours, she continues to require relatively high levels of supplemental oxygen. -Continue Decadron, taper over the next 15 days -Repeat labs every 2-3 days -Supplemental oxygen -Supportive care RIGHT PNEUMOTHORAX AND PNEUMOMEDIASTINUM-noted on CT scan 07/03. Pneumothorax is small at this time and does not require chest tube intervention. -Repeat chest x-ray with acute changes -Hold off on noninvasive ventilation to avoid increased pulmonary pressure -Surgical consultation if pneumothorax is enlarging CHRONIC LYMPHOCYTIC LEUKEMIA-stable. -Continue ibrutinib MAINTENANCE ISSUES -DVT prophylaxis; Lovenox 40 mg subcu daily -GI prophylaxis; not indicated -Interiano catheter; not indicated -Nutrition; regular diet DISPOSITION-anticipate discharge to home after the hospital stay.
[2020-07-08] MEDS ORDERED: Glucose Gel 15 GM in 37.5 GM Tube PO PRN (17:48)
[2020-07-08] MEDS ORDERED: 50% Dextrose in Water 50 ML Syringe IV PRN (17:48)
[2020-07-08] MEDS: Simvastatin 20 MG Tab PO SCH (21:23)
[2020-07-08] MEDS: Insulin Lispro 100 Unit/ML 3 ML KwikPen SUBCUT SCH (21:23)
[2020-07-09] MEDS: Acetaminophen 325 MG Tab PO PRN ×4 (03:57→22:52)
[2020-07-09] MEDS: Insulin Lispro 100 Unit/ML 3 ML KwikPen SUBCUT SCH ×4 (08:25→21:59)
[2020-07-09] MEDS: Metoprolol Succinate 25 MG Tab.ER PO SCH (09:09)
[2020-07-09] MEDS: Lactobacillus Rhamnosus GG (Probiotic) Cap PO SCH ×2 (09:09→22:00)
[2020-07-09] MEDS: Aspirin 81 MG Tab.EC PO SCH (09:09)
[2020-07-09] MEDS: IMBRUVICA 420 MG PO SCH (09:15)
[2020-07-09] MEDS: Enoxaparin 40 MG/0.4 ML Syringe SUBCUT SCH (09:16)
[2020-07-09] MEDS ORDERED: Furosemide 20 MG Tab PO ONE (11:45)
[2020-07-09] MEDS ORDERED: Sodium Chloride 0.9% 10 ML Syringe FLUSH ONE (11:58)
[2020-07-09] MEDS ORDERED: Iopamidol 755 Mg/ML 100 ML Bottle IV SCH (12:00)
[2020-07-09] MEDS ORDERED: Sodium Chloride 0.9% 100 ML IV SCH (12:00)
[2020-07-09] MEDS: Dexamethasone 2 MG Tab PO SCH (12:30)
--- NOTE | 2020-07-09 12:57 | CT ---
Ang Chest CLINICAL HISTORY: Hypoxia TECHNIQUE: Thin section axial contiguous tomographic sections were taken through the chest after bolus IV iodinated contrast administration. Coronal and sagittal images were reconstructed. Auto dosage reduction and iterative reconstruction techniques employed. FINDINGS: Right-sided pneumothorax has resolved. There is some minimal air in the low neck and mediastinum. Diffuse bilateral pulmonary infiltrates persist. This is superimposed over some chronic lung disease. There are numerous central lobar bulla. There is moderate diffuse traction and cylindrical bronchiectasis. There are some right-sided lymph nodes There is a air-filled ovoid density in the right anterior hilum measuring 3.5 x 2.7 x 2.5 cm. This previously had a appearance of an area of consolidation with some air bronchograms. The internal air may be within dilated bronchi. Thick-walled bulla can have a similar appearance. There is now some mild mass effect on the right middle lobe pulmonary artery. There are no filling defects in the pulmonary arteries. IMPRESSION: No evidence of pulmonary embolus Persistent diffuse bilateral pulmonary infiltrates similar to the one view 07/03/2020 study. This is superimposed over severe underlying lung disease with bronchiectasis emphysema and pulmonary fibrosis. Ovoid area of soft tissue density in the right hilum. This appeared to be an area of consolidation on earlier studies, now with increasing air which may be dilated airways.. And now show some mild mass effect on the right middle lobe pulmonary artery. No pneumothorax with minimal residual pneumomediastinum
--- NOTE | 2020-07-09 14:01 | PCM.PN ---
- General Info Date of Service: 07/09/20 Functional Status: Reports: Pain Controlled, Tolerating Diet. Denies: New Symptoms - Review of Systems General: Reports: No Symptoms HEENT: Reports: No Symptoms Pulmonary: Reports: Shortness of Breath, Cough Cardiovascular: Reports: No Symptoms Gastrointestinal: Reports: No Symptoms Genitourinary: Reports: No Symptoms Musculoskeletal: Reports: No Symptoms Skin: Reports: No Symptoms Neurological: Reports: No Symptoms Psychiatric: Reports: No Symptoms - Patient Data Vitals - Most Recent: Last Vital Signs Temp 98.8 F 07/09/20 11:53 Pulse 98 07/09/20 11:53 Resp 27 H 07/09/20 11:53 BP 104/64 07/09/20 11:53 Pulse Ox 91 L 07/09/20 13:16 Weight - Most Recent: 130 lb I&O - Last 24 Hours: Intake & Output 07/08/20 07/09/20 07/09/20 22:59 06:59 14:59 Intake Total 720 300 296 Output Total 450 Balance 720 -150 296 Lab Results Last 24 Hours: Laboratory Results - last 24 hr 07/08/20 07/09/20 07/09/20 Range/Units 21:00 05:30 05:30 D-Dimer, Quantitative 4271.22 H (0.0-500.0) ng/mL Puncture Site ABG pH (7.350-7.450) ABG pCO2 (35.0-42.0) mmHg ABG pO2 (75.0-100.0) mmHg ABG HCO3 (22.0-26.0) mmol/L ABG Total CO2 (21.0-25.0) mmol/L ABG O2 Saturation (95.0-98.0) % ABG O2 Content (15.0-23.0) %vol ABG Base Excess mm/L ABG Hemoglobin (12.0-16.0) g/dL ABG Oxyhemoglobin % ABG Carboxyhemoglobin (0.0-1.6) % ABG Methemoglobin % Ricky Test O2 Delivery Device Oxygen Flow Rate L Sodium 132 L (140-148) mmol/L Potassium 4.7 (3.6-5.2) mmol/L Chloride 98 L (100-108) mmol/L Carbon Dioxide 29 (21-32) mmol/L Anion Gap 9.7 (5.0-14.0) mmol/L BUN 41 H (7-18) mg/dL Creatinine 0.7 (0.6-1.0) mg/dL Est Cr Clr Drug Dosing 64.64 mL/min Estimated GFR (MDRD) > 60 (>60) Glucose 124 H (74-106) mg/dL POC Glucose 293 H (74-106) MG/DL Calcium 8.3 L (8.5-10.1) mg/dL C-Reactive Protein (0.0-0.3) mg/dL 07/09/20 07/09/20 07/09/20 Range/Units 05:30 07:30 10:44 D-Dimer, Quantitative (0.0-500.0) ng/mL Puncture Site Lt radial ABG pH 7.597 H* (7.350-7.450) ABG pCO2 27.7 L (35.0-42.0) mmHg ABG pO2 51.6 L (75.0-100.0) mmHg ABG HCO3 27.2 H (22.0-26.0) mmol/L ABG Total CO2 24.7 (21.0-25.0) mmol/L ABG O2 Saturation 91.3 L (95.0-98.0) % ABG O2 Content 11.8 L (15.0-23.0) %vol ABG Base Excess 5.7 mm/L ABG Hemoglobin 9.5 L (12.0-16.0) g/dL ABG Oxyhemoglobin 88.7 % ABG Carboxyhemoglobin 3.1 H (0.0-1.6) % ABG Methemoglobin -0.2 % Ricky Test Passed O2 Delivery Device Non rebr mask Oxygen Flow Rate 12.0 L Sodium (140-148) mmol/L Potassium (3.6-5.2) mmol/L Chloride (100-108) mmol/L Carbon Dioxide (21-32) mmol/L Anion Gap (5.0-14.0) mmol/L BUN (7-18) mg/dL Creatinine (0.6-1.0) mg/dL Est Cr Clr Drug Dosing mL/min Estimated GFR (MDRD) (>60) Glucose (74-106) mg/dL POC Glucose 121 H (74-106) MG/DL Calcium (8.5-10.1) mg/dL C-Reactive Protein 2.97 H (0.0-0.3) mg/dL 07/09/20 Range/Units 11:30 D-Dimer, Quantitative (0.0-500.0) ng/mL Puncture Site ABG pH (7.350-7.450) ABG pCO2 (35.0-42.0) mmHg ABG pO2 (75.0-100.0) mmHg ABG HCO3 (22.0-26.0) mmol/L ABG Total CO2 (21.0-25.0) mmol/L ABG O2 Saturation (95.0-98.0) % ABG O2 Content (15.0-23.0) %vol ABG Base Excess mm/L ABG Hemoglobin (12.0-16.0) g/dL ABG Oxyhemoglobin % ABG Carboxyhemoglobin (0.0-1.6) % ABG Methemoglobin % Ricky Test O2 Delivery Device Oxygen Flow Rate L Sodium (140-148) mmol/L Potassium (3.6-5.2) mmol/L Chloride (100-108) mmol/L Carbon Dioxide (21-32) mmol/L Anion Gap (5.0-14.0) mmol/L BUN (7-18) mg/dL Creatinine (0.6-1.0) mg/dL Est Cr Clr Drug Dosing mL/min Estimated GFR (MDRD) (>60) Glucose (74-106) mg/dL POC Glucose 119 H (74-106) MG/DL Calcium (8.5-10.1) mg/dL C-Reactive Protein (0.0-0.3) mg/dL Med Orders - Current: Current Medications Acetaminophen (Tylenol) 650 mg PO Q4H PRN PRN Reason: fever, pain Last Admin: 07/09/20 09:22 Dose: 650 mg Documented by: Aspirin (Halfprin) 81 mg PO DAILY [facility] Last Admin: 07/09/20 09:09 Dose: 81 mg Documented by: Benzonatate (Tessalon Perles) 100 mg PO TID PRN PRN Reason: Cough Bisacodyl (Dulcolax) 10 mg RECTAL DAILY PRN PRN Reason: Constipation Last Admin: 07/04/20 14:57 Dose: 10 mg Documented by: Dexamethasone (Dexamethasone) 2 mg PO Q24H [facility] Stop: 07/13/20 13:01 Last Admin: 07/09/20 12:30 Dose: 2 mg Documented by: Dexamethasone (Dexamethasone) 1 mg PO Q24H [facility] Stop: 07/18/20 13:01 Dextrose (Glutose 15) 15 gm PO ONETIME PRN PRN Reason: Hypoglycemia Dextrose/Water (Dextrose 50% In Water) 50 ml IV ONETIME PRN PRN Reason: Hypoglycemia Enoxaparin Sodium (Lovenox) 40 mg SUBCUT Q24H [facility] Last Admin: 07/09/20 09:16 Dose: 40 mg Documented by: Guaifenesin/Dextromethorphan (Robitussin Dm) 10 ml PO Q4H PRN PRN Reason: Cough Sodium Chloride (Normal Saline) 100 mls @ 4 mls/sec IV ASDIRECTED [facility] Stop: 07/09/20 15:00 Last Admin: 07/09/20 12:21 Dose: 4 mls/sec Documented by: Insulin Human Lispro (Humalog) 0 unit SUBCUT QIDACANDBED [facility]; Protocol Last Admin: 07/09/20 12:17 Dose: Not Given Documented by: Iopamidol (Isovue-370 (76%)) 100 ml IV . DIRECTED [facility] Stop: 07/09/20 14:00 Last Admin: 07/09/20 12:21 Dose: 100 ml Documented by: Lactobacillus Rhamnosus (Culturelle) 1 cap PO BID [facility] Last Admin: 07/09/20 09:09 Dose: 1 cap Documented by: Metoprolol Succinate (Toprol Xl) 25 mg PO DAILY [facility] Last Admin: 07/09/20 09:09 Dose: 25 mg Documented by: Ondansetron HCl (Zofran) 4 mg IVPUSH Q4H PRN PRN Reason: Nausea/Vomiting Imbruvica 420mg Tab ((Ptom)) 1 each PO DAILY [facility] Last Admin: 07/09/20 09:15 Dose: 1 each Documented by: Simvastatin (Zocor) 40 mg PO BEDTIME [facility] Last Admin: 07/08/20 21:23 Dose: 40 mg Documented by: Sodium Chloride (Saline Flush) 10 ml FLUSH ASDIRECTED PRN PRN Reason: Keep Vein Open Last Admin: 06/21/20 10:31 Dose: 10 ml Documented by: Sodium Chloride ([employer] Nasal Tamiment) 1 ml SHONDA QID PRN PRN Reason: Nasal Dryness Last Admin: 07/02/20 02:08 Dose: 1 spray Documented by: Discontinued Medications Azithromycin (Zithromax) 500 mg PO ONETIME ONE Stop: 06/09/20 22:45 Last Admin: 06/09/20 23:44 Dose: 500 mg Documented by: Azithromycin (Zithromax) 250 mg PO DAILY [facility] Stop: 06/13/20 09:01 Last Admin: 06/10/20 08:39 Dose: 250 mg Documented by: Ceftriaxone Sodium (Rocephin) Confirm Administered Dose 1 gm IV .STK-MED ONE Stop: 06/09/20 23:29 Last Admin: 06/09/20 23:42 Dose: 1 gm Documented by: Dexamethasone (Decadron) 6 mg IVPUSH Q24H [facility] Last Admin: 06/15/20 15:43 Dose: Not Given Documented by: Dexamethasone (Dexamethasone) 6 mg PO Q24H [facility] Last Admin: 06/19/20 16:48 Dose: 6 mg Documented by: Dexamethasone (Decadron) 4 mg IVPUSH Q24H [facility] Last Admin: 07/01/20 15:17 Dose: 4 mg Documented by: Dexamethasone (Dexamethasone) 4 mg PO Q24H [facility] Last Admin: 07/03/20 14:33 Dose: 4 mg Documented by: Dexamethasone (Dexamethasone) 3 mg PO Q24H [facility] Stop: 07/08/20 13:01 Last Admin: 07/08/20 12:57 Dose: 3 mg Documented by: Doxycycline Hyclate (Vibramycin) 100 mg PO Q12H [facility] Stop: 06/15/20 23:59 Last Admin: 06/15/20 16:35 Dose: 100 mg Documented by: Enoxaparin Sodium (Lovenox) 60 mg SUBCUT BID [facility] Last Admin: 06/10/20 08:39 Dose: 60 mg Documented by: Furosemide (Lasix) 20 mg IVPUSH NOW ONE Stop: 06/10/20 14:46 Last Admin: 06/10/20 15:23 Dose: 20 mg Documented by: Furosemide (Lasix) 20 mg IVPUSH ONETIME ONE Stop: 06/21/20 13:01 Last Admin: 06/21/20 12:54 Dose: 20 mg Documented by: Furosemide (Lasix) 20 mg IVPUSH NOW ONE Stop: 06/25/20 14:31 Last Admin: 06/25/20 15:51 Dose: 20 mg Documented by: Furosemide (Lasix) 40 mg IVPUSH NOW ONE Stop: 07/02/20 11:46 Last Admin: 07/02/20 12:24 Dose: 40 mg Documented by: Furosemide (Lasix) 20 mg IVPUSH NOW ONE Stop: 07/06/20 13:16 Last Admin: 07/06/20 13:54 Dose: 20 mg Documented by: Furosemide (Lasix) 60 mg PO ONETIME ONE Stop: 07/09/20 11:46 Last Admin: 07/09/20 12:29 Dose: 60 mg Documented by: Sodium Chloride (Normal Saline) 1,000 mls @ 125 mls/hr IV ASDIRECTED ONE Stop: 06/10/20 03:03 Last Admin: 06/09/20 20:49 Dose: Not Given Documented by: Ceftriaxone Sodium 1 gm/ (Sodium Chloride) 50 mls @ 100 mls/hr IV Q24H [facility] Stop: 06/15/20 23:59 Last Admin: 06/14/20 22:30 Dose: 100 mls/hr Documented by: Sodium Chloride (Normal Saline) 1,000 mls @ 125 mls/hr IV ASDIRECTED [facility] Last Admin: 06/10/20 08:37 Dose: 125 mls/hr Documented by: Sodium Chloride (Normal Saline) Confirm Administered Dose 50 mls @ as directed .ROUTE .STK-MED ONE Stop: 06/09/20 23:29 Last Admin: 06/10/20 03:33 Dose: Not Given Documented by: Doxycycline Hyclate 100 mg/ (Sodium Chloride) 100 mls @ 100 mls/hr IV Q12H [facility] Last Admin: 06/12/20 02:15 Dose: 100 mls/hr Documented by: Sodium Chloride (Normal Saline) 100 mls @ 3.5 mls/sec IV ASDIRECTED [facility] Stop: 06/10/20 18:00 Last Admin: 06/10/20 17:45 Dose: 4 mls/sec Documented by: Remdesivir 100 mg/ Sodium (Chloride) 100 mls @ 100 mls/hr IV Q24H [facility] Stop: 06/15/20 12:59 Last Admin: 06/15/20 12:49 Dose: 100 mls/hr Documented by: Remdesivir 200 mg/ Sodium (Chloride) 250 mls @ 250 mls/hr IV ONETIME ONE Stop: 06/11/20 12:59 Last Admin: 06/11/20 12:30 Dose: 250 mls/hr Documented by: Sodium Chloride (Normal Saline) 100 mls @ 4 mls/sec IV ASDIRECTED [facility] Sodium Chloride (Normal Saline) 84 mls @ 3 mls/sec IV ONETIME ONE Stop: 07/03/20 10:26 Last Admin: 07/03/20 11:02 Dose: 3 mls/sec Documented by: Iopamidol (Isovue-370 (76%)) 57 ml IV . DIRECTED [facility] Last Admin: 06/10/20 17:44 Dose: 57 ml Documented by: Iopamidol (Isovue-370 (76%)) 100 ml IV . DIRECTED ONE Stop: 06/21/20 09:55 Last Admin: 06/21/20 10:31 Dose: 100 ml Documented by: Iopamidol (Isovue-300 (61%)) 70 ml IV . DIRECTED PRN PRN Reason: RADIOLOGY EXAM Stop: 07/03/20 10:26 Iopamidol (Isovue-370 (76%)) 70 ml IV . DIRECTED [facility] Stop: 07/03/20 16:00 Last Admin: 07/03/20 11:05 Dose: 70 ml Documented by: Ibrutinib (Imbruvica () 320 MgPom) 0 mg PO BEDTIME [facility] Last Admin: 06/10/20 21:24 Dose: Not Given Documented by: Pantoprazole Sodium (Protonix Iv) 40 mg IVPUSH DAILY [facility] Last Admin: 06/11/20 08:15 Dose: 40 mg Documented by: Sodium Chloride (Saline Flush) 10 ml FLUSH ASDIRECTED PRN PRN Reason: Keep Vein Open Last Admin: 06/09/20 19:38 Dose: 10 ml Documented by: Sodium Chloride (Saline Flush) 10 ml FLUSH ONETIME ONE Stop: 06/10/20 15:42 Last Admin: 06/10/20 17:45 Dose: 10 ml Documented by: Sodium Chloride (Saline Flush) 10 ml FLUSH ONETIME PRN PRN Reason: PER RADIOLOGY PROTOCOL Stop: 07/03/20 10:26 Last Admin: 07/03/20 11:02 Dose: 10 ml Documented by: Sodium Chloride (Saline Flush) 10 ml FLUSH ONETIME ONE Stop: 07/09/20 11:59 Last Admin: 07/09/20 12:21 Dose: 10 ml Documented by: - Exam Quality Assessment: Supplemental Oxygen, DVT Prophylaxis. No: Urine Catheter General: Alert, Oriented, Cooperative, Mild Distress, Sedated HEENT: EOMI Lungs: Crackles, Rales Cardiovascular: Regular Rate, Regular Rhythm, No Murmurs GI/Abdominal Exam: Normal Bowel Sounds Sepsis Event Note - Evaluation Sepsis Screening Result: Sepsis Risk - Focused Exam Vital Signs: Vital Signs Temp Temp Temp Pulse Pulse Resp BP 07/09/20 13:16 07/09/20 11:53 98.8 F 98 27 H 07/09/20 09:52 99.4 F 07/09/20 09:22 99.2 F 07/09/20 09:09 112 H 130/68 07/09/20 07:50 07/09/20 07:26 98 F 91 26 H 07/09/20 04:27 98.9 F 07/09/20 03:57 100.5 F 07/09/20 03:32 100.1 F 111 H 25 H BP Pulse Ox 07/09/20 13:16 91 L 07/09/20 11:53 104/64 97 07/09/20 09:52 07/09/20 09:22 07/09/20 09:09 07/09/20 07:50 91 L 07/09/20 07:26 113/61 96 07/09/20 04:27 07/09/20 03:57 07/09/20 03:32 127/72 92 L - Problem List Review Problem List Initiated/Reviewed/Updated: Yes - Plan Plan:: ASSESSMENT AND PLAN COVID-19 PNEUMONIA-complicated by acute respiratory failure with hypoxia. Now complicated by pneumothorax. Fever early this morning, no obvious source identified on evaluation. Oxygenation has been stable over the past 24 hours, she continues to require relatively high levels of supplemental oxygen. The patient continues to require oxygen at high rates. Overnight between 07/08 and 07/09 the patient developed increasing respiratory rate and oxygen needs. The patient is now on standard facemask and 10L oxygen. CT of the chest continues to demonstrate bilateral infiltrates. No PE noted. -Lasix 60 mg po x 1 today -Continue Decadron, taper over the next 15 days -Repeat labs every 2-3 days -Supplemental oxygen -Supportive care RIGHT PNEUMOTHORAX AND PNEUMOMEDIASTINUM-noted on CT scan 07/03. Pneumothorax is small at this time and does not require chest tube intervention. -Repeat chest x-ray with acute changes -Hold off on noninvasive ventilation to avoid increased pulmonary pressure -Surgical consultation if pneumothorax is enlarging CHRONIC LYMPHOCYTIC LEUKEMIA-stable. -Continue ibrutinib MAINTENANCE ISSUES -DVT prophylaxis; Lovenox 40 mg subcu daily -GI prophylaxis; not indicated -Interiano catheter; not indicated -Nutrition; regular diet DISPOSITION-anticipate discharge to home after the hospital stay.
[2020-07-09] MEDS: Simvastatin 20 MG Tab PO SCH (22:00)
[2020-07-10] MEDS: Acetaminophen 325 MG Tab PO PRN (06:51)
[2020-07-10] MEDS: Enoxaparin 40 MG/0.4 ML Syringe SUBCUT SCH (08:22)
[2020-07-10] MEDS: Lactobacillus Rhamnosus GG (Probiotic) Cap PO SCH ×2 (08:22→20:42)
[2020-07-10] MEDS: Metoprolol Succinate 25 MG Tab.ER PO SCH (08:22)
[2020-07-10] MEDS: Aspirin 81 MG Tab.EC PO SCH (08:22)
[2020-07-10] MEDS: Insulin Lispro 100 Unit/ML 3 ML KwikPen SUBCUT SCH ×4 (08:23→21:13)
[2020-07-10] MEDS: IMBRUVICA 420 MG PO SCH (08:23)
[2020-07-10] MEDS: Furosemide 40 MG Tab PO SCH ×2 (09:35→13:09)
--- NOTE | 2020-07-10 13:05 | PCM.PN ---
- General Info Date of Service: 07/10/20 Subjective Update: Patient was visiting with her brother earlier today when we visited. No new concerns but the patient is of the mind that she is feeling better with the 60 mg po lasix. Brother rather tearful Functional Status: Reports: Pain Controlled, Tolerating Diet. Denies: New Symptoms - Review of Systems General: Reports: No Symptoms HEENT: Reports: No Symptoms Pulmonary: Reports: No Symptoms Cardiovascular: Reports: No Symptoms Gastrointestinal: Reports: No Symptoms - Patient Data Vitals - Most Recent: Last Vital Signs Temp 99 F 07/10/20 11:27 Pulse 97 07/10/20 11:27 Resp 30 H 07/10/20 11:27 BP 113/64 07/10/20 11:27 Pulse Ox 95 07/10/20 12:22 Weight - Most Recent: 130 lb I&O - Last 24 Hours: Intake & Output 07/09/20 07/10/20 07/10/20 22:59 06:59 14:59 Intake Total 360 240 120 Output Total 360 1200 Balance 0 240 -1080 Lab Results Last 24 Hours: Laboratory Results - last 24 hr 07/09/20 07/09/20 07/10/20 Range/Units 16:30 21:00 07:23 WBC (4.5-11.0) K/uL RBC (3.30-5.50) M/uL Hgb (12.0-15.0) g/dL Hct (36.0-48.0) % MCV (80-98) fL MCH (27-31) pg MCHC (32-36) % Plt Count (150-400) K/uL Add Manual Diff Neutrophils % (Manual) (36-66) % Band Neutrophils % (5-11) % Lymphocytes % (Manual) (24-44) % Monocytes % (Manual) (2-6) % Nucleated RBCs Puncture Site ABG pH (7.350-7.450) ABG pCO2 (35.0-42.0) mmHg ABG pO2 (75.0-100.0) mmHg ABG HCO3 (22.0-26.0) mmol/L ABG Total CO2 (21.0-25.0) mmol/L ABG O2 Saturation (95.0-98.0) % ABG O2 Content (15.0-23.0) %vol ABG Base Excess mm/L ABG Hemoglobin (12.0-16.0) g/dL ABG Oxyhemoglobin % ABG Carboxyhemoglobin (0.0-1.6) % ABG Methemoglobin % Ricky Test O2 Delivery Device Oxygen Flow Rate L Sodium (140-148) mmol/L Potassium (3.6-5.2) mmol/L Chloride (100-108) mmol/L Carbon Dioxide (21-32) mmol/L Anion Gap (5.0-14.0) mmol/L BUN (7-18) mg/dL Creatinine (0.6-1.0) mg/dL Est Cr Clr Drug Dosing mL/min Estimated GFR (MDRD) (>60) Glucose (74-106) mg/dL POC Glucose 167 H 244 H 161 H (74-106) MG/DL Calcium (8.5-10.1) mg/dL 07/10/20 07/10/20 07/10/20 Range/Units 09:08 09:08 11:30 WBC 31.4 H* (4.5-11.0) K/uL RBC 3.00 L (3.30-5.50) M/uL Hgb 8.9 L (12.0-15.0) g/dL Hct 28.9 L (36.0-48.0) % MCV 96 (80-98) fL MCH 30 (27-31) pg MCHC 31 L (32-36) % Plt Count 437 H (150-400) K/uL Add Manual Diff Yes Neutrophils % (Manual) 57 (36-66) % Band Neutrophils % 1 L (5-11) % Lymphocytes % (Manual) 34 (24-44) % Monocytes % (Manual) 8 H (2-6) % Nucleated RBCs 2 Puncture Site ABG pH (7.350-7.450) ABG pCO2 (35.0-42.0) mmHg ABG pO2 (75.0-100.0) mmHg ABG HCO3 (22.0-26.0) mmol/L ABG Total CO2 (21.0-25.0) mmol/L ABG O2 Saturation (95.0-98.0) % ABG O2 Content (15.0-23.0) %vol ABG Base Excess mm/L ABG Hemoglobin (12.0-16.0) g/dL ABG Oxyhemoglobin % ABG Carboxyhemoglobin (0.0-1.6) % ABG Methemoglobin % Ricky Test O2 Delivery Device Oxygen Flow Rate L Sodium 132 L (140-148) mmol/L Potassium 3.9 (3.6-5.2) mmol/L Chloride 93 L (100-108) mmol/L Carbon Dioxide 30 (21-32) mmol/L Anion Gap 12.9 (5.0-14.0) mmol/L BUN 47 H (7-18) mg/dL Creatinine 1.0 (0.6-1.0) mg/dL Est Cr Clr Drug Dosing 45.25 mL/min Estimated GFR (MDRD) 54 L (>60) Glucose 154 H (74-106) mg/dL POC Glucose 140 H (74-106) MG/DL Calcium 8.2 L (8.5-10.1) mg/dL 07/10/20 Range/Units 12:15 WBC (4.5-11.0) K/uL RBC (3.30-5.50) M/uL Hgb (12.0-15.0) g/dL Hct (36.0-48.0) % MCV (80-98) fL MCH (27-31) pg MCHC (32-36) % Plt Count (150-400) K/uL Add Manual Diff Neutrophils % (Manual) (36-66) % Band Neutrophils % (5-11) % Lymphocytes % (Manual) (24-44) % Monocytes % (Manual) (2-6) % Nucleated RBCs Puncture Site Rt radial ABG pH 7.507 H (7.350-7.450) ABG pCO2 40.2 (35.0-42.0) mmHg ABG pO2 65.8 L (75.0-100.0) mmHg ABG HCO3 31.6 H (22.0-26.0) mmol/L ABG Total CO2 29.1 H (21.0-25.0) mmol/L ABG O2 Saturation 93.2 L (95.0-98.0) % ABG O2 Content 12.0 L (15.0-23.0) %vol ABG Base Excess 8.0 mm/L ABG Hemoglobin 9.4 L (12.0-16.0) g/dL ABG Oxyhemoglobin 91.0 % ABG Carboxyhemoglobin 1.5 (0.0-1.6) % ABG Methemoglobin 0.9 % Ricky Test Pass O2 Delivery Device Non rebr mask Oxygen Flow Rate 10.0 L Sodium (140-148) mmol/L Potassium (3.6-5.2) mmol/L Chloride (100-108) mmol/L Carbon Dioxide (21-32) mmol/L Anion Gap (5.0-14.0) mmol/L BUN (7-18) mg/dL Creatinine (0.6-1.0) mg/dL Est Cr Clr Drug Dosing mL/min Estimated GFR (MDRD) (>60) Glucose (74-106) mg/dL POC Glucose (74-106) MG/DL Calcium (8.5-10.1) mg/dL Med Orders - Current: Current Medications Acetaminophen (Tylenol) 650 mg PO Q4H PRN PRN Reason: fever, pain Last Admin: 07/10/20 06:51 Dose: 650 mg Documented by: Aspirin (Halfprin) 81 mg PO DAILY [facility] Last Admin: 07/10/20 08:22 Dose: 81 mg Documented by: Benzonatate (Tessalon Perles) 100 mg PO TID PRN PRN Reason: Cough Bisacodyl (Dulcolax) 10 mg RECTAL DAILY PRN PRN Reason: Constipation Last Admin: 07/04/20 14:57 Dose: 10 mg Documented by: Dexamethasone (Dexamethasone) 2 mg PO Q24H [facility] Stop: 07/13/20 13:01 Last Admin: 07/09/20 12:30 Dose: 2 mg Documented by: Dexamethasone (Dexamethasone) 1 mg PO Q24H [facility] Stop: 07/18/20 13:01 Dextrose (Glutose 15) 15 gm PO ONETIME PRN PRN Reason: Hypoglycemia Dextrose/Water (Dextrose 50% In Water) 50 ml IV ONETIME PRN PRN Reason: Hypoglycemia Enoxaparin Sodium (Lovenox) 40 mg SUBCUT Q24H [facility] Last Admin: 07/10/20 08:22 Dose: 40 mg Documented by: Furosemide (Lasix) 40 mg PO BIDDIURETIC [facility] Last Admin: 07/10/20 09:35 Dose: 40 mg Documented by: Guaifenesin/Dextromethorphan (Robitussin Dm) 10 ml PO Q4H PRN PRN Reason: Cough Insulin Human Lispro (Humalog) 0 unit SUBCUT QIDACANDBED [facility]; Protocol Last Admin: 07/10/20 11:35 Dose: Not Given Documented by: Lactobacillus Rhamnosus (Culturelle) 1 cap PO BID [facility] Last Admin: 07/10/20 08:22 Dose: 1 cap Documented by: Metoprolol Succinate (Toprol Xl) 25 mg PO DAILY [facility] Last Admin: 07/10/20 08:22 Dose: 25 mg Documented by: Ondansetron HCl (Zofran) 4 mg IVPUSH Q4H PRN PRN Reason: Nausea/Vomiting Imbruvica 420mg Tab ((Ptom)) 1 each PO DAILY [facility] Last Admin: 07/10/20 08:23 Dose: 1 each Documented by: Simvastatin (Zocor) 40 mg PO BEDTIME [facility] Last Admin: 07/09/20 22:00 Dose: 40 mg Documented by: Sodium Chloride (Saline Flush) 10 ml FLUSH ASDIRECTED PRN PRN Reason: Keep Vein Open Last Admin: 06/21/20 10:31 Dose: 10 ml Documented by: Sodium Chloride ([place] Nasal [place]) 1 ml [place]ONDA QID PRN PRN Reason: Nasal Dryness Last Admin: 07/02/20 02:08 Dose: 1 spray Documented by: Discontinued Medications Azithromycin (Zithromax) 500 mg PO ONETIME ONE Stop: 06/09/20 22:45 Last Admin: 06/09/20 23:44 Dose: 500 mg Documented by: Azithromycin (Zithromax) 250 mg PO DAILY [facility] Stop: 06/13/20 09:01 Last Admin: 06/10/20 08:39 Dose: 250 mg Documented by: Ceftriaxone Sodium (Rocephin) Confirm Administered Dose 1 gm IV .STK-MED ONE Stop: 06/09/20 23:29 Last Admin: 06/09/20 23:42 Dose: 1 gm Documented by: Dexamethasone (Decadron) 6 mg IVPUSH Q24H [facility] Last Admin: 06/15/20 15:43 Dose: Not Given Documented by: Dexamethasone (Dexamethasone) 6 mg PO Q24H [facility] Last Admin: 06/19/20 16:48 Dose: 6 mg Documented by: Dexamethasone (Decadron) 4 mg IVPUSH Q24H [facility] Last Admin: 07/01/20 15:17 Dose: 4 mg Documented by: Dexamethasone (Dexamethasone) 4 mg PO Q24H [facility] Last Admin: 07/03/20 14:33 Dose: 4 mg Documented by: Dexamethasone (Dexamethasone) 3 mg PO Q24H [facility] Stop: 07/08/20 13:01 Last Admin: 07/08/20 12:57 Dose: 3 mg Documented by: Doxycycline Hyclate (Vibramycin) 100 mg PO Q12H [facility] Stop: 06/15/20 23:59 Last Admin: 06/15/20 16:35 Dose: 100 mg Documented by: Enoxaparin Sodium (Lovenox) 60 mg SUBCUT BID [facility] Last Admin: 06/10/20 08:39 Dose: 60 mg Documented by: Furosemide (Lasix) 20 mg IVPUSH NOW ONE Stop: 06/10/20 14:46 Last Admin: 06/10/20 15:23 Dose: 20 mg Documented by: Furosemide (Lasix) 20 mg IVPUSH ONETIME ONE Stop: 06/21/20 13:01 Last Admin: 06/21/20 12:54 Dose: 20 mg Documented by: Furosemide (Lasix) 20 mg IVPUSH NOW ONE Stop: 06/25/20 14:31 Last Admin: 06/25/20 15:51 Dose: 20 mg Documented by: Furosemide (Lasix) 40 mg IVPUSH NOW ONE Stop: 07/02/20 11:46 Last Admin: 07/02/20 12:24 Dose: 40 mg Documented by: Furosemide (Lasix) 20 mg IVPUSH NOW ONE Stop: 07/06/20 13:16 Last Admin: 07/06/20 13:54 Dose: 20 mg Documented by: Furosemide (Lasix) 60 mg PO ONETIME ONE Stop: 07/09/20 11:46 Last Admin: 07/09/20 12:29 Dose: 60 mg Documented by: Sodium Chloride (Normal Saline) 1,000 mls @ 125 mls/hr IV ASDIRECTED ONE Stop: 06/10/20 03:03 Last Admin: 06/09/20 20:49 Dose: Not Given Documented by: Ceftriaxone Sodium 1 gm/ (Sodium Chloride) 50 mls @ 100 mls/hr IV Q24H [facility] Stop: 06/15/20 23:59 Last Admin: 06/14/20 22:30 Dose: 100 mls/hr Documented by: Sodium Chloride (Normal Saline) 1,000 mls @ 125 mls/hr IV ASDIRECTED [facility] Last Admin: 06/10/20 08:37 Dose: 125 mls/hr Documented by: Sodium Chloride (Normal Saline) Confirm Administered Dose 50 mls @ as directed .ROUTE .STK-MED ONE Stop: 06/09/20 23:29 Last Admin: 06/10/20 03:33 Dose: Not Given Documented by: Doxycycline Hyclate 100 mg/ (Sodium Chloride) 100 mls @ 100 mls/hr IV Q12H [facility] Last Admin: 06/12/20 02:15 Dose: 100 mls/hr Documented by: Sodium Chloride (Normal Saline) 100 mls @ 3.5 mls/sec IV ASDIRECTED [facility] Stop: 06/10/20 18:00 Last Admin: 06/10/20 17:45 Dose: 4 mls/sec Documented by: Remdesivir 100 mg/ Sodium (Chloride) 100 mls @ 100 mls/hr IV Q24H [facility] Stop: 06/15/20 12:59 Last Admin: 06/15/20 12:49 Dose: 100 mls/hr Documented by: Remdesivir 200 mg/ Sodium (Chloride) 250 mls @ 250 mls/hr IV ONETIME ONE Stop: 06/11/20 12:59 Last Admin: 06/11/20 12:30 Dose: 250 mls/hr Documented by: Sodium Chloride (Normal Saline) 100 mls @ 4 mls/sec IV ASDIRECTED [facility] Sodium Chloride (Normal Saline) 84 mls @ 3 mls/sec IV ONETIME ONE Stop: 07/03/20 10:26 Last Admin: 07/03/20 11:02 Dose: 3 mls/sec Documented by: Sodium Chloride (Normal Saline) 100 mls @ 4 mls/sec IV ASDIRECTED [facility] Stop: 07/09/20 15:00 Last Admin: 07/09/20 12:21 Dose: 4 mls/sec Documented by: Iopamidol (Isovue-370 (76%)) 57 ml IV . DIRECTED [facility] Last Admin: 06/10/20 17:44 Dose: 57 ml Documented by: Iopamidol (Isovue-370 (76%)) 100 ml IV . DIRECTED ONE Stop: 06/21/20 09:55 Last Admin: 06/21/20 10:31 Dose: 100 ml Documented by: Iopamidol (Isovue-300 (61%)) 70 ml IV . DIRECTED PRN PRN Reason: RADIOLOGY EXAM Stop: 07/03/20 10:26 Iopamidol (Isovue-370 (76%)) 70 ml IV . DIRECTED [facility] Stop: 07/03/20 16:00 Last Admin: 07/03/20 11:05 Dose: 70 ml Documented by: Iopamidol (Isovue-370 (76%)) 100 ml IV . DIRECTED [facility] Stop: 07/09/20 14:00 Last Admin: 07/09/20 12:21 Dose: 100 ml Documented by: Ibrutinib (Imbruvica () 320 MgPom) 0 mg PO BEDTIME [facility] Last Admin: 06/10/20 21:24 Dose: Not Given Documented by: Pantoprazole Sodium (Protonix Iv) 40 mg IVPUSH DAILY [facility] Last Admin: 06/11/20 08:15 Dose: 40 mg Documented by: Sodium Chloride (Saline Flush) 10 ml FLUSH ASDIRECTED PRN PRN Reason: Keep Vein Open Last Admin: 06/09/20 19:38 Dose: 10 ml Documented by: Sodium Chloride (Saline Flush) 10 ml FLUSH ONETIME ONE Stop: 06/10/20 15:42 Last Admin: 06/10/20 17:45 Dose: 10 ml Documented by: Sodium Chloride (Saline Flush) 10 ml FLUSH ONETIME PRN PRN Reason: PER RADIOLOGY PROTOCOL Stop: 07/03/20 10:26 Last Admin: 07/03/20 11:02 Dose: 10 ml Documented by: Sodium Chloride (Saline Flush) 10 ml FLUSH ONETIME ONE Stop: 07/09/20 11:59 Last Admin: 07/09/20 12:21 Dose: 10 ml Documented by: - Exam Quality Assessment: Supplemental Oxygen, DVT Prophylaxis General: Alert, Oriented, Cooperative Lungs: Crackles, Rales Cardiovascular: Regular Rate, Regular Rhythm, No Murmurs GI/Abdominal Exam: Normal Bowel Sounds Sepsis Event Note - Evaluation Sepsis Screening Result: Sepsis Risk - Focused Exam Vital Signs: Vital Signs Temp Temp Temp Pulse Pulse Resp BP 07/10/20 12:22 07/10/20 11:27 99 F 97 30 H 07/10/20 08:22 104 H 105/60 07/10/20 07:38 07/10/20 07:22 98.2 F 104 H 32 H 07/10/20 06:51 100.3 F 07/10/20 03:00 97.6 F 95 18 07/10/20 01:00 BP Pulse Ox 07/10/20 12:22 95 07/10/20 11:27 113/64 97 07/10/20 08:22 07/10/20 07:38 95 07/10/20 07:22 105/60 96 07/10/20 06:51 07/10/20 03:00 108/56 L 92 L 07/10/20 01:00 93 L - Problem List Review Problem List Initiated/Reviewed/Updated: Yes - My Orders Last 24 Hours: My Active Orders 07/10/20 08:57 CXR [Chest 1V Frontal] [CR] Routine 07/10/20 08:59 Furosemide [Lasix] 40 mg PO BIDDIURETIC 07/11/20 08:57 BASIC METABOLIC PANEL,BMP [CHEM] DAILY CBC WITH AUTO DIFF [HEME] DAILY 07/12/20 08:57 BASIC METABOLIC PANEL,BMP [CHEM] DAILY - Plan Plan:: ASSESSMENT AND PLAN COVID-19 PNEUMONIA-complicated by acute respiratory failure with hypoxia. Now complicated by pneumothorax. Fever early this morning, no obvious source identified on evaluation. Oxygenation has been stable over the past 24 hours, she continues to require relatively high levels of supplemental oxygen. The patient continues to require oxygen at high rates. Overnight between 07/08 and 07/09 the patient developed increasing respiratory rate and oxygen needs. The patient is now on standard facemask and 10L oxygen. CT of the chest continues to demonstrate bilateral infiltrates. No PE noted. -Lasix 60 mg po was well tolerated with a good diuresis having been obtained. Patient subjectively feels better today - Start lasix 40 mg po bid for the time being. - Creatinine did come up from 0.7 to 1.0 today (will need to observe with daily lab) - It is reassuring to see that she is improved slightly today and that we've been able to get her down to 10-12 L -Continue Decadron, taper over the next 15 days -Repeat labs every 2-3 days -Supplemental oxygen -Supportive care RIGHT PNEUMOTHORAX AND PNEUMOMEDIASTINUM-noted on CT scan 07/03. Pneumothorax is small at this time and does not require chest tube intervention. -Repeat chest x-ray with acute changes -Hold off on noninvasive ventilation to avoid increased pulmonary pressure -Surgical consultation if pneumothorax is enlarging CHRONIC LYMPHOCYTIC LEUKEMIA-stable. -Continue ibrutinib MAINTENANCE ISSUES -DVT prophylaxis; Lovenox 40 mg subcu daily -GI prophylaxis; not indicated -Interiano catheter; not indicated -Nutrition; regular diet DISPOSITION-anticipate discharge to home after the hospital stay.
[2020-07-10] MEDS: Dexamethasone 2 MG Tab PO SCH (13:09)
[2020-07-10] MEDS: Simvastatin 20 MG Tab PO SCH (20:42)
[2020-07-11] MEDS: Insulin Lispro 100 Unit/ML 3 ML KwikPen SUBCUT SCH ×4 (07:53→21:42)
[2020-07-11] MEDS: Aspirin 81 MG Tab.EC PO SCH (08:27)
[2020-07-11] MEDS: Furosemide 40 MG Tab PO SCH ×2 (08:27→13:26)
[2020-07-11] MEDS: Enoxaparin 40 MG/0.4 ML Syringe SUBCUT SCH (08:27)
[2020-07-11] MEDS: Metoprolol Succinate 25 MG Tab.ER PO SCH (08:27)
[2020-07-11] MEDS: IMBRUVICA 420 MG PO SCH (08:28)
[2020-07-11] MEDS: Lactobacillus Rhamnosus GG (Probiotic) Cap PO SCH ×2 (08:28→20:22)
[2020-07-11] MEDS: Dexamethasone 2 MG Tab PO SCH (13:26)
--- NOTE | 2020-07-11 13:44 | PCM.PN ---
- General Info Date of Service: 07/11/20 Subjective Update: Patient is stable today States that she continues to feel better. Still needing 10-12 L via facemask Functional Status: Reports: Pain Controlled. Denies: New Symptoms - Review of Systems General: Reports: No Symptoms HEENT: Reports: No Symptoms Pulmonary: Reports: Shortness of Breath, Cough, Other (High oxygen requirement) Cardiovascular: Reports: No Symptoms Gastrointestinal: Reports: No Symptoms - Patient Data Vitals - Most Recent: Last Vital Signs Temp 99.8 F 07/11/20 11:05 Pulse 107 H 07/11/20 11:05 Resp 26 H 07/11/20 11:05 BP 137/74 07/11/20 11:05 Pulse Ox 98 07/11/20 12:59 Weight - Most Recent: 133 lb 9.602 oz I&O - Last 24 Hours: Intake & Output 07/10/20 07/11/20 07/11/20 22:59 06:59 14:59 Intake Total 590 300 Balance 590 300 Lab Results Last 24 Hours: Laboratory Results - last 24 hr 07/10/20 07/10/20 07/11/20 Range/Units 16:30 21:00 05:00 WBC (4.5-11.0) K/uL RBC (3.30-5.50) M/uL Hgb (12.0-15.0) g/dL Hct (36.0-48.0) % MCV (80-98) fL MCH (27-31) pg MCHC (32-36) % Plt Count (150-400) K/uL Neut % (Auto) (36-66) % Lymph % (Auto) (24-44) % [place] % (Auto) (2-6) % Eos % (Auto) (2-4) % Baso % (Auto) (0-1) % Sodium 128 L (140-148) mmol/L Potassium 3.7 (3.6-5.2) mmol/L Chloride 90 L (100-108) mmol/L Carbon Dioxide 32 (21-32) mmol/L Anion Gap 9.7 (5.0-14.0) mmol/L BUN 45 H (7-18) mg/dL Creatinine 0.9 (0.6-1.0) mg/dL Est Cr Clr Drug Dosing 50.28 mL/min Estimated GFR (MDRD) > 60 (>60) Glucose 145 H (74-106) mg/dL POC Glucose 222 H 298 H (74-106) MG/DL Calcium 8.3 L (8.5-10.1) mg/dL 07/11/20 07/11/20 07/11/20 Range/Units 05:00 07:30 11:38 WBC 29.9 H (4.5-11.0) K/uL RBC 3.07 L (3.30-5.50) M/uL Hgb 9.1 L (12.0-15.0) g/dL Hct 29.2 L (36.0-48.0) % MCV 95 (80-98) fL MCH 30 (27-31) pg MCHC 31 L (32-36) % Plt Count 417 H (150-400) K/uL Neut % (Auto) 57 (36-66) % Lymph % (Auto) 37 (24-44) % [place] % (Auto) 6 (2-6) % Eos % (Auto) 0 L (2-4) % Baso % (Auto) 0 (0-1) % Sodium (140-148) mmol/L Potassium (3.6-5.2) mmol/L Chloride (100-108) mmol/L Carbon Dioxide (21-32) mmol/L Anion Gap (5.0-14.0) mmol/L BUN (7-18) mg/dL Creatinine (0.6-1.0) mg/dL Est Cr Clr Drug Dosing mL/min Estimated GFR (MDRD) (>60) Glucose (74-106) mg/dL POC Glucose 136 H 301 H (74-106) MG/DL Calcium (8.5-10.1) mg/dL Med Orders - Current: Current Medications Acetaminophen (Tylenol) 650 mg PO Q4H PRN PRN Reason: fever, pain Last Admin: 07/10/20 06:51 Dose: 650 mg Documented by: Aspirin (Halfprin) 81 mg PO DAILY RANDALL Last Admin: 07/11/20 08:27 Dose: 81 mg Documented by: Benzonatate (Tessalon Perles) 100 mg PO TID PRN PRN Reason: Cough Bisacodyl (Dulcolax) 10 mg RECTAL DAILY PRN PRN Reason: Constipation Last Admin: 07/04/20 14:57 Dose: 10 mg Documented by: Dexamethasone (Dexamethasone) 2 mg PO Q24H PENDING SALE TO [facility] Stop: 07/13/20 13:01 Last Admin: 07/11/20 13:26 Dose: 2 mg Documented by: Dexamethasone (Dexamethasone) 1 mg PO Q24H PENDING SALE TO [facility] Stop: 07/18/20 13:01 Dextrose (Glutose 15) 15 gm PO ONETIME PRN PRN Reason: Hypoglycemia Dextrose/Water (Dextrose 50% In Water) 50 ml IV ONETIME PRN PRN Reason: Hypoglycemia Enoxaparin Sodium (Lovenox) 40 mg SUBCUT Q24H PENDING SALE TO [facility] Last Admin: 07/11/20 08:27 Dose: 40 mg Documented by: Furosemide (Lasix) 40 mg PO BIDDIURETIC PENDING SALE TO [facility] Last Admin: 07/11/20 13:26 Dose: 40 mg Documented by: Guaifenesin/Dextromethorphan (Robitussin Dm) 10 ml PO Q4H PRN PRN Reason: Cough Insulin Human Lispro (Humalog) 0 unit SUBCUT QIDACANDBED PENDING SALE TO [facility]; Protocol Last Admin: 07/11/20 11:42 Dose: 4 units Documented by: Lactobacillus Rhamnosus (Culturelle) 1 cap PO BID PENDING SALE TO [facility] Last Admin: 07/11/20 08:28 Dose: 1 cap Documented by: Metoprolol Succinate (Toprol Xl) 25 mg PO DAILY PENDING SALE TO [facility] Last Admin: 07/11/20 08:27 Dose: 25 mg Documented by: Ondansetron HCl (Zofran) 4 mg IVPUSH Q4H PRN PRN Reason: Nausea/Vomiting Imbruvica 420mg Tab ((Ptom)) 1 each PO DAILY PENDING SALE TO [facility] Last Admin: 07/11/20 08:28 Dose: 1 each Documented by: Simvastatin (Zocor) 40 mg PO BEDTIME PENDING SALE TO [facility] Last Admin: 07/10/20 20:42 Dose: 40 mg Documented by: Sodium Chloride (Saline Flush) 10 ml FLUSH ASDIRECTED PRN PRN Reason: Keep Vein Open Last Admin: 06/21/20 10:31 Dose: 10 ml Documented by: Sodium Chloride ([place] Nasal [place]) 1 ml SHONDA QID PRN PRN Reason: Nasal Dryness Last Admin: 07/02/20 02:08 Dose: 1 spray Documented by: Discontinued Medications Azithromycin (Zithromax) 500 mg PO ONETIME ONE Stop: 06/09/20 22:45 Last Admin: 06/09/20 23:44 Dose: 500 mg Documented by: Azithromycin (Zithromax) 250 mg PO DAILY PENDING SALE TO [facility] Stop: 06/13/20 09:01 Last Admin: 06/10/20 08:39 Dose: 250 mg Documented by: Ceftriaxone Sodium (Rocephin) Confirm Administered Dose 1 gm IV .STK-MED ONE Stop: 06/09/20 23:29 Last Admin: 06/09/20 23:42 Dose: 1 gm Documented by: Dexamethasone (Decadron) 6 mg IVPUSH Q24H PENDING SALE TO [facility] Last Admin: 06/15/20 15:43 Dose: Not Given Documented by: Dexamethasone (Dexamethasone) 6 mg PO Q24H PENDING SALE TO [facility] Last Admin: 06/19/20 16:48 Dose: 6 mg Documented by: Dexamethasone (Decadron) 4 mg IVPUSH Q24H PENDING SALE TO [facility] Last Admin: 07/01/20 15:17 Dose: 4 mg Documented by: Dexamethasone (Dexamethasone) 4 mg PO Q24H PENDING SALE TO [facility] Last Admin: 07/03/20 14:33 Dose: 4 mg Documented by: Dexamethasone (Dexamethasone) 3 mg PO Q24H PENDING SALE TO [facility] Stop: 07/08/20 13:01 Last Admin: 07/08/20 12:57 Dose: 3 mg Documented by: Doxycycline Hyclate (Vibramycin) 100 mg PO Q12H PENDING SALE TO [facility] Stop: 06/15/20 23:59 Last Admin: 06/15/20 16:35 Dose: 100 mg Documented by: Enoxaparin Sodium (Lovenox) 60 mg SUBCUT BID PENDING SALE TO [facility] Last Admin: 06/10/20 08:39 Dose: 60 mg Documented by: Furosemide (Lasix) 20 mg IVPUSH NOW ONE Stop: 06/10/20 14:46 Last Admin: 06/10/20 15:23 Dose: 20 mg Documented by: Furosemide (Lasix) 20 mg IVPUSH ONETIME ONE Stop: 06/21/20 13:01 Last Admin: 06/21/20 12:54 Dose: 20 mg Documented by: Furosemide (Lasix) 20 mg IVPUSH NOW ONE Stop: 06/25/20 14:31 Last Admin: 06/25/20 15:51 Dose: 20 mg Documented by: Furosemide (Lasix) 40 mg IVPUSH NOW ONE Stop: 07/02/20 11:46 Last Admin: 07/02/20 12:24 Dose: 40 mg Documented by: Furosemide (Lasix) 20 mg IVPUSH NOW ONE Stop: 07/06/20 13:16 Last Admin: 07/06/20 13:54 Dose: 20 mg Documented by: Furosemide (Lasix) 60 mg PO ONETIME ONE Stop: 07/09/20 11:46 Last Admin: 07/09/20 12:29 Dose: 60 mg Documented by: Sodium Chloride (Normal Saline) 1,000 mls @ 125 mls/hr IV ASDIRECTED ONE Stop: 06/10/20 03:03 Last Admin: 06/09/20 20:49 Dose: Not Given Documented by: Ceftriaxone Sodium 1 gm/ (Sodium Chloride) 50 mls @ 100 mls/hr IV Q24H PENDING SALE TO [facility] Stop: 06/15/20 23:59 Last Admin: 06/14/20 22:30 Dose: 100 mls/hr Documented by: Sodium Chloride (Normal Saline) 1,000 mls @ 125 mls/hr IV ASDIRECTED PENDING SALE TO [facility] Last Admin: 06/10/20 08:37 Dose: 125 mls/hr Documented by: Sodium Chloride (Normal Saline) Confirm Administered Dose 50 mls @ as directed .ROUTE .STK-MED ONE Stop: 06/09/20 23:29 Last Admin: 06/10/20 03:33 Dose: Not Given Documented by: Doxycycline Hyclate 100 mg/ (Sodium Chloride) 100 mls @ 100 mls/hr IV Q12H PENDING SALE TO [facility] Last Admin: 06/12/20 02:15 Dose: 100 mls/hr Documented by: Sodium Chloride (Normal Saline) 100 mls @ 3.5 mls/sec IV ASDIRECTED PENDING SALE TO [facility] Stop: 06/10/20 18:00 Last Admin: 06/10/20 17:45 Dose: 4 mls/sec Documented by: Remdesivir 100 mg/ Sodium (Chloride) 100 mls @ 100 mls/hr IV Q24H PENDING SALE TO [facility] Stop: 06/15/20 12:59 Last Admin: 06/15/20 12:49 Dose: 100 mls/hr Documented by: Remdesivir 200 mg/ Sodium (Chloride) 250 mls @ 250 mls/hr IV ONETIME ONE Stop: 06/11/20 12:59 Last Admin: 06/11/20 12:30 Dose: 250 mls/hr Documented by: Sodium Chloride (Normal Saline) 100 mls @ 4 mls/sec IV ASDIRECTED RANDALL Sodium Chloride (Normal Saline) 84 mls @ 3 mls/sec IV ONETIME ONE Stop: 07/03/20 10:26 Last Admin: 07/03/20 11:02 Dose: 3 mls/sec Documented by: Sodium Chloride (Normal Saline) 100 mls @ 4 mls/sec IV ASDIRECTED RANDALL Stop: 07/09/20 15:00 Last Admin: 07/09/20 12:21 Dose: 4 mls/sec Documented by: Iopamidol (Isovue-370 (76%)) 57 ml IV . DIRECTED RANDALL Last Admin: 06/10/20 17:44 Dose: 57 ml Documented by: Iopamidol (Isovue-370 (76%)) 100 ml IV . DIRECTED ONE Stop: 06/21/20 09:55 Last Admin: 06/21/20 10:31 Dose: 100 ml Documented by: Iopamidol (Isovue-300 (61%)) 70 ml IV . DIRECTED PRN PRN Reason: RADIOLOGY EXAM Stop: 07/03/20 10:26 Iopamidol (Isovue-370 (76%)) 70 ml IV . DIRECTED RANDALL Stop: 07/03/20 16:00 Last Admin: 07/03/20 11:05 Dose: 70 ml Documented by: Iopamidol (Isovue-370 (76%)) 100 ml IV . DIRECTED RANDALL Stop: 07/09/20 14:00 Last Admin: 07/09/20 12:21 Dose: 100 ml Documented by: Ibrutinib (Imbruvica () 320 MgPom) 0 mg PO BEDTIME PENDING SALE TO [facility] Last Admin: 06/10/20 21:24 Dose: Not Given Documented by: Pantoprazole Sodium (Protonix Iv) 40 mg IVPUSH DAILY PENDING SALE TO [facility] Last Admin: 06/11/20 08:15 Dose: 40 mg Documented by: Sodium Chloride (Saline Flush) 10 ml FLUSH ASDIRECTED PRN PRN Reason: Keep Vein Open Last Admin: 06/09/20 19:38 Dose: 10 ml Documented by: Sodium Chloride (Saline Flush) 10 ml FLUSH ONETIME ONE Stop: 06/10/20 15:42 Last Admin: 06/10/20 17:45 Dose: 10 ml Documented by: Sodium Chloride (Saline Flush) 10 ml FLUSH ONETIME PRN PRN Reason: PER RADIOLOGY PROTOCOL Stop: 07/03/20 10:26 Last Admin: 07/03/20 11:02 Dose: 10 ml Documented by: Sodium Chloride (Saline Flush) 10 ml FLUSH ONETIME ONE Stop: 07/09/20 11:59 Last Admin: 07/09/20 12:21 Dose: 10 ml Documented by: - Exam Quality Assessment: Supplemental Oxygen, DVT Prophylaxis General: Alert, Oriented, Cooperative, No Acute Distress Lungs: Normal Respiratory Effort, Crackles Cardiovascular: Regular Rate, Regular Rhythm Sepsis Event Note - Evaluation Sepsis Screening Result: Sepsis Risk - Focused Exam Vital Signs: Vital Signs Temp Temp Pulse Pulse Resp BP BP 07/11/20 12:59 07/11/20 11:05 99.8 F 107 H 26 H 137/74 07/11/20 08:27 99 102/64 07/11/20 07:44 07/11/20 07:14 99.3 F 99 20 102/64 07/11/20 04:00 98.9 F 07/11/20 02:31 99.6 F 101 H 18 102/61 07/11/20 01:48 Pulse Ox 07/11/20 12:59 98 07/11/20 11:05 88 L 07/11/20 08:27 07/11/20 07:44 96 07/11/20 07:14 95 07/11/20 04:00 07/11/20 02:31 92 L 07/11/20 01:48 96 - Problem List Review Problem List Initiated/Reviewed/Updated: Yes - My Orders Last 24 Hours: My Active Orders 07/12/20 05:11 BASIC METABOLIC PANEL,BMP [CHEM] DAILY CBC WITH AUTO DIFF [HEME] Routine - Plan Plan:: ASSESSMENT AND PLAN COVID-19 PNEUMONIA-complicated by acute respiratory failure with hypoxia. Now complicated by pneumothorax. Fever early this morning, no obvious source identified on evaluation. Oxygenation has been stable over the past 24 hours, she continues to require relatively high levels of supplemental oxygen. The patient continues to require oxygen at high rates. Overnight between 07/08 and 07/09 the patient developed increasing respiratory rate and oxygen needs. The patient is now on standard facemask and 10L oxygen. CT of the chest continues to demonstrate bilateral infiltrates. No PE noted. -Lasix 60 mg po was well tolerated with a good diuresis having been obtained. Patient subjectively feels better today - Start lasix 40 mg po bid for the time being. - Creatinine has thus far been stable fluctuating between 0.7 and 1.0. On 07/11 it was 0.9 - It is reassuring to see that she is improved slightly today and that we've been able to get her down to 10-12 L -Continue Decadron, taper over the next 12 days -Repeat labs every 2-3 days -Supplemental oxygen -Supportive care -Am starting to wonder about termite treater direction for the patient as she seems to have stabilized with this residual high flow requirement. I would wonder about consultative support and guidance from Pulmonary RIGHT PNEUMOTHORAX AND PNEUMOMEDIASTINUM-noted on CT scan 07/03. Pneumothorax is small at this time and does not require chest tube intervention. Not able to visualize at all on XR from 07/10 -Repeat chest x-ray with acute changes -Agree with plan to hold on positive pressure as it is suspected that previous efforts may have triggered the PTx. CHRONIC LYMPHOCYTIC LEUKEMIA-stable. -Continue ibrutinib MAINTENANCE ISSUES -DVT prophylaxis; Lovenox 40 mg subcu daily -GI prophylaxis; not indicated -Interiano catheter; not indicated -Nutrition; regular diet DISPOSITION-anticipate discharge to home after the hospital stay.
[2020-07-11] MEDS: Simvastatin 20 MG Tab PO SCH (20:22)
[2020-07-12] MEDS: Insulin Lispro 100 Unit/ML 3 ML KwikPen SUBCUT SCH ×4 (07:35→21:49)
[2020-07-12] MEDS: IMBRUVICA 420 MG PO SCH (08:21)
[2020-07-12] MEDS: Metoprolol Succinate 25 MG Tab.ER PO SCH (08:21)
[2020-07-12] MEDS: Furosemide 40 MG Tab PO SCH (08:21)
[2020-07-12] MEDS: Aspirin 81 MG Tab.EC PO SCH (08:21)
[2020-07-12] MEDS: Enoxaparin 40 MG/0.4 ML Syringe SUBCUT SCH (08:21)
[2020-07-12] MEDS: Lactobacillus Rhamnosus GG (Probiotic) Cap PO SCH ×2 (08:21→21:49)
[2020-07-12] MEDS: Acetaminophen 325 MG Tab PO PRN (10:58)
--- NOTE | 2020-07-12 11:59 | PCM.PN ---
- General Info Date of Service: 07/12/20 Subjective Update: No acute events overnight. She continues to use about 10 L of oxygen via nonrebreather. She is able to tolerate high flow nasal cannula for meals. She is not able to tolerate much in the way of activity and becomes very fatigued and short of breath with even minimal activity. She has not had much of an appetite. She has not had any fevers up until this afternoon when she had one very transiently. She feels weak but would like to continue with the current level of care and is not giving up at this time. Functional Status: Reports: Pain Controlled, Tolerating Diet - Review of Systems General: Reports: Weakness - Patient Data Vitals - Most Recent: Last Vital Signs Temp 38.7 C H 07/12/20 10:58 Pulse 94 07/12/20 10:46 Resp 28 H 07/12/20 10:46 BP 112/63 07/12/20 10:46 Pulse Ox 97 07/12/20 10:46 Weight - Most Recent: 61.6 kg I&O - Last 24 Hours: Intake & Output 07/11/20 07/12/20 07/12/20 22:59 06:59 14:59 Intake Total 750 240 240 Output Total 250 Balance 500 240 240 Lab Results Last 24 Hours: Laboratory Results - last 24 hr 07/11/20 07/11/20 07/12/20 Range/Units 16:30 21:00 04:48 WBC (4.5-11.0) K/uL RBC (3.30-5.50) M/uL Hgb (12.0-15.0) g/dL Hct (36.0-48.0) % MCV (80-98) fL MCH (27-31) pg MCHC (32-36) % Plt Count (150-400) K/uL Neut % (Auto) (36-66) % Lymph % (Auto) (24-44) % [place] % (Auto) (2-6) % Eos % (Auto) (2-4) % Baso % (Auto) (0-1) % Sodium 129 L (140-148) mmol/L Potassium 3.5 L (3.6-5.2) mmol/L Chloride 90 L (100-108) mmol/L Carbon Dioxide 33 H (21-32) mmol/L Anion Gap 9.5 (5.0-14.0) mmol/L BUN 57 H (7-18) mg/dL Creatinine 0.9 (0.6-1.0) mg/dL Est Cr Clr Drug Dosing 50.84 mL/min Estimated GFR (MDRD) > 60 (>60) Glucose 150 H (74-106) mg/dL POC Glucose 143 H 328 H (74-106) MG/DL Calcium 8.3 L (8.5-10.1) mg/dL 07/12/20 07/12/20 07/12/20 Range/Units 04:48 07:30 11:27 WBC 29.2 H (4.5-11.0) K/uL RBC 3.23 L (3.30-5.50) M/uL Hgb 9.8 L (12.0-15.0) g/dL Hct 30.7 L (36.0-48.0) % MCV 95 (80-98) fL MCH 30 (27-31) pg MCHC 32 (32-36) % Plt Count 377 (150-400) K/uL Neut % (Auto) 64 (36-66) % Lymph % (Auto) 30 (24-44) % [place] % (Auto) 6 (2-6) % Eos % (Auto) 0 L (2-4) % Baso % (Auto) 0 (0-1) % Sodium (140-148) mmol/L Potassium (3.6-5.2) mmol/L Chloride (100-108) mmol/L Carbon Dioxide (21-32) mmol/L Anion Gap (5.0-14.0) mmol/L BUN (7-18) mg/dL Creatinine (0.6-1.0) mg/dL Est Cr Clr Drug Dosing mL/min Estimated GFR (MDRD) (>60) Glucose (74-106) mg/dL POC Glucose 207 H 199 H (74-106) MG/DL Calcium (8.5-10.1) mg/dL Med Orders - Current: Current Medications Acetaminophen (Tylenol) 650 mg PO Q4H PRN PRN Reason: fever, pain Last Admin: 07/12/20 10:58 Dose: 650 mg Documented by: Aspirin (Halfprin) 81 mg PO DAILY RANDALL Last Admin: 07/12/20 08:21 Dose: 81 mg Documented by: Benzonatate (Tessalon Perles) 100 mg PO TID PRN PRN Reason: Cough Bisacodyl (Dulcolax) 10 mg RECTAL DAILY PRN PRN Reason: Constipation Last Admin: 07/04/20 14:57 Dose: 10 mg Documented by: Dexamethasone (Dexamethasone) 2 mg PO Q24H [facility] Stop: 07/13/20 13:01 Last Admin: 07/11/20 13:26 Dose: 2 mg Documented by: Dexamethasone (Dexamethasone) 1 mg PO Q24H [facility] Stop: 07/18/20 13:01 Dextrose (Glutose 15) 15 gm PO ONETIME PRN PRN Reason: Hypoglycemia Dextrose/Water (Dextrose 50% In Water) 50 ml IV ONETIME PRN PRN Reason: Hypoglycemia Enoxaparin Sodium (Lovenox) 40 mg SUBCUT Q24H [facility] Last Admin: 07/12/20 08:21 Dose: 40 mg Documented by: Furosemide (Lasix) 40 mg PO DAILY [facility] Guaifenesin/Dextromethorphan (Robitussin Dm) 10 ml PO Q4H PRN PRN Reason: Cough Insulin Human Lispro (Humalog) 0 unit SUBCUT QIDACANDBED [facility]; Protocol Last Admin: 07/12/20 07:35 Dose: 2 units Documented by: Lactobacillus Rhamnosus (Culturelle) 1 cap PO BID [facility] Last Admin: 07/12/20 08:21 Dose: 1 cap Documented by: Metoprolol Succinate (Toprol Xl) 25 mg PO DAILY [facility] Last Admin: 07/12/20 08:21 Dose: 25 mg Documented by: Ondansetron HCl (Zofran) 4 mg IVPUSH Q4H PRN PRN Reason: Nausea/Vomiting Imbruvica 420mg Tab ((Ptom)) 1 each PO DAILY [facility] Last Admin: 07/12/20 08:21 Dose: 1 each Documented by: Potassium Chloride (Klor-Con M20) 40 meq PO ONETIME ONE Stop: 07/12/20 11:57 Simvastatin (Zocor) 40 mg PO BEDTIME [facility] Last Admin: 07/11/20 20:22 Dose: 40 mg Documented by: Sodium Chloride (Saline Flush) 10 ml FLUSH ASDIRECTED PRN PRN Reason: Keep Vein Open Last Admin: 06/21/20 10:31 Dose: 10 ml Documented by: Sodium Chloride ([place] Nasal [place]) 1 ml SHONDA QID PRN PRN Reason: Nasal Dryness Last Admin: 07/02/20 02:08 Dose: 1 spray Documented by: Discontinued Medications Azithromycin (Zithromax) 500 mg PO ONETIME ONE Stop: 06/09/20 22:45 Last Admin: 06/09/20 23:44 Dose: 500 mg Documented by: Azithromycin (Zithromax) 250 mg PO DAILY [facility] Stop: 06/13/20 09:01 Last Admin: 06/10/20 08:39 Dose: 250 mg Documented by: Ceftriaxone Sodium (Rocephin) Confirm Administered Dose 1 gm IV .STK-MED ONE Stop: 06/09/20 23:29 Last Admin: 06/09/20 23:42 Dose: 1 gm Documented by: Dexamethasone (Decadron) 6 mg IVPUSH Q24H [facility] Last Admin: 06/15/20 15:43 Dose: Not Given Documented by: Dexamethasone (Dexamethasone) 6 mg PO Q24H [facility] Last Admin: 06/19/20 16:48 Dose: 6 mg Documented by: Dexamethasone (Decadron) 4 mg IVPUSH Q24H [facility] Last Admin: 07/01/20 15:17 Dose: 4 mg Documented by: Dexamethasone (Dexamethasone) 4 mg PO Q24H [facility] Last Admin: 07/03/20 14:33 Dose: 4 mg Documented by: Dexamethasone (Dexamethasone) 3 mg PO Q24H [facility] Stop: 07/08/20 13:01 Last Admin: 07/08/20 12:57 Dose: 3 mg Documented by: Doxycycline Hyclate (Vibramycin) 100 mg PO Q12H [facility] Stop: 06/15/20 23:59 Last Admin: 06/15/20 16:35 Dose: 100 mg Documented by: Enoxaparin Sodium (Lovenox) 60 mg SUBCUT BID [facility] Last Admin: 06/10/20 08:39 Dose: 60 mg Documented by: Furosemide (Lasix) 20 mg IVPUSH NOW ONE Stop: 06/10/20 14:46 Last Admin: 06/10/20 15:23 Dose: 20 mg Documented by: Furosemide (Lasix) 20 mg IVPUSH ONETIME ONE Stop: 06/21/20 13:01 Last Admin: 06/21/20 12:54 Dose: 20 mg Documented by: Furosemide (Lasix) 20 mg IVPUSH NOW ONE Stop: 06/25/20 14:31 Last Admin: 06/25/20 15:51 Dose: 20 mg Documented by: Furosemide (Lasix) 40 mg IVPUSH NOW ONE Stop: 07/02/20 11:46 Last Admin: 07/02/20 12:24 Dose: 40 mg Documented by: Furosemide (Lasix) 20 mg IVPUSH NOW ONE Stop: 07/06/20 13:16 Last Admin: 07/06/20 13:54 Dose: 20 mg Documented by: Furosemide (Lasix) 60 mg PO ONETIME ONE Stop: 07/09/20 11:46 Last Admin: 07/09/20 12:29 Dose: 60 mg Documented by: Furosemide (Lasix) 40 mg PO BIDDIURETIC RANDALL Last Admin: 07/12/20 08:21 Dose: 40 mg Documented by: Sodium Chloride (Normal Saline) 1,000 mls @ 125 mls/hr IV ASDIRECTED ONE Stop: 06/10/20 03:03 Last Admin: 06/09/20 20:49 Dose: Not Given Documented by: Ceftriaxone Sodium 1 gm/ (Sodium Chloride) 50 mls @ 100 mls/hr IV Q24H [facility] Stop: 06/15/20 23:59 Last Admin: 06/14/20 22:30 Dose: 100 mls/hr Documented by: Sodium Chloride (Normal Saline) 1,000 mls @ 125 mls/hr IV ASDIRECTED [facility] Last Admin: 06/10/20 08:37 Dose: 125 mls/hr Documented by: Sodium Chloride (Normal Saline) Confirm Administered Dose 50 mls @ as directed .ROUTE .STK-MED ONE Stop: 06/09/20 23:29 Last Admin: 06/10/20 03:33 Dose: Not Given Documented by: Doxycycline Hyclate 100 mg/ (Sodium Chloride) 100 mls @ 100 mls/hr IV Q12H [facility] Last Admin: 06/12/20 02:15 Dose: 100 mls/hr Documented by: Sodium Chloride (Normal Saline) 100 mls @ 3.5 mls/sec IV ASDIRECTED [facility] Stop: 06/10/20 18:00 Last Admin: 06/10/20 17:45 Dose: 4 mls/sec Documented by: Remdesivir 100 mg/ Sodium (Chloride) 100 mls @ 100 mls/hr IV Q24H [facility] Stop: 06/15/20 12:59 Last Admin: 06/15/20 12:49 Dose: 100 mls/hr Documented by: Remdesivir 200 mg/ Sodium (Chloride) 250 mls @ 250 mls/hr IV ONETIME ONE Stop: 06/11/20 12:59 Last Admin: 06/11/20 12:30 Dose: 250 mls/hr Documented by: Sodium Chloride (Normal Saline) 100 mls @ 4 mls/sec IV ASDIRECTED [facility] Sodium Chloride (Normal Saline) 84 mls @ 3 mls/sec IV ONETIME ONE Stop: 07/03/20 10:26 Last Admin: 07/03/20 11:02 Dose: 3 mls/sec Documented by: Sodium Chloride (Normal Saline) 100 mls @ 4 mls/sec IV ASDIRECTED [facility] Stop: 07/09/20 15:00 Last Admin: 07/09/20 12:21 Dose: 4 mls/sec Documented by: Iopamidol (Isovue-370 (76%)) 57 ml IV . DIRECTED [facility] Last Admin: 06/10/20 17:44 Dose: 57 ml Documented by: Iopamidol (Isovue-370 (76%)) 100 ml IV . DIRECTED ONE Stop: 06/21/20 09:55 Last Admin: 06/21/20 10:31 Dose: 100 ml Documented by: Iopamidol (Isovue-300 (61%)) 70 ml IV . DIRECTED PRN PRN Reason: RADIOLOGY EXAM Stop: 07/03/20 10:26 Iopamidol (Isovue-370 (76%)) 70 ml IV . DIRECTED [facility] Stop: 07/03/20 16:00 Last Admin: 07/03/20 11:05 Dose: 70 ml Documented by: Iopamidol (Isovue-370 (76%)) 100 ml IV . DIRECTED [facility] Stop: 07/09/20 14:00 Last Admin: 07/09/20 12:21 Dose: 100 ml Documented by: Ibrutinib (Imbruvica () 320 MgPom) 0 mg PO BEDTIME [facility] Last Admin: 06/10/20 21:24 Dose: Not Given Documented by: Pantoprazole Sodium (Protonix Iv) 40 mg IVPUSH DAILY [facility] Last Admin: 06/11/20 08:15 Dose: 40 mg Documented by: Sodium Chloride (Saline Flush) 10 ml FLUSH ASDIRECTED PRN PRN Reason: Keep Vein Open Last Admin: 06/09/20 19:38 Dose: 10 ml Documented by: Sodium Chloride (Saline Flush) 10 ml FLUSH ONETIME ONE Stop: 06/10/20 15:42 Last Admin: 06/10/20 17:45 Dose: 10 ml Documented by: Sodium Chloride (Saline Flush) 10 ml FLUSH ONETIME PRN PRN Reason: PER RADIOLOGY PROTOCOL Stop: 07/03/20 10:26 Last Admin: 07/03/20 11:02 Dose: 10 ml Documented by: Sodium Chloride (Saline Flush) 10 ml FLUSH ONETIME ONE Stop: 07/09/20 11:59 Last Admin: 07/09/20 12:21 Dose: 10 ml Documented by: - Exam Quality Assessment: Supplemental Oxygen General: Alert, Oriented, Cooperative, No Acute Distress Lungs: Normal Respiratory Effort, Crackles (rare both bases) Cardiovascular: Regular Rate, Regular Rhythm GI/Abdominal Exam: Soft, No Distention Extremities: No Pedal Edema. No: Increased Warmth Skin: Warm, Dry Psy/Mental Status: Alert, Normal Affect Sepsis Event Note - Evaluation Sepsis Screening Result: Sepsis Risk - Focused Exam Vital Signs: Vital Signs Temp Temp Pulse Pulse Resp BP BP 07/12/20 10:58 38.7 C H 07/12/20 10:46 38.7 C H 94 28 H 112/63 07/12/20 08:21 106 H 105/60 07/12/20 07:12 07/12/20 07:10 37.2 C 106 H 24 H 105/60 07/12/20 04:46 37 C 98 22 H 105/62 07/12/20 01:28 Pulse Ox 07/12/20 10:58 07/12/20 10:46 97 07/12/20 08:21 07/12/20 07:12 94 L 07/12/20 07:10 95 07/12/20 04:46 95 07/12/20 01:28 97 - Problem List Review Problem List Initiated/Reviewed/Updated: Yes - My Orders Last 24 Hours: My Active Orders 07/12/20 11:56 Potassium Chloride [Klor-Con M20] 40 meq PO ONETIME ONE 07/13/20 05:00 BASIC METABOLIC PANEL,BMP [CHEM] Timed CBC W/O DIFF,HEMOGRAM [HEME] Timed (1) CRP [C-REACTIVE PROTEIN] [CHEM] Timed D-DIMER QUANTITATIVE [COAG] Timed 07/13/20 09:00 Furosemide [Lasix] 40 mg PO DAILY 07/14/20 13:00 dexAMETHasone 1 mg PO Q24H - Plan Plan:: ASSESSMENT AND PLAN COVID-19 PNEUMONIA-complicated by acute respiratory failure with hypoxia. Pneumothorax has resolved. Stable but still quite compromised. She is becoming weaker by the day. Volume status seems to be fairly appropriate. -Change diuretics to once daily, consider stopping tomorrow -Supplemental oxygen, wean as able -Continue Decadron taper -Repeat labs every 3 days -Supportive care RIGHT PNEUMOTHORAX AND PNEUMOMEDIASTINUM-noted on CT scan 07/03. Pneumothorax has resolved. -Repeat chest x-ray with acute changes CHRONIC LYMPHOCYTIC LEUKEMIA-stable. -Continue ibrutinib MAINTENANCE ISSUES -DVT prophylaxis; Lovenox 40 mg subcu daily -GI prophylaxis; not indicated -Interiano catheter; not indicated -Nutrition; regular diet DISPOSITION-anticipate discharge to home if she survives the hospital stay. Mario Rey MD
[2020-07-12] MEDS ORDERED: Potassium Chloride 20 MEQ Tab.ER PO ONE (12:00)
[2020-07-12] MEDS: Dexamethasone 2 MG Tab PO SCH (12:16)
[2020-07-12] MEDS: Simvastatin 20 MG Tab PO SCH (21:49)
[2020-07-13] MEDS: Aspirin 81 MG Tab.EC PO SCH (09:05)
[2020-07-13] MEDS: Furosemide 40 MG Tab PO SCH ×2 (09:05→10:49)
[2020-07-13] MEDS: Insulin Lispro 100 Unit/ML 3 ML KwikPen SUBCUT SCH ×4 (09:05→22:55)
[2020-07-13] MEDS: Lactobacillus Rhamnosus GG (Probiotic) Cap PO SCH ×2 (09:05→22:53)
[2020-07-13] MEDS: IMBRUVICA 420 MG PO SCH (09:06)
[2020-07-13] MEDS: Enoxaparin 40 MG/0.4 ML Syringe SUBCUT SCH (09:06)
--- NOTE | 2020-07-13 09:59 | CR ---
CHEST: Portable 07/10/2020 CLINICAL HISTORY:Respiratory failure, covid COMPARISON:07/08/2020 FINDINGS: Diffuse bilateral pulmonary infiltrates persist. There is similar to the prior study.
[2020-07-13] MEDS: Metoprolol Succinate 25 MG Tab.ER PO SCH (10:48)
--- NOTE | 2020-07-13 11:48 | PCM.PN ---
- General Info Date of Service: 07/13/20 Subjective Update: There were no acute events overnight. Oxygenation has remained stable but not dramatically improved and she continues to require up to 10 L of oxygen. D-dimer and CRP have improved. She had one fever yesterday afternoon but none since. Appetite is not great. She becomes quickly fatigued and dyspneic with any activity. She looks dyspneic even at rest today. She feels tired. She would like to continue with the current plan of treatment and does not want to transition to comfort cares at this time. Functional Status: Reports: Pain Controlled, Tolerating Diet - Review of Systems General: Reports: Weakness, Fatigue. Denies: Fever - Patient Data Vitals - Most Recent: Last Vital Signs Temp 36.0 C L 07/13/20 10:59 Pulse 97 07/13/20 10:59 Resp 20 07/13/20 10:59 BP 105/64 07/13/20 10:59 Pulse Ox 94 L 07/13/20 10:59 Weight - Most Recent: 60.2 kg I&O - Last 24 Hours: Intake & Output 07/12/20 07/13/20 07/13/20 22:59 06:59 14:59 Intake Total 420 Output Total 650 Balance -230 Lab Results Last 24 Hours: Laboratory Results - last 24 hr 07/12/20 07/12/20 07/13/20 Range/Units 16:19 21:00 05:30 WBC 34.7 H* (4.5-11.0) K/uL RBC 3.33 (3.30-5.50) M/uL Hgb 10.0 L (12.0-15.0) g/dL Hct 31.5 L (36.0-48.0) % MCV 95 (80-98) fL MCH 30 (27-31) pg MCHC 32 (32-36) % Plt Count 420 H (150-400) K/uL D-Dimer, Quantitative (0.0-500.0) ng/mL Sodium (140-148) mmol/L Potassium (3.6-5.2) mmol/L Chloride (100-108) mmol/L Carbon Dioxide (21-32) mmol/L Anion Gap (5.0-14.0) mmol/L BUN (7-18) mg/dL Creatinine (0.6-1.0) mg/dL Est Cr Clr Drug Dosing mL/min Estimated GFR (MDRD) (>60) Glucose (74-106) mg/dL POC Glucose 192 H 231 H (74-106) MG/DL Calcium (8.5-10.1) mg/dL C-Reactive Protein (0.0-0.3) mg/dL 07/13/20 07/13/20 07/13/20 Range/Units 05:30 05:30 07:30 WBC (4.5-11.0) K/uL RBC (3.30-5.50) M/uL Hgb (12.0-15.0) g/dL Hct (36.0-48.0) % MCV (80-98) fL MCH (27-31) pg MCHC (32-36) % Plt Count (150-400) K/uL D-Dimer, Quantitative 2213.49 H (0.0-500.0) ng/mL Sodium 127 L (140-148) mmol/L Potassium 4.9 (3.6-5.2) mmol/L Chloride 90 L (100-108) mmol/L Carbon Dioxide 32 (21-32) mmol/L Anion Gap 9.9 (5.0-14.0) mmol/L BUN 68 H (7-18) mg/dL Creatinine 1.0 (0.6-1.0) mg/dL Est Cr Clr Drug Dosing 45.75 mL/min Estimated GFR (MDRD) 54 L (>60) Glucose 128 H (74-106) mg/dL POC Glucose 153 H (74-106) MG/DL Calcium 8.5 (8.5-10.1) mg/dL C-Reactive Protein 1.59 H (0.0-0.3) mg/dL 07/13/20 Range/Units 11:30 WBC (4.5-11.0) K/uL RBC (3.30-5.50) M/uL Hgb (12.0-15.0) g/dL Hct (36.0-48.0) % MCV (80-98) fL MCH (27-31) pg MCHC (32-36) % Plt Count (150-400) K/uL D-Dimer, Quantitative (0.0-500.0) ng/mL Sodium (140-148) mmol/L Potassium (3.6-5.2) mmol/L Chloride (100-108) mmol/L Carbon Dioxide (21-32) mmol/L Anion Gap (5.0-14.0) mmol/L BUN (7-18) mg/dL Creatinine (0.6-1.0) mg/dL Est Cr Clr Drug Dosing mL/min Estimated GFR (MDRD) (>60) Glucose (74-106) mg/dL POC Glucose 204 H (74-106) MG/DL Calcium (8.5-10.1) mg/dL C-Reactive Protein (0.0-0.3) mg/dL Med Orders - Current: Current Medications Acetaminophen (Tylenol) 650 mg PO Q4H PRN PRN Reason: fever, pain Last Admin: 07/12/20 10:58 Dose: 650 mg Documented by: Aspirin (Halfprin) 81 mg PO DAILY [facility] Last Admin: 07/13/20 09:05 Dose: 81 mg Documented by: Benzonatate (Tessalon Perles) 100 mg PO TID PRN PRN Reason: Cough Bisacodyl (Dulcolax) 10 mg RECTAL DAILY PRN PRN Reason: Constipation Last Admin: 07/04/20 14:57 Dose: 10 mg Documented by: Dexamethasone (Dexamethasone) 2 mg PO Q24H [facility] Stop: 07/13/20 13:01 Last Admin: 07/12/20 12:16 Dose: 2 mg Documented by: Dexamethasone (Dexamethasone) 1 mg PO Q24H [facility] Stop: 07/18/20 13:01 Dextrose (Glutose 15) 15 gm PO ONETIME PRN PRN Reason: Hypoglycemia Dextrose/Water (Dextrose 50% In Water) 50 ml IV ONETIME PRN PRN Reason: Hypoglycemia Enoxaparin Sodium (Lovenox) 40 mg SUBCUT Q24H [facility] Last Admin: 07/13/20 09:06 Dose: 40 mg Documented by: Guaifenesin/Dextromethorphan (Robitussin Dm) 10 ml PO Q4H PRN PRN Reason: Cough Insulin Human Lispro (Humalog) 0 unit SUBCUT QIDACANDBED [facility]; Protocol Last Admin: 07/13/20 09:05 Dose: 1 units Documented by: Lactobacillus Rhamnosus (Culturelle) 1 cap PO BID [facility] Last Admin: 07/13/20 09:05 Dose: 1 cap Documented by: Metoprolol Succinate (Toprol Xl) 25 mg PO DAILY [facility] Last Admin: 07/13/20 10:48 Dose: Not Given Documented by: Ondansetron HCl (Zofran) 4 mg IVPUSH Q4H PRN PRN Reason: Nausea/Vomiting Imbruvica 420mg Tab ((Ptom)) 1 each PO DAILY [facility] Last Admin: 07/13/20 09:06 Dose: 1 each Documented by: Sodium Chloride (Saline Flush) 10 ml FLUSH ASDIRECTED PRN PRN Reason: Keep Vein Open Last Admin: 06/21/20 10:31 Dose: 10 ml Documented by: Sodium Chloride ([place] Nasal [place]) 1 ml SHONDA QID PRN PRN Reason: Nasal Dryness Last Admin: 07/02/20 02:08 Dose: 1 spray Documented by: Discontinued Medications Azithromycin (Zithromax) 500 mg PO ONETIME ONE Stop: 06/09/20 22:45 Last Admin: 06/09/20 23:44 Dose: 500 mg Documented by: Azithromycin (Zithromax) 250 mg PO DAILY [facility] Stop: 06/13/20 09:01 Last Admin: 06/10/20 08:39 Dose: 250 mg Documented by: Ceftriaxone Sodium (Rocephin) Confirm Administered Dose 1 gm IV .STK-MED ONE Stop: 06/09/20 23:29 Last Admin: 06/09/20 23:42 Dose: 1 gm Documented by: Dexamethasone (Decadron) 6 mg IVPUSH Q24H [facility] Last Admin: 06/15/20 15:43 Dose: Not Given Documented by: Dexamethasone (Dexamethasone) 6 mg PO Q24H [facility] Last Admin: 06/19/20 16:48 Dose: 6 mg Documented by: Dexamethasone (Decadron) 4 mg IVPUSH Q24H [facility] Last Admin: 07/01/20 15:17 Dose: 4 mg Documented by: Dexamethasone (Dexamethasone) 4 mg PO Q24H [facility] Last Admin: 07/03/20 14:33 Dose: 4 mg Documented by: Dexamethasone (Dexamethasone) 3 mg PO Q24H [facility] Stop: 07/08/20 13:01 Last Admin: 07/08/20 12:57 Dose: 3 mg Documented by: Doxycycline Hyclate (Vibramycin) 100 mg PO Q12H [facility] Stop: 06/15/20 23:59 Last Admin: 06/15/20 16:35 Dose: 100 mg Documented by: Enoxaparin Sodium (Lovenox) 60 mg SUBCUT BID [facility] Last Admin: 06/10/20 08:39 Dose: 60 mg Documented by: Furosemide (Lasix) 20 mg IVPUSH NOW ONE Stop: 06/10/20 14:46 Last Admin: 06/10/20 15:23 Dose: 20 mg Documented by: Furosemide (Lasix) 20 mg IVPUSH ONETIME ONE Stop: 06/21/20 13:01 Last Admin: 06/21/20 12:54 Dose: 20 mg Documented by: Furosemide (Lasix) 20 mg IVPUSH NOW ONE Stop: 06/25/20 14:31 Last Admin: 06/25/20 15:51 Dose: 20 mg Documented by: Furosemide (Lasix) 40 mg IVPUSH NOW ONE Stop: 07/02/20 11:46 Last Admin: 07/02/20 12:24 Dose: 40 mg Documented by: Furosemide (Lasix) 20 mg IVPUSH NOW ONE Stop: 07/06/20 13:16 Last Admin: 07/06/20 13:54 Dose: 20 mg Documented by: Furosemide (Lasix) 60 mg PO ONETIME ONE Stop: 07/09/20 11:46 Last Admin: 07/09/20 12:29 Dose: 60 mg Documented by: Furosemide (Lasix) 40 mg PO BIDDIURETIC [facility] Last Admin: 07/12/20 08:21 Dose: 40 mg Documented by: Furosemide (Lasix) 40 mg PO DAILY [facility] Last Admin: 07/13/20 10:49 Dose: Not Given Documented by: Sodium Chloride (Normal Saline) 1,000 mls @ 125 mls/hr IV ASDIRECTED ONE Stop: 06/10/20 03:03 Last Admin: 06/09/20 20:49 Dose: Not Given Documented by: Ceftriaxone Sodium 1 gm/ (Sodium Chloride) 50 mls @ 100 mls/hr IV Q24H [facility] Stop: 06/15/20 23:59 Last Admin: 06/14/20 22:30 Dose: 100 mls/hr Documented by: Sodium Chloride (Normal Saline) 1,000 mls @ 125 mls/hr IV ASDIRECTED [facility] Last Admin: 06/10/20 08:37 Dose: 125 mls/hr Documented by: Sodium Chloride (Normal Saline) Confirm Administered Dose 50 mls @ as directed .ROUTE .STK-MED ONE Stop: 06/09/20 23:29 Last Admin: 06/10/20 03:33 Dose: Not Given Documented by: Doxycycline Hyclate 100 mg/ (Sodium Chloride) 100 mls @ 100 mls/hr IV Q12H [facility] Last Admin: 06/12/20 02:15 Dose: 100 mls/hr Documented by: Sodium Chloride (Normal Saline) 100 mls @ 3.5 mls/sec IV ASDIRECTED [facility] Stop: 06/10/20 18:00 Last Admin: 06/10/20 17:45 Dose: 4 mls/sec Documented by: Remdesivir 100 mg/ Sodium (Chloride) 100 mls @ 100 mls/hr IV Q24H [facility] Stop: 06/15/20 12:59 Last Admin: 06/15/20 12:49 Dose: 100 mls/hr Documented by: Remdesivir 200 mg/ Sodium (Chloride) 250 mls @ 250 mls/hr IV ONETIME ONE Stop: 06/11/20 12:59 Last Admin: 06/11/20 12:30 Dose: 250 mls/hr Documented by: Sodium Chloride (Normal Saline) 100 mls @ 4 mls/sec IV ASDIRECTED [facility] Sodium Chloride (Normal Saline) 84 mls @ 3 mls/sec IV ONETIME ONE Stop: 07/03/20 10:26 Last Admin: 07/03/20 11:02 Dose: 3 mls/sec Documented by: Sodium Chloride (Normal Saline) 100 mls @ 4 mls/sec IV ASDIRECTED [facility] Stop: 07/09/20 15:00 Last Admin: 07/09/20 12:21 Dose: 4 mls/sec Documented by: Iopamidol (Isovue-370 (76%)) 57 ml IV . DIRECTED [facility] Last Admin: 06/10/20 17:44 Dose: 57 ml Documented by: Iopamidol (Isovue-370 (76%)) 100 ml IV . DIRECTED ONE Stop: 06/21/20 09:55 Last Admin: 06/21/20 10:31 Dose: 100 ml Documented by: Iopamidol (Isovue-300 (61%)) 70 ml IV . DIRECTED PRN PRN Reason: RADIOLOGY EXAM Stop: 07/03/20 10:26 Iopamidol (Isovue-370 (76%)) 70 ml IV . DIRECTED [facility] Stop: 07/03/20 16:00 Last Admin: 07/03/20 11:05 Dose: 70 ml Documented by: Iopamidol (Isovue-370 (76%)) 100 ml IV . DIRECTED [facility] Stop: 07/09/20 14:00 Last Admin: 07/09/20 12:21 Dose: 100 ml Documented by: Ibrutinib (Imbruvica () 320 MgPom) 0 mg PO BEDTIME [facility] Last Admin: 06/10/20 21:24 Dose: Not Given Documented by: Pantoprazole Sodium (Protonix Iv) 40 mg IVPUSH DAILY [facility] Last Admin: 06/11/20 08:15 Dose: 40 mg Documented by: Potassium Chloride (Klor-Con M20) 40 meq PO ONETIME ONE Stop: 07/12/20 12:01 Last Admin: 07/12/20 12:17 Dose: 40 meq Documented by: Simvastatin (Zocor) 40 mg PO BEDTIME [facility] Last Admin: 07/12/20 21:49 Dose: 40 mg Documented by: Sodium Chloride (Saline Flush) 10 ml FLUSH ASDIRECTED PRN PRN Reason: Keep Vein Open Last Admin: 06/09/20 19:38 Dose: 10 ml Documented by: Sodium Chloride (Saline Flush) 10 ml FLUSH ONETIME ONE Stop: 06/10/20 15:42 Last Admin: 06/10/20 17:45 Dose: 10 ml Documented by: Sodium Chloride (Saline Flush) 10 ml FLUSH ONETIME PRN PRN Reason: PER RADIOLOGY PROTOCOL Stop: 07/03/20 10:26 Last Admin: 07/03/20 11:02 Dose: 10 ml Documented by: Sodium Chloride (Saline Flush) 10 ml FLUSH ONETIME ONE Stop: 07/09/20 11:59 Last Admin: 07/09/20 12:21 Dose: 10 ml Documented by: - Exam Quality Assessment: Supplemental Oxygen General: Alert, Oriented, Cooperative, No Acute Distress, Other (looks tired) Lungs: Normal Respiratory Effort, Rales (few both bases) Cardiovascular: Regular Rhythm, Tachycardia GI/Abdominal Exam: Soft, No Distention Extremities: No Pedal Edema. No: Increased Warmth Skin: Warm, Dry Psy/Mental Status: Alert, Normal Affect Sepsis Event Note - Evaluation Sepsis Screening Result: Sepsis Risk - Focused Exam Vital Signs: Vital Signs Temp Temp Pulse Resp BP Pulse Ox 07/13/20 10:59 36.0 C L 97 20 105/64 94 L 07/13/20 07:24 36.4 C 99 20 92/52 L 93 L 07/13/20 06:57 96 07/13/20 04:07 36.7 C 98 23 H 105/61 96 07/13/20 00:58 97 - Problem List Review Problem List Initiated/Reviewed/Updated: Yes - My Orders Last 24 Hours: My Active Orders 07/14/20 13:00 dexAMETHasone 1 mg PO Q24H - Plan Plan:: ASSESSMENT AND PLAN COVID-19 PNEUMONIA-complicated by acute respiratory failure with hypoxia. Pneumothorax has resolved. Stable but still quite compromised. Laboratory studies are improving and oxygenation seems to be slowly improving but the patient seems to be slowly getting weaker and declining. -Discontinue diuretics -Supplemental oxygen, wean as able -Continue Decadron taper -Repeat labs every 3 days -Supportive care RIGHT PNEUMOTHORAX AND PNEUMOMEDIASTINUM-noted on CT scan 07/03. Pneumothorax has resolved. -Repeat chest x-ray with acute changes CHRONIC LYMPHOCYTIC LEUKEMIA-stable. -Continue ibrutinib MAINTENANCE ISSUES -DVT prophylaxis; Lovenox 40 mg subcu daily -GI prophylaxis; not indicated -Interiano catheter; not indicated -Nutrition; regular diet DISPOSITION-anticipate discharge to home if she survives the hospital stay. Mario Rey MD
[2020-07-13] MEDS: Dexamethasone 2 MG Tab PO SCH (12:17)
[2020-07-14] MEDS: Lactobacillus Rhamnosus GG (Probiotic) Cap PO SCH ×2 (08:28→21:02)
[2020-07-14] MEDS: Enoxaparin 40 MG/0.4 ML Syringe SUBCUT SCH (08:28)
[2020-07-14] MEDS: IMBRUVICA 420 MG PO SCH (08:28)
[2020-07-14] MEDS: Aspirin 81 MG Tab.EC PO SCH (08:28)
[2020-07-14] MEDS: Insulin Lispro 100 Unit/ML 3 ML KwikPen SUBCUT SCH ×4 (08:29→21:03)
[2020-07-14] MEDS: Metoprolol Succinate 25 MG Tab.ER PO SCH (12:01)
[2020-07-14] MEDS: Bisacodyl 10 MG Supp RECTAL PRN (12:05)
[2020-07-14] MEDS: Dexamethasone 2 MG Tab PO SCH (12:06)
[2020-07-14] MEDS ORDERED: Lactated Ringers 1,000 ML IV ONE (12:15)
--- NOTE | 2020-07-14 12:18 | PCM.PN ---
- General Info Date of Service: 07/14/20 Subjective Update: No acute events overnight. Oxygenation stable on about 10 L of supplemental oxygen. Blood pressures on the low side of normal. No fevers. She feels weak and tired. She continues to be in good spirits but looks exhausted. Appetite and intake have been poor. Functional Status: Reports: Pain Controlled - Review of Systems General: Reports: Weakness. Denies: Fever - Patient Data Vitals - Most Recent: Last Vital Signs Temp 36.3 C 07/14/20 11:40 Pulse 98 07/14/20 11:40 Resp 16 07/14/20 11:40 BP 107/60 07/14/20 11:40 Pulse Ox 96 07/14/20 11:40 Weight - Most Recent: 63.4 kg I&O - Last 24 Hours: Intake & Output 07/13/20 07/14/20 07/14/20 22:59 06:59 14:59 Intake Total 240 60 240 Balance 240 60 240 Lab Results Last 24 Hours: Laboratory Results - last 24 hr 07/13/20 07/13/20 07/14/20 Range/Units 16:37 21:01 07:42 POC Glucose 187 H 226 H 156 H (74-106) MG/DL 07/14/20 Range/Units 11:49 POC Glucose 176 H (74-106) MG/DL Med Orders - Current: Current Medications Acetaminophen (Tylenol) 650 mg PO Q4H PRN PRN Reason: fever, pain Last Admin: 07/12/20 10:58 Dose: 650 mg Documented by: Aspirin (Halfprin) 81 mg PO DAILY [facility] Last Admin: 07/14/20 08:28 Dose: 81 mg Documented by: Benzonatate (Tessalon Perles) 100 mg PO TID PRN PRN Reason: Cough Bisacodyl (Dulcolax) 10 mg RECTAL DAILY PRN PRN Reason: Constipation Last Admin: 07/14/20 12:05 Dose: 10 mg Documented by: Dexamethasone (Dexamethasone) 1 mg PO Q24H [facility] Stop: 07/18/20 13:01 Last Admin: 07/14/20 12:06 Dose: 1 mg Documented by: Dextrose (Glutose 15) 15 gm PO ONETIME PRN PRN Reason: Hypoglycemia Dextrose/Water (Dextrose 50% In Water) 50 ml IV ONETIME PRN PRN Reason: Hypoglycemia Enoxaparin Sodium (Lovenox) 40 mg SUBCUT Q24H [facility] Last Admin: 07/14/20 08:28 Dose: 40 mg Documented by: Guaifenesin/Dextromethorphan (Robitussin Dm) 10 ml PO Q4H PRN PRN Reason: Cough Lactated Ringer's (Ringers, Lactated) 1,000 mls @ 125 mls/hr IV ASDIRECTED [facility] Stop: 07/14/20 20:16 Insulin Human Lispro (Humalog) 0 unit SUBCUT QIDACANDBED [facility]; Protocol Last Admin: 07/14/20 11:59 Dose: 1 units Documented by: Lactobacillus Rhamnosus (Culturelle) 1 cap PO BID [facility] Last Admin: 07/14/20 08:28 Dose: 1 cap Documented by: Metoprolol Succinate (Toprol Xl) 25 mg PO DAILY [facility] Last Admin: 07/14/20 12:01 Dose: Not Given Documented by: Ondansetron HCl (Zofran) 4 mg IVPUSH Q4H PRN PRN Reason: Nausea/Vomiting Imbruvica 420mg Tab ((Ptom)) 1 each PO DAILY [facility] Last Admin: 07/14/20 08:28 Dose: 1 each Documented by: Sodium Chloride (Saline Flush) 10 ml FLUSH ASDIRECTED PRN PRN Reason: Keep Vein Open Last Admin: 06/21/20 10:31 Dose: 10 ml Documented by: Sodium Chloride ([place] Nasal [place]) 1 ml SHONDA QID PRN PRN Reason: Nasal Dryness Last Admin: 07/02/20 02:08 Dose: 1 spray Documented by: Discontinued Medications Azithromycin (Zithromax) 500 mg PO ONETIME ONE Stop: 06/09/20 22:45 Last Admin: 06/09/20 23:44 Dose: 500 mg Documented by: Azithromycin (Zithromax) 250 mg PO DAILY [facility] Stop: 06/13/20 09:01 Last Admin: 06/10/20 08:39 Dose: 250 mg Documented by: Ceftriaxone Sodium (Rocephin) Confirm Administered Dose 1 gm IV .STK-MED ONE Stop: 06/09/20 23:29 Last Admin: 06/09/20 23:42 Dose: 1 gm Documented by: Dexamethasone (Decadron) 6 mg IVPUSH Q24H [facility] Last Admin: 06/15/20 15:43 Dose: Not Given Documented by: Dexamethasone (Dexamethasone) 6 mg PO Q24H [facility] Last Admin: 06/19/20 16:48 Dose: 6 mg Documented by: Dexamethasone (Decadron) 4 mg IVPUSH Q24H [facility] Last Admin: 07/01/20 15:17 Dose: 4 mg Documented by: Dexamethasone (Dexamethasone) 4 mg PO Q24H [facility] Last Admin: 07/03/20 14:33 Dose: 4 mg Documented by: Dexamethasone (Dexamethasone) 3 mg PO Q24H [facility] Stop: 07/08/20 13:01 Last Admin: 07/08/20 12:57 Dose: 3 mg Documented by: Dexamethasone (Dexamethasone) 2 mg PO Q24H [facility] Stop: 07/13/20 13:01 Last Admin: 07/13/20 12:17 Dose: 2 mg Documented by: Doxycycline Hyclate (Vibramycin) 100 mg PO Q12H [facility] Stop: 06/15/20 23:59 Last Admin: 06/15/20 16:35 Dose: 100 mg Documented by: Enoxaparin Sodium (Lovenox) 60 mg SUBCUT BID [facility] Last Admin: 06/10/20 08:39 Dose: 60 mg Documented by: Furosemide (Lasix) 20 mg IVPUSH NOW ONE Stop: 06/10/20 14:46 Last Admin: 06/10/20 15:23 Dose: 20 mg Documented by: Furosemide (Lasix) 20 mg IVPUSH ONETIME ONE Stop: 06/21/20 13:01 Last Admin: 06/21/20 12:54 Dose: 20 mg Documented by: Furosemide (Lasix) 20 mg IVPUSH NOW ONE Stop: 06/25/20 14:31 Last Admin: 06/25/20 15:51 Dose: 20 mg Documented by: Furosemide (Lasix) 40 mg IVPUSH NOW ONE Stop: 07/02/20 11:46 Last Admin: 07/02/20 12:24 Dose: 40 mg Documented by: Furosemide (Lasix) 20 mg IVPUSH NOW ONE Stop: 07/06/20 13:16 Last Admin: 07/06/20 13:54 Dose: 20 mg Documented by: Furosemide (Lasix) 60 mg PO ONETIME ONE Stop: 07/09/20 11:46 Last Admin: 07/09/20 12:29 Dose: 60 mg Documented by: Furosemide (Lasix) 40 mg PO BIDDIURETIC [facility] Last Admin: 07/12/20 08:21 Dose: 40 mg Documented by: Furosemide (Lasix) 40 mg PO DAILY [facility] Last Admin: 07/13/20 10:49 Dose: Not Given Documented by: Sodium Chloride (Normal Saline) 1,000 mls @ 125 mls/hr IV ASDIRECTED ONE Stop: 06/10/20 03:03 Last Admin: 06/09/20 20:49 Dose: Not Given Documented by: Ceftriaxone Sodium 1 gm/ (Sodium Chloride) 50 mls @ 100 mls/hr IV Q24H [facility] Stop: 06/15/20 23:59 Last Admin: 06/14/20 22:30 Dose: 100 mls/hr Documented by: Sodium Chloride (Normal Saline) 1,000 mls @ 125 mls/hr IV ASDIRECTED [facility] Last Admin: 06/10/20 08:37 Dose: 125 mls/hr Documented by: Sodium Chloride (Normal Saline) Confirm Administered Dose 50 mls @ as directed .ROUTE .[facility]-MED ONE Stop: 06/09/20 23:29 Last Admin: 06/10/20 03:33 Dose: Not Given Documented by: Doxycycline Hyclate 100 mg/ (Sodium Chloride) 100 mls @ 100 mls/hr IV Q12H [facility] Last Admin: 06/12/20 02:15 Dose: 100 mls/hr Documented by: Sodium Chloride (Normal Saline) 100 mls @ 3.5 mls/sec IV ASDIRECTED [facility] Stop: 06/10/20 18:00 Last Admin: 06/10/20 17:45 Dose: 4 mls/sec Documented by: Remdesivir 100 mg/ Sodium (Chloride) 100 mls @ 100 mls/hr IV Q24H [facility] Stop: 06/15/20 12:59 Last Admin: 06/15/20 12:49 Dose: 100 mls/hr Documented by: Remdesivir 200 mg/ Sodium (Chloride) 250 mls @ 250 mls/hr IV ONETIME ONE Stop: 06/11/20 12:59 Last Admin: 06/11/20 12:30 Dose: 250 mls/hr Documented by: Sodium Chloride (Normal Saline) 100 mls @ 4 mls/sec IV ASDIRECTED [facility] Sodium Chloride (Normal Saline) 84 mls @ 3 mls/sec IV ONETIME ONE Stop: 07/03/20 10:26 Last Admin: 07/03/20 11:02 Dose: 3 mls/sec Documented by: Sodium Chloride (Normal Saline) 100 mls @ 4 mls/sec IV ASDIRECTED [facility] Stop: 07/09/20 15:00 Last Admin: 07/09/20 12:21 Dose: 4 mls/sec Documented by: Iopamidol (Isovue-370 (76%)) 57 ml IV . DIRECTED [facility] Last Admin: 06/10/20 17:44 Dose: 57 ml Documented by: Iopamidol (Isovue-370 (76%)) 100 ml IV . DIRECTED ONE Stop: 06/21/20 09:55 Last Admin: 06/21/20 10:31 Dose: 100 ml Documented by: Iopamidol (Isovue-300 (61%)) 70 ml IV . DIRECTED PRN PRN Reason: RADIOLOGY EXAM Stop: 07/03/20 10:26 Iopamidol (Isovue-370 (76%)) 70 ml IV . DIRECTED [facility] Stop: 07/03/20 16:00 Last Admin: 07/03/20 11:05 Dose: 70 ml Documented by: Iopamidol (Isovue-370 (76%)) 100 ml IV . DIRECTED [facility] Stop: 07/09/20 14:00 Last Admin: 07/09/20 12:21 Dose: 100 ml Documented by: Ibrutinib (Imbruvica () 320 MgPom) 0 mg PO BEDTIME [facility] Last Admin: 06/10/20 21:24 Dose: Not Given Documented by: Pantoprazole Sodium (Protonix Iv) 40 mg IVPUSH DAILY [facility] Last Admin: 06/11/20 08:15 Dose: 40 mg Documented by: Potassium Chloride (Klor-Con M20) 40 meq PO ONETIME ONE Stop: 07/12/20 12:01 Last Admin: 07/12/20 12:17 Dose: 40 meq Documented by: Simvastatin (Zocor) 40 mg PO BEDTIME [facility] Last Admin: 07/12/20 21:49 Dose: 40 mg Documented by: Sodium Chloride (Saline Flush) 10 ml FLUSH ASDIRECTED PRN PRN Reason: Keep Vein Open Last Admin: 06/09/20 19:38 Dose: 10 ml Documented by: Sodium Chloride (Saline Flush) 10 ml FLUSH ONETIME ONE Stop: 06/10/20 15:42 Last Admin: 06/10/20 17:45 Dose: 10 ml Documented by: Sodium Chloride (Saline Flush) 10 ml FLUSH ONETIME PRN PRN Reason: PER RADIOLOGY PROTOCOL Stop: 07/03/20 10:26 Last Admin: 07/03/20 11:02 Dose: 10 ml Documented by: Sodium Chloride (Saline Flush) 10 ml FLUSH ONETIME ONE Stop: 07/09/20 11:59 Last Admin: 07/09/20 12:21 Dose: 10 ml Documented by: - Exam Quality Assessment: Supplemental Oxygen General: Alert, Oriented, Cooperative, No Acute Distress, Other (looks tired) Lungs: Normal Respiratory Effort. No: Wheezing GI/Abdominal Exam: Normal Bowel Sounds, Soft, Distended, Tender Extremities: No Pedal Edema Psy/Mental Status: Alert, Normal Affect Sepsis Event Note - Evaluation Sepsis Screening Result: Sepsis Risk - Focused Exam Vital Signs: Vital Signs Temp Temp Pulse Resp BP Pulse Ox Pulse Ox 07/14/20 11:40 36.3 C 98 16 107/60 96 07/14/20 07:40 36.4 C 102 H 16 91/53 L 99 07/14/20 07:13 97 07/14/20 04:39 98 07/14/20 03:00 36.4 C 98 18 109/62 95 07/14/20 01:35 99 - Problem List Review Problem List Initiated/Reviewed/Updated: Yes - My Orders Last 24 Hours: My Active Orders 07/14/20 12:15 Lactated Ringers [Ringers, Lactated] 1,000 ml IV ASDIRECTED 07/14/20 13:00 dexAMETHasone 1 mg PO Q24H - Plan Plan:: ASSESSMENT AND PLAN COVID-19 PNEUMONIA-complicated by acute respiratory failure with hypoxia. Pneumothorax has resolved. Stable but still quite compromised. Not getting better but not getting worse. Appears dehydrated today. -1 L of IV fluids today -Supplemental oxygen, wean as able -Continue Decadron taper -Repeat labs every 3 days -Supportive care RIGHT PNEUMOTHORAX AND PNEUMOMEDIASTINUM-noted on CT scan 07/03. Pneumothorax has resolved. -Repeat chest x-ray with acute changes CHRONIC LYMPHOCYTIC LEUKEMIA-stable. -Continue ibrutinib MAINTENANCE ISSUES -DVT prophylaxis; Lovenox 40 mg subcu daily -GI prophylaxis; not indicated -Interiano catheter; not indicated -Nutrition; regular diet DISPOSITION-anticipate discharge to home if she survives the hospital stay. On paper she seems to be slowly improving but is becoming weaker and weaker each day. Mario Rey MD
[2020-07-15] MEDS: Insulin Lispro 100 Unit/ML 3 ML KwikPen SUBCUT SCH ×4 (08:31→21:05)
[2020-07-15] MEDS: Enoxaparin 40 MG/0.4 ML Syringe SUBCUT SCH (08:32)
[2020-07-15] MEDS: Metoprolol Succinate 25 MG Tab.ER PO SCH (08:32)
[2020-07-15] MEDS: Lactobacillus Rhamnosus GG (Probiotic) Cap PO SCH (08:32)
[2020-07-15] MEDS: IMBRUVICA 420 MG PO SCH (08:33)
[2020-07-15] MEDS: Aspirin 81 MG Tab.EC PO SCH (08:34)
--- NOTE | 2020-07-15 12:07 | PCM.PN ---
- General Info Date of Service: 07/15/20 Subjective Update: No acute events overnight. No significant change in the past 24 hours. She remains very weak and fatigued. Respiratory status may be even a little better today with supplemental oxygen requirement decreasing slightly. Not much of an appetite. Very fatigued and winded with any activity. Her was there today and we talked about the current situation. We did discuss nutritional support with TPN and both the patient and her were interested in this. Functional Status: Reports: Pain Controlled - Review of Systems General: Reports: Weakness - Patient Data Vitals - Most Recent: Last Vital Signs Temp 37.0 C 07/15/20 10:50 Pulse 105 H 07/15/20 10:50 Resp 16 07/15/20 10:50 BP 102/63 07/15/20 10:50 Pulse Ox 96 07/15/20 10:50 Weight - Most Recent: 59.9 kg I&O - Last 24 Hours: Intake & Output 07/14/20 07/15/20 07/15/20 22:59 06:59 14:59 Intake Total 130 300 480 Balance 130 300 480 Lab Results Last 24 Hours: Laboratory Results - last 24 hr 07/14/20 07/14/20 07/15/20 Range/Units 16:30 21:00 07:30 POC Glucose 154 H 154 H 136 H (74-106) MG/DL 07/15/20 Range/Units 11:22 POC Glucose 130 H (74-106) MG/DL Med Orders - Current: Current Medications Acetaminophen (Tylenol) 650 mg PO Q4H PRN PRN Reason: fever, pain Last Admin: 07/12/20 10:58 Dose: 650 mg Documented by: Aspirin (Halfprin) 81 mg PO DAILY [facility] Last Admin: 07/15/20 08:34 Dose: 81 mg Documented by: Benzonatate (Tessalon Perles) 100 mg PO TID PRN PRN Reason: Cough Bisacodyl (Dulcolax) 10 mg RECTAL DAILY PRN PRN Reason: Constipation Last Admin: 07/14/20 12:05 Dose: 10 mg Documented by: Dexamethasone (Dexamethasone) 1 mg PO Q24H [facility] Stop: 07/18/20 13:01 Last Admin: 07/14/20 12:06 Dose: 1 mg Documented by: Dextrose (Glutose 15) 15 gm PO ONETIME PRN PRN Reason: Hypoglycemia Dextrose/Water (Dextrose 50% In Water) 50 ml IV ONETIME PRN PRN Reason: Hypoglycemia Enoxaparin Sodium (Lovenox) 40 mg SUBCUT Q24H [facility] Last Admin: 07/15/20 08:32 Dose: 40 mg Documented by: Guaifenesin/Dextromethorphan (Robitussin Dm) 10 ml PO Q4H PRN PRN Reason: Cough Insulin Human Lispro (Humalog) 0 unit SUBCUT QIDACANDBED [facility]; Protocol Last Admin: 07/15/20 11:23 Dose: Not Given Documented by: Metoprolol Succinate (Toprol Xl) 25 mg PO DAILY [facility] Last Admin: 07/15/20 08:32 Dose: 25 mg Documented by: Ondansetron HCl (Zofran) 4 mg IVPUSH Q4H PRN PRN Reason: Nausea/Vomiting Imbruvica 420mg Tab ((Ptom)) 1 each PO DAILY [facility] Last Admin: 07/15/20 08:33 Dose: 1 each Documented by: Sodium Chloride (Saline Flush) 10 ml FLUSH ASDIRECTED PRN PRN Reason: Keep Vein Open Last Admin: 06/21/20 10:31 Dose: 10 ml Documented by: Sodium Chloride ([place] Nasal [place]) 1 ml SHONDA QID PRN PRN Reason: Nasal Dryness Last Admin: 07/02/20 02:08 Dose: 1 spray Documented by: Discontinued Medications Azithromycin (Zithromax) 500 mg PO ONETIME ONE Stop: 06/09/20 22:45 Last Admin: 06/09/20 23:44 Dose: 500 mg Documented by: Azithromycin (Zithromax) 250 mg PO DAILY [facility] Stop: 06/13/20 09:01 Last Admin: 06/10/20 08:39 Dose: 250 mg Documented by: Ceftriaxone Sodium (Rocephin) Confirm Administered Dose 1 gm IV .STK-MED ONE Stop: 06/09/20 23:29 Last Admin: 06/09/20 23:42 Dose: 1 gm Documented by: Dexamethasone (Decadron) 6 mg IVPUSH Q24H [facility] Last Admin: 06/15/20 15:43 Dose: Not Given Documented by: Dexamethasone (Dexamethasone) 6 mg PO Q24H [facility] Last Admin: 06/19/20 16:48 Dose: 6 mg Documented by: Dexamethasone (Decadron) 4 mg IVPUSH Q24H [facility] Last Admin: 07/01/20 15:17 Dose: 4 mg Documented by: Dexamethasone (Dexamethasone) 4 mg PO Q24H [facility] Last Admin: 07/03/20 14:33 Dose: 4 mg Documented by: Dexamethasone (Dexamethasone) 3 mg PO Q24H [facility] Stop: 07/08/20 13:01 Last Admin: 07/08/20 12:57 Dose: 3 mg Documented by: Dexamethasone (Dexamethasone) 2 mg PO Q24H [facility] Stop: 07/13/20 13:01 Last Admin: 07/13/20 12:17 Dose: 2 mg Documented by: Doxycycline Hyclate (Vibramycin) 100 mg PO Q12H [facility] Stop: 06/15/20 23:59 Last Admin: 06/15/20 16:35 Dose: 100 mg Documented by: Enoxaparin Sodium (Lovenox) 60 mg SUBCUT BID [facility] Last Admin: 06/10/20 08:39 Dose: 60 mg Documented by: Furosemide (Lasix) 20 mg IVPUSH NOW ONE Stop: 06/10/20 14:46 Last Admin: 06/10/20 15:23 Dose: 20 mg Documented by: Furosemide (Lasix) 20 mg IVPUSH ONETIME ONE Stop: 06/21/20 13:01 Last Admin: 06/21/20 12:54 Dose: 20 mg Documented by: Furosemide (Lasix) 20 mg IVPUSH NOW ONE Stop: 06/25/20 14:31 Last Admin: 06/25/20 15:51 Dose: 20 mg Documented by: Furosemide (Lasix) 40 mg IVPUSH NOW ONE Stop: 07/02/20 11:46 Last Admin: 07/02/20 12:24 Dose: 40 mg Documented by: Furosemide (Lasix) 20 mg IVPUSH NOW ONE Stop: 07/06/20 13:16 Last Admin: 07/06/20 13:54 Dose: 20 mg Documented by: Furosemide (Lasix) 60 mg PO ONETIME ONE Stop: 07/09/20 11:46 Last Admin: 07/09/20 12:29 Dose: 60 mg Documented by: Furosemide (Lasix) 40 mg PO BIDDIURETIC [facility] Last Admin: 07/12/20 08:21 Dose: 40 mg Documented by: Furosemide (Lasix) 40 mg PO DAILY [facility] Last Admin: 07/13/20 10:49 Dose: Not Given Documented by: Sodium Chloride (Normal Saline) 1,000 mls @ 125 mls/hr IV ASDIRECTED ONE Stop: 06/10/20 03:03 Last Admin: 06/09/20 20:49 Dose: Not Given Documented by: Ceftriaxone Sodium 1 gm/ (Sodium Chloride) 50 mls @ 100 mls/hr IV Q24H [facility] Stop: 06/15/20 23:59 Last Admin: 06/14/20 22:30 Dose: 100 mls/hr Documented by: Sodium Chloride (Normal Saline) 1,000 mls @ 125 mls/hr IV ASDIRECTED [facility] Last Admin: 06/10/20 08:37 Dose: 125 mls/hr Documented by: Sodium Chloride (Normal Saline) Confirm Administered Dose 50 mls @ as directed .ROUTE .STK-MED ONE Stop: 06/09/20 23:29 Last Admin: 06/10/20 03:33 Dose: Not Given Documented by: Doxycycline Hyclate 100 mg/ (Sodium Chloride) 100 mls @ 100 mls/hr IV Q12H [facility] Last Admin: 06/12/20 02:15 Dose: 100 mls/hr Documented by: Sodium Chloride (Normal Saline) 100 mls @ 3.5 mls/sec IV ASDIRECTED [facility] Stop: 06/10/20 18:00 Last Admin: 06/10/20 17:45 Dose: 4 mls/sec Documented by: Remdesivir 100 mg/ Sodium (Chloride) 100 mls @ 100 mls/hr IV Q24H [facility] Stop: 06/15/20 12:59 Last Admin: 06/15/20 12:49 Dose: 100 mls/hr Documented by: Remdesivir 200 mg/ Sodium (Chloride) 250 mls @ 250 mls/hr IV ONETIME ONE Stop: 06/11/20 12:59 Last Admin: 06/11/20 12:30 Dose: 250 mls/hr Documented by: Sodium Chloride (Normal Saline) 100 mls @ 4 mls/sec IV ASDIRECTED [facility] Sodium Chloride (Normal Saline) 84 mls @ 3 mls/sec IV ONETIME ONE Stop: 07/03/20 10:26 Last Admin: 07/03/20 11:02 Dose: 3 mls/sec Documented by: Sodium Chloride (Normal Saline) 100 mls @ 4 mls/sec IV ASDIRECTED RANDALL Stop: 07/09/20 15:00 Last Admin: 07/09/20 12:21 Dose: 4 mls/sec Documented by: Lactated Ringer's (Ringers, Lactated) 1,000 mls @ 125 mls/hr IV ASDIRECTED ONE Stop: 07/14/20 20:14 Last Admin: 07/14/20 12:37 Dose: 125 mls/hr Documented by: Iopamidol (Isovue-370 (76%)) 57 ml IV . DIRECTED [facility] Last Admin: 06/10/20 17:44 Dose: 57 ml Documented by: Iopamidol (Isovue-370 (76%)) 100 ml IV . DIRECTED ONE Stop: 06/21/20 09:55 Last Admin: 06/21/20 10:31 Dose: 100 ml Documented by: Iopamidol (Isovue-300 (61%)) 70 ml IV . DIRECTED PRN PRN Reason: RADIOLOGY EXAM Stop: 07/03/20 10:26 Iopamidol (Isovue-370 (76%)) 70 ml IV . DIRECTED RANDALL Stop: 07/03/20 16:00 Last Admin: 07/03/20 11:05 Dose: 70 ml Documented by: Iopamidol (Isovue-370 (76%)) 100 ml IV . DIRECTED [facility] Stop: 07/09/20 14:00 Last Admin: 07/09/20 12:21 Dose: 100 ml Documented by: Lactobacillus Rhamnosus (Culturelle) 1 cap PO BID [facility] Last Admin: 07/15/20 08:32 Dose: 1 cap Documented by: Ibrutinib (Imbruvica () 320 MgPom) 0 mg PO BEDTIME [facility] Last Admin: 06/10/20 21:24 Dose: Not Given Documented by: Pantoprazole Sodium (Protonix Iv) 40 mg IVPUSH DAILY [facility] Last Admin: 06/11/20 08:15 Dose: 40 mg Documented by: Potassium Chloride (Klor-Con M20) 40 meq PO ONETIME ONE Stop: 07/12/20 12:01 Last Admin: 07/12/20 12:17 Dose: 40 meq Documented by: Simvastatin (Zocor) 40 mg PO BEDTIME [facility] Last Admin: 07/12/20 21:49 Dose: 40 mg Documented by: Sodium Chloride (Saline Flush) 10 ml FLUSH ASDIRECTED PRN PRN Reason: Keep Vein Open Last Admin: 06/09/20 19:38 Dose: 10 ml Documented by: Sodium Chloride (Saline Flush) 10 ml FLUSH ONETIME ONE Stop: 06/10/20 15:42 Last Admin: 06/10/20 17:45 Dose: 10 ml Documented by: Sodium Chloride (Saline Flush) 10 ml FLUSH ONETIME PRN PRN Reason: PER RADIOLOGY PROTOCOL Stop: 07/03/20 10:26 Last Admin: 07/03/20 11:02 Dose: 10 ml Documented by: Sodium Chloride (Saline Flush) 10 ml FLUSH ONETIME ONE Stop: 07/09/20 11:59 Last Admin: 07/09/20 12:21 Dose: 10 ml Documented by: - Exam Quality Assessment: Supplemental Oxygen General: Alert, Oriented, Cooperative, No Acute Distress Lungs: Normal Respiratory Effort GI/Abdominal Exam: Soft, No Distention Skin: Warm, Dry Psy/Mental Status: Alert, Normal Affect Sepsis Event Note - Evaluation Sepsis Screening Result: Sepsis Risk - Focused Exam Vital Signs: Vital Signs Temp Pulse Pulse Resp BP BP Pulse Ox 07/15/20 10:50 37.0 C 105 H 16 102/63 96 07/15/20 08:32 111 H 107/64 07/15/20 08:00 36.3 C 111 H 18 107/64 97 07/15/20 07:48 98 07/15/20 04:00 36.2 C 112 H 18 90/55 L 96 07/15/20 01:00 97 - Problem List Review Problem List Initiated/Reviewed/Updated: Yes - My Orders Last 24 Hours: My Active Orders 07/14/20 13:00 dexAMETHasone 1 mg PO Q24H 07/15/20 12:03 Consult to Dietary [Consult to Testing And Regulating Chief] [CONS] Routine Central Venous Line Insertion [OM.PC] Routine 07/15/20 12:04 Central Line Assessment [RC] QSHIFT 07/16/20 05:00 BASIC METABOLIC PANEL,BMP [CHEM] Timed CBC W/O DIFF,HEMOGRAM [HEME] Timed (1) CRP [C-REACTIVE PROTEIN] [CHEM] Timed D-DIMER QUANTITATIVE [COAG] Timed - Plan Plan:: ASSESSMENT AND PLAN COVID-19 PNEUMONIA-complicated by acute respiratory failure with hypoxia. Pneumothorax has resolved. Stable but still quite compromised. Getting weaker and more malnourished each day. Patient and were interested in supplementing nutrition with TPN today. -Place PICC line and start TPN -Supplemental oxygen, wean as able -Continue Decadron taper -Repeat labs every 3 days -Supportive care -Physical therapy RIGHT PNEUMOTHORAX AND PNEUMOMEDIASTINUM-noted on CT scan 07/03. Pneumothorax has resolved. -Repeat chest x-ray with acute changes CHRONIC LYMPHOCYTIC LEUKEMIA-stable. -Continue ibrutinib MAINTENANCE ISSUES -DVT prophylaxis; Lovenox 40 mg subcu daily -GI prophylaxis; not indicated -Interiano catheter; not indicated -Nutrition; regular diet DISPOSITION-anticipate discharge to home if she survives the hospital stay. On paper she seems to be slowly improving but is becoming weaker and weaker each day. Mario Rey MD
[2020-07-15] MEDS: Dexamethasone 2 MG Tab PO SCH (14:29)
[2020-07-15] MEDS: 1: AA 5%/Calcium/D15W/Lytes 1,000 ML with MVI, Adult with Vitamin K 10 ML, Zinc/Copper/M IV SCH ×3 (15:55)
[2020-07-15] MEDS ORDERED: Fat Emulsion 100 ML IV ONE (16:00)
[2020-07-15] MEDS: Acetaminophen 325 MG Tab PO PRN (22:40)
[2020-07-16] MEDS ORDERED: LORazepam 0.5 MG Tab PO PRN (00:33)
[2020-07-16] MEDS: 1: AA 5%/Calcium/D15W/Lytes 1,000 ML with MVI, Adult with Vitamin K 10 ML, Zinc/Copper/M IV SCH ×6 (05:20→18:09)
[2020-07-16] MEDS: Insulin Lispro 100 Unit/ML 3 ML KwikPen SUBCUT SCH ×4 (07:27→22:14)
[2020-07-16] MEDS: IMBRUVICA 420 MG PO SCH ×2 (08:57→10:13)
[2020-07-16] MEDS: Enoxaparin 40 MG/0.4 ML Syringe SUBCUT SCH (08:58)
[2020-07-16] MEDS: Aspirin 81 MG Tab.EC PO SCH ×2 (08:58→10:13)
[2020-07-16] MEDS: Metoprolol Succinate 25 MG Tab.ER PO SCH (10:13)
[2020-07-16] MEDS ORDERED: Central Total Parenteral Nutrition Bag SCH (11:00)
--- NOTE | 2020-07-16 11:00 | PCM.PN ---
- General Info Date of Service: 07/16/20 Subjective Update: No acute events overnight. Patient remains quite weak and somewhat lethargic though she is able to interact, answer questions and have somewhat of a conversation. She reports some abdominal pain and distention but thinks it is better than yesterday. She is having some liquid stools. No fevers. Appetite and intake have remained poor. Tolerating TPN so far. Functional Status: Reports: Pain Controlled - Review of Systems General: Reports: Weakness, Fatigue Gastrointestinal: Reports: Abdominal Pain - Patient Data Vitals - Most Recent: Last Vital Signs Temp 37.1 C 07/16/20 10:12 Pulse 123 H 07/16/20 10:12 Resp 26 H 07/16/20 10:12 BP 103/58 L 07/16/20 10:12 Pulse Ox 97 07/16/20 10:12 Weight - Most Recent: 59.8 kg I&O - Last 24 Hours: Intake & Output 07/15/20 07/16/20 07/16/20 22:59 06:59 14:59 Intake Total 145 1261 Balance 145 1261 Lab Results Last 24 Hours: Laboratory Results - last 24 hr 07/15/20 07/15/20 07/15/20 Range/Units 11:22 16:30 21:00 WBC (4.5-11.0) K/uL RBC (3.30-5.50) M/uL Hgb (12.0-15.0) g/dL Hct (36.0-48.0) % MCV (80-98) fL MCH (27-31) pg MCHC (32-36) % Plt Count (150-400) K/uL D-Dimer, Quantitative (0.0-500.0) ng/mL Sodium (140-148) mmol/L Potassium (3.6-5.2) mmol/L Chloride (100-108) mmol/L Carbon Dioxide (21-32) mmol/L Anion Gap (5.0-14.0) mmol/L BUN (7-18) mg/dL Creatinine (0.6-1.0) mg/dL Est Cr Clr Drug Dosing mL/min Estimated GFR (MDRD) (>60) Glucose (74-106) mg/dL POC Glucose 130 H 197 H 326 H (74-106) MG/DL Calcium (8.5-10.1) mg/dL C-Reactive Protein (0.0-0.3) mg/dL 07/16/20 07/16/20 07/16/20 Range/Units 04:50 04:50 04:50 WBC 25.1 H (4.5-11.0) K/uL RBC 3.19 L (3.30-5.50) M/uL Hgb 9.3 L (12.0-15.0) g/dL Hct 30.1 L (36.0-48.0) % MCV 94 (80-98) fL MCH 29 (27-31) pg MCHC 31 L (32-36) % Plt Count 393 (150-400) K/uL D-Dimer, Quantitative 1277.78 H (0.0-500.0) ng/mL Sodium 123 L (140-148) mmol/L Potassium 4.4 (3.6-5.2) mmol/L Chloride 87 L (100-108) mmol/L Carbon Dioxide 30 (21-32) mmol/L Anion Gap 10.4 (5.0-14.0) mmol/L BUN 74 H (7-18) mg/dL Creatinine 1.0 (0.6-1.0) mg/dL Est Cr Clr Drug Dosing 45.75 mL/min Estimated GFR (MDRD) 54 L (>60) Glucose 258 H (74-106) mg/dL POC Glucose (74-106) MG/DL Calcium 8.6 (8.5-10.1) mg/dL C-Reactive Protein 4.49 H (0.0-0.3) mg/dL 07/16/20 Range/Units 07:23 WBC (4.5-11.0) K/uL RBC (3.30-5.50) M/uL Hgb (12.0-15.0) g/dL Hct (36.0-48.0) % MCV (80-98) fL MCH (27-31) pg MCHC (32-36) % Plt Count (150-400) K/uL D-Dimer, Quantitative (0.0-500.0) ng/mL Sodium (140-148) mmol/L Potassium (3.6-5.2) mmol/L Chloride (100-108) mmol/L Carbon Dioxide (21-32) mmol/L Anion Gap (5.0-14.0) mmol/L BUN (7-18) mg/dL Creatinine (0.6-1.0) mg/dL Est Cr Clr Drug Dosing mL/min Estimated GFR (MDRD) (>60) Glucose (74-106) mg/dL POC Glucose 294 H (74-106) MG/DL Calcium (8.5-10.1) mg/dL C-Reactive Protein (0.0-0.3) mg/dL Med Orders - Current: Current Medications Acetaminophen (Tylenol) 650 mg PO Q4H PRN PRN Reason: fever, pain Last Admin: 07/15/20 22:40 Dose: 650 mg Documented by: Aspirin (Halfprin) 81 mg PO DAILY [facility] Last Admin: 07/16/20 10:13 Dose: Not Given Documented by: Benzonatate (Tessalon Perles) 100 mg PO TID PRN PRN Reason: Cough Bisacodyl (Dulcolax) 10 mg RECTAL DAILY PRN PRN Reason: Constipation Last Admin: 07/14/20 12:05 Dose: 10 mg Documented by: Dexamethasone (Dexamethasone) 1 mg PO Q24H [facility] Stop: 07/18/20 13:01 Last Admin: 07/15/20 14:29 Dose: 1 mg Documented by: Dextrose (Glutose 15) 15 gm PO ONETIME PRN PRN Reason: Hypoglycemia Dextrose/Water (Dextrose 50% In Water) 50 ml IV ONETIME PRN PRN Reason: Hypoglycemia Enoxaparin Sodium (Lovenox) 40 mg SUBCUT Q24H [facility] Last Admin: 07/16/20 08:58 Dose: 40 mg Documented by: Guaifenesin/Dextromethorphan (Robitussin Dm) 10 ml PO Q4H PRN PRN Reason: Cough Multivitamins/Minerals 10 ml/Zinc 1 ml/ Amino Ac/Electrol/Dextrose/Calcium 1,011 mls @ 75 mls/hr IV .BY DURATION [facility] Last Admin: 07/15/20 15:55 Dose: 75 mls/hr Documented by: Amino Ac/Electrol/Dextrose/Calcium (Clinimix E 5/15) 1,000 mls @ 75 mls/hr IV .BY DURATION [facility] Last Admin: 07/16/20 05:20 Dose: 75 mls/hr Documented by: Insulin Human Lispro (Humalog) 0 unit SUBCUT QIDACANDBED [facility]; Protocol Last Admin: 07/16/20 07:27 Dose: 3 units Documented by: Lorazepam (Ativan) 0.5 mg PO Q4H PRN PRN Reason: Anxiety Last Admin: 07/16/20 00:45 Dose: 0.5 mg Documented by: Metoprolol Succinate (Toprol Xl) 25 mg PO DAILY [facility] Last Admin: 07/16/20 10:13 Dose: Not Given Documented by: Non-Formulary Medication (Total Parenteral Nutrition, Central) 1,000 ml .XX .Continue Order [facility]; Protocol Ondansetron HCl (Zofran) 4 mg IVPUSH Q4H PRN PRN Reason: Nausea/Vomiting Imbruvica 420mg Tab ((Ptom)) 1 each PO DAILY [facility] Last Admin: 07/16/20 10:13 Dose: Not Given Documented by: Sodium Chloride (Saline Flush) 10 ml FLUSH ASDIRECTED PRN PRN Reason: Keep Vein Open Last Admin: 06/21/20 10:31 Dose: 10 ml Documented by: Sodium Chloride (Register Nasal [place]) 1 ml SHONDA QID PRN PRN Reason: Nasal Dryness Last Admin: 07/02/20 02:08 Dose: 1 spray Documented by: Discontinued Medications Azithromycin (Zithromax) 500 mg PO ONETIME ONE Stop: 06/09/20 22:45 Last Admin: 06/09/20 23:44 Dose: 500 mg Documented by: Azithromycin (Zithromax) 250 mg PO DAILY [facility] Stop: 06/13/20 09:01 Last Admin: 06/10/20 08:39 Dose: 250 mg Documented by: Ceftriaxone Sodium (Rocephin) Confirm Administered Dose 1 gm IV .STK-MED ONE Stop: 06/09/20 23:29 Last Admin: 06/09/20 23:42 Dose: 1 gm Documented by: Dexamethasone (Decadron) 6 mg IVPUSH Q24H [facility] Last Admin: 06/15/20 15:43 Dose: Not Given Documented by: Dexamethasone (Dexamethasone) 6 mg PO Q24H [facility] Last Admin: 06/19/20 16:48 Dose: 6 mg Documented by: Dexamethasone (Decadron) 4 mg IVPUSH Q24H [facility] Last Admin: 07/01/20 15:17 Dose: 4 mg Documented by: Dexamethasone (Dexamethasone) 4 mg PO Q24H [facility] Last Admin: 07/03/20 14:33 Dose: 4 mg Documented by: Dexamethasone (Dexamethasone) 3 mg PO Q24H [facility] Stop: 07/08/20 13:01 Last Admin: 07/08/20 12:57 Dose: 3 mg Documented by: Dexamethasone (Dexamethasone) 2 mg PO Q24H [facility] Stop: 07/13/20 13:01 Last Admin: 07/13/20 12:17 Dose: 2 mg Documented by: Doxycycline Hyclate (Vibramycin) 100 mg PO Q12H [facility] Stop: 06/15/20 23:59 Last Admin: 06/15/20 16:35 Dose: 100 mg Documented by: Enoxaparin Sodium (Lovenox) 60 mg SUBCUT BID [facility] Last Admin: 06/10/20 08:39 Dose: 60 mg Documented by: Furosemide (Lasix) 20 mg IVPUSH NOW ONE Stop: 06/10/20 14:46 Last Admin: 06/10/20 15:23 Dose: 20 mg Documented by: Furosemide (Lasix) 20 mg IVPUSH ONETIME ONE Stop: 06/21/20 13:01 Last Admin: 06/21/20 12:54 Dose: 20 mg Documented by: Furosemide (Lasix) 20 mg IVPUSH NOW ONE Stop: 06/25/20 14:31 Last Admin: 06/25/20 15:51 Dose: 20 mg Documented by: Furosemide (Lasix) 40 mg IVPUSH NOW ONE Stop: 07/02/20 11:46 Last Admin: 07/02/20 12:24 Dose: 40 mg Documented by: Furosemide (Lasix) 20 mg IVPUSH NOW ONE Stop: 07/06/20 13:16 Last Admin: 07/06/20 13:54 Dose: 20 mg Documented by: Furosemide (Lasix) 60 mg PO ONETIME ONE Stop: 07/09/20 11:46 Last Admin: 07/09/20 12:29 Dose: 60 mg Documented by: Furosemide (Lasix) 40 mg PO BIDDIURETIC [facility] Last Admin: 07/12/20 08:21 Dose: 40 mg Documented by: Furosemide (Lasix) 40 mg PO DAILY [facility] Last Admin: 07/13/20 10:49 Dose: Not Given Documented by: Sodium Chloride (Normal Saline) 1,000 mls @ 125 mls/hr IV ASDIRECTED ONE Stop: 06/10/20 03:03 Last Admin: 06/09/20 20:49 Dose: Not Given Documented by: Ceftriaxone Sodium 1 gm/ (Sodium Chloride) 50 mls @ 100 mls/hr IV Q24H [facility] Stop: 06/15/20 23:59 Last Admin: 06/14/20 22:30 Dose: 100 mls/hr Documented by: Sodium Chloride (Normal Saline) 1,000 mls @ 125 mls/hr IV ASDIRECTED [facility] Last Admin: 06/10/20 08:37 Dose: 125 mls/hr Documented by: Sodium Chloride (Normal Saline) Confirm Administered Dose 50 mls @ as directed .ROUTE .STK-MED ONE Stop: 06/09/20 23:29 Last Admin: 06/10/20 03:33 Dose: Not Given Documented by: Doxycycline Hyclate 100 mg/ (Sodium Chloride) 100 mls @ 100 mls/hr IV Q12H [facility] Last Admin: 06/12/20 02:15 Dose: 100 mls/hr Documented by: Sodium Chloride (Normal Saline) 100 mls @ 3.5 mls/sec IV ASDIRECTED [facility] Stop: 06/10/20 18:00 Last Admin: 06/10/20 17:45 Dose: 4 mls/sec Documented by: Remdesivir 100 mg/ Sodium (Chloride) 100 mls @ 100 mls/hr IV Q24H [facility] Stop: 06/15/20 12:59 Last Admin: 06/15/20 12:49 Dose: 100 mls/hr Documented by: Remdesivir 200 mg/ Sodium (Chloride) 250 mls @ 250 mls/hr IV ONETIME ONE Stop: 06/11/20 12:59 Last Admin: 06/11/20 12:30 Dose: 250 mls/hr Documented by: Sodium Chloride (Normal Saline) 100 mls @ 4 mls/sec IV ASDIRECTED [facility] Sodium Chloride (Normal Saline) 84 mls @ 3 mls/sec IV ONETIME ONE Stop: 07/03/20 10:26 Last Admin: 07/03/20 11:02 Dose: 3 mls/sec Documented by: Sodium Chloride (Normal Saline) 100 mls @ 4 mls/sec IV ASDIRECTED [facility] Stop: 07/09/20 15:00 Last Admin: 07/09/20 12:21 Dose: 4 mls/sec Documented by: Lactated Ringer's (Ringers, Lactated) 1,000 mls @ 125 mls/hr IV ASDIRECTED ONE Stop: 07/14/20 20:14 Last Admin: 07/14/20 12:37 Dose: 125 mls/hr Documented by: Fat Emulsion Intravenous (Intralipid 20%) 100 mls @ 8.5 mls/hr IV ONETIME ONE Stop: 07/16/20 03:45 Last Admin: 07/15/20 15:56 Dose: 8.5 mls/hr Documented by: Iopamidol (Isovue-370 (76%)) 57 ml IV . DIRECTED [facility] Last Admin: 06/10/20 17:44 Dose: 57 ml Documented by: Iopamidol (Isovue-370 (76%)) 100 ml IV . DIRECTED ONE Stop: 06/21/20 09:55 Last Admin: 06/21/20 10:31 Dose: 100 ml Documented by: Iopamidol (Isovue-300 (61%)) 70 ml IV . DIRECTED PRN PRN Reason: RADIOLOGY EXAM Stop: 07/03/20 10:26 Iopamidol (Isovue-370 (76%)) 70 ml IV . DIRECTED [place]ALL Stop: 07/03/20 16:00 Last Admin: 07/03/20 11:05 Dose: 70 ml Documented by: Iopamidol (Isovue-370 (76%)) 100 ml IV . DIRECTED [facility] Stop: 07/09/20 14:00 Last Admin: 07/09/20 12:21 Dose: 100 ml Documented by: Lactobacillus Rhamnosus (Culturelle) 1 cap PO BID [facility] Last Admin: 07/15/20 08:32 Dose: 1 cap Documented by: Ibrutinib (Imbruvica () 320 MgPom) 0 mg PO BEDTIME [facility] Last Admin: 06/10/20 21:24 Dose: Not Given Documented by: Pantoprazole Sodium (Protonix Iv) 40 mg IVPUSH DAILY [facility] Last Admin: 06/11/20 08:15 Dose: 40 mg Documented by: Potassium Chloride (Klor-Con M20) 40 meq PO ONETIME ONE Stop: 07/12/20 12:01 Last Admin: 07/12/20 12:17 Dose: 40 meq Documented by: Simvastatin (Zocor) 40 mg PO BEDTIME RANDALL Last Admin: 07/12/20 21:49 Dose: 40 mg Documented by: Sodium Chloride (Saline Flush) 10 ml FLUSH ASDIRECTED PRN PRN Reason: Keep Vein Open Last Admin: 06/09/20 19:38 Dose: 10 ml Documented by: Sodium Chloride (Saline Flush) 10 ml FLUSH ONETIME ONE Stop: 06/10/20 15:42 Last Admin: 06/10/20 17:45 Dose: 10 ml Documented by: Sodium Chloride (Saline Flush) 10 ml FLUSH ONETIME PRN PRN Reason: PER RADIOLOGY PROTOCOL Stop: 07/03/20 10:26 Last Admin: 07/03/20 11:02 Dose: 10 ml Documented by: Sodium Chloride (Saline Flush) 10 ml FLUSH ONETIME ONE Stop: 07/09/20 11:59 Last Admin: 07/09/20 12:21 Dose: 10 ml Documented by: - Exam Quality Assessment: Supplemental Oxygen General: Alert, Cooperative, No Acute Distress, Lethargic Lungs: Normal Respiratory Effort, Crackles (rare both bases) Cardiovascular: Regular Rhythm, Tachycardia GI/Abdominal Exam: Soft, Distended, Tender Extremities: No Pedal Edema. No: Increased Warmth Skin: Warm, Dry Psy/Mental Status: Alert. No: Agitated Sepsis Event Note - Evaluation Sepsis Screening Result: Sepsis Risk - Focused Exam Vital Signs: Vital Signs Temp Pulse Resp BP Pulse Ox 07/16/20 10:12 37.1 C 123 H 26 H 103/58 L 97 07/16/20 07:29 90 L 07/16/20 07:00 36.5 C 118 H 24 H 97/62 90 L 07/16/20 03:00 88 18 108/57 L 98 07/16/20 02:32 97 - Problem List Review Problem List Initiated/Reviewed/Updated: Yes - My Orders Last 24 Hours: My Active Orders 07/15/20 12:03 Consult to Dietary [Consult to Leak Detector] [CONS] Routine Central Venous Line Insertion [OM.PC] Routine 07/15/20 12:04 Central Line Assessment [RC] QSHIFT 07/15/20 13:50 OR PCXR-No Charge-PICC/Central [CR] Routine 07/15/20 14:13 OR PCXR-No Charge-PICC/Central [CR] Routine 07/16/20 00:33 LORazepam [Ativan] 0.5 mg PO Q4H PRN 07/16/20 11:00 Central TPN [Total Parenteral Nutrition, Central] 1,000 ml .XX .Continue Order - Plan Plan:: ASSESSMENT AND PLAN COVID-19 PNEUMONIA-complicated by acute respiratory failure with hypoxia. Pneumothorax has resolved. Stable but still quite compromised. Stable but prognosis is guarded with her slow decline and poor intake complicating her progressive weakness. Family was updated about the concerns regarding slow decline. -Continue TPN -Supplemental oxygen, wean as able -Continue Decadron taper -Repeat labs every 3 days -Supportive care -Physical therapy RIGHT PNEUMOTHORAX AND PNEUMOMEDIASTINUM-noted on CT scan 07/03. Pneumothorax has resolved. -Repeat chest x-ray with acute changes CHRONIC LYMPHOCYTIC LEUKEMIA-stable. -Continue ibrutinib MAINTENANCE ISSUES -DVT prophylaxis; Lovenox 40 mg subcu daily -GI prophylaxis; not indicated -Interiano catheter; not indicated -Nutrition; regular diet as able plus TPN DISPOSITION-anticipate discharge to home if she survives the hospital stay. Mario Rey MD
[2020-07-16] MEDS: Dexamethasone 2 MG Tab PO SCH (14:17)
[2020-07-16] MEDS: LORazepam ORAL Concentrate 1MG/0.5ML U/D BUCCAL PRN (22:26)
[2020-07-17] MEDS: Morphine 10 MG/0.5 ML Oral Syringe BUCCAL PRN ×3 (00:38→17:30)
[2020-07-17] MEDS: LORazepam ORAL Concentrate 1MG/0.5ML U/D BUCCAL PRN ×3 (03:55→23:40)
[2020-07-17] MEDS: IMBRUVICA 420 MG PO SCH (08:33)
[2020-07-17] MEDS: Aspirin 81 MG Tab.EC PO SCH (08:33)
[2020-07-17] MEDS: Metoprolol Succinate 25 MG Tab.ER PO SCH (08:33)
[2020-07-17] MEDS: Insulin Lispro 100 Unit/ML 3 ML KwikPen SUBCUT SCH ×4 (08:47→21:28)
[2020-07-17] MEDS: 1: AA 5%/Calcium/D15W/Lytes 1,000 ML with MVI, Adult with Vitamin K 10 ML, Zinc/Copper/M IV SCH ×6 (08:49→21:10)
[2020-07-17] MEDS: Enoxaparin 40 MG/0.4 ML Syringe SUBCUT SCH (08:49)
--- NOTE | 2020-07-17 09:34 | PCM.PN ---
- General Info Date of Service: 07/17/20 Subjective Update: No acute events overnight. Minimally interactive today and does not provide any reliable history. She still appeared uncomfortable this morning. Abdomen still distended. No fevers. She is on about 7-1/2 L of supplemental oxygen. CT scan of the abdomen and pelvis showed a very distended bladder and a Interiano catheter has been placed. - Patient Data Vitals - Most Recent: Last Vital Signs Temp 37.2 C 07/17/20 07:30 Pulse 119 H 07/17/20 07:30 Resp 22 H 07/17/20 07:30 BP 95/56 L 07/17/20 07:30 Pulse Ox 95 07/17/20 07:30 Weight - Most Recent: 60.5 kg Lab Results Last 24 Hours: Laboratory Results - last 24 hr 07/16/20 07/16/20 07/16/20 Range/Units 11:23 16:14 21:00 POC Glucose 306 H 268 H 269 H (74-106) MG/DL 07/17/20 Range/Units 07:24 POC Glucose 258 H (74-106) MG/DL Med Orders - Current: Current Medications Acetaminophen (Tylenol) 650 mg PO Q4H PRN PRN Reason: fever, pain Last Admin: 07/15/20 22:40 Dose: 650 mg Documented by: Aspirin (Halfprin) 81 mg PO DAILY [facility] Last Admin: 07/17/20 08:33 Dose: Not Given Documented by: Benzonatate (Tessalon Perles) 100 mg PO TID PRN PRN Reason: Cough Bisacodyl (Dulcolax) 10 mg RECTAL DAILY PRN PRN Reason: Constipation Last Admin: 07/14/20 12:05 Dose: 10 mg Documented by: Dexamethasone (Dexamethasone) 1 mg PO Q24H [facility] Stop: 07/18/20 13:01 Last Admin: 07/16/20 14:17 Dose: Not Given Documented by: Dextrose (Glutose 15) 15 gm PO ONETIME PRN PRN Reason: Hypoglycemia Dextrose/Water (Dextrose 50% In Water) 50 ml IV ONETIME PRN PRN Reason: Hypoglycemia Enoxaparin Sodium (Lovenox) 40 mg SUBCUT Q24H [facility] Last Admin: 07/17/20 08:49 Dose: 40 mg Documented by: Guaifenesin/Dextromethorphan (Robitussin Dm) 10 ml PO Q4H PRN PRN Reason: Cough Multivitamins/Minerals 10 ml/Zinc 1 ml/ Amino Ac/Electrol/Dextrose/Calcium 1,011 mls @ 75 mls/hr IV .BY DURATION [facility] Last Admin: 07/16/20 18:09 Dose: 75 mls/hr Documented by: Amino Ac/Electrol/Dextrose/Calcium (Clinimix E 5/15) 1,000 mls @ 75 mls/hr IV .BY DURATION [facility] Last Admin: 07/17/20 08:49 Dose: 75 mls/hr Documented by: Insulin Human Lispro (Humalog) 0 unit SUBCUT QIDACANDBED [facility]; Protocol Lorazepam (Ativan Oral Concentrate 1mg/0.5 Ml U/D) 0.5 mg BUCCAL Q4H PRN PRN Reason: Other Last Admin: 07/17/20 03:55 Dose: 0.5 mg Documented by: Metoprolol Succinate (Toprol Xl) 25 mg PO DAILY [facility] Last Admin: 07/17/20 08:33 Dose: Not Given Documented by: Morphine Sulfate (Morphine 10 Mg/0.5 Ml Oral Syringe) 5 mg BUCCAL Q4H PRN PRN Reason: Pain Last Admin: 07/17/20 00:38 Dose: 5 mg Documented by: Ondansetron HCl (Zofran) 4 mg IVPUSH Q4H PRN PRN Reason: Nausea/Vomiting Imbruvica 420mg Tab ((Ptom)) 1 each PO DAILY [facility] Last Admin: 07/17/20 08:33 Dose: Not Given Documented by: Sodium Chloride (Saline Flush) 10 ml FLUSH ASDIRECTED PRN PRN Reason: Keep Vein Open Last Admin: 06/21/20 10:31 Dose: 10 ml Documented by: Sodium Chloride ([place] Nasal [place]) 1 ml SHONDA QID PRN PRN Reason: Nasal Dryness Last Admin: 07/02/20 02:08 Dose: 1 spray Documented by: Discontinued Medications Azithromycin (Zithromax) 500 mg PO ONETIME ONE Stop: 06/09/20 22:45 Last Admin: 06/09/20 23:44 Dose: 500 mg Documented by: Azithromycin (Zithromax) 250 mg PO DAILY [facility] Stop: 06/13/20 09:01 Last Admin: 06/10/20 08:39 Dose: 250 mg Documented by: Ceftriaxone Sodium (Rocephin) Confirm Administered Dose 1 gm IV .STK-MED ONE Stop: 06/09/20 23:29 Last Admin: 06/09/20 23:42 Dose: 1 gm Documented by: Dexamethasone (Decadron) 6 mg IVPUSH Q24H [facility] Last Admin: 06/15/20 15:43 Dose: Not Given Documented by: Dexamethasone (Dexamethasone) 6 mg PO Q24H [facility] Last Admin: 06/19/20 16:48 Dose: 6 mg Documented by: Dexamethasone (Decadron) 4 mg IVPUSH Q24H [facility] Last Admin: 07/01/20 15:17 Dose: 4 mg Documented by: Dexamethasone (Dexamethasone) 4 mg PO Q24H [facility] Last Admin: 07/03/20 14:33 Dose: 4 mg Documented by: Dexamethasone (Dexamethasone) 3 mg PO Q24H [facility] Stop: 07/08/20 13:01 Last Admin: 07/08/20 12:57 Dose: 3 mg Documented by: Dexamethasone (Dexamethasone) 2 mg PO Q24H [facility] Stop: 07/13/20 13:01 Last Admin: 07/13/20 12:17 Dose: 2 mg Documented by: Doxycycline Hyclate (Vibramycin) 100 mg PO Q12H [facility] Stop: 06/15/20 23:59 Last Admin: 06/15/20 16:35 Dose: 100 mg Documented by: Enoxaparin Sodium (Lovenox) 60 mg SUBCUT BID [facility] Last Admin: 06/10/20 08:39 Dose: 60 mg Documented by: Furosemide (Lasix) 20 mg IVPUSH NOW ONE Stop: 06/10/20 14:46 Last Admin: 06/10/20 15:23 Dose: 20 mg Documented by: Furosemide (Lasix) 20 mg IVPUSH ONETIME ONE Stop: 06/21/20 13:01 Last Admin: 06/21/20 12:54 Dose: 20 mg Documented by: Furosemide (Lasix) 20 mg IVPUSH NOW ONE Stop: 06/25/20 14:31 Last Admin: 06/25/20 15:51 Dose: 20 mg Documented by: Furosemide (Lasix) 40 mg IVPUSH NOW ONE Stop: 07/02/20 11:46 Last Admin: 07/02/20 12:24 Dose: 40 mg Documented by: Furosemide (Lasix) 20 mg IVPUSH NOW ONE Stop: 07/06/20 13:16 Last Admin: 07/06/20 13:54 Dose: 20 mg Documented by: Furosemide (Lasix) 60 mg PO ONETIME ONE Stop: 07/09/20 11:46 Last Admin: 07/09/20 12:29 Dose: 60 mg Documented by: Furosemide (Lasix) 40 mg PO BIDDIURETIC [facility] Last Admin: 07/12/20 08:21 Dose: 40 mg Documented by: Furosemide (Lasix) 40 mg PO DAILY [facility] Last Admin: 07/13/20 10:49 Dose: Not Given Documented by: Sodium Chloride (Normal Saline) 1,000 mls @ 125 mls/hr IV ASDIRECTED ONE Stop: 06/10/20 03:03 Last Admin: 06/09/20 20:49 Dose: Not Given Documented by: Ceftriaxone Sodium 1 gm/ (Sodium Chloride) 50 mls @ 100 mls/hr IV Q24H [facility] Stop: 06/15/20 23:59 Last Admin: 06/14/20 22:30 Dose: 100 mls/hr Documented by: Sodium Chloride (Normal Saline) 1,000 mls @ 125 mls/hr IV ASDIRECTED [facility] Last Admin: 06/10/20 08:37 Dose: 125 mls/hr Documented by: Sodium Chloride (Normal Saline) Confirm Administered Dose 50 mls @ as directed .ROUTE .STK-MED ONE Stop: 06/09/20 23:29 Last Admin: 06/10/20 03:33 Dose: Not Given Documented by: Doxycycline Hyclate 100 mg/ (Sodium Chloride) 100 mls @ 100 mls/hr IV Q12H [facility] Last Admin: 06/12/20 02:15 Dose: 100 mls/hr Documented by: Sodium Chloride (Normal Saline) 100 mls @ 3.5 mls/sec IV ASDIRECTED [facility] Stop: 06/10/20 18:00 Last Admin: 06/10/20 17:45 Dose: 4 mls/sec Documented by: Remdesivir 100 mg/ Sodium (Chloride) 100 mls @ 100 mls/hr IV Q24H [facility] Stop: 06/15/20 12:59 Last Admin: 06/15/20 12:49 Dose: 100 mls/hr Documented by: Remdesivir 200 mg/ Sodium (Chloride) 250 mls @ 250 mls/hr IV ONETIME ONE Stop: 06/11/20 12:59 Last Admin: 06/11/20 12:30 Dose: 250 mls/hr Documented by: Sodium Chloride (Normal Saline) 100 mls @ 4 mls/sec IV ASDIRECTED [facility] Sodium Chloride (Normal Saline) 84 mls @ 3 mls/sec IV ONETIME ONE Stop: 07/03/20 10:26 Last Admin: 07/03/20 11:02 Dose: 3 mls/sec Documented by: Sodium Chloride (Normal Saline) 100 mls @ 4 mls/sec IV ASDIRECTED [facility] Stop: 07/09/20 15:00 Last Admin: 07/09/20 12:21 Dose: 4 mls/sec Documented by: Lactated Ringer's (Ringers, Lactated) 1,000 mls @ 125 mls/hr IV ASDIRECTED ONE Stop: 07/14/20 20:14 Last Admin: 07/14/20 12:37 Dose: 125 mls/hr Documented by: Fat Emulsion Intravenous (Intralipid 20%) 100 mls @ 8.5 mls/hr IV ONETIME ONE Stop: 07/16/20 03:45 Last Admin: 07/15/20 15:56 Dose: 8.5 mls/hr Documented by: Insulin Human Lispro (Humalog) 0 unit SUBCUT QIDACANDBED [facility]; Protocol Last Admin: 07/17/20 08:47 Dose: 3 units Documented by: Iopamidol (Isovue-370 (76%)) 57 ml IV . DIRECTED [facility] Last Admin: 06/10/20 17:44 Dose: 57 ml Documented by: Iopamidol (Isovue-370 (76%)) 100 ml IV . DIRECTED ONE Stop: 06/21/20 09:55 Last Admin: 06/21/20 10:31 Dose: 100 ml Documented by: Iopamidol (Isovue-300 (61%)) 70 ml IV . DIRECTED PRN PRN Reason: RADIOLOGY EXAM Stop: 07/03/20 10:26 Iopamidol (Isovue-370 (76%)) 70 ml IV . DIRECTED [facility] Stop: 07/03/20 16:00 Last Admin: 07/03/20 11:05 Dose: 70 ml Documented by: Iopamidol (Isovue-370 (76%)) 100 ml IV . DIRECTED [facility] Stop: 07/09/20 14:00 Last Admin: 07/09/20 12:21 Dose: 100 ml Documented by: Lactobacillus Rhamnosus (Culturelle) 1 cap PO BID [facility] Last Admin: 07/15/20 08:32 Dose: 1 cap Documented by: Lorazepam (Ativan) 0.5 mg PO Q4H PRN PRN Reason: Anxiety Last Admin: 07/16/20 00:45 Dose: 0.5 mg Documented by: Ibrutinib (Imbruvica () 320 MgPom) 0 mg PO BEDTIME [facility] Last Admin: 06/10/20 21:24 Dose: Not Given Documented by: Non-Formulary Medication (Total Parenteral Nutrition, Central) 1,000 ml .XX .Continue Order [facility]; Protocol Stop: 07/16/20 16:00 Pantoprazole Sodium (Protonix Iv) 40 mg IVPUSH DAILY [facility] Last Admin: 06/11/20 08:15 Dose: 40 mg Documented by: Potassium Chloride (Klor-Con M20) 40 meq PO ONETIME ONE Stop: 07/12/20 12:01 Last Admin: 07/12/20 12:17 Dose: 40 meq Documented by: Simvastatin (Zocor) 40 mg PO BEDTIME [facility] Last Admin: 07/12/20 21:49 Dose: 40 mg Documented by: Sodium Chloride (Saline Flush) 10 ml FLUSH ASDIRECTED PRN PRN Reason: Keep Vein Open Last Admin: 06/09/20 19:38 Dose: 10 ml Documented by: Sodium Chloride (Saline Flush) 10 ml FLUSH ONETIME ONE Stop: 06/10/20 15:42 Last Admin: 06/10/20 17:45 Dose: 10 ml Documented by: Sodium Chloride (Saline Flush) 10 ml FLUSH ONETIME PRN PRN Reason: PER RADIOLOGY PROTOCOL Stop: 07/03/20 10:26 Last Admin: 07/03/20 11:02 Dose: 10 ml Documented by: Sodium Chloride (Saline Flush) 10 ml FLUSH ONETIME ONE Stop: 07/09/20 11:59 Last Admin: 07/09/20 12:21 Dose: 10 ml Documented by: - Exam Quality Assessment: Supplemental Oxygen General: Alert, No Acute Distress, Lethargic Lungs: Normal Respiratory Effort, Crackles (few both bases) Cardiovascular: Regular Rhythm, Tachycardia GI/Abdominal Exam: Normal Bowel Sounds, Soft, Distended Extremities: No Pedal Edema. No: Increased Warmth, Mottled Skin: Warm, Dry Psy/Mental Status: Alert. No: Agitated Sepsis Event Note - Evaluation Sepsis Screening Result: Sepsis Risk - Focused Exam Vital Signs: Vital Signs Temp Pulse Resp BP Pulse Ox 07/17/20 07:30 37.2 C 119 H 22 H 95/56 L 95 07/17/20 07:18 96 07/17/20 03:00 36.8 C 122 H 20 102/67 97 07/17/20 01:13 98 07/16/20 22:47 37.1 C 124 H 26 H 99/65 90 L - Problem List Review Problem List Initiated/Reviewed/Updated: Yes - My Orders Last 24 Hours: My Active Orders 07/16/20 21:56 LORazepam [Ativan ORAL Concentrate 1MG/0.5 ML U/D] 0.5 mg BUCCAL Q4H PRN Morphine [Morphine 10 MG/0.5 ML Oral Syringe] 5 mg BUCCAL Q4H PRN 07/17/20 09:31 Abdomen Pelvis wo Cont [CT] Routine 07/17/20 09:45 Central TPN [Total Parenteral Nutrition, Central] 1,000 ml .XX .Continue Order 07/17/20 11:00 Insulin Lispro [HumaLOG] See Protocol SUBCUT QIDACANDBED - Plan Plan:: ASSESSMENT AND PLAN COVID-19 PNEUMONIA-complicated by acute respiratory failure with hypoxia. Pneumothorax has resolved. Stable but still quite compromised. Stable but prognosis is guarded with her slow decline and poor intake complicating her progressive weakness. Family was updated about the concerns regarding slow decline and possibility she may not recover. -Continue TPN -Supplemental oxygen, wean as able -Continue Decadron taper -Repeat labs every 3 days -Supportive care -Physical therapy ACUTE URINARY RETENTION-Interiano catheter placed today with a very distended bladder noted on the CT scan. -Continue Interiano catheter with routine care RIGHT PNEUMOTHORAX AND PNEUMOMEDIASTINUM-noted on CT scan 07/03. Pneumothorax has resolved. -Repeat chest x-ray with acute changes CHRONIC LYMPHOCYTIC LEUKEMIA-stable. -Continue ibrutinib MAINTENANCE ISSUES -DVT prophylaxis; Lovenox 40 mg subcu daily -GI prophylaxis; not indicated -Interiano catheter; not indicated -Nutrition; regular diet as able plus TPN DISPOSITION-anticipate discharge to home if she survives the hospital stay. Mario Rey MD
[2020-07-17] MEDS ORDERED: Central Total Parenteral Nutrition Bag SCH (10:15)
--- NOTE | 2020-07-17 10:52 | CT ---
Abdomen Pelvis wo Cont CLINICAL HISTORY: Abdominal distention, pain, diarrhea COMPARISON: 2009. TECHNIQUE: Axial tomographic images are obtained from the dome of the diaphragm to the pubic symphysis without IV contrast enhancement. No oral contrast was used. The dosage reduction and iterative reconstruction techniques employed. FINDINGS: There is breathing motion which obscures some detail. The lung bases show diffuse bilateral groundglass opacities. There is some patchy infiltrate as well as some bronchiectasis and pleural parenchymal scarring. There is a vague nodular focus along the major fissure at the perihilar level.. The liver shows no mass or biliary dilatation. The gallbladder is mildly distended. The spleen has a normal size and shape. The pancreas shows no mass or inflammatory change. The adrenal glands appear normal bilaterally. The kidneys are hydronephrotic bilaterally. No calcifications are seen. There is fullness of the ureters along the length. There is significant distention of the bladder extending well out of the pelvis. The aorta shows some atheromatous plaque without aneurysm. There is no suspicious retroperitoneal adenopathy. The small intestinal configuration is nonacute. There is been previous right abdominal surgery near the cecum. IMPRESSION: Severe urinary retention with significant bladder distention as well as bilateral hydronephrosis and hydroureters. Moderate diffuse bilateral groundglass opacities through the lung bases consistent with a pneumonitis. When compared to CT a chest July 09, 2020, there is no significant change
[2020-07-17] MEDS: Dexamethasone 2 MG Tab PO SCH (13:11)
[2020-07-17] MEDS: Morphine 10 MG/0.5 ML Oral Syringe PO PRN (22:08)
[2020-07-18] MEDS: Morphine 10 MG/0.5 ML Oral Syringe PO PRN ×6 (01:41→23:35)
[2020-07-18] MEDS: Metoprolol Succinate 25 MG Tab.ER PO SCH (08:16)
[2020-07-18] MEDS: Aspirin 81 MG Tab.EC PO SCH (08:16)
[2020-07-18] MEDS: IMBRUVICA 420 MG PO SCH (08:16)
[2020-07-18] MEDS: Insulin Lispro 100 Unit/ML 3 ML KwikPen SUBCUT SCH ×4 (08:23→21:10)
[2020-07-18] MEDS: Enoxaparin 40 MG/0.4 ML Syringe SUBCUT SCH (08:24)
--- NOTE | 2020-07-18 10:10 | PCM.PN ---
- General Info Date of Service: 07/18/20 Subjective Update: There were no acute events overnight. Patient remains lethargic and minimally responsive but she does answer questions. She appears very sleepy. She has not had any fevers. Oxygenation has been stable. Tolerating TPN so far. Her Sergio was updated. The patient and her wish to continue the current plan of care. Functional Status: Reports: Pain Controlled - Review of Systems General: Reports: Weakness - Patient Data Vitals - Most Recent: Last Vital Signs Temp 37.2 C 07/18/20 07:43 Pulse 120 H 07/18/20 07:43 Resp 18 07/18/20 07:43 BP 92/56 L 07/18/20 07:43 Pulse Ox 99 07/18/20 07:43 Weight - Most Recent: 57.8 kg I&O - Last 24 Hours: Intake & Output 07/17/20 07/18/20 07/18/20 22:59 06:59 14:59 Intake Total 3612 Output Total 700 660 Balance -700 2952 Lab Results Last 24 Hours: Laboratory Results - last 24 hr 07/17/20 07/17/20 07/17/20 Range/Units 11:30 16:30 21:14 POC Glucose 287 H 192 H 181 H (74-106) MG/DL 07/18/20 Range/Units 07:30 POC Glucose 193 H (74-106) MG/DL Med Orders - Current: Current Medications Acetaminophen (Tylenol) 650 mg PO Q4H PRN PRN Reason: fever, pain Last Admin: 07/15/20 22:40 Dose: 650 mg Documented by: Aspirin (Halfprin) 81 mg PO DAILY [facility] Last Admin: 07/18/20 08:16 Dose: Not Given Documented by: Benzonatate (Tessalon Perles) 100 mg PO TID PRN PRN Reason: Cough Bisacodyl (Dulcolax) 10 mg RECTAL DAILY PRN PRN Reason: Constipation Last Admin: 07/14/20 12:05 Dose: 10 mg Documented by: Dexamethasone (Dexamethasone) 1 mg PO Q24H [facility] Stop: 07/18/20 13:01 Last Admin: 07/17/20 13:11 Dose: Not Given Documented by: Dextrose (Glutose 15) 15 gm PO ONETIME PRN PRN Reason: Hypoglycemia Dextrose/Water (Dextrose 50% In Water) 50 ml IV ONETIME PRN PRN Reason: Hypoglycemia Enoxaparin Sodium (Lovenox) 40 mg SUBCUT Q24H [facility] Last Admin: 07/18/20 08:24 Dose: 40 mg Documented by: Guaifenesin/Dextromethorphan (Robitussin Dm) 10 ml PO Q4H PRN PRN Reason: Cough Multivitamins/Minerals 10 ml/Zinc 1 ml/ Amino Ac/Electrol/Dextrose/Calcium 1,011 mls @ 75 mls/hr IV .BY DURATION [facility] Last Admin: 07/17/20 21:10 Dose: 75 mls/hr Documented by: Amino Ac/Electrol/Dextrose/Calcium (Clinimix E 15) 1,000 mls @ 75 mls/hr IV .BY DURATION [facility] Last Admin: 07/17/20 08:49 Dose: 75 mls/hr Documented by: Insulin Human Lispro (Humalog) 0 unit SUBCUT QIDACANDBED [facility]; Protocol Last Admin: 07/18/20 08:23 Dose: 2 units Documented by: Lorazepam (Ativan Oral Concentrate 1mg/0.5 Ml U/D) 0.5 mg BUCCAL Q4H PRN PRN Reason: Other Last Admin: 07/17/20 23:40 Dose: 0.5 mg Documented by: Metoprolol Succinate (Toprol Xl) 25 mg PO DAILY [facility] Last Admin: 07/18/20 08:16 Dose: Not Given Documented by: Morphine Sulfate (Morphine 10 Mg/0.5 Ml Oral Syringe) 5 mg PO Q2H PRN PRN Reason: Pain Last Admin: 07/18/20 01:41 Dose: 5 mg Documented by: Ondansetron HCl (Zofran) 4 mg IVPUSH Q4H PRN PRN Reason: Nausea/Vomiting Imbruvica 420mg Tab ((Ptom)) 1 each PO DAILY [facility] Last Admin: 07/18/20 08:16 Dose: Not Given Documented by: Sodium Chloride (Saline Flush) 10 ml FLUSH ASDIRECTED PRN PRN Reason: Keep Vein Open Last Admin: 06/21/20 10:31 Dose: 10 ml Documented by: Sodium Chloride (Moselle Nasal [place]) 1 ml SHONDA QID PRN PRN Reason: Nasal Dryness Last Admin: 07/02/20 02:08 Dose: 1 spray Documented by: Discontinued Medications Azithromycin (Zithromax) 500 mg PO ONETIME ONE Stop: 06/09/20 22:45 Last Admin: 06/09/20 23:44 Dose: 500 mg Documented by: Azithromycin (Zithromax) 250 mg PO DAILY [facility] Stop: 06/13/20 09:01 Last Admin: 06/10/20 08:39 Dose: 250 mg Documented by: Ceftriaxone Sodium (Rocephin) Confirm Administered Dose 1 gm IV .STK-MED ONE Stop: 06/09/20 23:29 Last Admin: 06/09/20 23:42 Dose: 1 gm Documented by: Dexamethasone (Decadron) 6 mg IVPUSH Q24H [facility] Last Admin: 06/15/20 15:43 Dose: Not Given Documented by: Dexamethasone (Dexamethasone) 6 mg PO Q24H [facility] Last Admin: 06/19/20 16:48 Dose: 6 mg Documented by: Dexamethasone (Decadron) 4 mg IVPUSH Q24H [facility] Last Admin: 07/01/20 15:17 Dose: 4 mg Documented by: Dexamethasone (Dexamethasone) 4 mg PO Q24H [facility] Last Admin: 07/03/20 14:33 Dose: 4 mg Documented by: Dexamethasone (Dexamethasone) 3 mg PO Q24H [facility] Stop: 07/08/20 13:01 Last Admin: 07/08/20 12:57 Dose: 3 mg Documented by: Dexamethasone (Dexamethasone) 2 mg PO Q24H [facility] Stop: 07/13/20 13:01 Last Admin: 07/13/20 12:17 Dose: 2 mg Documented by: Doxycycline Hyclate (Vibramycin) 100 mg PO Q12H [facility] Stop: 06/15/20 23:59 Last Admin: 06/15/20 16:35 Dose: 100 mg Documented by: Enoxaparin Sodium (Lovenox) 60 mg SUBCUT BID [facility] Last Admin: 06/10/20 08:39 Dose: 60 mg Documented by: Furosemide (Lasix) 20 mg IVPUSH NOW ONE Stop: 06/10/20 14:46 Last Admin: 06/10/20 15:23 Dose: 20 mg Documented by: Furosemide (Lasix) 20 mg IVPUSH ONETIME ONE Stop: 06/21/20 13:01 Last Admin: 06/21/20 12:54 Dose: 20 mg Documented by: Furosemide (Lasix) 20 mg IVPUSH NOW ONE Stop: 06/25/20 14:31 Last Admin: 06/25/20 15:51 Dose: 20 mg Documented by: Furosemide (Lasix) 40 mg IVPUSH NOW ONE Stop: 07/02/20 11:46 Last Admin: 07/02/20 12:24 Dose: 40 mg Documented by: Furosemide (Lasix) 20 mg IVPUSH NOW ONE Stop: 07/06/20 13:16 Last Admin: 07/06/20 13:54 Dose: 20 mg Documented by: Furosemide (Lasix) 60 mg PO ONETIME ONE Stop: 07/09/20 11:46 Last Admin: 07/09/20 12:29 Dose: 60 mg Documented by: Furosemide (Lasix) 40 mg PO BIDDIURETIC [facility] Last Admin: 07/12/20 08:21 Dose: 40 mg Documented by: Furosemide (Lasix) 40 mg PO DAILY [facility] Last Admin: 07/13/20 10:49 Dose: Not Given Documented by: Sodium Chloride (Normal Saline) 1,000 mls @ 125 mls/hr IV ASDIRECTED ONE Stop: 06/10/20 03:03 Last Admin: 06/09/20 20:49 Dose: Not Given Documented by: Ceftriaxone Sodium 1 gm/ (Sodium Chloride) 50 mls @ 100 mls/hr IV Q24H [facility] Stop: 06/15/20 23:59 Last Admin: 06/14/20 22:30 Dose: 100 mls/hr Documented by: Sodium Chloride (Normal Saline) 1,000 mls @ 125 mls/hr IV ASDIRECTED [facility] Last Admin: 06/10/20 08:37 Dose: 125 mls/hr Documented by: Sodium Chloride (Normal Saline) Confirm Administered Dose 50 mls @ as directed .ROUTE .STK-MED ONE Stop: 06/09/20 23:29 Last Admin: 06/10/20 03:33 Dose: Not Given Documented by: Doxycycline Hyclate 100 mg/ (Sodium Chloride) 100 mls @ 100 mls/hr IV Q12H [facility] Last Admin: 06/12/20 02:15 Dose: 100 mls/hr Documented by: Sodium Chloride (Normal Saline) 100 mls @ 3.5 mls/sec IV ASDIRECTED [facility] Stop: 06/10/20 18:00 Last Admin: 06/10/20 17:45 Dose: 4 mls/sec Documented by: Remdesivir 100 mg/ Sodium (Chloride) 100 mls @ 100 mls/hr IV Q24H [facility] Stop: 06/15/20 12:59 Last Admin: 06/15/20 12:49 Dose: 100 mls/hr Documented by: Remdesivir 200 mg/ Sodium (Chloride) 250 mls @ 250 mls/hr IV ONETIME ONE Stop: 06/11/20 12:59 Last Admin: 06/11/20 12:30 Dose: 250 mls/hr Documented by: Sodium Chloride (Normal Saline) 100 mls @ 4 mls/sec IV ASDIRECTED [facility] Sodium Chloride (Normal Saline) 84 mls @ 3 mls/sec IV ONETIME ONE Stop: 07/03/20 10:26 Last Admin: 07/03/20 11:02 Dose: 3 mls/sec Documented by: Sodium Chloride (Normal Saline) 100 mls @ 4 mls/sec IV ASDIRECTED [facility] Stop: 07/09/20 15:00 Last Admin: 07/09/20 12:21 Dose: 4 mls/sec Documented by: Lactated Ringer's (Ringers, Lactated) 1,000 mls @ 125 mls/hr IV ASDIRECTED ONE Stop: 07/14/20 20:14 Last Admin: 07/14/20 12:37 Dose: 125 mls/hr Documented by: Fat Emulsion Intravenous (Intralipid 20%) 100 mls @ 8.5 mls/hr IV ONETIME ONE Stop: 07/16/20 03:45 Last Admin: 07/15/20 15:56 Dose: 8.5 mls/hr Documented by: Insulin Human Lispro (Humalog) 0 unit SUBCUT QIDACANDBED [facility]; Protocol Last Admin: 07/17/20 08:47 Dose: 3 units Documented by: Iopamidol (Isovue-370 (76%)) 57 ml IV . DIRECTED [facility] Last Admin: 06/10/20 17:44 Dose: 57 ml Documented by: Iopamidol (Isovue-370 (76%)) 100 ml IV . DIRECTED ONE Stop: 06/21/20 09:55 Last Admin: 06/21/20 10:31 Dose: 100 ml Documented by: Iopamidol (Isovue-300 (61%)) 70 ml IV . DIRECTED PRN PRN Reason: RADIOLOGY EXAM Stop: 07/03/20 10:26 Iopamidol (Isovue-370 (76%)) 70 ml IV . DIRECTED [facility] Stop: 07/03/20 16:00 Last Admin: 07/03/20 11:05 Dose: 70 ml Documented by: Iopamidol (Isovue-370 (76%)) 100 ml IV . DIRECTED [facility] Stop: 07/09/20 14:00 Last Admin: 07/09/20 12:21 Dose: 100 ml Documented by: Lactobacillus Rhamnosus (Culturelle) 1 cap PO BID [facility] Last Admin: 07/15/20 08:32 Dose: 1 cap Documented by: Lorazepam (Ativan) 0.5 mg PO Q4H PRN PRN Reason: Anxiety Last Admin: 07/16/20 00:45 Dose: 0.5 mg Documented by: Morphine Sulfate (Morphine 10 Mg/0.5 Ml Oral Syringe) 5 mg BUCCAL Q4H PRN PRN Reason: Pain Last Admin: 07/17/20 17:30 Dose: 5 mg Documented by: Ibrutinib (Imbruvica () 320 MgPom) 0 mg PO BEDTIME [facility] Last Admin: 06/10/20 21:24 Dose: Not Given Documented by: Non-Formulary Medication (Total Parenteral Nutrition, Central) 1,000 ml .XX .Continue Order [facility]; Protocol Stop: 07/16/20 16:00 Non-Formulary Medication (Total Parenteral Nutrition, Central) 1,000 ml .XX .Continue Order [facility]; Protocol Stop: 07/17/20 13:00 Pantoprazole Sodium (Protonix Iv) 40 mg IVPUSH DAILY [facility] Last Admin: 06/11/20 08:15 Dose: 40 mg Documented by: Potassium Chloride (Klor-Con M20) 40 meq PO ONETIME ONE Stop: 07/12/20 12:01 Last Admin: 07/12/20 12:17 Dose: 40 meq Documented by: Simvastatin (Zocor) 40 mg PO BEDTIME [facility] Last Admin: 07/12/20 21:49 Dose: 40 mg Documented by: Sodium Chloride (Saline Flush) 10 ml FLUSH ASDIRECTED PRN PRN Reason: Keep Vein Open Last Admin: 06/09/20 19:38 Dose: 10 ml Documented by: Sodium Chloride (Saline Flush) 10 ml FLUSH ONETIME ONE Stop: 06/10/20 15:42 Last Admin: 06/10/20 17:45 Dose: 10 ml Documented by: Sodium Chloride (Saline Flush) 10 ml FLUSH ONETIME PRN PRN Reason: PER RADIOLOGY PROTOCOL Stop: 07/03/20 10:26 Last Admin: 07/03/20 11:02 Dose: 10 ml Documented by: Sodium Chloride (Saline Flush) 10 ml FLUSH ONETIME ONE Stop: 07/09/20 11:59 Last Admin: 07/09/20 12:21 Dose: 10 ml Documented by: - Exam Quality Assessment: Supplemental Oxygen General: Alert, Cooperative, No Acute Distress, Lethargic Lungs: Normal Respiratory Effort, Crackles (few both bases ) Cardiovascular: Regular Rhythm, Tachycardia GI/Abdominal Exam: Soft, Non-Tender, No Distention Extremities: No Pedal Edema. No: Increased Warmth, Mottled Skin: Warm, Dry Psy/Mental Status: Alert. No: Agitated Sepsis Event Note - Evaluation Sepsis Screening Result: Sepsis Risk - Focused Exam Vital Signs: Vital Signs Temp Temp Pulse Resp BP Pulse Ox 07/18/20 07:43 37.2 C 120 H 18 92/56 L 99 07/18/20 07:16 99 07/18/20 03:00 36.8 C 118 H 20 94/55 L 94 L 07/18/20 01:03 99 07/17/20 22:40 37.5 C 121 H 24 H 98/59 L 96 - Problem List Review Problem List Initiated/Reviewed/Updated: Yes - My Orders Last 24 Hours: My Active Orders 07/17/20 10:42 Urinary Catheter Assessment [RC] Q12H 07/17/20 10:45 Insert Interiano Catheter [Insert Urinary Catheter] [OM.PC] Q24H 07/17/20 11:00 Insulin Lispro [HumaLOG] See Protocol SUBCUT QIDACANDBED 07/17/20 21:27 Morphine [Morphine 10 MG/0.5 ML Oral Syringe] 5 mg PO Q2H PRN 07/18/20 21:00 GLUCOSE POC LAB TO COLLECT JPM [POC] QIDACANDBED 07/19/20 05:00 CBC W/O DIFF,HEMOGRAM [HEME] Timed (1) COMPREHENSIVE METABOLIC PN,CMP [CHEM] Timed CRP [C-REACTIVE PROTEIN] [CHEM] Timed D-DIMER QUANTITATIVE [COAG] Timed 07/19/20 07:30 GLUCOSE POC LAB TO COLLECT JPM [POC] QIDACANDBED 07/19/20 11:30 GLUCOSE POC LAB TO COLLECT JPM [POC] QIDACANDBED 07/19/20 16:30 GLUCOSE POC LAB TO COLLECT JPM [POC] QIDACANDBED 07/19/20 21:00 GLUCOSE POC LAB TO COLLECT JPM [POC] QIDACANDBED 07/20/20 07:30 GLUCOSE POC LAB TO COLLECT JPM [POC] QIDACANDBED 07/20/20 11:30 GLUCOSE POC LAB TO COLLECT JPM [POC] QIDACANDBED 07/20/20 16:30 GLUCOSE POC LAB TO COLLECT JPM [POC] QIDACANDBED 07/20/20 21:00 GLUCOSE POC LAB TO COLLECT JPM [POC] QIDACANDBED 07/21/20 07:30 GLUCOSE POC LAB TO COLLECT JPM [POC] QIDACANDBED 07/21/20 11:30 GLUCOSE POC LAB TO COLLECT JPM [POC] QIDACANDBED 07/21/20 16:30 GLUCOSE POC LAB TO COLLECT JPM [POC] QIDACANDBED 07/21/20 21:00 GLUCOSE POC LAB TO COLLECT JPM [POC] QIDACANDBED 07/22/20 07:30 GLUCOSE POC LAB TO COLLECT JPM [POC] QIDACANDBED 07/22/20 11:30 GLUCOSE POC LAB TO COLLECT JPM [POC] QIDACANDBED 07/22/20 16:30 GLUCOSE POC LAB TO COLLECT JPM [POC] QIDACANDBED 07/22/20 21:00 GLUCOSE POC LAB TO COLLECT JPM [POC] QIDACANDBED - Plan Plan:: ASSESSMENT AND PLAN COVID-19 PNEUMONIA-complicated by acute respiratory failure with hypoxia. Pneumothorax has resolved. Stable but still quite compromised. Stable but prognosis is guarded with her slow decline and poor intake complicating her progressive weakness. Family was updated again today. -Continue TPN -Supplemental oxygen, wean as able -Continue Decadron taper -Repeat labs every 3 days -Supportive care -Physical therapy ACUTE URINARY RETENTION-Interiano catheter placed with a very distended bladder noted on the CT scan. Pain resolved after bladder was drained. -Continue Interiano catheter with routine care RIGHT PNEUMOTHORAX AND PNEUMOMEDIASTINUM-noted on CT scan 07/03. Pneumothorax has resolved. -Repeat chest x-ray with acute changes CHRONIC LYMPHOCYTIC LEUKEMIA-stable. -Continue ibrutinib MAINTENANCE ISSUES -DVT prophylaxis; Lovenox 40 mg subcu daily -GI prophylaxis; not indicated -Interiano catheter; not indicated -Nutrition; regular diet as able plus TPN DISPOSITION-anticipate discharge to home if she survives the hospital stay. Mario Rey MD
[2020-07-18] MEDS: 1: AA 5%/Calcium/D15W/Lytes 1,000 ML with MVI, Adult with Vitamin K 10 ML, Zinc/Copper/M IV SCH ×3 (11:24)
[2020-07-18] MEDS ORDERED: Central Total Parenteral Nutrition Bag SCH (11:30)
[2020-07-18] MEDS: Dexamethasone 2 MG Tab PO SCH (12:37)
[2020-07-18] MEDS ORDERED: Acetaminophen 650 MG Supp RECTAL PRN (19:59)
[2020-07-18] MEDS: LORazepam ORAL Concentrate 1MG/0.5ML U/D BUCCAL PRN (22:52)
[2020-07-19] MEDS: 1: AA 5%/Calcium/D15W/Lytes 1,000 ML with MVI, Adult with Vitamin K 10 ML, Zinc/Copper/M IV SCH ×6 (00:39→13:13)
[2020-07-19] MEDS: Morphine 10 MG/0.5 ML Oral Syringe PO PRN ×8 (01:41→22:01)
[2020-07-19] MEDS: Insulin Lispro 100 Unit/ML 3 ML KwikPen SUBCUT SCH ×4 (08:53→21:20)
[2020-07-19] MEDS: Enoxaparin 40 MG/0.4 ML Syringe SUBCUT SCH (08:55)
[2020-07-19] MEDS: Aspirin 81 MG Tab.EC PO SCH (08:58)
[2020-07-19] MEDS: Metoprolol Succinate 25 MG Tab.ER PO SCH (08:58)
[2020-07-19] MEDS: IMBRUVICA 420 MG PO SCH (08:58)
--- NOTE | 2020-07-19 09:55 | PCM.PN ---
- General Info Date of Service: 07/19/20 Subjective Update: No acute events overnight. Still very weak and lethargic. She is interactive but minimally so at this time. She does complain of pain all over but really is not further able to describe it. She does not appear short of breath. Oxygenation has been stable and she is on 7 L via simple facemask. Her was at the bedside this morning and he was updated on the condition. She is tolerating her TPN. - Review of Systems General: Reports: Weakness - Patient Data Vitals - Most Recent: Last Vital Signs Temp 36.8 C 07/19/20 07:20 Pulse 118 H 07/19/20 07:20 Resp 21 H 07/19/20 07:20 BP 98/57 L 07/19/20 07:20 Pulse Ox 90 L 07/19/20 07:20 Weight - Most Recent: 58.3 kg I&O - Last 24 Hours: Intake & Output 07/18/20 07/19/20 07/19/20 22:59 06:59 14:59 Intake Total 1774 Output Total 850 Balance 924 Lab Results Last 24 Hours: Laboratory Results - last 24 hr 07/18/20 07/18/20 07/18/20 Range/Units 11:30 16:30 21:00 WBC (4.5-11.0) K/uL RBC (3.30-5.50) M/uL Hgb (12.0-15.0) g/dL Hct (36.0-48.0) % MCV (80-98) fL MCH (27-31) pg MCHC (32-36) % Plt Count (150-400) K/uL D-Dimer, Quantitative (0.0-500.0) ng/mL Sodium (140-148) mmol/L Potassium (3.6-5.2) mmol/L Chloride (100-108) mmol/L Carbon Dioxide (21-32) mmol/L Anion Gap (5.0-14.0) mmol/L BUN (7-18) mg/dL Creatinine (0.6-1.0) mg/dL Est Cr Clr Drug Dosing mL/min Estimated GFR (MDRD) (>60) Glucose (74-106) mg/dL POC Glucose 157 H 178 H 171 H (74-106) MG/DL Calcium (8.5-10.1) mg/dL Total Bilirubin (0.2-1.0) mg/dL AST (15-37) U/L ALT (12-78) U/L Alkaline Phosphatase (46-116) U/L C-Reactive Protein (0.0-0.3) mg/dL Total Protein (6.4-8.2) g/dL Albumin (3.4-5.0) g/dL Globulin (2.3-3.5) g/dL Albumin/Globulin Ratio (1.2-2.2) 07/19/20 07/19/20 07/19/20 Range/Units 04:15 04:15 04:15 WBC 24.2 H (4.5-11.0) K/uL RBC 2.86 L (3.30-5.50) M/uL Hgb 8.6 L (12.0-15.0) g/dL Hct 28.0 L (36.0-48.0) % MCV 98 (80-98) fL MCH 30 (27-31) pg MCHC 31 L (32-36) % Plt Count 245 (150-400) K/uL D-Dimer, Quantitative 3645.04 H (0.0-500.0) ng/mL Sodium 135 L (140-148) mmol/L Potassium 4.6 (3.6-5.2) mmol/L Chloride 101 (100-108) mmol/L Carbon Dioxide 30 (21-32) mmol/L Anion Gap 8.6 (5.0-14.0) mmol/L BUN 46 H (7-18) mg/dL Creatinine 0.7 (0.6-1.0) mg/dL Est Cr Clr Drug Dosing 63.36 mL/min Estimated GFR (MDRD) > 60 (>60) Glucose 190 H (74-106) mg/dL POC Glucose (74-106) MG/DL Calcium 8.1 L (8.5-10.1) mg/dL Total Bilirubin 0.5 D (0.2-1.0) mg/dL AST 21 (15-37) U/L ALT 19 D (12-78) U/L Alkaline Phosphatase 86 (46-116) U/L C-Reactive Protein 4.17 H (0.0-0.3) mg/dL Total Protein 4.8 L (6.4-8.2) g/dL Albumin 1.6 L (3.4-5.0) g/dL Globulin 3.2 (2.3-3.5) g/dL Albumin/Globulin Ratio 0.5 L (1.2-2.2) 07/19/20 Range/Units 07:30 WBC (4.5-11.0) K/uL RBC (3.30-5.50) M/uL Hgb (12.0-15.0) g/dL Hct (36.0-48.0) % MCV (80-98) fL MCH (27-31) pg MCHC (32-36) % Plt Count (150-400) K/uL D-Dimer, Quantitative (0.0-500.0) ng/mL Sodium (140-148) mmol/L Potassium (3.6-5.2) mmol/L Chloride (100-108) mmol/L Carbon Dioxide (21-32) mmol/L Anion Gap (5.0-14.0) mmol/L BUN (7-18) mg/dL Creatinine (0.6-1.0) mg/dL Est Cr Clr Drug Dosing mL/min Estimated GFR (MDRD) (>60) Glucose (74-106) mg/dL POC Glucose 227 H (74-106) MG/DL Calcium (8.5-10.1) mg/dL Total Bilirubin (0.2-1.0) mg/dL AST (15-37) U/L ALT (12-78) U/L Alkaline Phosphatase (46-116) U/L C-Reactive Protein (0.0-0.3) mg/dL Total Protein (6.4-8.2) g/dL Albumin (3.4-5.0) g/dL Globulin (2.3-3.5) g/dL Albumin/Globulin Ratio (1.2-2.2) Med Orders - Current: Current Medications Acetaminophen (Tylenol) 650 mg RECTAL Q4H PRN PRN Reason: Fever Aspirin (Halfprin) 81 mg PO DAILY [facility] Last Admin: 07/19/20 08:58 Dose: Not Given Documented by: Benzonatate (Tessalon Perles) 100 mg PO TID PRN PRN Reason: Cough Bisacodyl (Dulcolax) 10 mg RECTAL DAILY PRN PRN Reason: Constipation Last Admin: 07/14/20 12:05 Dose: 10 mg Documented by: Dextrose (Glutose 15) 15 gm PO ONETIME PRN PRN Reason: Hypoglycemia Dextrose/Water (Dextrose 50% In Water) 50 ml IV ONETIME PRN PRN Reason: Hypoglycemia Enoxaparin Sodium (Lovenox) 40 mg SUBCUT Q24H [facility] Last Admin: 07/19/20 08:55 Dose: 40 mg Documented by: Guaifenesin/Dextromethorphan (Robitussin Dm) 10 ml PO Q4H PRN PRN Reason: Cough Multivitamins/Minerals 10 ml/Zinc 1 ml/ Amino Ac/Electrol/Dextrose/Calcium 1,011 mls @ 75 mls/hr IV .BY DURATION [facility] Last Admin: 07/19/20 00:39 Dose: 75 mls/hr Documented by: Amino Ac/Electrol/Dextrose/Calcium (Clinimix E 5/15) 1,000 mls @ 75 mls/hr IV . BY DURATION [facility] Last Admin: 07/18/20 11:24 Dose: 75 mls/hr Documented by: Albumin Human (Albumin 25%) 25 gm in 100 mls @ 25 mls/hr IV ONETIME ONE Stop: 07/19/20 13:29 Last Admin: 07/19/20 09:45 Dose: 25 mls/hr Documented by: Insulin Human Lispro (Humalog) 0 unit SUBCUT QIDACANDBED [facility]; Protocol Last Admin: 07/19/20 08:53 Dose: 4 units Documented by: Lorazepam (Ativan Oral Concentrate 1mg/0.5 Ml U/D) 0.5 mg BUCCAL Q4H PRN PRN Reason: Other Last Admin: 07/18/20 22:52 Dose: 0.5 mg Documented by: Metoprolol Succinate (Toprol Xl) 25 mg PO DAILY [facility] Last Admin: 07/19/20 08:58 Dose: Not Given Documented by: Morphine Sulfate (Morphine 10 Mg/0.5 Ml Oral Syringe) 5 mg PO Q2H PRN PRN Reason: Pain Last Admin: 07/19/20 08:55 Dose: 5 mg Documented by: Ondansetron HCl (Zofran) 4 mg IVPUSH Q4H PRN PRN Reason: Nausea/Vomiting Imbruvica 420mg Tab ((Ptom)) 1 each PO DAILY [facility] Last Admin: 07/19/20 08:58 Dose: Not Given Documented by: Sodium Chloride (Saline Flush) 10 ml FLUSH ASDIRECTED PRN PRN Reason: Keep Vein Open Last Admin: 06/21/20 10:31 Dose: 10 ml Documented by: Sodium Chloride ([place] Nasal [place]) 1 ml SHONDA QID PRN PRN Reason: Nasal Dryness Last Admin: 07/02/20 02:08 Dose: 1 spray Documented by: Discontinued Medications Acetaminophen (Tylenol) 650 mg PO Q4H PRN PRN Reason: fever, pain Last Admin: 07/15/20 22:40 Dose: 650 mg Documented by: Azithromycin (Zithromax) 500 mg PO ONETIME ONE Stop: 06/09/20 22:45 Last Admin: 06/09/20 23:44 Dose: 500 mg Documented by: Azithromycin (Zithromax) 250 mg PO DAILY [facility] Stop: 06/13/20 09:01 Last Admin: 06/10/20 08:39 Dose: 250 mg Documented by: Ceftriaxone Sodium (Rocephin) Confirm Administered Dose 1 gm IV .STK-MED ONE Stop: 06/09/20 23:29 Last Admin: 06/09/20 23:42 Dose: 1 gm Documented by: Dexamethasone (Decadron) 6 mg IVPUSH Q24H [facility] Last Admin: 06/15/20 15:43 Dose: Not Given Documented by: Dexamethasone (Dexamethasone) 6 mg PO Q24H [facility] Last Admin: 06/19/20 16:48 Dose: 6 mg Documented by: Dexamethasone (Decadron) 4 mg IVPUSH Q24H [facility] Last Admin: 07/01/20 15:17 Dose: 4 mg Documented by: Dexamethasone (Dexamethasone) 4 mg PO Q24H [facility] Last Admin: 07/03/20 14:33 Dose: 4 mg Documented by: Dexamethasone (Dexamethasone) 3 mg PO Q24H [facility] Stop: 07/08/20 13:01 Last Admin: 07/08/20 12:57 Dose: 3 mg Documented by: Dexamethasone (Dexamethasone) 2 mg PO Q24H [facility] Stop: 07/13/20 13:01 Last Admin: 07/13/20 12:17 Dose: 2 mg Documented by: Dexamethasone (Dexamethasone) 1 mg PO Q24H [facility] Stop: 07/18/20 13:01 Last Admin: 07/18/20 12:37 Dose: Not Given Documented by: Doxycycline Hyclate (Vibramycin) 100 mg PO Q12H [facility] Stop: 06/15/20 23:59 Last Admin: 06/15/20 16:35 Dose: 100 mg Documented by: Enoxaparin Sodium (Lovenox) 60 mg SUBCUT BID [facility] Last Admin: 06/10/20 08:39 Dose: 60 mg Documented by: Furosemide (Lasix) 20 mg IVPUSH NOW ONE Stop: 06/10/20 14:46 Last Admin: 06/10/20 15:23 Dose: 20 mg Documented by: Furosemide (Lasix) 20 mg IVPUSH ONETIME ONE Stop: 06/21/20 13:01 Last Admin: 06/21/20 12:54 Dose: 20 mg Documented by: Furosemide (Lasix) 20 mg IVPUSH NOW ONE Stop: 06/25/20 14:31 Last Admin: 06/25/20 15:51 Dose: 20 mg Documented by: Furosemide (Lasix) 40 mg IVPUSH NOW ONE Stop: 07/02/20 11:46 Last Admin: 07/02/20 12:24 Dose: 40 mg Documented by: Furosemide (Lasix) 20 mg IVPUSH NOW ONE Stop: 07/06/20 13:16 Last Admin: 07/06/20 13:54 Dose: 20 mg Documented by: Furosemide (Lasix) 60 mg PO ONETIME ONE Stop: 07/09/20 11:46 Last Admin: 07/09/20 12:29 Dose: 60 mg Documented by: Furosemide (Lasix) 40 mg PO BIDDIURETIC [facility] Last Admin: 07/12/20 08:21 Dose: 40 mg Documented by: Furosemide (Lasix) 40 mg PO DAILY [facility] Last Admin: 07/13/20 10:49 Dose: Not Given Documented by: Sodium Chloride (Normal Saline) 1,000 mls @ 125 mls/hr IV ASDIRECTED ONE Stop: 06/10/20 03:03 Last Admin: 06/09/20 20:49 Dose: Not Given Documented by: Ceftriaxone Sodium 1 gm/ (Sodium Chloride) 50 mls @ 100 mls/hr IV Q24H [facility] Stop: 06/15/20 23:59 Last Admin: 06/14/20 22:30 Dose: 100 mls/hr Documented by: Sodium Chloride (Normal Saline) 1,000 mls @ 125 mls/hr IV ASDIRECTED [facility] Last Admin: 06/10/20 08:37 Dose: 125 mls/hr Documented by: Sodium Chloride (Normal Saline) Confirm Administered Dose 50 mls @ as directed .ROUTE .STK-MED ONE Stop: 06/09/20 23:29 Last Admin: 06/10/20 03:33 Dose: Not Given Documented by: Doxycycline Hyclate 100 mg/ (Sodium Chloride) 100 mls @ 100 mls/hr IV Q12H [facility] Last Admin: 06/12/20 02:15 Dose: 100 mls/hr Documented by: Sodium Chloride (Normal Saline) 100 mls @ 3.5 mls/sec IV ASDIRECTED [facility] Stop: 06/10/20 18:00 Last Admin: 06/10/20 17:45 Dose: 4 mls/sec Documented by: Remdesivir 100 mg/ Sodium (Chloride) 100 mls @ 100 mls/hr IV Q24H [facility] Stop: 06/15/20 12:59 Last Admin: 06/15/20 12:49 Dose: 100 mls/hr Documented by: Remdesivir 200 mg/ Sodium (Chloride) 250 mls @ 250 mls/hr IV ONETIME ONE Stop: 06/11/20 12:59 Last Admin: 06/11/20 12:30 Dose: 250 mls/hr Documented by: Sodium Chloride (Normal Saline) 100 mls @ 4 mls/sec IV ASDIRECTED [facility] Sodium Chloride (Normal Saline) 84 mls @ 3 mls/sec IV ONETIME ONE Stop: 07/03/20 10:26 Last Admin: 07/03/20 11:02 Dose: 3 mls/sec Documented by: Sodium Chloride (Normal Saline) 100 mls @ 4 mls/sec IV ASDIRECTED [facility] Stop: 07/09/20 15:00 Last Admin: 07/09/20 12:21 Dose: 4 mls/sec Documented by: Lactated Ringer's (Ringers, Lactated) 1,000 mls @ 125 mls/hr IV ASDIRECTED ONE Stop: 07/14/20 20:14 Last Admin: 07/14/20 12:37 Dose: 125 mls/hr Documented by: Fat Emulsion Intravenous (Intralipid 20%) 100 mls @ 8.5 mls/hr IV ONETIME ONE Stop: 07/16/20 03:45 Last Admin: 07/15/20 15:56 Dose: 8.5 mls/hr Documented by: Insulin Human Lispro (Humalog) 0 unit SUBCUT QIDACANDBED [facility]; Protocol Last Admin: 07/17/20 08:47 Dose: 3 units Documented by: Iopamidol (Isovue-370 (76%)) 57 ml IV . DIRECTED [facility] Last Admin: 06/10/20 17:44 Dose: 57 ml Documented by: Iopamidol (Isovue-370 (76%)) 100 ml IV . DIRECTED ONE Stop: 06/21/20 09:55 Last Admin: 06/21/20 10:31 Dose: 100 ml Documented by: Iopamidol (Isovue-300 (61%)) 70 ml IV . DIRECTED PRN PRN Reason: RADIOLOGY EXAM Stop: 07/03/20 10:26 Iopamidol (Isovue-370 (76%)) 70 ml IV . DIRECTED [facility] Stop: 07/03/20 16:00 Last Admin: 07/03/20 11:05 Dose: 70 ml Documented by: Iopamidol (Isovue-370 (76%)) 100 ml IV . DIRECTED [facility] Stop: 07/09/20 14:00 Last Admin: 07/09/20 12:21 Dose: 100 ml Documented by: Lactobacillus Rhamnosus (Culturelle) 1 cap PO BID [facility] Last Admin: 07/15/20 08:32 Dose: 1 cap Documented by: Lorazepam (Ativan) 0.5 mg PO Q4H PRN PRN Reason: Anxiety Last Admin: 07/16/20 00:45 Dose: 0.5 mg Documented by: Morphine Sulfate (Morphine 10 Mg/0.5 Ml Oral Syringe) 5 mg BUCCAL Q4H PRN PRN Reason: Pain Last Admin: 07/17/20 17:30 Dose: 5 mg Documented by: Ibrutinib (Imbruvica () 320 MgPom) 0 mg PO BEDTIME [facility] Last Admin: 06/10/20 21:24 Dose: Not Given Documented by: Non-Formulary Medication (Total Parenteral Nutrition, Central) 1,000 ml .XX .Continue Order [facility]; Protocol Stop: 07/16/20 16:00 Non-Formulary Medication (Total Parenteral Nutrition, Central) 1,000 ml .XX .Continue Order [facility]; Protocol Stop: 07/17/20 13:00 Non-Formulary Medication (Total Parenteral Nutrition, Central) 1,000 ml .XX .Continue Order [facility]; Protocol Stop: 07/18/20 13:00 Pantoprazole Sodium (Protonix Iv) 40 mg IVPUSH DAILY [facility] Last Admin: 06/11/20 08:15 Dose: 40 mg Documented by: Potassium Chloride (Klor-Con M20) 40 meq PO ONETIME ONE Stop: 07/12/20 12:01 Last Admin: 07/12/20 12:17 Dose: 40 meq Documented by: Simvastatin (Zocor) 40 mg PO BEDTIME [facility] Last Admin: 07/12/20 21:49 Dose: 40 mg Documented by: Sodium Chloride (Saline Flush) 10 ml FLUSH ASDIRECTED PRN PRN Reason: Keep Vein Open Last Admin: 06/09/20 19:38 Dose: 10 ml Documented by: Sodium Chloride (Saline Flush) 10 ml FLUSH ONETIME ONE Stop: 06/10/20 15:42 Last Admin: 06/10/20 17:45 Dose: 10 ml Documented by: Sodium Chloride (Saline Flush) 10 ml FLUSH ONETIME PRN PRN Reason: PER RADIOLOGY PROTOCOL Stop: 07/03/20 10:26 Last Admin: 07/03/20 11:02 Dose: 10 ml Documented by: Sodium Chloride (Saline Flush) 10 ml FLUSH ONETIME ONE Stop: 07/09/20 11:59 Last Admin: 07/09/20 12:21 Dose: 10 ml Documented by: - Exam Quality Assessment: Supplemental Oxygen General: Alert, No Acute Distress, Lethargic Lungs: Normal Respiratory Effort, Crackles (mild both bases) Cardiovascular: Regular Rate, Regular Rhythm GI/Abdominal Exam: Soft, No Distention Extremities: No Pedal Edema. No: Increased Warmth Skin: Warm, Dry Psy/Mental Status: Alert, Normal Affect Sepsis Event Note - Evaluation Sepsis Screening Result: Sepsis Risk - Focused Exam Vital Signs: Vital Signs Temp Pulse Resp BP Pulse Ox 07/19/20 07:20 36.8 C 118 H 21 H 98/57 L 90 L 07/19/20 07:03 96 07/19/20 02:53 37.4 C 118 H 22 H 93/47 L 95 07/19/20 00:45 97 07/18/20 23:00 37.2 C 111 H 22 H 96/55 L 94 L - Problem List Review Problem List Initiated/Reviewed/Updated: Yes - My Orders Last 24 Hours: My Active Orders 07/18/20 19:59 Acetaminophen [Tylenol] 650 mg RECTAL Q4H PRN 07/19/20 09:30 Albumin Human [Albumin 25%] 25 gm in 100 ml IV ONETIME 07/19/20 10:45 Insert Interiano Catheter [Insert Urinary Catheter] [OM.PC] Q24H 07/19/20 11:30 GLUCOSE POC LAB TO COLLECT JPM [POC] QIDACANDBED 07/19/20 16:30 GLUCOSE POC LAB TO COLLECT JPM [POC] QIDACANDBED 07/19/20 21:00 GLUCOSE POC LAB TO COLLECT JPM [POC] QIDACANDBED 07/20/20 07:30 GLUCOSE POC LAB TO COLLECT JPM [POC] QIDACANDBED 07/20/20 11:30 GLUCOSE POC LAB TO COLLECT JPM [POC] QIDACANDBED 07/20/20 16:30 GLUCOSE POC LAB TO COLLECT JPM [POC] QIDACANDBED 07/20/20 21:00 GLUCOSE POC LAB TO COLLECT JPM [POC] QIDACANDBED 07/21/20 07:30 GLUCOSE POC LAB TO COLLECT JPM [POC] QIDACANDBED 07/21/20 11:30 GLUCOSE POC LAB TO COLLECT JPM [POC] QIDACANDBED 07/21/20 16:30 GLUCOSE POC LAB TO COLLECT JPM [POC] QIDACANDBED 07/21/20 21:00 GLUCOSE POC LAB TO COLLECT JPM [POC] QIDACANDBED 07/22/20 07:30 GLUCOSE POC LAB TO COLLECT JPM [POC] QIDACANDBED 07/22/20 11:30 GLUCOSE POC LAB TO COLLECT JPM [POC] QIDACANDBED 07/22/20 16:30 GLUCOSE POC LAB TO COLLECT JPM [POC] QIDACANDBED 07/22/20 21:00 GLUCOSE POC LAB TO COLLECT JPM [POC] QIDACANDBED - Plan Plan:: ASSESSMENT AND PLAN COVID-19 PNEUMONIA-complicated by acute respiratory failure with hypoxia. Pneumothorax has resolved. Stable but still quite compromised. Stable but prognosis is guarded with her slow decline and poor intake complicating her progressive weakness. Family was updated again today. -Continue TPN, increase insulin -Supplement albumin today, reassess tomorrow -Supplemental oxygen, wean as able -Continue Decadron taper -Repeat labs every 3 days -Supportive care -Physical therapy ACUTE URINARY RETENTION-acute urinary retention of unclear etiology. Doing well with the catheter in place. -Continue Interiano catheter with routine care RIGHT PNEUMOTHORAX AND PNEUMOMEDIASTINUM-noted on CT scan 07/03. Pneumothorax pal s resolved. -Repeat chest x-ray with acute changes CHRONIC LYMPHOCYTIC LEUKEMIA-stable. -Continue ibrutinib MAINTENANCE ISSUES -DVT prophylaxis; Lovenox 40 mg subcu daily -GI prophylaxis; not indicated -Interiano catheter; not indicated -Nutrition; TPN (not able to take anything by mouth at this time) DISPOSITION-anticipate discharge to home if she survives the hospital stay. Mario Rey MD
[2020-07-19] MEDS: LORazepam ORAL Concentrate 1MG/0.5ML U/D BUCCAL PRN (21:24)
[2020-07-20] MEDS: Morphine 10 MG/0.5 ML Oral Syringe PO PRN ×10 (00:07→20:08)
[2020-07-20] MEDS: 1: AA 5%/Calcium/D15W/Lytes 1,000 ML with MVI, Adult with Vitamin K 10 ML, Zinc/Copper/M IV SCH ×3 (02:39)
[2020-07-20] MEDS: LORazepam ORAL Concentrate 1MG/0.5ML U/D BUCCAL PRN ×4 (02:44→17:03)
[2020-07-20] MEDS: Insulin Lispro 100 Unit/ML 3 ML KwikPen SUBCUT SCH ×2 (07:39→16:16)
[2020-07-20] MEDS: IMBRUVICA 420 MG PO SCH (09:01)
[2020-07-20] MEDS: Aspirin 81 MG Tab.EC PO SCH (09:01)
[2020-07-20] MEDS: Enoxaparin 40 MG/0.4 ML Syringe SUBCUT SCH (09:02)
[2020-07-20] MEDS: Metoprolol Succinate 25 MG Tab.ER PO SCH (09:02)
--- NOTE | 2020-07-20 13:30 | PCM.PN ---
- General Info Date of Service: 07/20/20 Subjective Update: Ms. Giraldo on progressive deterioration over the last week and is now essentially unresponsive. Her was present today and we did have discussion concerning ongoing management. He feels strongly that it is consistent with her previously expressed wishes that we not proceed with any further aggressive interventions or evaluation. He would like her to be kept comfortable, but no other interventions. She is thyroid check today and unable to provide meaningful information concerning symptoms or review of systems. - Patient Data Vitals - Most Recent: Last Vital Signs Temp 98.8 F 07/20/20 10:00 Pulse 125 H 07/20/20 10:00 Resp 20 07/20/20 10:00 BP 105/51 L 07/20/20 10:00 Pulse Ox 90 L 07/20/20 10:00 Weight - Most Recent: 131 lb 2.801 oz I&O - Last 24 Hours: Intake & Output 07/19/20 07/20/20 07/20/20 22:59 06:59 14:59 Intake Total 1806 Output Total 500 500 375 Balance -500 1306 -375 Lab Results Last 24 Hours: Laboratory Results - last 24 hr 07/19/20 07/19/20 07/20/20 Range/Units 16:30 21:00 07:30 POC Glucose 193 H 178 H 194 H (74-106) MG/DL 07/20/20 Range/Units 11:30 POC Glucose 208 H (74-106) MG/DL Med Orders - Current: Current Medications Acetaminophen (Tylenol) 650 mg RECTAL Q4H PRN PRN Reason: Fever Benzonatate (Tessalon Perles) 100 mg PO TID PRN PRN Reason: Cough Bisacodyl (Dulcolax) 10 mg RECTAL DAILY PRN PRN Reason: Constipation Last Admin: 07/14/20 12:05 Dose: 10 mg Documented by: Guaifenesin/Dextromethorphan (Robitussin Dm) 10 ml PO Q4H PRN PRN Reason: Cough Lorazepam (Ativan Oral Concentrate 1mg/0.5 Ml U/D) 0.5 mg BUCCAL Q4H PRN PRN Reason: Other Last Admin: 07/20/20 12:29 Dose: 0.5 mg Documented by: Morphine Sulfate (Morphine 10 Mg/0.5 Ml Oral Syringe) 5 mg PO Q1H PRN PRN Reason: Pain Ondansetron HCl (Zofran) 4 mg IVPUSH Q4H PRN PRN Reason: Nausea/Vomiting Sodium Chloride (Saline Flush) 10 ml FLUSH ASDIRECTED PRN PRN Reason: Keep Vein Open Last Admin: 06/21/20 10:31 Dose: 10 ml Documented by: Sodium Chloride ([place] Nasal [place]) 1 ml SHONDA QID PRN PRN Reason: Nasal Dryness Last Admin: 07/02/20 02:08 Dose: 1 spray Documented by: Discontinued Medications Acetaminophen (Tylenol) 650 mg PO Q4H PRN PRN Reason: fever, pain Last Admin: 07/15/20 22:40 Dose: 650 mg Documented by: Aspirin (Halfprin) 81 mg PO DAILY [facility] Last Admin: 07/20/20 09:01 Dose: Not Given Documented by: Azithromycin (Zithromax) 500 mg PO ONETIME ONE Stop: 06/09/20 22:45 Last Admin: 06/09/20 23:44 Dose: 500 mg Documented by: Azithromycin (Zithromax) 250 mg PO DAILY [facility] Stop: 06/13/20 09:01 Last Admin: 06/10/20 08:39 Dose: 250 mg Documented by: Ceftriaxone Sodium (Rocephin) Confirm Administered Dose 1 gm IV .STK-MED ONE Stop: 06/09/20 23:29 Last Admin: 06/09/20 23:42 Dose: 1 gm Documented by: Dexamethasone (Decadron) 6 mg IVPUSH Q24H [facility] Last Admin: 06/15/20 15:43 Dose: Not Given Documented by: Dexamethasone (Dexamethasone) 6 mg PO Q24H [facility] Last Admin: 06/19/20 16:48 Dose: 6 mg Documented by: Dexamethasone (Decadron) 4 mg IVPUSH Q24H [facility] Last Admin: 07/01/20 15:17 Dose: 4 mg Documented by: Dexamethasone (Dexamethasone) 4 mg PO Q24H [facility] Last Admin: 07/03/20 14:33 Dose: 4 mg Documented by: Dexamethasone (Dexamethasone) 3 mg PO Q24H [facility] Stop: 07/08/20 13:01 Last Admin: 07/08/20 12:57 Dose: 3 mg Documented by: Dexamethasone (Dexamethasone) 2 mg PO Q24H [facility] Stop: 07/13/20 13:01 Last Admin: 07/13/20 12:17 Dose: 2 mg Documented by: Dexamethasone (Dexamethasone) 1 mg PO Q24H [facility] Stop: 07/18/20 13:01 Last Admin: 07/18/20 12:37 Dose: Not Given Documented by: Dextrose (Glutose 15) 15 gm PO ONETIME PRN PRN Reason: Hypoglycemia Dextrose/Water (Dextrose 50% In Water) 50 ml IV ONETIME PRN PRN Reason: Hypoglycemia Doxycycline Hyclate (Vibramycin) 100 mg PO Q12H [facility] Stop: 06/15/20 23:59 Last Admin: 06/15/20 16:35 Dose: 100 mg Documented by: Enoxaparin Sodium (Lovenox) 60 mg SUBCUT BID [facility] Last Admin: 06/10/20 08:39 Dose: 60 mg Documented by: Enoxaparin Sodium (Lovenox) 40 mg SUBCUT Q24H [facility] Last Admin: 07/20/20 09:02 Dose: 40 mg Documented by: Furosemide (Lasix) 20 mg IVPUSH NOW ONE Stop: 06/10/20 14:46 Last Admin: 06/10/20 15:23 Dose: 20 mg Documented by: Furosemide (Lasix) 20 mg IVPUSH ONETIME ONE Stop: 06/21/20 13:01 Last Admin: 06/21/20 12:54 Dose: 20 mg Documented by: Furosemide (Lasix) 20 mg IVPUSH NOW ONE Stop: 06/25/20 14:31 Last Admin: 06/25/20 15:51 Dose: 20 mg Documented by: Furosemide (Lasix) 40 mg IVPUSH NOW ONE Stop: 07/02/20 11:46 Last Admin: 07/02/20 12:24 Dose: 40 mg Documented by: Furosemide (Lasix) 20 mg IVPUSH NOW ONE Stop: 07/06/20 13:16 Last Admin: 07/06/20 13:54 Dose: 20 mg Documented by: Furosemide (Lasix) 60 mg PO ONETIME ONE Stop: 07/09/20 11:46 Last Admin: 07/09/20 12:29 Dose: 60 mg Documented by: Furosemide (Lasix) 40 mg PO BIDDIURETIC [facility] Last Admin: 07/12/20 08:21 Dose: 40 mg Documented by: Furosemide (Lasix) 40 mg PO DAILY [facility] Last Admin: 07/13/20 10:49 Dose: Not Given Documented by: Sodium Chloride (Normal Saline) 1,000 mls @ 125 mls/hr IV ASDIRECTED ONE Stop: 06/10/20 03:03 Last Admin: 06/09/20 20:49 Dose: Not Given Documented by: Ceftriaxone Sodium 1 gm/ (Sodium Chloride) 50 mls @ 100 mls/hr IV Q24H [facility] Stop: 06/15/20 23:59 Last Admin: 06/14/20 22:30 Dose: 100 mls/hr Documented by: Sodium Chloride (Normal Saline) 1,000 mls @ 125 mls/hr IV ASDIRECTED [facility] Last Admin: 06/10/20 08:37 Dose: 125 mls/hr Documented by: Sodium Chloride (Normal Saline) Confirm Administered Dose 50 mls @ as directed .ROUTE .K-MED ONE Stop: 06/09/20 23:29 Last Admin: 06/10/20 03:33 Dose: Not Given Documented by: Doxycycline Hyclate 100 mg/ (Sodium Chloride) 100 mls @ 100 mls/hr IV Q12H [facility] Last Admin: 06/12/20 02:15 Dose: 100 mls/hr Documented by: Sodium Chloride (Normal Saline) 100 mls @ 3.5 mls/sec IV ASDIRECTED [facility] Stop: 06/10/20 18:00 Last Admin: 06/10/20 17:45 Dose: 4 mls/sec Documented by: Remdesivir 100 mg/ Sodium (Chloride) 100 mls @ 100 mls/hr IV Q24H [facility] Stop: 06/15/20 12:59 Last Admin: 06/15/20 12:49 Dose: 100 mls/hr Documented by: Remdesivir 200 mg/ Sodium (Chloride) 250 mls @ 250 mls/hr IV ONETIME ONE Stop: 06/11/20 12:59 Last Admin: 06/11/20 12:30 Dose: 250 mls/hr Documented by: Sodium Chloride (Normal Saline) 100 mls @ 4 mls/sec IV ASDIRECTED [facility] Sodium Chloride (Normal Saline) 84 mls @ 3 mls/sec IV ONETIME ONE Stop: 07/03/20 10:26 Last Admin: 07/03/20 11:02 Dose: 3 mls/sec Documented by: Sodium Chloride (Normal Saline) 100 mls @ 4 mls/sec IV ASDIRECTED [facility] Stop: 07/09/20 15:00 Last Admin: 07/09/20 12:21 Dose: 4 mls/sec Documented by: Lactated Ringer's (Ringers, Lactated) 1,000 mls @ 125 mls/hr IV ASDIRECTED ONE Stop: 07/14/20 20:14 Last Admin: 07/14/20 12:37 Dose: 125 mls/hr Documented by: Fat Emulsion Intravenous (Intralipid 20%) 100 mls @ 8.5 mls/hr IV ONETIME ONE Stop: 07/16/20 03:45 Last Admin: 07/15/20 15:56 Dose: 8.5 mls/hr Documented by: Multivitamins/Minerals 10 ml/Zinc 1 ml/ Amino Ac/Electrol/Dextrose/Calcium 1,011 mls @ 75 mls/hr IV .BY DURATION [facility] Last Admin: 07/20/20 02:39 Dose: 75 mls/hr Documented by: Amino Ac/Electrol/Dextrose/Calcium (Clinimix E 5/15) 1,000 mls @ 75 mls/hr IV .BY DURATION [facility] Last Admin: 07/19/20 13:13 Dose: 75 mls/hr Documented by: Albumin Human (Albumin 25%) 25 gm in 100 mls @ 25 mls/hr IV ONETIME ONE Stop: 07/19/20 13:29 Last Admin: 07/19/20 09:45 Dose: 25 mls/hr Documented by: Insulin Human Lispro (Humalog) 0 unit SUBCUT QIDACANDBED [facility]; Protocol Last Admin: 07/17/20 08:47 Dose: 3 units Documented by: Insulin Human Lispro (Humalog) 0 unit SUBCUT QIDACANDBED [facility]; Protocol Last Admin: 07/20/20 07:39 Dose: 2 units Documented by: Iopamidol (Isovue-370 (76%)) 57 ml IV . DIRECTED [facility] Last Admin: 06/10/20 17:44 Dose: 57 ml Documented by: Iopamidol (Isovue-370 (76%)) 100 ml IV . DIRECTED ONE Stop: 06/21/20 09:55 Last Admin: 06/21/20 10:31 Dose: 100 ml Documented by: Iopamidol (Isovue-300 (61%)) 70 ml IV . DIRECTED PRN PRN Reason: RADIOLOGY EXAM Stop: 07/03/20 10:26 Iopamidol (Isovue-370 (76%)) 70 ml IV . DIRECTED [facility] Stop: 07/03/20 16:00 Last Admin: 07/03/20 11:05 Dose: 70 ml Documented by: Iopamidol (Isovue-370 (76%)) 100 ml IV . DIRECTED [facility] Stop: 07/09/20 14:00 Last Admin: 07/09/20 12:21 Dose: 100 ml Documented by: Lactobacillus Rhamnosus (Culturelle) 1 cap PO BID [facility] Last Admin: 07/15/20 08:32 Dose: 1 cap Documented by: Lorazepam (Ativan) 0.5 mg PO Q4H PRN PRN Reason: Anxiety Last Admin: 07/16/20 00:45 Dose: 0.5 mg Documented by: Metoprolol Succinate (Toprol Xl) 25 mg PO DAILY [facility] Last Admin: 07/20/20 09:02 Dose: Not Given Documented by: Morphine Sulfate (Morphine 10 Mg/0.5 Ml Oral Syringe) 5 mg BUCCAL Q4H PRN PRN Reason: Pain Last Admin: 07/17/20 17:30 Dose: 5 mg Documented by: Morphine Sulfate (Morphine 10 Mg/0.5 Ml Oral Syringe) 5 mg PO Q2H PRN PRN Reason: Pain Last Admin: 07/20/20 12:30 Dose: 5 mg Documented by: Ibrutinib (Imbruvica () 320 MgPom) 0 mg PO BEDTIME [facility] Last Admin: 06/10/20 21:24 Dose: Not Given Documented by: Non-Formulary Medication (Total Parenteral Nutrition, Central) 1,000 ml .XX .Continue Order [facility]; Protocol Stop: 07/16/20 16:00 Non-Formulary Medication (Total Parenteral Nutrition, Central) 1,000 ml .XX .Continue Order [facility]; Protocol Stop: 07/17/20 13:00 Non-Formulary Medication (Total Parenteral Nutrition, Central) 1,000 ml .XX .Continue Order [facility]; Protocol Stop: 07/18/20 13:00 Pantoprazole Sodium (Protonix Iv) 40 mg IVPUSH DAILY [facility] Last Admin: 06/11/20 08:15 Dose: 40 mg Documented by: Imbruvica 420mg Tab ((Ptom)) 1 each PO DAILY [facility] Last Admin: 07/20/20 09:01 Dose: Not Given Documented by: Potassium Chloride (Klor-Con M20) 40 meq PO ONETIME ONE Stop: 07/12/20 12:01 Last Admin: 07/12/20 12:17 Dose: 40 meq Documented by: Simvastatin (Zocor) 40 mg PO BEDTIME [facility] Last Admin: 07/12/20 21:49 Dose: 40 mg Documented by: Sodium Chloride (Saline Flush) 10 ml FLUSH ASDIRECTED PRN PRN Reason: Keep Vein Open Last Admin: 06/09/20 19:38 Dose: 10 ml Documented by: Sodium Chloride (Saline Flush) 10 ml FLUSH ONETIME ONE Stop: 06/10/20 15:42 Last Admin: 06/10/20 17:45 Dose: 10 ml Documented by: Sodium Chloride (Saline Flush) 10 ml FLUSH ONETIME PRN PRN Reason: PER RADIOLOGY PROTOCOL Stop: 07/03/20 10:26 Last Admin: 07/03/20 11:02 Dose: 10 ml Documented by: Sodium Chloride (Saline Flush) 10 ml FLUSH ONETIME ONE Stop: 07/09/20 11:59 Last Admin: 07/09/20 12:21 Dose: 10 ml Documented by: - Exam General: Sedated, Lethargic Lungs: Clear to Auscultation, Normal Respiratory Effort Cardiovascular: Regular Rate, Regular Rhythm, No Murmurs GI/Abdominal Exam: Soft, Non-Tender, No Organomegaly, No Distention Extremities: Non-Tender, No Pedal Edema Sepsis Event Note - Evaluation Sepsis Screening Result: Sepsis Risk - Focused Exam Vital Signs: Vital Signs Temp Pulse Resp BP Pulse Ox 07/20/20 10:00 98.8 F 125 H 20 105/51 L 90 L 07/20/20 07:20 99.8 F 123 H 22 H 100/52 L 97 07/20/20 07:12 95 07/20/20 02:18 100.3 F 123 H 22 H 110/53 L 93 L - Problem List Review Problem List Initiated/Reviewed/Updated: Yes - My Orders Last 24 Hours: My Active Orders 07/20/20 13:21 Resuscitation Status Routine 07/20/20 13:21 Morphine [Morphine 10 MG/0.5 ML Oral Syringe] 5 mg PO Q1H PRN - Plan Plan:: ASSESSMENT AND PLAN COVID-19 PNEUMONIA-complicated by acute respiratory failure with hypoxia. Pneumothorax has resolved. Very weak and lethargic today. -Supplemental oxygen, wean as able -Move to comfort cares only ACUTE URINARY RETENTION-acute urinary retention of unclear etiology. Doing well with the catheter in place. -Continue Interiano catheter with routine care RIGHT PNEUMOTHORAX AND PNEUMOMEDIASTINUM-noted on CT scan 07/03. Pneumothorax has resolved. -Repeat chest x-ray with acute changes CHRONIC LYMPHOCYTIC LEUKEMIA PALLIATIVE CARE-she is continued on the path of deterioration over the past week to 10 days. She is unresponsive today and her would like to move to comfort cares only. He feels that this is very consistent with her previously expressed wishes. -Morphine and/or lorazepam as needed for comfort MAINTENANCE ISSUES -DVT prophylaxis; not indicated -GI prophylaxis; not indicated -Interiano catheter; not indicated
[2020-07-21] MEDS: Morphine 10 MG/0.5 ML Oral Syringe PO PRN ×8 (00:15→23:58)
[2020-07-21] MEDS: LORazepam ORAL Concentrate 1MG/0.5ML U/D BUCCAL PRN ×3 (02:14→18:21)
--- NOTE | 2020-07-21 11:36 | PCM.PN ---
- General Info Date of Service: 07/21/20 Subjective Update: Ms. Giraldo has appeared to be more comfortable over the last 24 hours with current management. She is sedated and lethargic, unable to provide meaningful information concerning symptoms or review of systems. - Patient Data Vitals - Most Recent: Last Vital Signs Temp 99.4 F 07/21/20 07:30 Pulse 122 H 07/21/20 07:30 Resp 16 07/21/20 07:30 BP 90/40 L 07/21/20 07:30 Pulse Ox 92 L 07/21/20 07:30 Weight - Most Recent: 131 lb 2.801 oz I&O - Last 24 Hours: Intake & Output 07/20/20 07/21/20 07/21/20 22:59 06:59 14:59 Intake Total 475 Output Total 50 250 Balance 425 -250 Med Orders - Current: Current Medications Acetaminophen (Tylenol) 650 mg RECTAL Q4H PRN PRN Reason: Fever Benzonatate (Tessalon Perles) 100 mg PO TID PRN PRN Reason: Cough Bisacodyl (Dulcolax) 10 mg RECTAL DAILY PRN PRN Reason: Constipation Last Admin: 07/14/20 12:05 Dose: 10 mg Documented by: Guaifenesin/Dextromethorphan (Robitussin Dm) 10 ml PO Q4H PRN PRN Reason: Cough Lorazepam (Ativan Oral Concentrate 1mg/0.5 Ml U/D) 0.5 mg BUCCAL Q4H PRN PRN Reason: Other Last Admin: 07/21/20 06:06 Dose: 0.5 mg Documented by: Morphine Sulfate (Morphine 10 Mg/0.5 Ml Oral Syringe) 5 mg PO Q1H PRN PRN Reason: Pain Last Admin: 07/21/20 08:23 Dose: 5 mg Documented by: Ondansetron HCl (Zofran) 4 mg IVPUSH Q4H PRN PRN Reason: Nausea/Vomiting Sodium Chloride (Saline Flush) 10 ml FLUSH ASDIRECTED PRN PRN Reason: Keep Vein Open Last Admin: 06/21/20 10:31 Dose: 10 ml Documented by: Sodium Chloride (Stafford Nasal Ellerbe) 1 ml SHONDA QID PRN PRN Reason: Nasal Dryness Last Admin: 07/02/20 02:08 Dose: 1 spray Documented by: Discontinued Medications Acetaminophen (Tylenol) 650 mg PO Q4H PRN PRN Reason: fever, pain Last Admin: 07/15/20 22:40 Dose: 650 mg Documented by: Aspirin (Halfprin) 81 mg PO DAILY [facility] Last Admin: 07/20/20 09:01 Dose: Not Given Documented by: Azithromycin (Zithromax) 500 mg PO ONETIME ONE Stop: 06/09/20 22:45 Last Admin: 06/09/20 23:44 Dose: 500 mg Documented by: Azithromycin (Zithromax) 250 mg PO DAILY [facility] Stop: 06/13/20 09:01 Last Admin: 06/10/20 08:39 Dose: 250 mg Documented by: Ceftriaxone Sodium (Rocephin) Confirm Administered Dose 1 gm IV .STK-MED ONE Stop: 06/09/20 23:29 Last Admin: 06/09/20 23:42 Dose: 1 gm Documented by: Dexamethasone (Decadron) 6 mg IVPUSH Q24H [facility] Last Admin: 06/15/20 15:43 Dose: Not Given Documented by: Dexamethasone (Dexamethasone) 6 mg PO Q24H [facility] Last Admin: 06/19/20 16:48 Dose: 6 mg Documented by: Dexamethasone (Decadron) 4 mg IVPUSH Q24H [facility] Last Admin: 07/01/20 15:17 Dose: 4 mg Documented by: Dexamethasone (Dexamethasone) 4 mg PO Q24H [facility] Last Admin: 07/03/20 14:33 Dose: 4 mg Documented by: Dexamethasone (Dexamethasone) 3 mg PO Q24H [facility] Stop: 07/08/20 13:01 Last Admin: 07/08/20 12:57 Dose: 3 mg Documented by: Dexamethasone (Dexamethasone) 2 mg PO Q24H [facility] Stop: 07/13/20 13:01 Last Admin: 07/13/20 12:17 Dose: 2 mg Documented by: Dexamethasone (Dexamethasone) 1 mg PO Q24H [facility] Stop: 07/18/20 13:01 Last Admin: 07/18/20 12:37 Dose: Not Given Documented by: Dextrose (Glutose 15) 15 gm PO ONETIME PRN PRN Reason: Hypoglycemia Dextrose/Water (Dextrose 50% In Water) 50 ml IV ONETIME PRN PRN Reason: Hypoglycemia Doxycycline Hyclate (Vibramycin) 100 mg PO Q12H [facility] Stop: 06/15/20 23:59 Last Admin: 06/15/20 16:35 Dose: 100 mg Documented by: Enoxaparin Sodium (Lovenox) 60 mg SUBCUT BID [facility] Last Admin: 06/10/20 08:39 Dose: 60 mg Documented by: Enoxaparin Sodium (Lovenox) 40 mg SUBCUT Q24H [facility] Last Admin: 07/20/20 09:02 Dose: 40 mg Documented by: Furosemide (Lasix) 20 mg IVPUSH NOW ONE Stop: 06/10/20 14:46 Last Admin: 06/10/20 15:23 Dose: 20 mg Documented by: Furosemide (Lasix) 20 mg IVPUSH ONETIME ONE Stop: 06/21/20 13:01 Last Admin: 06/21/20 12:54 Dose: 20 mg Documented by: Furosemide (Lasix) 20 mg IVPUSH NOW ONE Stop: 06/25/20 14:31 Last Admin: 06/25/20 15:51 Dose: 20 mg Documented by: Furosemide (Lasix) 40 mg IVPUSH NOW ONE Stop: 07/02/20 11:46 Last Admin: 07/02/20 12:24 Dose: 40 mg Documented by: Furosemide (Lasix) 20 mg IVPUSH NOW ONE Stop: 07/06/20 13:16 Last Admin: 07/06/20 13:54 Dose: 20 mg Documented by: Furosemide (Lasix) 60 mg PO ONETIME ONE Stop: 07/09/20 11:46 Last Admin: 07/09/20 12:29 Dose: 60 mg Documented by: Furosemide (Lasix) 40 mg PO BIDDIURETIC [facility] Last Admin: 07/12/20 08:21 Dose: 40 mg Documented by: Furosemide (Lasix) 40 mg PO DAILY [facility] Last Admin: 07/13/20 10:49 Dose: Not Given Documented by: Sodium Chloride (Normal Saline) 1,000 mls @ 125 mls/hr IV ASDIRECTED ONE Stop: 06/10/20 03:03 Last Admin: 06/09/20 20:49 Dose: Not Given Documented by: Ceftriaxone Sodium 1 gm/ (Sodium Chloride) 50 mls @ 100 mls/hr IV Q24H [facility] Stop: 06/15/20 23:59 Last Admin: 06/14/20 22:30 Dose: 100 mls/hr Documented by: Sodium Chloride (Normal Saline) 1,000 mls @ 125 mls/hr IV ASDIRECTED [facility] Last Admin: 06/10/20 08:37 Dose: 125 mls/hr Documented by: Sodium Chloride (Normal Saline) Confirm Administered Dose 50 mls @ as directed .ROUTE .STK-MED ONE Stop: 06/09/20 23:29 Last Admin: 06/10/20 03:33 Dose: Not Given Documented by: Doxycycline Hyclate 100 mg/ (Sodium Chloride) 100 mls @ 100 mls/hr IV Q12H [facility] Last Admin: 06/12/20 02:15 Dose: 100 mls/hr Documented by: Sodium Chloride (Normal Saline) 100 mls @ 3.5 mls/sec IV ASDIRECTED [facility] Stop: 06/10/20 18:00 Last Admin: 06/10/20 17:45 Dose: 4 mls/sec Documented by: Remdesivir 100 mg/ Sodium (Chloride) 100 mls @ 100 mls/hr IV Q24H [facility] Stop: 06/15/20 12:59 Last Admin: 06/15/20 12:49 Dose: 100 mls/hr Documented by: Remdesivir 200 mg/ Sodium (Chloride) 250 mls @ 250 mls/hr IV ONETIME ONE Stop: 06/11/20 12:59 Last Admin: 06/11/20 12:30 Dose: 250 mls/hr Documented by: Sodium Chloride (Normal Saline) 100 mls @ 4 mls/sec IV ASDIRECTED [facility] Sodium Chloride (Normal Saline) 84 mls @ 3 mls/sec IV ONETIME ONE Stop: 07/03/20 10:26 Last Admin: 07/03/20 11:02 Dose: 3 mls/sec Documented by: Sodium Chloride (Normal Saline) 100 mls @ 4 mls/sec IV ASDIRECTED [facility] Stop: 07/09/20 15:00 Last Admin: 07/09/20 12:21 Dose: 4 mls/sec Documented by: Lactated Ringer's (Ringers, Lactated) 1,000 mls @ 125 mls/hr IV ASDIRECTED ONE Stop: 07/14/20 20:14 Last Admin: 07/14/20 12:37 Dose: 125 mls/hr Documented by: Fat Emulsion Intravenous (Intralipid 20%) 100 mls @ 8.5 mls/hr IV ONETIME ONE Stop: 07/16/20 03:45 Last Admin: 07/15/20 15:56 Dose: 8.5 mls/hr Documented by: Multivitamins/Minerals 10 ml/Zinc 1 ml/ Amino Ac/Electrol/Dextrose/Calcium 1,011 mls @ 75 mls/hr IV .BY DURATION [facility] Last Admin: 07/20/20 02:39 Dose: 75 mls/hr Documented by: Amino Ac/Electrol/Dextrose/Calcium (Clinimix E 10/31) 1,000 mls @ 75 mls/hr IV .BY DURATION [facility] Last Admin: 07/19/20 13:13 Dose: 75 mls/hr Documented by: Albumin Human (Albumin 25%) 25 gm in 100 mls @ 25 mls/hr IV ONETIME ONE Stop: 07/19/20 13:29 Last Admin: 07/19/20 09:45 Dose: 25 mls/hr Documented by: Insulin Human Lispro (Humalog) 0 unit SUBCUT QIDACANDBED [facility]; Protocol Last Admin: 07/17/20 08:47 Dose: 3 units Documented by: Insulin Human Lispro (Humalog) 0 unit SUBCUT QIDACANDBED [facility]; Protocol Last Admin: 07/20/20 16:16 Dose: Not Given Documented by: Iopamidol (Isovue-370 (76%)) 57 ml IV . DIRECTED [facility] Last Admin: 06/10/20 17:44 Dose: 57 ml Documented by: Iopamidol (Isovue-370 (76%)) 100 ml IV . DIRECTED ONE Stop: 06/21/20 09:55 Last Admin: 06/21/20 10:31 Dose: 100 ml Documented by: Iopamidol (Isovue-300 (61%)) 70 ml IV . DIRECTED PRN PRN Reason: RADIOLOGY EXAM Stop: 07/03/20 10:26 Iopamidol (Isovue-370 (76%)) 70 ml IV . DIRECTED [facility] Stop: 07/03/20 16:00 Last Admin: 07/03/20 11:05 Dose: 70 ml Documented by: Iopamidol (Isovue-370 (76%)) 100 ml IV . DIRECTED [facility] Stop: 07/09/20 14:00 Last Admin: 07/09/20 12:21 Dose: 100 ml Documented by: Lactobacillus Rhamnosus (Culturelle) 1 cap PO BID [facility] Last Admin: 07/15/20 08:32 Dose: 1 cap Documented by: Lorazepam (Ativan) 0.5 mg PO Q4H PRN PRN Reason: Anxiety Last Admin: 07/16/20 00:45 Dose: 0.5 mg Documented by: Metoprolol Succinate (Toprol Xl) 25 mg PO DAILY [facility] Last Admin: 07/20/20 09:02 Dose: Not Given Documented by: Morphine Sulfate (Morphine 10 Mg/0.5 Ml Oral Syringe) 5 mg BUCCAL Q4H PRN PRN Reason: Pain Last Admin: 07/17/20 17:30 Dose: 5 mg Documented by: Morphine Sulfate (Morphine 10 Mg/0.5 Ml Oral Syringe) 5 mg PO Q2H PRN PRN Reason: Pain Last Admin: 07/20/20 12:30 Dose: 5 mg Documented by: Ibrutinib (Imbruvica () 320 MgPom) 0 mg PO BEDTIME [facility] Last Admin: 06/10/20 21:24 Dose: Not Given Documented by: Non-Formulary Medication (Total Parenteral Nutrition, Central) 1,000 ml .XX .Continue Order [facility]; Protocol Stop: 07/16/20 16:00 Non-Formulary Medication (Total Parenteral Nutrition, Central) 1,000 ml .XX .Continue Order [facility]; Protocol Stop: 07/17/20 13:00 Non-Formulary Medication (Total Parenteral Nutrition, Central) 1,000 ml .XX .Continue Order [facility]; Protocol Stop: 07/18/20 13:00 Pantoprazole Sodium (Protonix Iv) 40 mg IVPUSH DAILY [facility] Last Admin: 06/11/20 08:15 Dose: 40 mg Documented by: Imbruvica 420mg Tab ((Ptom)) 1 each PO DAILY [facility] Last Admin: 07/20/20 09:01 Dose: Not Given Documented by: Potassium Chloride (Klor-Con M20) 40 meq PO ONETIME ONE Stop: 07/12/20 12:01 Last Admin: 07/12/20 12:17 Dose: 40 meq Documented by: Simvastatin (Zocor) 40 mg PO BEDTIME [facility] Last Admin: 07/12/20 21:49 Dose: 40 mg Documented by: Sodium Chloride (Saline Flush) 10 ml FLUSH ASDIRECTED PRN PRN Reason: Keep Vein Open Last Admin: 06/09/20 19:38 Dose: 10 ml Documented by: Sodium Chloride (Saline Flush) 10 ml FLUSH ONETIME ONE Stop: 06/10/20 15:42 Last Admin: 06/10/20 17:45 Dose: 10 ml Documented by: Sodium Chloride (Saline Flush) 10 ml FLUSH ONETIME PRN PRN Reason: PER RADIOLOGY PROTOCOL Stop: 07/03/20 10:26 Last Admin: 07/03/20 11:02 Dose: 10 ml Documented by: Sodium Chloride (Saline Flush) 10 ml FLUSH ONETIME ONE Stop: 07/09/20 11:59 Last Admin: 07/09/20 12:21 Dose: 10 ml Documented by: - Exam General: Sedated, Lethargic Lungs: Decreased Breath Sounds, Rhonchi. No: Crackles, Rales, Wheezing Cardiovascular: Regular Rhythm, No Murmurs, Tachycardia GI/Abdominal Exam: Soft, Non-Tender, No Organomegaly, No Distention Extremities: Non-Tender, No Pedal Edema Sepsis Event Note - Evaluation Sepsis Screening Result: No Definite Risk - Focused Exam Vital Signs: Vital Signs Temp Pulse Resp BP Pulse Ox 07/21/20 07:30 99.4 F 122 H 16 90/40 L 92 L - Problem List Review Problem List Initiated/Reviewed/Updated: Yes - My Orders Last 24 Hours: My Active Orders 07/20/20 13:21 Morphine [Morphine 10 MG/0.5 ML Oral Syringe] 5 mg PO Q1H PRN 07/20/20 13:21 Resuscitation Status Routine - Plan Plan:: ASSESSMENT AND PLAN COVID-19 PNEUMONIA-complicated by acute respiratory failure with hypoxia. Pneumothorax has resolved. Appears to be more comfortable today with current management -Supplemental oxygen, wean as able -Comfort cares only ACUTE URINARY RETENTION-acute urinary retention of unclear etiology. Doing well with the catheter in place. -Continue Interiano catheter with routine care RIGHT PNEUMOTHORAX AND PNEUMOMEDIASTINUM-noted on CT scan 07/03. Pneumothorax has resolved. -Repeat chest x-ray with acute changes CHRONIC LYMPHOCYTIC LEUKEMIA PALLIATIVE CARE-she is continued on the path of deterioration over the past week to 10 days. She is unresponsive today and her would like to move to comfort cares only. He feels that this is very consistent with her previously expressed wishes. -Morphine and/or lorazepam as needed for comfort MAINTENANCE ISSUES -DVT prophylaxis; not indicated -GI prophylaxis; not indicated -Interiano catheter; not indicated
[2020-07-22] MEDS: Morphine 10 MG/0.5 ML Oral Syringe PO PRN ×4 (04:28→11:26)
[2020-07-22 09:14] VITALS: BP 90/46; PULSE 114
[2020-07-22] MEDS: LORazepam ORAL Concentrate 1MG/0.5ML U/D BUCCAL PRN (09:23)
--- NOTE | 2020-07-22 11:58 | PCM.PN ---
- General Info Date of Service: 07/22/20 Subjective Update: Ms. Giraldo has remained comfortable over the last 24 hours, receiving intermittent doses of morphine and lorazepam as needed. She is currently sedated and unable to provide a meaningful history concerning symptoms or review of systems. - Patient Data Vitals - Most Recent: Last Vital Signs Temp 98.0 F 07/22/20 09:00 Pulse 114 H 07/22/20 09:00 Resp 18 07/22/20 09:00 BP 90/46 L 07/22/20 09:00 Pulse Ox 87 L 07/22/20 09:00 Weight - Most Recent: 131 lb 2.801 oz I&O - Last 24 Hours: Intake & Output 07/21/20 07/22/20 07/22/20 22:59 06:59 14:59 Output Total 150 Balance -150 Med Orders - Current: Current Medications Acetaminophen (Tylenol) 650 mg RECTAL Q4H PRN PRN Reason: Fever Benzonatate (Tessalon Perles) 100 mg PO TID PRN PRN Reason: Cough Bisacodyl (Dulcolax) 10 mg RECTAL DAILY PRN PRN Reason: Constipation Last Admin: 07/14/20 12:05 Dose: 10 mg Documented by: Guaifenesin/Dextromethorphan (Robitussin Dm) 10 ml PO Q4H PRN PRN Reason: Cough Lorazepam (Ativan Oral Concentrate 1mg/0.5 Ml U/D) 0.5 mg BUCCAL Q4H PRN PRN Reason: Other Last Admin: 07/22/20 09:23 Dose: 0.5 mg Documented by: Morphine Sulfate (Morphine 10 Mg/0.5 Ml Oral Syringe) 5 mg PO Q1H PRN PRN Reason: Pain Last Admin: 07/22/20 11:26 Dose: 5 mg Documented by: Ondansetron HCl (Zofran) 4 mg IVPUSH Q4H PRN PRN Reason: Nausea/Vomiting Sodium Chloride (Saline Flush) 10 ml FLUSH ASDIRECTED PRN PRN Reason: Keep Vein Open Last Admin: 06/21/20 10:31 Dose: 10 ml Documented by: Sodium Chloride ([place] Nasal [place]) 1 ml SHONDA QID PRN PRN Reason: Nasal Dryness Last Admin: 07/02/20 02:08 Dose: 1 spray Documented by: Discontinued Medications Acetaminophen (Tylenol) 650 mg PO Q4H PRN PRN Reason: fever, pain Last Admin: 07/15/20 22:40 Dose: 650 mg Documented by: Aspirin (Halfprin) [address] [facility] Last Admin: 07/20/20 09:01 Dose: Not Given Documented by: Azithromycin (Zithromax) 500 mg PO ONETIME ONE Stop: 06/09/20 22:45 Last Admin: 06/09/20 23:44 Dose: 500 mg Documented by: Azithromycin (Zithromax) [address] [facility] Stop: 06/13/20 09:01 Last Admin: 06/10/20 08:39 Dose: 250 mg Documented by: Ceftriaxone Sodium (Rocephin) Confirm Administered Dose 1 gm IV .STK-MED ONE Stop: 06/09/20 23:29 Last Admin: 06/09/20 23:42 Dose: 1 gm Documented by: Dexamethasone (Decadron) [address] [facility] Last Admin: 06/15/20 15:43 Dose: Not Given Documented by: Dexamethasone (Dexamethasone) [address] [facility] Last Admin: 06/19/20 16:48 Dose: 6 mg Documented by: Dexamethasone (Decadron) [address] [facility] Last Admin: 07/01/20 15:17 Dose: 4 mg Documented by: Dexamethasone (Dexamethasone) [address] [facility] Last Admin: 07/03/20 14:33 Dose: 4 mg Documented by: Dexamethasone (Dexamethasone) [address] [facility] Stop: 07/08/20 13:01 Last Admin: 07/08/20 12:57 Dose: 3 mg Documented by: Dexamethasone (Dexamethasone) [address] [facility] Stop: 07/13/20 13:01 Last Admin: 07/13/20 12:17 Dose: 2 mg Documented by: Dexamethasone (Dexamethasone) [address] [facility] Stop: 07/18/20 13:01 Last Admin: 07/18/20 12:37 Dose: Not Given Documented by: Dextrose (Glutose 15) 15 gm PO ONETIME PRN PRN Reason: Hypoglycemia Dextrose/Water (Dextrose 50% In Water) 50 ml IV ONETIME PRN PRN Reason: Hypoglycemia Doxycycline Hyclate (Vibramycin) [address] [facility] Stop: 06/15/20 23:59 Last Admin: 06/15/20 16:35 Dose: 100 mg Documented by: Enoxaparin Sodium (Lovenox) [address] [facility] Last Admin: 06/10/20 08:39 Dose: 60 mg Documented by: Enoxaparin Sodium (Lovenox) [address] [facility] Last Admin: 07/20/20 09:02 Dose: 40 mg Documented by: Furosemide (Lasix) 20 mg IVPUSH NOW ONE Stop: 06/10/20 14:46 Last Admin: 06/10/20 15:23 Dose: 20 mg Documented by: Furosemide (Lasix) 20 mg IVPUSH ONETIME ONE Stop: 06/21/20 13:01 Last Admin: 06/21/20 12:54 Dose: 20 mg Documented by: Furosemide (Lasix) 20 mg IVPUSH NOW ONE Stop: 06/25/20 14:31 Last Admin: 06/25/20 15:51 Dose: 20 mg Documented by: Furosemide (Lasix) 40 mg IVPUSH NOW ONE Stop: 07/02/20 11:46 Last Admin: 07/02/20 12:24 Dose: 40 mg Documented by: Furosemide (Lasix) 20 mg IVPUSH NOW ONE Stop: 07/06/20 13:16 Last Admin: 07/06/20 13:54 Dose: 20 mg Documented by: Furosemide (Lasix) 60 mg PO ONETIME ONE Stop: 07/09/20 11:46 Last Admin: 07/09/20 12:29 Dose: 60 mg Documented by: Furosemide (Lasix) [address] [facility] Last Admin: 07/12/20 08:21 Dose: 40 mg Documented by: Furosemide (Lasix) [address] [facility] Last Admin: 07/13/20 10:49 Dose: Not Given Documented by: Sodium Chloride (Normal Saline) 1,000 mls @ 125 mls/hr IV ASDIRECTED ONE Stop: 06/10/20 03:03 Last Admin: 06/09/20 20:49 Dose: Not Given Documented by: Ceftriaxone Sodium 1 gm/ (Sodium Chloride) 50 mls @ 100 mls/hr IV Q24H [facility] Stop: 06/15/20 23:59 Last Admin: 06/14/20 22:30 Dose: 100 mls/hr Documented by: Sodium Chloride (Normal Saline) 1,000 mls @ 125 mls/hr IV ASDIRECTED [facility] Last Admin: 06/10/20 08:37 Dose: 125 mls/hr Documented by: Sodium Chloride (Normal Saline) Confirm Administered Dose 50 mls @ as directed .ROUTE .STK-MED ONE Stop: 06/09/20 23:29 Last Admin: 06/10/20 03:33 Dose: Not Given Documented by: Doxycycline Hyclate 100 mg/ (Sodium Chloride) 100 mls @ 100 mls/hr IV Q12H [facility] Last Admin: 06/12/20 02:15 Dose: 100 mls/hr Documented by: Sodium Chloride (Normal Saline) 100 mls @ 3.5 mls/sec IV ASDIRECTED [facility] Stop: 06/10/20 18:00 Last Admin: 06/10/20 17:45 Dose: 4 mls/sec Documented by: Remdesivir 100 mg/ Sodium (Chloride) 100 mls @ 100 mls/hr IV Q24H [facility] Stop: 06/15/20 12:59 Last Admin: 06/15/20 12:49 Dose: 100 mls/hr Documented by: Remdesivir 200 mg/ Sodium (Chloride) 250 mls @ 250 mls/hr IV ONETIME ONE Stop: 06/11/20 12:59 Last Admin: 06/11/20 12:30 Dose: 250 mls/hr Documented by: Sodium Chloride (Normal Saline) 100 mls @ 4 mls/sec IV ASDIRECTED [facility] Sodium Chloride (Normal Saline) 84 mls @ 3 mls/sec IV ONETIME ONE Stop: 07/03/20 10:26 Last Admin: 07/03/20 11:02 Dose: 3 mls/sec Documented by: Sodium Chloride (Normal Saline) 100 mls @ 4 mls/sec IV ASDIRECTED [facility] Stop: 07/09/20 15:00 Last Admin: 07/09/20 12:21 Dose: 4 mls/sec Documented by: Lactated Ringer's (Ringers, Lactated) 1,000 mls @ 125 mls/hr IV ASDIRECTED ONE Stop: 07/14/20 20:14 Last Admin: 07/14/20 12:37 Dose: 125 mls/hr Documented by: Fat Emulsion Intravenous (Intralipid 20%) 100 mls @ 8.5 mls/hr IV ONETIME ONE Stop: 07/16/20 03:45 Last Admin: 07/15/20 15:56 Dose: 8.5 mls/hr Documented by: Multivitamins/Minerals 10 ml/Zinc 1 ml/ Amino Ac/Electrol/Dextrose/Calcium 1,011 mls @ 75 mls/hr IV .BY DURATION [facility] Last Admin: 07/20/20 02:39 Dose: 75 mls/hr Documented by: Amino Ac/Electrol/Dextrose/Calcium (Clinimix E 10/31) 1,000 mls @ 75 mls/hr IV .BY DURATION [facility] Last Admin: 07/19/20 13:13 Dose: 75 mls/hr Documented by: Albumin Human (Albumin 25%) 25 gm in 100 mls @ 25 mls/hr IV ONETIME ONE Stop: 07/19/20 13:29 Last Admin: 07/19/20 09:45 Dose: 25 mls/hr Documented by: Insulin Human Lispro (Humalog) [address] [facility]; Protocol Last Admin: 07/17/20 08:47 Dose: 3 units Documented by: Insulin Human Lispro (Humalog) [address] [facility]; Protocol Last Admin: 07/20/20 16:16 Dose: Not Given Documented by: Iopamidol (Isovue-370 (76%)) [address] [facility] Last Admin: 06/10/20 17:44 Dose: 57 ml Documented by: Iopamidol (Isovue-370 (76%)) 100 ml IV . DIRECTED ONE Stop: 06/21/20 09:55 Last Admin: 06/21/20 10:31 Dose: 100 ml Documented by: Iopamidol (Isovue-300 (61%)) 70 ml IV . DIRECTED PRN PRN Reason: RADIOLOGY EXAM Stop: 07/03/20 10:26 Iopamidol (Isovue-370 (76%)) [address] [facility] Stop: 07/03/20 16:00 Last Admin: 07/03/20 11:05 Dose: 70 ml Documented by: Iopamidol (Isovue-370 (76%)) [address] [facility] Stop: 07/09/20 14:00 Last Admin: 07/09/20 12:21 Dose: 100 ml Documented by: Lactobacillus Rhamnosus (Culturelle) [address] [facility] Last Admin: 07/15/20 08:32 Dose: 1 cap Documented by: Lorazepam (Ativan) 0.5 mg PO Q4H PRN PRN Reason: Anxiety Last Admin: 07/16/20 00:45 Dose: 0.5 mg Documented by: Metoprolol Succinate (Toprol Xl) [address] [facility] Last Admin: 07/20/20 09:02 Dose: Not Given Documented by: Morphine Sulfate (Morphine 10 Mg/0.5 Ml Oral Syringe) 5 mg BUCCAL Q4H PRN PRN Reason: Pain Last Admin: 07/17/20 17:30 Dose: 5 mg Documented by: Morphine Sulfate (Morphine 10 Mg/0.5 Ml Oral Syringe) 5 mg PO Q2H PRN PRN Reason: Pain Last Admin: 07/20/20 12:30 Dose: 5 mg Documented by: Ibrutinib (Imbruvica () 320 MgPom) [address] [facility] Last Admin: 06/10/20 21:24 Dose: Not Given Documented by: Non-Formulary Medication (Total Parenteral Nutrition, Central) 1,000 ml .XX .Continue Order [facility]; Protocol Stop: 07/16/20 16:00 Non-Formulary Medication (Total Parenteral Nutrition, Central) 1,000 ml .XX .Continue Order [facility]; Protocol Stop: 07/17/20 13:00 Non-Formulary Medication (Total Parenteral Nutrition, Central) 1,000 ml .XX .Continue Order [facility]; Protocol Stop: 07/18/20 13:00 Pantoprazole Sodium (Protonix Iv) [address] [facility] Last Admin: 06/11/20 08:15 Dose: 40 mg Documented by: Imbruvica 420mg Tab ((Ptom)) [address] [facility] Last Admin: 07/20/20 09:01 Dose: Not Given Documented by: Potassium Chloride (Klor-Con M20) 40 meq PO ONETIME ONE Stop: 07/12/20 12:01 Last Admin: 07/12/20 12:17 Dose: 40 meq Documented by: Simvastatin (Zocor) [address] [facility] Last Admin: 07/12/20 21:49 Dose: 40 mg Documented by: Sodium Chloride (Saline Flush) 10 ml FLUSH ASDIRECTED PRN PRN Reason: Keep Vein Open Last Admin: 12/22/20 19:38 Dose: 10 ml Documented by: Sodium Chloride (Saline Flush) 10 ml FLUSH ONETIME ONE Stop: 06/10/20 15:42 Last Admin: 06/10/20 17:45 Dose: 10 ml Documented by: Sodium Chloride (Saline Flush) 10 ml FLUSH ONETIME PRN PRN Reason: PER RADIOLOGY PROTOCOL Stop: 07/03/20 10:26 Last Admin: 07/03/20 11:02 Dose: 10 ml Documented by: Sodium Chloride (Saline Flush) 10 ml FLUSH ONETIME ONE Stop: 07/09/20 11:59 Last Admin: 07/09/20 12:21 Dose: 10 ml Documented by: - Exam Quality Assessment: Urine Catheter. No: Supplemental Oxygen General: Sedated, Lethargic Lungs: Decreased Breath Sounds. No: Rales, Rhonchi, Wheezing Cardiovascular: Regular Rate, Regular Rhythm, No Murmurs GI/Abdominal Exam: Soft, Non-Tender, No Organomegaly, No Distention Extremities: Non-Tender, No Pedal Edema Sepsis Event Note - Evaluation Sepsis Screening Result: No Definite Risk - Focused Exam Vital Signs: Vital Signs Temp Pulse Resp BP Pulse Ox 07/22/20 09:00 98.0 F 114 H 18 90/46 L 87 L - Problem List Review Problem List Initiated/Reviewed/Updated: Yes - Plan Plan:: ASSESSMENT AND PLAN COVID-19 PNEUMONIA-complicated by acute respiratory failure with hypoxia. Pneumothorax has resolved. Appears to be comfortable today with current management -Comfort cares only ACUTE URINARY RETENTION-acute urinary retention of unclear etiology. Doing well with the catheter in place. -Continue Interiano catheter with routine care RIGHT PNEUMOTHORAX AND PNEUMOMEDIASTINUM-Pneumothorax has resolved. CHRONIC LYMPHOCYTIC LEUKEMIA PALLIATIVE CARE-she has continued on the path of deterioration over the past week to 10 days. She is unresponsive and her would like to continue comfort cares only. He feels that this is very consistent with her previously expressed wishes. -Morphine and/or lorazepam as needed for comfort MAINTENANCE ISSUES -DVT prophylaxis; not indicated -GI prophylaxis; not indicated -Interiano catheter; currently used for comfort
--- NOTE | 2020-07-22 14:01 | PCM.DCSUM1 ---
Discharge Summary - Hospital Course Brief History: Ms. Giraldo was a 74-year-old woman who was admitted through the emergency department with shortness of breath and cough secondary to COVID-19 infection with bilateral pulmonary infiltrates and hypoxia. - Discharge Data Discharge Date: 07/22/20 Discharge Disposition: 20 Preliminary Cause of *Q: Respiratory Failure Event(s) Leading to Patient's *Q: COVID-19 infection resulting in progressive and fatal respiratory decline Condition: - Referral to Home Health Primary Care Physician: Reginaldo Penaloza MD - Discharge Diagnosis/Problem(s) (1) Acute respiratory failure with hypoxia SNOMED Code(s): 54593364, 560890708 ICD Code: J96.01 - ACUTE RESPIRATORY FAILURE WITH HYPOXIA Status: Acute Current Visit: Yes (2) Dehydration with hyponatremia SNOMED Code(s): 69114606 ICD Code: E86.0 - DEHYDRATION; E87.1 - HYPO-OSMOLALITY AND HYPONATREMIA S tatus: Acute Current Visit: Yes (3) Pneumonia due to COVID-19 virus SNOMED Code(s): 504317126508117559 ICD Code: U07.1 - COVID-19; J12.89 - OTHER VIRAL PNEUMONIA Status: Acute Current Visit: Yes (4) Chronic lymphocytic leukemia SNOMED Code(s): 98861578 ICD Code: C91.10 - CHRONIC LYMPHOCYTIC LEUK OF B-CELL TYPE NOT ACHIEVE REMIS Status: Chronic Current Visit: Yes (5) UTI (urinary tract infection) SNOMED Code(s): 63425603 ICD Code: N39.0 - URINARY TRACT INFECTION, SITE NOT SPECIFIED Status: Acute Current Visit: No Qualifiers: Urinary tract infection type: site unspecified Hematuria presence: without hematuria Qualified Code(s): N39.0 - Urinary tract infection, site not specified (6) CKD (chronic kidney disease) stage 2, GFR 60-89 ml/min SNOMED Code(s): 159728140 ICD Code: N18.2 - CHRONIC KIDNEY DISEASE, STAGE 2 (MILD) Status: Chronic Current Visit: No (7) Palliative care status SNOMED Code(s): 378860841 ICD Code: Z51.5 - ENCOUNTER FOR PALLIATIVE CARE Status: Acute Current Visit: Yes - Patient Summary/Data Hospital Course: Ms. Giraldo was a 74-year-old woman who was admitted through the emergency department by Dr. Penaloza with hypoxia and probable bacterial pneumonia complicating COVID-19 infection. She developed symptoms of upper respiratory tract infection approximately 2-1/2 weeks prior to admission. She tested positive for COVID-19 approximately 1-1/2 weeks prior to admission. She was d oing fairly well until she is developed increased shortness of breath and progressive weakness. On evaluation in the emergency department was noted to be hypoxic and also found to have pulmonary infiltrates. She was not started on therapy for COVID-19 because of the prolonged period of time present since onset of symptoms. Blood cultures were obtained and she was started on IV antibiotic therapy with ceftriaxone and doxycycline. After admission she developed progressive hypoxia and required increased levels of supplemental oxygen. CT scan of the chest was obtained showing no evidence of pulmonary emboli and documenting bilateral infiltrates. She was started on noninvasive positive pressure ventilation and IV Decadron. Because of her initial progressive decline she was also started on a course of remdesivir to see if this would help with management. She completed a course of IV antibiotic therapy without significant improvement in her respiratory status. She continued to require high level of supplemental oxygen and intermittent use of noninvasive positive pressure ventilation. Approximately 4 weeks into her course of hospitalization she did develop increased shortness of breath. CT scan of the chest was repeated and did show evidence of a right pneumothorax and pneumomediastinum. Use of noninvasive positive pressure ventilation was discontinued and she was monitored closely. Follow-up CT scan did show resolution of the pneumothorax. White blood cell count remained elevated throughout her hospitalization consistent with her known history of chronic lymphocytic leukemia. She was treated with enoxaparin throughout hospitalization and on recurrent CT scans had no evidence of pulmonary emboli. She had been started on TPN because of progressive weakness and malnutrition. Unfortunately she continued to experience progressive respiratory and physical decline to the point where she did become unresponsive. Situation was reviewed with her family and her requested that she be treated for comfort cares only and felt strongly this was consistent with her previously expressed wishes. All aggressive interventions were discontinued, morphine and lorazepam were used as needed for discomfort. She early on the afternoon of July 22, no attempts were made at resuscitation as per the patient's and family's previously expressed wishes. - Discharge Plan *PRESCRIPTION DRUG MONITORING PROGRAM REVIEWED*: Not Applicable *COPY OF PRESCRIPTION DRUG MONITORING REPORT IN PATIENT [place]OM[place]: Not Applicable Home Medications: Home Meds Metoprolol Succinate 25 mg PO DAILY 04/22/17 [History] Aspirin [Adult Low Dose Aspirin EC] 81 mg PO DAILY 02/16/18 [History] Simvastatin [Zocor] 40 mg PO BEDTIME 02/16/18 [History] Sulfamethoxazole/Trimethoprim [Bactrim Ds Tablet] 1 each PO Q12H #13 tablet 06/07/20 [Rx] Ibrutinib [Imbruvica] 420 mg PO DAILY 06/11/20 [History] Referrals: Reginaldo Penaloza MD [Primary Care Provider] - - Discharge Summary/Plan Comment DC Time >30 min.: No - Patient Data Vitals - Most Recent: Last Vital Signs Temp 98.0 F 07/22/20 09:00 Pulse 114 H 07/22/20 09:00 Resp 18 07/22/20 09:00 BP 90/46 L 07/22/20 09:00 Pulse Ox 87 L 07/22/20 09:00 Weight - Most Recent: 131 lb 2.801 oz I&O - Last 24 hours: Intake & Output 07/21/20 07/22/20 07/22/20 22:59 06:59 14:59 Output Total 150 Balance -150 Med Orders - Current: Current Medications Acetaminophen (Tylenol) 650 mg RECTAL Q4H PRN PRN Reason: Fever Benzonatate (Tessalon Perles) 100 mg PO TID PRN PRN Reason: Cough Bisacodyl (Dulcolax) 10 mg RECTAL DAILY PRN PRN Reason: Constipation Last Admin: 07/14/20 12:05 Dose: 10 mg Documented by: Guaifenesin/Dextromethorphan (Robitussin Dm) 10 ml PO Q4H PRN PRN Reason: Cough Lorazepam (Ativan Oral Concentrate 1mg/0.5 Ml U/D) 0.5 mg BUCCAL Q4H PRN PRN Reason: Other Last Admin: 07/22/20 09:23 Dose: 0.5 mg Documented by: Morphine Sulfate (Morphine 10 Mg/0.5 Ml Oral Syringe) 5 mg PO Q1H PRN PRN Reason: Pain Last Admin: 07/22/20 11:26 Dose: 5 mg Documented by: Ondansetron HCl (Zofran) 4 mg IVPUSH Q4H PRN PRN Reason: Nausea/Vomiting Sodium Chloride (Saline Flush) 10 ml FLUSH ASDIRECTED PRN PRN Reason: Keep Vein Open Last Admin: 06/21/20 10:31 Dose: 10 ml Documented by: Sodium Chloride ([place] Nasal [place]) 1 ml SHONDA QID PRN PRN Reason: Nasal Dryness Last Admin: 07/02/20 02:08 Dose: 1 spray Documented by: Discontinued Medications Acetaminophen (Tylenol) 650 mg PO Q4H PRN PRN Reason: fever, pain Last Admin: 07/15/20 22:40 Dose: 650 mg Documented by: Aspirin (Halfprin) 81 mg PO DAILY [facility] Last Admin: 07/20/20 09:01 Dose: Not Given Documented by: Azithromycin (Zithromax) 500 mg PO ONETIME ONE Stop: 06/09/20 22:45 Last Admin: 06/09/20 23:44 Dose: 500 mg Documented by: Azithromycin (Zithromax) 250 mg PO DAILY [facility] Stop: 06/13/20 09:01 Last Admin: 06/10/20 08:39 Dose: 250 mg Documented by: Ceftriaxone Sodium (Rocephin) Confirm Administered Dose 1 gm IV .STK-MED ONE Stop: 06/09/20 23:29 Last Admin: 06/09/20 23:42 Dose: 1 gm Documented by: Dexamethasone (Decadron) 6 mg IVPUSH Q24H [facility] Last Admin: 06/15/20 15:43 Dose: Not Given Documented by: Dexamethasone (Dexamethasone) 6 mg PO Q24H [facility] Last Admin: 06/19/20 16:48 Dose: 6 mg Documented by: Dexamethasone (Decadron) 4 mg IVPUSH Q24H [facility] Last Admin: 07/01/20 15:17 Dose: 4 mg Documented by: Dexamethasone (Dexamethasone) 4 mg PO Q24H [facility] Last Admin: 07/03/20 14:33 Dose: 4 mg Documented by: Dexamethasone (Dexamethasone) 3 mg PO Q24H [facility] Stop: 07/08/20 13:01 Last Admin: 07/08/20 12:57 Dose: 3 mg Documented by: Dexamethasone (Dexamethasone) 2 mg PO Q24H [facility] Stop: 07/13/20 13:01 Last Admin: 07/13/20 12:17 Dose: 2 mg Documented by: Dexamethasone (Dexamethasone) 1 mg PO Q24H [facility] Stop: 07/18/20 13:01 Last Admin: 07/18/20 12:37 Dose: Not Given Documented by: Dextrose (Glutose 15) 15 gm PO ONETIME PRN PRN Reason: Hypoglycemia Dextrose/Water (Dextrose 50% In Water) 50 ml IV ONETIME PRN PRN Reason: Hypoglycemia Doxycycline Hyclate (Vibramycin) 100 mg PO Q12H [facility] Stop: 06/15/20 23:59 Last Admin: 06/15/20 16:35 Dose: 100 mg Documented by: Enoxaparin Sodium (Lovenox) 60 mg SUBCUT BID [facility] Last Admin: 06/10/20 08:39 Dose: 60 mg Documented by: Enoxaparin Sodium (Lovenox) 40 mg SUBCUT Q24H [facility] Last Admin: 07/20/20 09:02 Dose: 40 mg Documented by: Furosemide (Lasix) 20 mg IVPUSH NOW ONE Stop: 06/10/20 14:46 Last Admin: 06/10/20 15:23 Dose: 20 mg Documented by: Furosemide (Lasix) 20 mg IVPUSH ONETIME ONE Stop: 06/21/20 13:01 Last Admin: 06/21/20 12:54 Dose: 20 mg Documented by: Furosemide (Lasix) 20 mg IVPUSH NOW ONE Stop: 06/25/20 14:31 Last Admin: 06/25/20 15:51 Dose: 20 mg Documented by: Furosemide (Lasix) 40 mg IVPUSH NOW ONE Stop: 07/02/20 11:46 Last Admin: 07/02/20 12:24 Dose: 40 mg Documented by: Furosemide (Lasix) 20 mg IVPUSH NOW ONE Stop: 07/06/20 13:16 Last Admin: 07/06/20 13:54 Dose: 20 mg Documented by: Furosemide (Lasix) 60 mg PO ONETIME ONE Stop: 07/09/20 11:46 Last Admin: 07/09/20 12:29 Dose: 60 mg Documented by: Furosemide (Lasix) 40 mg PO BIDDIURETIC [facility] Last Admin: 07/12/20 08:21 Dose: 40 mg Documented by: Furosemide (Lasix) 40 mg PO DAILY [facility] Last Admin: 07/13/20 10:49 Dose: Not Given Documented by: Sodium Chloride (Normal Saline) 1,000 mls @ 125 mls/hr IV ASDIRECTED ONE Stop: 06/10/20 03:03 Last Admin: 06/09/20 20:49 Dose: Not Given Documented by: Ceftriaxone Sodium 1 gm/ (Sodium Chloride) 50 mls @ 100 mls/hr IV Q24H [facility] Stop: 06/15/20 23:59 Last Admin: 06/14/20 22:30 Dose: 100 mls/hr Documented by: Sodium Chloride (Normal Saline) 1,000 mls @ 125 mls/hr IV ASDIRECTED [facility] Last Admin: 06/10/20 08:37 Dose: 125 mls/hr Documented by: Sodium Chloride (Normal Saline) Confirm Administered Dose 50 mls @ as directed .ROUTE .STK-MED ONE Stop: 06/09/20 23:29 Last Admin: 06/10/20 03:33 Dose: Not Given Documented by: Doxycycline Hyclate 100 mg/ (Sodium Chloride) 100 mls @ 100 mls/hr IV Q12H [facility] Last Admin: 06/12/20 02:15 Dose: 100 mls/hr Documented by: Sodium Chloride (Normal Saline) 100 mls @ 3.5 mls/sec IV ASDIRECTED [facility] Stop: 06/10/20 18:00 Last Admin: 06/10/20 17:45 Dose: 4 mls/sec Documented by: Remdesivir 100 mg/ Sodium (Chloride) 100 mls @ 100 mls/hr IV Q24H [facility] Stop: 06/15/20 12:59 Last Admin: 06/15/20 12:49 Dose: 100 mls/hr Documented by: Remdesivir 200 mg/ Sodium (Chloride) 250 mls @ 250 mls/hr IV ONETIME ONE Stop: 06/11/20 12:59 Last Admin: 06/11/20 12:30 Dose: 250 mls/hr Documented by: Sodium Chloride (Normal Saline) 100 mls @ 4 mls/sec IV ASDIRECTED [facility] Sodium Chloride (Normal Saline) 84 mls @ 3 mls/sec IV ONETIME ONE Stop: 07/03/20 10:26 Last Admin: 07/03/20 11:02 Dose: 3 mls/sec Documented by: Sodium Chloride (Normal Saline) 100 mls @ 4 mls/sec IV ASDIRECTED [facility] Stop: 07/09/20 15:00 Last Admin: 07/09/20 12:21 Dose: 4 mls/sec Documented by: Lactated Ringer's (Ringers, Lactated) 1,000 mls @ 125 mls/hr IV ASDIRECTED ONE Stop: 07/14/20 20:14 Last Admin: 07/14/20 12:37 Dose: 125 mls/hr Documented by: Fat Emulsion Intravenous (Intralipid 20%) 100 mls @ 8.5 mls/hr IV ONETIME ONE Stop: 07/16/20 03:45 Last Admin: 07/15/20 15:56 Dose: 8.5 mls/hr Documented by: Multivitamins/Minerals 10 ml/Zinc 1 ml/ Amino Ac/Electrol/Dextrose/Calcium 1,011 mls @ 75 mls/hr IV .BY DURATION [facility] Last Admin: 07/20/20 02:39 Dose: 75 mls/hr Documented by: Amino Ac/Electrol/Dextrose/Calcium (Clinimix E 15) 1,000 mls @ 75 mls/hr IV .BY DURATION [facility] Last Admin: 07/19/20 13:13 Dose: 75 mls/hr Documented by: Albumin Human (Albumin 25%) 25 gm in 100 mls @ 25 mls/hr IV ONETIME ONE Stop: 07/19/20 13:29 Last Admin: 07/19/20 09:45 Dose: 25 mls/hr Documented by: Insulin Human Lispro (Humalog) 0 unit SUBCUT QIDACANDBED [facility]; Protocol Last Admin: 07/17/20 08:47 Dose: 3 units Documented by: Insulin Human Lispro (Humalog) 0 unit SUBCUT QIDACANDBED [facility]; Protocol Last Admin: 07/20/20 16:16 Dose: Not Given Documented by: Iopamidol (Isovue-370 (76%)) 57 ml IV . DIRECTED [facility] Last Admin: 06/10/20 17:44 Dose: 57 ml Documented by: Iopamidol (Isovue-370 (76%)) 100 ml IV . DIRECTED ONE Stop: 06/21/20 09:55 Last Admin: 06/21/20 10:31 Dose: 100 ml Documented by: Iopamidol (Isovue-300 (61%)) 70 ml IV . DIRECTED PRN PRN Reason: RADIOLOGY EXAM Stop: 07/03/20 10:26 Iopamidol (Isovue-370 (76%)) 70 ml IV . DIRECTED [facility] Stop: 07/03/20 16:00 Last Admin: 07/03/20 11:05 Dose: 70 ml Documented by: Iopamidol (Isovue-370 (76%)) 100 ml IV . DIRECTED [facility] Stop: 07/09/20 14:00 Last Admin: 07/09/20 12:21 Dose: 100 ml Documented by: Lactobacillus Rhamnosus (Culturelle) 1 cap PO BID [facility] Last Admin: 07/15/20 08:32 Dose: 1 cap Documented by: Lorazepam (Ativan) 0.5 mg PO Q4H PRN PRN Reason: Anxiety Last Admin: 07/16/20 00:45 Dose: 0.5 mg Documented by: Metoprolol Succinate (Toprol Xl) 25 mg PO DAILY [facility] Last Admin: 07/20/20 09:02 Dose: Not Given Documented by: Morphine Sulfate (Morphine 10 Mg/0.5 Ml Oral Syringe) 5 mg BUCCAL Q4H PRN PRN Reason: Pain Last Admin: 07/17/20 17:30 Dose: 5 mg Documented by: Morphine Sulfate (Morphine 10 Mg/0.5 Ml Oral Syringe) 5 mg PO Q2H PRN PRN Reason: Pain Last Admin: 07/20/20 12:30 Dose: 5 mg Documented by: Ibrutinib (Imbruvica () 320 MgPom) 0 mg PO BEDTIME [facility] Last Admin: 06/10/20 21:24 Dose: Not Given Documented by: Non-Formulary Medication (Total Parenteral Nutrition, Central) 1,000 ml .XX .Continue Order [facility]; Protocol Stop: 07/16/20 16:00 Non-Formulary Medication (Total Parenteral Nutrition, Central) 1,000 ml .XX .Continue Order [facility]; Protocol Stop: 07/17/20 13:00 Non-Formulary Medication (Total Parenteral Nutrition, Central) 1,000 ml .XX .Continue Order [facility]; Protocol Stop: 07/18/20 13:00 Pantoprazole Sodium (Protonix Iv) 40 mg IVPUSH DAILY [facility] Last Admin: 06/11/20 08:15 Dose: 40 mg Documented by: Imbruvica 420mg Tab ((Ptom)) 1 each PO DAILY [facility] Last Admin: 07/20/20 09:01 Dose: Not Given Documented by: Potassium Chloride (Klor-Con M20) 40 meq PO ONETIME ONE Stop: 07/12/20 12:01 Last Admin: 07/12/20 12:17 Dose: 40 meq Documented by: Simvastatin (Zocor) 40 mg PO BEDTIME [facility] Last Admin: 07/12/20 21:49 Dose: 40 mg Documented by: Sodium Chloride (Saline Flush) 10 ml FLUSH ASDIRECTED PRN PRN Reason: Keep Vein Open Last Admin: 06/09/20 19:38 Dose: 10 ml Documented by: Sodium Chloride (Saline Flush) 10 ml FLUSH ONETIME ONE Stop: 06/10/20 15:42 Last Admin: 06/10/20 17:45 Dose: 10 ml Documented by: Sodium Chloride (Saline Flush) 10 ml FLUSH ONETIME PRN PRN Reason: PER RADIOLOGY PROTOCOL Stop: 07/03/20 10:26 Last Admin: 07/03/20 11:02 Dose: 10 ml Documented by: Sodium Chloride (Saline Flush) 10 ml FLUSH ONETIME ONE Stop: 07/09/20 11:59 Last Admin: 07/09/20 12:21 Dose: 10 ml Documented by: - Exam General: Reports: Other ()
== END 2020-07-22 15:06 | disposition expired | DRG 177 ==
LOC: JP.ED 18:32 → JP.MS 20:40 → JP.2SS 06-15 12:17 → JP.MS 06-22 13:24 → JP.2SS 07-20 13:22
PROVIDERS: ADMIT Family Medicine; ATTEND Hospitalist
PROC: 5A09557 Assistance with Respiratory Ventilation, Greater than 96 Consecutive Hours, Continuous Positive Airway Pressure (ICD-10-PCS; principal; 2020-06-10)
PROC: 5A0955A Assistance with Respiratory Ventilation, Greater than 96 Consecutive Hours, High Flow/Velocity Cannula (ICD-10-PCS; 2020-06-10)
PROC: XW033E5 Introduction of Remdesivir Anti-infective into Peripheral Vein, Percutaneous Approach, New Technology Group 5 (ICD-10-PCS; 2020-06-11)
PROC: 3E0436Z Introduction of Nutritional Substance into Central Vein, Percutaneous Approach (ICD-10-PCS; 2020-06-11)
DX: U07.1 COVID-19 (principal); J12.82 Pneumonia due to coronavirus disease 2019; J96.01 Acute respiratory failure with hypoxia; J12.89 Other viral pneumonia; R09.02 Hypoxemia; J15.9 Unspecified bacterial pneumonia; D64.9 Anemia, unspecified; E87.1 Hypo-osmolality and hyponatremia; C91.10 Chronic lymphocytic leukemia of B-cell type not having achieved remission; R79.89 Other specified abnormal findings of blood chemistry; N39.0 Urinary tract infection, site not specified; J93.9 Pneumothorax, unspecified; I10 Essential (primary) hypertension; E46 Unspecified protein-calorie malnutrition; E86.0 Dehydration; Z51.5 Encounter for palliative care; N18.2 Chronic kidney disease, stage 2 (mild); J98.2 Interstitial emphysema; I25.10 Atherosclerotic heart disease of native coronary artery without angina pectoris; E78.5 Hyperlipidemia, unspecified; Z66 Do not resuscitate; I12.9 Hypertensive chronic kidney disease with stage 1 through stage 4 chronic kidney disease, or unspecified chronic kidney disease; H54.7 Unspecified visual loss; E78.00 Pure hypercholesterolemia, unspecified; D63.1 Anemia in chronic kidney disease; R33.9 Retention of urine, unspecified; I25.9 Chronic ischemic heart disease, unspecified; Z95.5 Presence of coronary angioplasty implant and graft; Z79.82 Long term (current) use of aspirin; Z79.899 Other long term (current) drug therapy; Z28.21 Immunization not carried out because of patient refusal; Z90.49 Acquired absence of other specified parts of digestive tract; Z90.710 Acquired absence of both cervix and uterus; Z98.890 Other specified postprocedural states; Z99.81 Dependence on supplemental oxygen; Z68.21 Body mass index [BMI] 21.0-21.9, adult
CPT/HCPCS: 36415; 36600; 51702; 71045; 71045-26; 71275; 71275-26; 74176; 74176-26; 80048; 80053; 81001; 82728; 82803; 82962; 83605; 83615; 83735; 84145; 84484; 85025; 85027; 85379; 85610; 85730; 86140; 93005; 93010; 94640; 94660; 94762; 97110-GP; 97162-GP; 97530-GP; 99231; 99232; 99233; 99238; 99285; 99285-25; A9270-GY; C1751; C9113; J0696; J1100; J1650; J1815; J1940; J3490; J7030; J7050; J7120; J8540; P9047; Q9967